=== PATIENT | female | born 1940 | race Caucasian/White ===

== ENCOUNTER → 2016-08-04 | Day surgery (SDC) | payer OTHER ==
[2016-07-27 08:55] VITALS: Ht 167.6 cm; Wt 54.1 kg
[~2016-08-04] VITALS: Ht 167.6 cm; Wt 54.1 kg
[~2016-08-04] MED LIST: 500ML BSS 0.3ML EPI 1:1000PF IRRIG ONE; ACETAMINOPHEN 325 MG TAB PO PRN; AMVISC PLUS 0.8ML SYRINGE INT OCU ONE; ASPCH81X PO; ATROPINE SULFATE 0.1 MG/ML 5ML SYR IV PRN; BSS FLUSH ONE; BUSP-8 PO; EpHEDrine SULFATE INJ 50 MG/ML AMP IV PRN; EpINEphrine INJ 1MG/ML AMP 1 MG/ML AMP ONE; FENTANYL CITRATE INJ 50 MCG/1 ML 2 ML VIAL IV PRN; FLUMAZENIL 0.1 MG/1 ML 10 ML VIAL IV PRN; HYDROmorphone INJ 2 MG/ML SYR/VIAL IV PRN; LABETALOL HCL IV 5 MG/ML 20ML IV PRN; LACTATED RINGER'S 1000ML 500 ML IV SCH; LIDOCAINE 3.5% OPH GEL PER APPLICATION CHARGE ONE; LIDOCAINE HCL 1% MPF 2 ML VIAL ONE; LISI-725 PO; LISI10TA PO; MEPERIDINE HCL 25 MG/ML CARP IV PRN; MIDAZOLAM HCL 1 MG/ML 2ML VIAL ONE; NALOXONE HCL 0.4 MG/1 ML VIAL/CARP IV PRN; OCUCOAT 1 ML SOLN IO ONE; ONDANSETRON INJ 2 MG/ML 2 ML VIAL IV PRN; PHENYLEPHRINE 100MCG/ML 5ML SYR IV PRN; POVIDONE-IODINE OP SOLN 30 ML BTL ONE; PRED1SUS OPR; PROPARACAINE 0.5% OP SOLN PER DROP CHARGE OPR SCH; TOBRAMYCIN/DEXAMETHASONE OPH OINT PER APPLN CHARGE ONE; VTMD PO
[2016-08-04] MEDS: PHENYLEPHRINE HCL 2.5% OP SOLN PER DROP CHARGE OPR SCH ×2 (07:39→07:44)
[2016-08-04] MEDS: TROPICAMIDE 1% OP SOLN PER DROP CHARGE OPR SCH ×2 (07:40→07:45)
[2016-08-04] MEDS: CYCLOPENTOLATE HCL 1% OP SOLN PER DROP CHARGE OPR SCH ×2 (07:41→07:46)
[2016-08-04] MEDS: KETOROLAC 0.5% OP SOLN PER DROP CHARGE OPR SCH ×2 (07:42→07:47)
[2016-08-04] MEDS: GATIFLOXACIN OP SOLN PER DROP CHARGE OPR SCH ×2 (07:43→07:53)
--- NOTE | 2016-08-04 08:20 | History & Physical Bridge - [place] ---
H&P Re-Evaluation Bridge Note: I have examined the patient, reviewed the History & Physical and in the interval since the performance of the History & Physical I have noted the following changes of clinical significance: Diagnosis: Right Cataract Procedure: Right Cataract Removal with Lens Implant No changes noted
[2016-08-04 08:40] VITALS: TEMP 36
--- NOTE | 2016-08-04 08:40 | Discharge Instructions-SurgCtr ---
Discharge Instructions Visit Reason for Visit: Cataract Right Eye Discharge Discharge Diagnosis / Problem: cataract Discharge Goals Goal(s): Improve function Activity Recommendations Activity Limitations: per Instructions/Follow-up section Anesthesia . Post Anesthesia Instructions: If you have had General Anesthesia or IV Sedation: * Do not drive today. * Resume driving when surgeon permits. * Do not make important decisions or sign legal documents today. * Call surgeon for: 1. Temperature elevations greater than 101 degrees F. 2. Uncontrollable pain. 3. Excessive bleeding. 4. Persistent nausea and vomiting. 5. Medication intolerance (nausea, vomiting or rash). * For nausea and vomiting use only clear liquids such as: tea, soda, bouillon until nausea subsides, then gradually increase diet as tolerated. * If you have any concerns or questions, call your surgeon's office. If physician is unavailable and it is an emergency, call 911 or go to the nearest emergency room. . Instructions / Follow-Up Instructions / Follow-Up ACTIVITY RECOMMENDATIONS: * No strenuous lifting, jogging or running for 4 days * No swimming or yard work for 1 week. * Limited bending is permitted, such as putting on shoes. RETURN TO SCHOOL/WORK: No work until seen by physician in office. MEDICATIONS: Resume previous medications unless instructed otherwise by your surgeon. This includes eye drops for glaucoma. Zymaxid/Gatifloxacin (bettencourt cap) - one drop every 2 hours until bedtime Nevanac/Ilevro/Prolensa/Ketorolac (kidd cap) - one drop every 4 hours until bedtime Prednisolone (white/pink cap, SHAKE WELL) - one drop every 2 hours until bedtime Starting tomorrow - all 3 drops every 4 hours until seen in the office Optive drops - as needed for discomfort SPECIAL CARE INSTRUCTIONS: * Wear eyeshield when sleeping, for four nights. * You may wear your own glasses or sunglasses while awake. * You may read or watch TV * You may shower and wash your face, but be gentle around the eye and pat dry. * Blurry vision and mild irritation are normal. * Call office if pain is more severe or vision becomes dark at . FOLLOW UP VISIT: Follow-up with Dr Ontiveros tomorrow. Diet Recommendations Home Diet: resume previous diet Procedures Procedures Performed: Right Cataract Phacoemulsification With Intraocular Lens Implant Pending Studies Studies pending at discharge: no Medical Emergencies . Who to Call and When: Medical Emergencies: If at any time you feel your situation is an emergency, please call 911 immediately. . Non-Emergent Contact Non-Emergency issues call your: [employer] Machine Operator . . "Provider Documentation" section prepared by Toribio Ontiveros.
--- NOTE | 2016-08-04 08:40 | [facility] Operative Report ---
Operative Report 1. PREOPERATIVE DIAGNOSIS: Cataract of the right eye. 2. POSTOPERATIVE DIAGNOSIS: Same. 3. PROCEDURE: Phacoemulsification with intraocular lens implantation of the right eye. SURGEON: Dr. Toribio Ontiveros. ANESTHESIA: Topical Lidocaine gel, 1% Non- Preserved intracameral Lidocaine, and monitored intravenous sedation. INDICATIONS FOR THE PROCEDURE: The patient is a 76 - year-old female with a history of cataract of the right eye causing significant visual impairment. The details of the proposed procedure were explained to the patient who asked appropriate questions and following discussion of all risks, benefits and alternatives agreed to have the procedure done. 4. OPERATION AND FINDINGS: DESCRIPTION OF PROCEDURE: After informed consent was obtained, the patient was brought to the Operating Room at the [facility]. The patient was placed in a supine position and then the right eye was prepped and draped in the usual sterile fashion for intraocular surgery. A drop of topical Lidocaine gel was placed in the operative eye. A wire lid speculum was then placed in the fornices. A corneal paracentesis was then created temporally. The Non-Preserved Lidocaine was then instilled into the anterior chamber. The anterior chamber was then pressurized with viscoelastic. A 2.0 mm clear corneal incision was then created temporally. A cystotome was inserted into the anterior chamber and used to create a tear in the anterior lens capsule. This capsular tear was then used to create a small flap and the flap was dragged in a counterclockwise direction in order to create a continuous curvilinear capsulorrhexis. Hydrodissection was accomplished with balanced salt solution. Phacoemulsification of the lens nucleus was then performed in a standard [id number] technique. The phaco time was 51 seconds with an average power of 22 %. The remaining cortical material was removed using irrigation aspiration. The capsular bag was then filled with viscoelastic. A Bausch & Lomb MI60L +24.0 diopters lens was then loaded into the injector and injected into the capsular bag. The remaining viscoelastic was removed with the irrigation aspiration handpiece. The wound was hydrated and then checked and found to be watertight. The intraocular pressure was checked and found to be adequate. The wire lid speculum was removed and the patient's face was cleaned and dried. TobraDex ointment was placed in the inferior fornix. The patient was discharged to the Recovery Room having tolerated the procedure well. There were no complications. The patient will be seen tomorrow in the office for follow-up. I attest to the content of the Intraoperative Record and any orders documented therein. Any exceptions are noted below.
--- NOTE | 2016-08-04 08:55 | Anesthesia Progress Nt - [facility] ---
Anesthesia Post Op Note Date & Time Aug 04, 2016 at 08:55 Vital Signs Pain Intensity: 0 Vital Signs Past 12 Hours Date Time Temp Pulse Resp B/P Pulse Ox O2 Delivery O2 Flow Rate FiO2 08/04/16 08:40 36.0 76 16 148/73 99 Room Air 08/04/16 07:23 36.4 110 16 172/80 98 Room Air Notes Mental Status: alert / awake / arousable, participated in evaluation Pt Amnestic to Procedure: Yes Nausea / Vomiting: adequately controlled Pain: adequately controlled Airway Patency, RR, SpO2: stable & adequate BP & HR: stable & adequate Hydration State: stable & adequate Anesthetic Complications: no major complications apparent
[2016-08-04 09:10] VITALS: BP 141/81; PULSE 99; O2SAT 95
== END | disposition home or self-care (01) ==
LOC: X.SURG 07:07
PROVIDERS: ATTEND Ophthalmology
DX: H26.9 Unspecified cataract (principal); F41.9 Anxiety disorder, unspecified; I10 Essential (primary) hypertension; M81.0 Age-related osteoporosis without current pathological fracture; E55.9 Vitamin D deficiency, unspecified

== ENCOUNTER → 2016-09-01 | Day surgery (SDC) | payer OTHER ==
[2016-08-28 08:57] VITALS: Ht 167.6 cm; Wt 54.1 kg
[~2016-09-01] VITALS: Ht 167.6 cm; Wt 54.1 kg
[~2016-09-01] MED LIST changes: -ATROPINE SULFATE 0.1 MG/ML 5ML SYR IV PRN; -EpHEDrine SULFATE INJ 50 MG/ML AMP IV PRN; -FENTANYL CITRATE INJ 50 MCG/1 ML 2 ML VIAL IV PRN; -FLUMAZENIL 0.1 MG/1 ML 10 ML VIAL IV PRN; -HYDROmorphone INJ 2 MG/ML SYR/VIAL IV PRN; -LABETALOL HCL IV 5 MG/ML 20ML IV PRN; -MEPERIDINE HCL 25 MG/ML CARP IV PRN; -MIDAZOLAM HCL 1 MG/ML 2ML VIAL ONE; -NALOXONE HCL 0.4 MG/1 ML VIAL/CARP IV PRN; -OCUCOAT 1 ML SOLN IO ONE; -ONDANSETRON INJ 2 MG/ML 2 ML VIAL IV PRN; -PHENYLEPHRINE 100MCG/ML 5ML SYR IV PRN; +PHENYLEPHRINE HCL 10% OP SOLN PER DROP CHARGE OPR SCH
[2016-09-01] MEDS: KETOROLAC 0.5% OP SOLN PER DROP CHARGE OPR SCH ×2 (07:26→07:31)
[2016-09-01] MEDS: GATIFLOXACIN OP SOLN PER DROP CHARGE OPR SCH ×2 (07:27→07:32)
--- NOTE | 2016-09-01 07:39 | History & Physical Bridge - [place] ---
H&P Re-Evaluation Bridge Note: I have examined the patient, reviewed the History & Physical and in the interval since the performance of the History & Physical I have noted the following changes of clinical significance: No changes noted
--- NOTE | 2016-09-01 08:01 | Discharge Instructions-SurgCtr ---
Discharge Instructions Date of Service Sep 01, 2016. Visit Reason for Visit: Right Eye Retained Lens Fragments Discharge Discharge Diagnosis / Problem: cataract Discharge Goals Goal(s): Improve function Activity Recommendations Activity Limitations: per Instructions/Follow-up section Anesthesia . Post Anesthesia Instructions: If you have had General Anesthesia or IV Sedation: * Do not drive today. * Resume driving when surgeon permits. * Do not make important decisions or sign legal documents today. * Call surgeon for: 1. Temperature elevations greater than 101 degrees F. 2. Uncontrollable pain. 3. Excessive bleeding. 4. Persistent nausea and vomiting. 5. Medication intolerance (nausea, vomiting or rash). * For nausea and vomiting use only clear liquids such as: tea, soda, bouillon until nausea subsides, then gradually increase diet as tolerated. * If you have any concerns or questions, call your surgeon's office. If physician is unavailable and it is an emergency, call 911 or go to the nearest emergency room. . Instructions / Follow-Up Instructions / Follow-Up ACTIVITY RECOMMENDATIONS: * No strenuous lifting, jogging or running for 4 days * No swimming or yard work for 1 week. * Limited bending is permitted, such as putting on shoes. RETURN TO SCHOOL/WORK: No work until seen by physician in office. MEDICATIONS: Resume previous medications unless instructed otherwise by your surgeon. This includes eye drops for glaucoma. Zymaxid/Gatifloxacin (bettencourt cap) - one drop every 2 hours until bedtime Nevanac/Ilevro/Prolensa/Ketorolac (kidd cap) - one drop every 4 hours until bedtime Prednisolone (white/pink cap, SHAKE WELL) - one drop every 2 hours until bedtime Starting tomorrow - all 3 drops every 4 hours until seen in the office Optive drops - as needed for discomfort SPECIAL CARE INSTRUCTIONS: * Wear eyeshield when sleeping, for four nights. * You may wear your own glasses or sunglasses while awake. * You may read or watch TV * You may shower and wash your face, but be gentle around the eye and pat dry. * Blurry vision and mild irritation are normal. * Call office if pain is more severe or vision becomes dark at . FOLLOW UP VISIT: Follow-up with Dr Ontiveros tomorrow. Diet Recommendations Home Diet: resume previous diet Procedures Procedures Performed: Right Eye Retained Lens Fragment Removal Pending Studies Studies pending at discharge: no Medical Emergencies . Who to Call and When: Medical Emergencies: If at any time you feel your situation is an emergency, please call 911 immediately. . Non-Emergent Contact Non-Emergency issues call your: Director Business Development . . "Provider Documentation" section prepared by Toribio Ontiveros.
--- NOTE | 2016-09-01 08:04 | [facility] Operative Report ---
Operative Report Date of Service Sep 01, 2016. Operative Report 1. PREOPERATIVE DIAGNOSIS: Retained lens fragment of the right eye. 2. POSTOPERATIVE DIAGNOSIS: Same. 3. PROCEDURE: Removal of retained lens fragment of the right eye. SURGEON: Dr. Toribio Ontiveros. ANESTHESIA: Topical Lidocaine gel, 1% Non- Preserved intracameral Lidocaine INDICATIONS FOR THE PROCEDURE: The patient is a 76 - year-old female with a history of retained lens fragment of the right eye causing significant visual impairment. The details of the proposed procedure were explained to the patient who asked appropriate questions and following discussion of all risks, benefits and alternatives agreed to have the procedure done. 4. OPERATION AND FINDINGS: DESCRIPTION OF PROCEDURE: After informed consent was obtained, the patient was brought to the Operating Room at the [facility]. The patient was placed in a supine position and then the right eye was prepped and draped in the usual sterile fashion for intraocular surgery. A drop of topical Lidocaine gel was placed in the operative eye. A wire lid speculum was then placed in the fornices. The previously made clear corneal wound was opened with a erin spatula. The Non-Preserved Lidocaine was then instilled into the anterior chamber. The anterior chamber was then pressurized with viscoelastic. The lens fragment was removed with the irrigation aspiration hand piece. The remaining viscoelastic was removed with the irrigation aspiration handpiece. The wound was hydrated and then checked and found to be watertight. The intraocular pressure was checked and found to be adequate. The wire lid speculum was removed and the patient's face was cleaned and dried. TobraDex ointment was placed in the inferior fornix. The patient was discharged to the Recovery Room having tolerated the procedure well. There were no complications. The patient will be seen tomorrow in the office for follow-up. I attest to the content of the Intraoperative Record and any orders documented therein. Any exceptions are noted below.
[2016-09-01 08:08] VITALS: TEMP 36.6
[2016-09-01 08:23] VITALS: O2SAT 95
[2016-09-01 08:25] VITALS: BP 160/87; PULSE 103
== END | disposition home or self-care (01) ==
LOC: X.SURG 07:06
PROVIDERS: ATTEND Ophthalmology
DX: H59.021 Cataract (lens) fragments in eye following cataract surgery, right eye (principal); I10 Essential (primary) hypertension; Z98.41 Cataract extraction status, right eye; Z68.1 Body mass index [BMI] 19.9 or less, adult; Z90.89 Acquired absence of other organs; Z87.891 Personal history of nicotine dependence; Z82.0 Family history of epilepsy and other diseases of the nervous system; Z82.3 Family history of stroke; Z82.49 Family history of ischemic heart disease and other diseases of the circulatory system

== ENCOUNTER → 2016-10-22 | Day surgery (SDC) | payer OTHER ==
[2016-09-29 13:51] VITALS: Ht 167.6 cm; Wt 54.1 kg
[~2016-10-22] VITALS: Ht 167.6 cm; Wt 54.1 kg
[~2016-10-22] MED LIST changes: +ATROPINE SULFATE 0.1 MG/ML 5ML SYR IV PRN; +EpHEDrine SULFATE INJ 50 MG/ML AMP IV PRN; +FENTANYL CITRATE INJ 50 MCG/1 ML 2 ML VIAL IV PRN; +FLUMAZENIL 0.1 MG/1 ML 10 ML VIAL IV PRN; +HYDROmorphone INJ 2 MG/ML SYR/VIAL IV PRN; +LABETALOL HCL IV 5 MG/ML 20ML IV PRN; +MEPERIDINE HCL 25 MG/ML CARP IV PRN; +MIDAZOLAM HCL 1 MG/ML 2ML VIAL ONE; +NALOXONE HCL 0.4 MG/1 ML VIAL/CARP IV PRN; +OCUCOAT 1 ML SOLN IO ONE; +ONDANSETRON INJ 2 MG/ML 2 ML VIAL IV PRN; +PHENYLEPHRINE 100MCG/ML 5ML SYR IV PRN; -PHENYLEPHRINE HCL 10% OP SOLN PER DROP CHARGE OPR SCH; +PROPARACAINE 0.5% OP SOLN PER DROP CHARGE OPL SCH; -PROPARACAINE 0.5% OP SOLN PER DROP CHARGE OPR SCH
[2016-10-22] MEDS: PHENYLEPHRINE HCL 2.5% OP SOLN PER DROP CHARGE OPL SCH ×2 (09:47→09:51)
[2016-10-22] MEDS: KETOROLAC 0.5% OP SOLN PER DROP CHARGE OPL SCH ×2 (09:48→09:52)
[2016-10-22] MEDS: CYCLOPENTOLATE HCL 1% OP SOLN PER DROP CHARGE OPL SCH ×2 (09:48→09:52)
[2016-10-22] MEDS: TROPICAMIDE 1% OP SOLN PER DROP CHARGE OPL SCH ×2 (09:48→09:52)
[2016-10-22] MEDS: GATIFLOXACIN OP SOLN PER DROP CHARGE OPL SCH ×2 (09:49→09:54)
--- NOTE | 2016-10-22 10:08 | History & Physical Bridge - [place] ---
H&P Re-Evaluation Bridge Note: I have examined the patient, reviewed the History & Physical and in the interval since the performance of the History & Physical I have noted the following changes of clinical significance: Diagnosis: Left Cataract Procedure: Left Cataract Removal with Lens Implant No changes noted
--- NOTE | 2016-10-22 10:50 | [facility] Operative Report ---
Operative Report Date of Service October 22, 2016. Operative Report 1. PREOPERATIVE DIAGNOSIS: Cataract of the left eye. 2. POSTOPERATIVE DIAGNOSIS: Same. 3. PROCEDURE: Phacoemulsification with intraocular lens implantation of the left eye. SURGEON: Dr. Toribio Ontiveros. ANESTHESIA: Topical Lidocaine gel, 1% Non- Preserved intracameral Lidocaine, and monitored intravenous sedation. INDICATIONS FOR THE PROCEDURE: The patient is a 76 - year-old female with a history of cataract of the left eye causing significant visual impairment. The details of the proposed procedure were explained to the patient who asked appropriate questions and following discussion of all risks, benefits and alternatives agreed to have the procedure done. 4. OPERATION AND FINDINGS: DESCRIPTION OF PROCEDURE: After informed consent was obtained, the patient was brought to the Operating Room at the [facility]. The patient was placed in a supine position and then the left eye was prepped and draped in the usual sterile fashion for intraocular surgery. A drop of topical Lidocaine gel was placed in the operative eye. A wire lid speculum was then placed in the fornices. A corneal paracentesis was then created temporally. The Non-Preserved Lidocaine was then instilled into the anterior chamber. The anterior chamber was then pressurized with viscoelastic. A 2.0 mm clear corneal incision was then created temporally. A cystotome was inserted into the anterior chamber and used to create a tear in the anterior lens capsule. This capsular tear was then used to create a small flap and the flap was dragged in a counterclockwise direction in order to create a continuous curvilinear capsulorrhexis. Hydrodissection was accomplished with balanced salt solution. Phacoemulsification of the lens nucleus was then performed in a standard [id number] technique. The phaco time was 44 seconds with an average power of 20 %. The remaining cortical material was removed using irrigation aspiration. The capsular bag was then filled with viscoelastic. A Bausch & Lomb MI60L +23.5 diopters lens was then loaded into the injector and injected into the capsular bag. The remaining viscoelastic was removed with the irrigation aspiration handpiece. The wound was hydrated and then checked and found to be watertight. The intraocular pressure was checked and found to be adequate. The wire lid speculum was removed and the patient's face was cleaned and dried. TobraDex ointment was placed in the inferior fornix. The patient was discharged to the Recovery Room having tolerated the procedure well. There were no complications. The patient will be seen tomorrow in the office for follow-up. I attest to the content of the Intraoperative Record and any orders documented therein. Any exceptions are noted below.
--- NOTE | 2016-10-22 10:50 | Discharge Instructions-SurgCtr ---
Discharge Instructions Date of Service October 22, 2016. Visit Reason for Visit: Cataract Left Eye Discharge Discharge Diagnosis / Problem: cataract Discharge Goals Goal(s): Improve function Activity Recommendations Activity Limitations: per Instructions/Follow-up section Anesthesia . Post Anesthesia Instructions: If you have had General Anesthesia or IV Sedation: * Do not drive today. * Resume driving when surgeon permits. * Do not make important decisions or sign legal documents today. * Call surgeon for: 1. Temperature elevations greater than 101 degrees F. 2. Uncontrollable pain. 3. Excessive bleeding. 4. Persistent nausea and vomiting. 5. Medication intolerance (nausea, vomiting or rash). * For nausea and vomiting use only clear liquids such as: tea, soda, bouillon until nausea subsides, then gradually increase diet as tolerated. * If you have any concerns or questions, call your surgeon's office. If physician is unavailable and it is an emergency, call 911 or go to the nearest emergency room. . Instructions / Follow-Up Instructions / Follow-Up ACTIVITY RECOMMENDATIONS: * No strenuous lifting, jogging or running for 4 days * No swimming or yard work for 1 week. * Limited bending is permitted, such as putting on shoes. RETURN TO SCHOOL/WORK: No work until seen by physician in office. MEDICATIONS: Resume previous medications unless instructed otherwise by your surgeon. This includes eye drops for glaucoma. Zymaxid/Gatifloxacin (bettencourt cap) - one drop every 2 hours until bedtime Nevanac/Ilevro/Prolensa/Ketorolac (kidd cap) - one drop every 4 hours until bedtime Prednisolone (white/pink cap, SHAKE WELL) - one drop every 2 hours until bedtime Starting tomorrow - all 3 drops every 4 hours until seen in the office Optive drops - as needed for discomfort SPECIAL CARE INSTRUCTIONS: * Wear eyeshield when sleeping, for four nights. * You may wear your own glasses or sunglasses while awake. * You may read or watch TV * You may shower and wash your face, but be gentle around the eye and pat dry. * Blurry vision and mild irritation are normal. * Call office if pain is more severe or vision becomes dark at . FOLLOW UP VISIT: Follow-up with Dr Ontiveros tomorrow. Diet Recommendations Home Diet: resume previous diet Procedures Procedures Performed: Left Cataract Phacoemulsification With Intraocular Lens Implant Pending Studies Studies pending at discharge: no Medical Emergencies . Who to Call and When: Medical Emergencies: If at any time you feel your situation is an emergency, please call 911 immediately. . Non-Emergent Contact Non-Emergency issues call your: Dairy Feed Mixing Operator . . "Provider Documentation" section prepared by Toribio Ontiveros. .
[2016-10-22 11:09] VITALS: TEMP 36.3
[2016-10-22 11:15] VITALS: BP 159/82; PULSE 95; O2SAT 95
--- NOTE | 2016-10-22 11:15 | Anesthesia Progress Nt - [facility] ---
Anesthesia Post Op Note Date & Time October 22, 2016 at 11:16 Vital Signs Pain Intensity: 0 Vital Signs Past 12 Hours Date Time Temp Pulse Resp B/P Pulse Ox O2 Delivery O2 Flow Rate FiO2 10/22/16 11:09 36.3 90 20 157/82 98 Room Air 10/22/16 09:38 36.5 98 16 175/83 97 Room Air Notes Mental Status: alert / awake / arousable, participated in evaluation Pt Amnestic to Procedure: Yes Nausea / Vomiting: adequately controlled Pain: adequately controlled Airway Patency, RR, SpO2: stable & adequate BP & HR: stable & adequate Hydration State: stable & adequate Anesthetic Complications: no major complications apparent
== END | disposition home or self-care (01) ==
LOC: X.SURG 09:30
PROVIDERS: ATTEND Ophthalmology
DX: H25.9 Unspecified age-related cataract (principal); I10 Essential (primary) hypertension; F41.9 Anxiety disorder, unspecified; E55.9 Vitamin D deficiency, unspecified; M81.0 Age-related osteoporosis without current pathological fracture; Z79.82 Long term (current) use of aspirin; Z79.899 Other long term (current) drug therapy

== ENCOUNTER 2019-12-31 10:30 | Inpatient (IN) ==
[2019-12-31] MEDS ORDERED: ALBUT/IPRATROP 3MG/0.5MG NEB 3 ML VIAL NEB ONE (10:48)
[2019-12-31] MEDS ORDERED: methylPREDNISolone 125 MG/2 ML VIAL IV STA (10:48)
[2019-12-31] MEDS ORDERED: SODIUM CHLORIDE 0.9% 500 ML IV SCH (11:15)
[2019-12-31 11:16] LABS: iSTAT Creatinine 1.1 mg/dl (0.6-1.3); iSTAT Hemoglobin 15.3 g/dl (12.0-16.0); iSTAT Ionized Calcium 1.11 mmol/l (1.12-1.32); iSTAT Potassium 5.1 mmol/L (3.3-5.0)
[2019-12-31] MEDS ORDERED: CEFEPIME 2,000 MG in SYRINGE 7.5 ML IV STA (11:18)
[2019-12-31 11:22] LABS: Hematocrit (blood only) 43.3 % (37-47); Mean Corpuscular Hgb Conc 34.6 g/dL (32-36); Mean Corpuscular Volume 95.4 fL (80-100); Mean Platelet Volume 9.2 fL (7.4-10.4); Platelet Count 434 K/uL (130-400); RDW Coefficient of Variation 12.4 % (11.5-14.5); RDW Standard Deviation 43.1 fL (36.4-46.3); Red Blood Count 4.54 M/uL (4.2-5.4); White Blood Count 22.91 K/uL (4.8-10.8)
--- NOTE | 2019-12-31 11:24 | XRay Report ---
XR chest 1V portable HISTORY: Shortness of breath. Dyspnea COMPARISON: None. FINDINGS: Large right pneumothorax with hyperexpansion of the right lung and left mediastinal shift. This is consistent with a tension pneumothorax. The heart is normal in size. Mild interstitial thicke cate within the left lung without focal consolidation to suggest pneumonia. This may be chronic. Old, healed right-sided rib fractures. IMPRESSION: Large right pneumothorax likely representing a tension pneumothorax. This was reported to Dr. Jovani meade at 11:22 AM on 12/31/2019. ACT 112: Negative or not required by law. Electronically signed by: Jesus Hawkins M.D. 12/31/2019 11:23 AM
[2019-12-31 11:29] LABS: iSTAT Venous Carbon Dioxide 28 mmol/L (24-31)
[2019-12-31] MEDS ORDERED: VANCOMYCIN HCL 1,000 MG in SODIUM CHLORIDE 0.9% 250 ML IV ONE (11:30)
[2019-12-31 11:38] LABS: Albumin Level 3.9 gm/dl (3.4-5.0); BUN Creatinine Ratio 13.3 (10-20); Calcium 10.1 mg/dl (8.5-10.1); Creatinine Clr Calc Pharmacy 24.8 ml/min; Est GFR (African American) 47.6; Est GFR (Non-African American) 41.1; Magnesium 2.2 mg/dl (1.8-2.4); Potassium 4.6 mmol/L (3.5-5.1)
[2019-12-31 11:43] LABS: HCO3 VBG 24 mmol/L; PCO2 VBG 68 mmHg (38-50); PO2 VBG 32 mmHg; pH VBG 7.17 (7.36-7.41)
[2019-12-31 11:44] LABS: Oxygen Saturation VBG < 60.0 %
[2019-12-31] MEDS ORDERED: SODIUM CHLORIDE 0.9% 1000ML 1,000 ML IV ONE (11:45)
[2019-12-31 11:48] LABS: Albumin Globulin Ratio 0.9 (0.9-2); Bilirubin,Total 0.6 mg/dl (0.2-1); Globulin 4.3 gm/dl (2.5-4.0); Total Protein 8.2 gm/dl (6.4-8.2); Troponin I 9.82 ng/ml (0-0.045)
--- NOTE | 2019-12-31 11:50 | XRay Report ---
XR chest 1V portable HISTORY: Right-sided pneumothorax. post chest tube COMPARISON: Chest 12/31/2019. FINDINGS: Interval placement of a right chest tube is terminates in the upper hemithorax. Significant decrease in size in the right pneumothorax. This demonstrates a maximal pleural gap of 1.4 cm. There is a small basilar component remaining. The heart remains mildly enlarged. The midline shift has res olved. Mild diffuse interstitial thickening which could be chronic. IMPRESSION: Decrease in size in the small right pneumothorax status post right chest tube placement. The mediasti nal shift has resolved. ACT 112: Negative or not required by law. Electronically signed by: Jesus Hawkins M.D. 12/31/2019 11:49 AM
[2019-12-31 11:55] LABS: Basophils # (auto) 0.01 K/uL (0-0.2); Echinocytes 1+; Eosinophils # (auto) 0.01 K/uL (0-0.5); Immature Granulocytes # (auto) 0.09 K/uL (0.00-0.02); Immature Granulocytes % (auto) 0.4 %; Lymphocytes # (auto) 1.17 K/uL (1.2-3.4); Lymphocytes % (auto) 5.1 %; Monocytes # (auto) 1.11 K/uL (0.11-0.59); Monocytes % (auto) 4.8 %; Neutrophils # (auto) 20.52 K/uL (1.4-6.5); Neutrophils % (auto) 89.7 %
[2019-12-31] MEDS ORDERED: NiCARDipine HCL INJ 2.5 MG/ML 10 ML AMP ONE (12:17)
[2019-12-31] MEDS ORDERED: HEPARIN (PORCINE) 1000 UNIT/ML 10 ML (CATH LAB USE ONLY) ONE (12:17)
[2019-12-31] MEDS ORDERED: MIDAZOLAM HCL 1 MG/ML 2ML VIAL ONE (12:18)
[2019-12-31] MEDS ORDERED: fentaNYL citrate 100 MCG/2 ML VIAL ONE (12:18)
[2019-12-31] MEDS ORDERED: NITROGLYCERIN/D5W 100MCG/ML 20ML SYR ONE (12:18)
[2019-12-31] MEDS ORDERED: IOVERSOL 100ml IV PRN (12:38)
--- NOTE | 2019-12-31 13:32 | Cardiology Consultation ---
Date of Consultation December 31, 2019 Assessment & Plan (1) Acute pneumothorax: (2) Lateral ST segment elevation: (3) Troponin level elevated: (4) URIEL (acute kidney injury): (5) COPD (chronic obstructive pulmonary disease): (6) Acute respiratory distress: (7) Apical ballooning syndrome: (8) Status post fall: (9) Pulmonary hypertension: (10) Ambulatory dysfunction: Very complex medical presentation with acute tension pneumothorax along with possible lateral ST segment elevation myocardial infarction. Her symptoms have resolved with chest tube placement and reexpansion of her right lung. She denies experiencing any chest pain other than chest tube insertion and states that her breathing is significantly improving. The pathophysiology and treatment options for an acute ST segment elevation myocardial infarction were discussed with both the patient and her daughter in great lengths by myself as well as Dr. Camacho. After looking at her clinical presentation as a whole I believe the most likely explanation would be that she suffered a slowly decompressing pneumothorax after her fall last week. This then led to significant catecholamine surge as well as myocardial strain. Given the pattern of apical ballooning on her echocardiogram along with her ST segment elevations, troponin increase and lack of chest discomfort I do not believe that she is suffering an acute ST segment myocardial infarction. 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 Given her lack of chest discomfort I do not believe emergent cardiac catheteri zation would be appropriate especially in light of her multiple active comorbidities. The pathophysiology of catecholamine induced cardiomyopathy a.k.a. "broken heart syndrome" was discussed with the patient and her daughter at great lengths. They were counseled that the presentation of an ST segment elevation [place] is very similar to that of catecholamine induced cardiomyopathy in the acute setting. The risks and benefits of cardiac catheterization versus conservative treatment at this time were discussed with them as well. The patient very clearly states that she would prefer to not undergo cardiac catheterization and her daughter is in agreement with her wishes. They both state that they understand the above explanation. They also state that they understand that there is a risk that she may be suffering from a myocardial infarction which may result in permanent myocardial impairment. They were in agreement with conservative cardiac care at this time and states that they are accepting of the risks. In terms of medical treatment I believe the risk of heparinization outweighs the benefits given the concern for possible evolution to a hemorrhagic pneumothorax. She should be continued on her outpatient aspirin. Again Plavix will not be given because of the concern for bleeding. Ideally I would like to start her on oral beta-venkat but I would like to see how she progresses hemodynamically at this time. My concern right now for beta-blockade would be suppression of her compensatory tachycardic response that may lead to further clinical decline. She will be admitted to the intensive care unit and I will follow very closely during her hospital stay. Total critical care time spent at the bedside with the patient, review of echocardiogram at the bedside and discussion with medical team of 90 minutes. History of Present Illness Reason for Consultation: Lateral ST segment elevation on EKG Requesting Physician: Dr. Valiente Attending Physician: Dr. Spann History of Present Illness Ms. 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 She was brought into the emergency room this morning by her daughter with complaints of increasing shortness of breath and weakness. History obtained from the patient and her daughter at the bedside in the emergency department. They state that her symptoms started approximately 1 week ago after a fall. She was seen by her primary care physician at that time and the patient reported that she tripped. Initial work-up unremarkable. The patient and her daughter state that since that time she has been having progressive shortness of breath. This morning she was very weak and fatigued and complained of worsening shortness of breath. As per her daughter, she was very tachypneic and somewhat ashen in appearance. Her daughter brought her in the emergency room and on the car ride here her shortness of breath significantly worsened and the patient became very lightheaded and somewhat unresponsive. Upon arrival to the emergency department she was found to have a large right-sided tension pneumothorax. She received appropriate treatment in the emergency department with reexpansion of her lung and chest tube insertion. Patient was reportedly very unresponsive upon arrival however, after expansion of the lung she significantly improved. A 12-lead EKG was performed which was found to have lateral ST segment elevations new compared to her previous study from last week. Blood work revealed a troponin of 9 along with a significant white count, elevated lactate level, hyponatremia, acute renal impairment and transaminitis. Clinically the patient states that she is feeling much better after chest tube insertion. Her only complaint is that of pain at the insertion site. She states that her breathing has improved otherwise she feels well. Her daughter also reports that she looks much better than presentation. The patient denies experiencing any left-sided chest pain, neck pain, shoulder pain, arm pain or jaw discomfort. She also denies experiencing any chest pain in the last several weeks either. Allergies Allergy/AdvReac Type Severity Reaction Status Date / Time No Known Drug Allergies Allergy Unknown . Verified 10/22/16 09:37 Home Medications Home Medications Medication Instructions Recorded Confirmed Type aspirin [Aspirin Low Dose] 81 mg PO DAILY 12/31/19 12/31/19 History buspirone 10 mg PO BID 12/31/19 12/31/19 History cephalexin 250 mg PO TID 12/31/19 12/31/19 History cholecalciferol (vitamin D3) 50 mcg PO DAILY 12/31/19 12/31/19 History [Vitamin D3] fluticasone furoate-vilanterol 1 ea INHALATION DAILY 12/31/19 12/31/19 History [Breo Ellipta] lisinopril 10 mg PO DAILY 12/31/19 12/31/19 History thiamine HCl (vitamin B1) 100 mg PO DAILY 12/31/19 12/31/19 History Patient History Medical History (Updated 01/01/20 @ 18:17 by Lizandro Lraios MD) Acute hypoxemic respiratory failure Pulmonary emphysema S/P admission to ICU (intensive care unit) Shock circulatory Tension pneumothorax Surgical History (Updated 12/31/19 @ 16:36 by Yolie Sherwood PA-C) S/P tonsillectomy Social History Smoking Status: Former smoker Hx Alcohol Use: Yes Alcohol type: wine Hx Substance Use: No Communication Ability: Effective Beliefs That Will Affect Care: None Current Living Situation: Alone Current Living Situation Comment: Live next door to daughter Feels Safe at Home: Yes Review of Systems Review of Systems: All systems reviewed & are unremarkable except as noted in HPI & below Physical Exam Physical Exam: Physical Exam: General: Awake, alert and oriented x 3. No acute distress. Receiving a nebulizer treatment. Cachectic and malnourished in appearance HEENT: Normocephalic, atraumatic. Pupils equal, round and reactive to light and accommodation. Extraocular muscles are intact. Anicteric sclera. Moist mucous membranes. Neck: No JVD. No bruit. Cardiovascular: Regular but fast. No S-4. Normal S-1 and S-2. No S-3. No murmurs, rubs or gallops. Pulmonary: Clear to auscultation bilaterally with scattered rhonchi but no rales or wheezing. Abdomen: Bowel sounds x 4, soft. No rebound, guarding or tenderness. No organomegaly. Extremities: No clubbing, cyanosis or edema. +2 pedal pulses bilaterally. Skin: Warm and dry. Results & Data ([facility]) Vital Signs (Past 12 Hours) Vital Signs Temp Pulse Pulse Resp BP Pulse Ox 12/31/19 12:51 128 H 22 100 12/31/19 12:50 126 H 23 106/74 100 12/31/19 12:40 126 H 25 H 101/63 100 12/31/19 12:30 127 H 27 H 92/64 L 100 12/31/19 12:21 122 H 20 100 12/31/19 12:20 124 H 23 111/73 100 12/31/19 12:10 117 H 23 108/70 100 12/31/19 12:00 114 H 26 H 102/79 100 12/31/19 11:51 113 H 24 100 12/31/19 11:50 114 H 26 H 113/72 100 12/31/19 11:40 113 H 28 H 107/81 100 12/31/19 11:30 114 H 22 112/95 100 12/31/19 11:23 118 H 23 100 12/31/19 11:21 122 H 24 122/76 100 12/31/19 11:10 113 H 26 H 109/96 100 12/31/19 11:07 112 H 25 H 99/86 L 12/31/19 11:00 111 H 24 91/65 L 97 12/31/19 10:56 32 H 114/68 98 12/31/19 10:50 40 H 84 L 12/31/19 10:45 121 H 31 H 84 L 12/31/19 10:42 122 H 39 H 112/71 83 L 12/31/19 10:33 36.8 C 118 H 44 H 105/60 81 L Laboratory Results Laboratory Results - last 24 hr 12/31/19 12/31/19 12/31/19 10:41 10:41 10:41 WBC 22.91 H RBC 4.54 Hgb 15.0 POC Hgb Hct 43.3 POC Hct MCV 95.4 MCH 33.0 MCHC 34.6 RDW Std Deviation 43.1 RDW Coeff of Elizabeth 12.4 Plt Count 434 H MPV 9.2 Immature Gran % (Auto) 0.4 Neut % (Auto) 89.7 Lymph % (Auto) 5.1 Forrest % (Auto) 4.8 Eos % (Auto) 0.0 Baso % (Auto) 0.0 Neut # (Auto) 20.52 H Lymph # (Auto) 1.17 L Forrest # (Auto) 1.11 H Eos # (Auto) 0.01 Baso # (Auto) 0.01 Immature Gran # (Auto) 0.09 H Echinocytes 1+ PT 11.0 INR 1.0 APTT 27.0 PTT Ratio 1.0 VBG pH POC VBG pH VBG pCO2 POC VBG pCO2 VBG pO2 POC VBG pO2 VBG HCO3 POC VBG HCO3 POC VBG Total CO2 VBG O2 Saturation POC Venous O2 Sat VBG Base Excess POC VBG Base Excess Barometric Pressure POC Sodium Sodium 129 L POC Potassium Potassium 4.6 POC Chloride Chloride 95 L Carbon Dioxide 24 POC Total CO2 Anion Gap 11.0 POC Anion Gap POC BUN BUN 17 Creatinine 1.26 H POC Creatinine Est Cr Clr Drug Dosing 24.8 Est GFR ( Amer) 47.6 Est GFR (Non-Af Amer) 41.1 BUN/Creatinine Ratio 13.3 Glucose 135 H POC Glucose (other) POC Lactic Acid Mickey Lactate Calcium 10.1 POC Ioniz Calcium Shaquille Magnesium 2.2 Total Bilirubin 0.6 AST 210 H ALT 145 H Alkaline Phosphatase 109 Troponin I 9.820 H* NT-Pro-B Natriuret Pep 2443 H Total Protein 8.2 Albumin 3.9 Globulin 4.3 H Albumin/Globulin Ratio 0.9 COVID-19 PCR 12/31/19 12/31/19 12/31/19 10:58 11:01 11:03 WBC RBC Hgb POC Hgb 15.3 Hct POC Hct 45 MCV MCH MCHC RDW Std Deviation RDW Coeff of Elizabeth Plt Count MPV Immature Gran % (Auto) Neut % (Auto) Lymph % (Auto) Forrest % (Auto) Eos % (Auto) Baso % (Auto) Neut # (Auto) Lymph # (Auto) Forrest # (Auto) Eos # (Auto) Baso # (Auto) Immature Gran # (Auto) Echinocytes PT INR APTT PTT Ratio VBG pH POC VBG pH VBG pCO2 POC VBG pCO2 VBG pO2 POC VBG pO2 VBG HCO3 POC VBG HCO3 POC VBG Total CO2 VBG O2 Saturation POC Venous O2 Sat VBG Base Excess POC VBG Base Excess Barometric Pressure POC Sodium 128 L Sodium POC Potassium 5.1 H Potassium POC Chloride 97 L Chloride Carbon Dioxide POC Total CO2 21 L Anion Gap POC Anion Gap 16.0 POC BUN 20 H BUN Creatinine POC Creatinine 1.1 Est Cr Clr Drug Dosing Est GFR ( Amer) Est GFR (Non-Af Amer) BUN/Creatinine Ratio Glucose POC Glucose (other) 146 H POC Lactic Acid Mickey 4.26 H 3.53 H Lactate Calcium POC Ioniz Calcium Shaquille 1.11 L Magnesium Total Bilirubin AST ALT Alkaline Phosphatase Troponin I NT-Pro-B Natriuret Pep Total Protein Albumin Globulin Albumin/Globulin Ratio COVID-19 PCR 12/31/19 12/31/19 12/31/19 11:14 11:26 11:59 WBC RBC Hgb POC Hgb Hct POC Hct MCV MCH MCHC RDW Std Deviation RDW Coeff of Elizabeth Plt Count MPV Immature Gran % (Auto) Neut % (Auto) Lymph % (Auto) Forrest % (Auto) Eos % (Auto) Baso % (Auto) Neut # (Auto) Lymph # (Auto) Forrest # (Auto) Eos # (Auto) Baso # (Auto) Immature Gran # (Auto) Echinocytes PT INR APTT PTT Ratio VBG pH 7.17 L POC VBG pH 7.19 L* VBG pCO2 68 H POC VBG pCO2 68 H VBG pO2 32 POC VBG pO2 49 VBG HCO3 24 POC VBG HCO3 26 POC VBG Total CO2 28 VBG O2 Saturation < 60.0 POC Venous O2 Sat 73.0 VBG Base Excess -6.0 POC VBG Base Excess -2.0 Barometric Pressure 730.8 POC Sodium Sodium POC Potassium Potassium POC Chloride Chloride Carbon Dioxide POC Total CO2 Anion Gap POC Anion Gap POC BUN BUN Creatinine POC Creatinine Est Cr Clr Drug Dosing Est GFR ( Amer) Est GFR (Non-Af Amer) BUN/Creatinine Ratio Glucose POC Glucose (other) POC Lactic Acid Mickey Lactate Cancelled Calcium POC Ioniz Calcium Shaquille Magnesium Total Bilirubin AST ALT Alkaline Phosphatase Troponin I NT-Pro-B Natriuret Pep Total Protein Albumin Globulin Albumin/Globulin Ratio COVID-19 PCR 12/31/19 12/31/19 12:44 13:00 WBC RBC Hgb POC Hgb Hct POC Hct MCV MCH MCHC RDW Std Deviation RDW Coeff of Elizabeth Plt Count MPV Immature Gran % (Auto) Neut % (Auto) Lymph % (Auto) Forrest % (Auto) Eos % (Auto) Baso % (Auto) Neut # (Auto) Lymph # (Auto) Forrest # (Auto) Eos # (Auto) Baso # (Auto) Immature Gran # (Auto) Echinocytes PT INR APTT PTT Ratio VBG pH POC VBG pH VBG pCO2 POC VBG pCO2 VBG pO2 POC VBG pO2 VBG HCO3 POC VBG HCO3 POC VBG Total CO2 VBG O2 Saturation POC Venous O2 Sat VBG Base Excess POC VBG Base Excess Barometric Pressure POC Sodium Sodium POC Potassium Potassium POC Chloride Chloride Carbon Dioxide POC Total CO2 Anion Gap POC Anion Gap POC BUN BUN Creatinine POC Creatinine Est Cr Clr Drug Dosing Est GFR ( Amer) Est GFR (Non-Af Amer) BUN/Creatinine Ratio Glucose POC Glucose (other) POC Lactic Acid Mickey Lactate 3.1 H* Calcium POC Ioniz Calcium Shaquille Magnesium Total Bilirubin AST ALT Alkaline Phosphatase Troponin I NT-Pro-B Natriuret Pep Total Protein Albumin Globulin Albumin/Globulin Ratio COVID-19 PCR Pending
--- NOTE | 2019-12-31 13:52 | CT Scan Report ---
HEAD CT NONCONTRAST CT DOSE: HISTORY: Altered mental status. TECHNIQUE: Multiaxial CT images of the head were performed without the use of intravenous contrast. A utomated exposure control was utilized for this study. A dose lowering technique was utilized adheri ng to the principles of ALARA. Comparison: None. Findings: The paranasal sinuses and mastoid air cells are clear. The calvarium and skull base are int act. There is no mass, hematoma, midline shift, acute infarct. White matter hypodensity is nonspecifi c but suggestive of microvascular ischemic change. The ventricles and sulci demonstrate mild age-rela barney involutional changes. 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 Mild motion artifact. Impression: No acute intracranial abnormality. Atrophy and microvascular ischemic changes. ACT 112: Negative or not required by law. Electronically signed by: Jesus Hawkins M.D. 12/31/2019 1:51 PM
--- NOTE | 2019-12-31 13:56 | CT Scan Report ---
CERVICAL SPINE CT CT DOSE: 1110.91 mGy.cm HISTORY: Neck pain. FALL TECHNIQUE: Multiaxial CT images of the cervical spine were performed and reformatted in the sagittal and coronal plane without the use of contrast. A dose lowering technique was utilized adhering to th e principles of ALARA. COMPARISON: None. FINDINGS: No fractures. No subluxation. Prevertebral soft tissues and the C1-C2 interval are intact. Right apical pneumothorax is again noted. Advanced degenerative changes throughout the cervical spine . IMPRESSION: No fractures within the cervical spine. Right apical pneumothorax is again noted. ACT 112: Negative or not required by law. Electronically signed by: Jesus Hawkins M.D. 12/31/2019 1:55 PM
--- NOTE | 2019-12-31 13:59 | Emergency Department Note ---
Impression & Plan Tension pneumothorax, Hypoxia, Sepsis, Acute ST elevation myocardial infarction (STEMI), Acidosis, lactic, Takotsubo syndrome, Elevated troponin, Leukocytosis, Unresponsive ED Provider Note INFORMANT: Patient's daughter ED PROVIDER(S): Raghu Valiente MD CHIEF COMPLAINT: Shortness of breath PLAN: Disposition: Admitted Condition: Critical MEDICAL DECISION MAKING: Patient presented to the emergency department because of shortness of breath. She became unresponsive and was taken emergently to room B1. I was summoned by the nurse and went directly to the room to find the patient tachypneic, tachycardic, and altered. She was hypoxic. Nonrebreather was placed. X-ray, respiratory, and additional nursing staff summoned. She had diminished breath sounds on the right side and wheezing on the left. Daughter was present and was helping with the history. A DuoNeb and Solu-Medrol dose was ordered. X-ray imaging revealed right-sided pneumothorax with findings concerning for tension. I did perform an emergent needle thoracostomy which resulted in resolution of the hypoxia and tachypnea. The patient became more responsive. Patient had hyponatremia noted on i-STAT, hypercarbia on VBG as well as a lactic acidosis. Fluid resuscitation and broad-spectrum antibiotics were initiated for sepsis. The patient's pneumothorax was treated with a 8.5 Chinese Cook catheter pneumothorax kit. This went very well and had good reexpansion of the right lung. Confirmed by repeat x-ray imaging. Twelve-lead ECG was performed during the treatment of the pneumothorax. This was repeated. Both were concerning for lateral ST elevation. The patient's blood work revealed a leukocytosis of 22,000, hyponatremia, lactic acidosis, and a market elevation of her troponin. I did discuss the case with Dr. Mclaughlin of critical care medicine. He agreed with the treatment and need for cardiology consultation. A heart alert was initiated. Patient was evaluated in the ED by Dr. Sneed and Dr. Camacho from cardiology. [facility] I discussed the case with the [facility] on-call, Yuli Sherwood PA-C and the patient will be admitted by . A bedside echo revealed morphology consistent with Takosubo cardiomyopathy. Patient's mental status improved dramatically. She was not having any significant chest discomfort other than where the chest tube was. Cardiology felt emergent intervention was not appropriate and recommended critical care medical treatment. Critical care did asked for CT imaging to be performed and this was ordered. The patient was tested for novel coronavirus. CT imaging of the head and cervical spine were negative for acute process. CT imaging of the chest did reveal mild residual pneumothorax on the right side. Radiology noted to monitor for recurrent tension pneumothorax. The patient was doing significantly better and hemodynamically stable. No signs clinically of tension pneumothorax. Patient was admitted to the ICU for further management. Triage Nursing notes reviewed and agree them. [Additional history obtained from] patient's daughter Vital Signs: reviewed and remarkable for tachycardia, tachypnea, and hypoxia Differential diagnosis: Reactive airway disease, pneumonia, pneumothorax, COPD, CHF, infections, cardiac ischemia, pulmonary embolism, musculoskeletal, gastrointestinal, as well as other pathologies. Diagnostics interpreted by me: ECG: Twelve-lead ECG #1 reveals a sinus tachycardia at 117 bpm. There is a normal QRS and axis. There is lateral ST elevation concerning for acute myocardial infarction. PVCs are present. ECG #2: Sinus tachycardia at 115 bpm. There is a normal QRS and axis. There is persistent lateral ST elevation consistent with acute myocardial infarction. No PVCs or PACs. Cardiac Monitoring: Cardiac monitoring ordered by me: The patient was placed on continuous cardiac monitoring and observed. It revealed a sinus tachycardia at 134 per minute without ectopy or evidence of dysrhythmia. Portable chest x-ray performed and reveals a large right-sided pneumothorax with components of tension. Repeat portable chest x-ray performed after needle thoracostomy and chest tube placement. There is near resolution of the pneumothorax with a small less than 5% pneumothorax present. Excellent reexpansion of the lung. Consultation(s): Critical care medicine, Dr. Wood Cardiology, Dr. Sneed and Dr. Camacho [facility], Yuli Sherwood PA-C and HPI: The patient is a 79 year old female who presents to the Emergency Room with complaints of shortness of breath. This started yesterday and is rapidly worsening on the way to the ED and the patient became unresponsive on arrival. Daughter notes the patient did have a fall a week ago. She was also diagnosed with low sodium. She had a outpatient die fitter placed. Daughter states that she did have a normal echo done as an outpatient for evaluation recently. Patient was complaining of just not feeling well over the last few days. No new falls. There was no head or neck injury reported. History is limited secondary to the patient's significant medical acuity. ROS: Unobtainable secondary to medical acuity PAST MEDICAL HISTORY:[See Below] COPD PAST SURGICAL HISTORY:[See Below] FAMILY HISTORY:[See Below] SOCIAL HISTORY:[See Below] lives alone HOME MEDICATIONS:[See Below] ALLERGIES:[See Below] VITALS:[See Below] PHYSICAL EXAMINATION: GENERAL: Obtunded, ill appearing, in severe distress HENT: Normocephalic, atraumatic. Oropharynx unremarkable. EYES: Normal conjunctiva. Sclera non-icteric. NECK: Inspection normal except for retractions. No tracheal deviation appreciated. Non-tender. Supple. No nuchal rigidity. FROM. No masses. RESPIRATORY: Significant crease respiratory effort, tachypnea. Wheezes on the left. Diminished breath sounds on the right. CARDIAC: Tachycardic rate. Normal rhythm. No murmurs. No rubs. Extremities warm and well perfused. Pulses equal. No JVD. GI: Soft, non-distended. No tenderness to palpation. No rebound or guarding. No masses. RECTAL: Deferred. MUSCULOSKELETAL: Atraumatic. Chest examination reveals no tenderness. The back is symmetrical on inspection without obvious abnormality. There is no CVA tenderness to palpation. No joint edema. LOWER EXTREMITIES: Calves are equal size bilaterally and non-tender. No edema. No discoloration. NEURO: Altered sensorium. Not following commands SKIN: No rash or jaundice noted. ED COURSE: Needle thoracostomy Emergent needle thoracostomy was done by me over the midaxillary line, second right intercostal space. Indication was tension pneumothorax. Prior to procedure O2 sats were 83% on nonrebreather. Skin was prepped with chlorhexidi ne. The catheter was placed by advancing over top of the second rib. Upon entering the pleural cavity there was a small puff of air but no significant johnson. Within 20 seconds O2 saturations jumped to 99%. No complications. Tube Thoracostomy done by me Indication: Pneumothorax Written consent was obtained after the risks and benefits were explained, including but not limited to cardiac/liver/lung injury, bleeding, scarring, infection, pain, and bone/joint/nerve damage. At this time, the risks of the procedure are less than the risks of NOT performing the procedure. A time out was taken and the correct patient and site identified. The patient was prepped and draped in the standard surgical fashion. 1% lidocaine without epinephrine was infused over the right fifth intercostal space into the subcutaneous tissue. An 8.5 Chinese Cook catheter was used via Seldinger technique. A large johnson of air was noted upon entering the pleural cavity. The catheter tube was inserted in the superior/posterior portion of the pleural space. 1-0 silk suture was used to approximate the skin above the thoracostomy tube and then used to secure the thoracostomy tube. An occlusive dressing was then placed and the thoracostomy tube was hooked to the Pleur-evac suction. The patient tolerated the procedure well without complications. A postoperative x-ray was then performed which showed the thoracostomy tube in the correct position. [Critical Care:] I have personally spent greater than 125 minutes of critical care time in the direct management of this patient. This includes bedside care, interpretation of diagnostic studies, and testing, discussion with consultants, patient, and family members, and other required patient management activities. These minutes are in excess of all separately billable procedures. Raghu Valiente MD Past Med/Surg History Medical History (Updated 12/31/19 @ 16:45 by Yolie Sherwood PA-C) Acute hypoxemic respiratory failure Pulmonary emphysema S/P admission to ICU (intensive care unit) Shock circulatory Tension pneumothorax Surgical History (Updated 12/31/19 @ 16:36 by Yolie Sherwood PA-C) S/P tonsillectomy Social History Beliefs That Will Affect Care: None Current Living Situation: Alone Current Living Situation Comment: Live next door to daughter Feels Safe at Home: Yes Smoking Status: Former smoker Hx Alcohol Use: Yes Alcohol type: wine Hx Substance Use: No Allergies Allergies Allergy/AdvReac Type Severity Reaction Status Date / Time No Known Drug Allergies Allergy Unknown . Verified 10/22/16 09:37 Home Meds Home Medications Medication Instructions Recorded Confirmed aspirin [Aspirin Low Dose] 81 mg PO DAILY 12/31/19 12/31/19 buspirone 10 mg PO BID 12/31/19 12/31/19 cephalexin 250 mg PO TID 12/31/19 12/31/19 cholecalciferol (vitamin D3) 50 mcg PO DAILY 12/31/19 12/31/19 [Vitamin D3] fluticasone furoate-vilanterol 1 ea INHALATION DAILY 12/31/19 12/31/19 [Breo Ellipta] lisinopril 10 mg PO DAILY 12/31/19 12/31/19 thiamine HCl (vitamin B1) 100 mg PO DAILY 12/31/19 12/31/19 Results & Data (ED) Vital Signs Vital Signs - 24 hr 12/31/19 10:33 12/31/19 10:42 12/31/19 10:45 Temperature 36.8 C Temperature Source Oral Pulse Rate 118 H 122 H 121 H Pulse Rate [Apical] Pulse Rate from SpO2 Sensor 121 H 121 H Respiratory Rate 44 H 39 H 31 H Respiratory Effort / Characteristics Blood Pressure 105/60 112/71 Blood Pressure Mean 75 76 Pulse Oximetry 81 L 83 L 84 L Oxygen Delivery Method Room Air Non-rebreather Oxygen Flow Rate 15 Sepsis Recent Fever Within 48 Hours No Sepsis New/Unexplained Change in Mental Status N/A Sepsis Action Taken by Nursing Previously Notified 12/31/19 10:49 12/31/19 10:50 12/31/19 10:56 Temperature Temperature Source Pulse Rate Pulse Rate [Apical] Pulse Rate from SpO2 Sensor 119 H 119 H Respiratory Rate 40 H 32 H Respiratory Effort / Characteristics Blood Pressure 114/68 Blood Pressure Mean 88 Pulse Oximetry 84 L 98 Oxygen Delivery Method Non-rebreather Oxygen Flow Rate 15 Sepsis Recent Fever Within 48 Hours Sepsis New/Unexplained Change in Mental Status Sepsis Action Taken by Nursing 12/31/19 11:00 12/31/19 11:07 12/31/19 11:10 Temperature Temperature Source Pulse Rate 111 H 112 H 113 H Pulse Rate [Apical] Pulse Rate from SpO2 Sensor 111 H 113 H Respiratory Rate 24 25 H 26 H Respiratory Effort / Characteristics Blood Pressure 91/65 L 99/86 L 109/96 Blood Pressure Mean 80 92 102 Pulse Oximetry 97 100 Oxygen Delivery Method Oxygen Flow Rate Sepsis Recent Fever Within 48 Hours Sepsis New/Unexplained Change in Mental Status Sepsis Action Taken by Nursing 12/31/19 11:21 12/31/19 11:23 12/31/19 11:30 Temperature Temperature Source Pulse Rate 122 H 114 H Pulse Rate [Apical] 118 H Pulse Rate from SpO2 Sensor 122 H 114 H Respiratory Rate 24 23 22 Respiratory Effort / Characteristics Blood Pressure 122/76 112/95 Blood Pressure Mean 92 100 Pulse Oximetry 100 100 100 Oxygen Delivery Method Non-rebreather Oxygen Flow Rate 15 Sepsis Recent Fever Within 48 Hours Sepsis New/Unexplained Change in Mental Status Sepsis Action Taken by Nursing 12/31/19 11:40 12/31/19 11:50 12/31/19 11:51 Temperature Temperature Source Pulse Rate 113 H 114 H 113 H Pulse Rate [Apical] Pulse Rate from SpO2 Sensor 113 H 114 H 113 H Respiratory Rate 28 H 26 H 24 Respiratory Effort / Characteristics Blood Pressure 107/81 113/72 Blood Pressure Mean 85 92 Pulse Oximetry 100 100 100 Oxygen Delivery Method Oxygen Flow Rate Sepsis Recent Fever Within 48 Hours Sepsis New/Unexplained Change in Mental Status Sepsis Action Taken by Nursing 12/31/19 11:57 12/31/19 12:00 12/31/19 12:08 Temperature Temperature Source Pulse Rate 114 H Pulse Rate [Apical] Pulse Rate from SpO2 Sensor 116 H Respiratory Rate 26 H Respiratory Effort / Characteristics Accessory Muscle Use Grunting Labored Mechanically Ventilated Short of Breath Blood Pressure 102/79 Blood Pressure Mean 92 Pulse Oximetry 100 Oxygen Delivery Method Non-rebreather Oxygen Flow Rate 15 Sepsis Recent Fever Within 48 Hours Sepsis New/Unexplained Change in Mental Status Sepsis Action Taken by Nursing 12/31/19 12:10 12/31/19 12:20 12/31/19 12:21 Temperature Temperature Source Pulse Rate 117 H 124 H 122 H Pulse Rate [Apical] Pulse Rate from SpO2 Sensor 118 H 124 H 123 H Respiratory Rate 23 23 20 Respiratory Effort / Characteristics Blood Pressure 108/70 111/73 Blood Pressure Mean 83 78 Pulse Oximetry 100 100 100 Oxygen Delivery Method Nasal Cannula Oxygen Flow Rate 2 Sepsis Recent Fever Within 48 Hours Sepsis New/Unexplained Change in Mental Status Sepsis Action Taken by Nursing Laboratory Data Result diagrams: 12/31/19 10:41 12/31/19 10:41 Lab Results 12/31/19 12/31/19 12/31/19 Range/Units 10:41 10:41 10:41 WBC 22.91 H (4.8-10.8) K/uL RBC 4.54 (4.2-5.4) M/uL Hgb 15.0 (12.0-16.0) g/dL POC Hgb (12.0-16.0) g/dl Hct 43.3 (37-47) % POC Hct (37-47) % MCV 95.4 (80-100) fL MCH 33.0 (25-34) pg MCHC 34.6 (32-36) g/dL RDW Std Deviation 43.1 (36.4-46.3) fL RDW Coeff of Elizabeth 12.4 (11.5-14.5) % Plt Count 434 H (130-400) K/uL MPV 9.2 (7.4-10.4) fL Immature Gran % (Auto) 0.4 % Neut % (Auto) 89.7 % Lymph % (Auto) 5.1 % [place] % (Auto) 4.8 % Eos % (Auto) 0.0 % Baso % (Auto) 0.0 % Neut # (Auto) 20.52 H (1.4-6.5) K/uL Lymph # (Auto) 1.17 L (1.2-3.4) K/uL [place] # (Auto) 1.11 H (0.11-0.59) K/uL Eos # (Auto) 0.01 (0-0.5) K/uL Baso # (Auto) 0.01 (0-0.2) K/uL Immature Gran # (Auto) 0.09 H (0.00-0.02) K/uL Echinocytes 1+ PT 11.0 (9.0-12.0) Seconds INR 1.0 (0.9-1.1) APTT 27.0 (21.0-31.0) Seconds PTT Ratio 1.0 VBG pH (7.36-7.41) POC VBG pH (7.36-7.41) VBG pCO2 (38-50) mmHg POC VBG pCO2 (38-50) mmHg VBG pO2 mmHg POC VBG pO2 (30-55) mmHg VBG HCO3 mmol/L POC VBG HCO3 (23-28) meq/L POC VBG Total CO2 (24-31) mmol/L VBG O2 Saturation % POC Venous O2 Sat (70-80) % VBG Base Excess mEq/L POC VBG Base Excess meq/L Barometric Pressure mm/Hg POC Sodium (135-144) mmol/L Sodium 129 L (136-145) mmol/L POC Potassium (3.3-5.0) mmol/L Potassium 4.6 (3.5-5.1) mmol/L POC Chloride (101-112) mmol/L Chloride 95 L (98-107) mmol/L Carbon Dioxide 24 (21-32) mmol/L POC Total CO2 (24-31) mmol/L Anion Gap 11.0 (3-11) POC Anion Gap (16-25) mmol/L POC BUN (7-18) mg/dl BUN 17 (7-18) mg/dl Creatinine 1.26 H (0.6-1.2) mg/dl POC Creatinine (0.6-1.3) mg/dl Est Cr Clr Drug Dosing 24.8 ml/min Est GFR ( Amer) 47.6 Est GFR (Non-Af Amer) 41.1 BUN/Creatinine Ratio 13.3 (10-20) Glucose 135 H (70-99) mg/dl POC Glucose (other) (70-99) mg/dl POC Lactic Acid Mickey (0.90-1.70) mmol/L Lactate Calcium 10.1 (8.5-10.1) mg/dl POC Ioniz Calcium Shaquille (1.12-1.32) mmol/l Magnesium 2.2 (1.8-2.4) mg/dl Total Bilirubin 0.6 (0.2-1) mg/dl AST 210 H (15-37) U/L ALT 145 H (12-78) U/L Alkaline Phosphatase 109 (45-117) U/L Troponin I 9.820 H* (0-0.045) ng/ml NT-Pro-B Natriuret Pep 2443 H (0-1800) pg/ml Total Protein 8.2 (6.4-8.2) gm/dl Albumin 3.9 (3.4-5.0) gm/dl Globulin 4.3 H (2.5-4.0) gm/dl Albumin/Globulin Ratio 0.9 (0.9-2) Procalcitonin (0-0.5) ng/ml 12/31/19 12/31/19 12/31/19 Range/Units 10:41 10:58 11:01 WBC (4.8-10.8) K/uL RBC (4.2-5.4) M/uL Hgb (12.0-16.0) g/dL POC Hgb 15.3 (12.0-16.0) g/dl Hct (37-47) % POC Hct 45 (37-47) % MCV (80-100) fL MCH (25-34) pg MCHC (32-36) g/dL RDW Std Deviation (36.4-46.3) fL RDW Coeff of Elizabeth (11.5-14.5) % Plt Count (130-400) K/uL MPV (7.4-10.4) fL Immature Gran % (Auto) % Neut % (Auto) % Lymph % (Auto) % [place] % (Auto) % Eos % (Auto) % Baso % (Auto) % Neut # (Auto) (1.4-6.5) K/uL Lymph # (Auto) (1.2-3.4) K/uL [place] # (Auto) (0.11-0.59) K/uL Eos # (Auto) (0-0.5) K/uL Baso # (Auto) (0-0.2) K/uL Immature Gran # (Auto) (0.00-0.02) K/uL Echinocytes PT (9.0-12.0) Seconds INR (0.9-1.1) APTT (21.0-31.0) Seconds PTT Ratio VBG pH (7.36-7.41) POC VBG pH (7.36-7.41) VBG pCO2 (38-50) mmHg POC VBG pCO2 (38-50) mmHg VBG pO2 mmHg POC VBG pO2 (30-55) mmHg VBG HCO3 mmol/L POC VBG HCO3 (23-28) meq/L POC VBG Total CO2 (24-31) mmol/L VBG O2 Saturation % POC Venous O2 Sat (70-80) % VBG Base Excess mEq/L POC VBG Base Excess meq/L Barometric Pressure mm/Hg POC Sodium 128 L (135-144) mmol/L Sodium (136-145) mmol/L POC Potassium 5.1 H (3.3-5.0) mmol/L Potassium (3.5-5.1) mmol/L POC Chloride 97 L (101-112) mmol/L Chloride (98-107) mmol/L Carbon Dioxide (21-32) mmol/L POC Total CO2 21 L (24-31) mmol/L Anion Gap (3-11) POC Anion Gap 16.0 (16-25) mmol/L POC BUN 20 H (7-18) mg/dl BUN (7-18) mg/dl Creatinine (0.6-1.2) mg/dl POC Creatinine 1.1 (0.6-1.3) mg/dl Est Cr Clr Drug Dosing ml/min Est GFR ( Amer) Est GFR (Non-Af Amer) BUN/Creatinine Ratio (10-20) Glucose (70-99) mg/dl POC Glucose (other) 146 H (70-99) mg/dl POC Lactic Acid Mickey 4.26 H (0.90-1.70) mmol/L Lactate Calcium (8.5-10.1) mg/dl POC Ioniz Calcium Shaquille 1.11 L (1.12-1.32) mmol/l Magnesium (1.8-2.4) mg/dl Total Bilirubin (0.2-1) mg/dl AST (15-37) U/L ALT (12-78) U/L Alkaline Phosphatase (45-117) U/L Troponin I (0-0.045) ng/ml NT-Pro-B Natriuret Pep (0-1800) pg/ml Total Protein (6.4-8.2) gm/dl Albumin (3.4-5.0) gm/dl Globulin (2.5-4.0) gm/dl Albumin/Globulin Ratio (0.9-2) Procalcitonin 2.18 H (0-0.5) ng/ml 12/31/19 12/31/19 12/31/19 Range/Units 11:03 11:14 11:26 WBC (4.8-10.8) K/uL RBC (4.2-5.4) M/uL Hgb (12.0-16.0) g/dL POC Hgb (12.0-16.0) g/dl Hct (37-47) % POC Hct (37-47) % MCV (80-100) fL MCH (25-34) pg MCHC (32-36) g/dL RDW Std Deviation (36.4-46.3) fL RDW Coeff of Elizabeth (11.5-14.5) % Plt Count (130-400) K/uL MPV (7.4-10.4) fL Immature Gran % (Auto) % Neut % (Auto) % Lymph % (Auto) % [place] % (Auto) % Eos % (Auto) % Baso % (Auto) % Neut # (Auto) (1.4-6.5) K/uL Lymph # (Auto) (1.2-3.4) K/uL [place] # (Auto) (0.11-0.59) K/uL Eos # (Auto) (0-0.5) K/uL Baso # (Auto) (0-0.2) K/uL Immature Gran # (Auto) (0.00-0.02) K/uL Echinocytes PT (9.0-12.0) Seconds INR (0.9-1.1) APTT (21.0-31.0) Seconds PTT Ratio VBG pH 7.17 L (7.36-7.41) POC VBG pH 7.19 L* (7.36-7.41) VBG pCO2 68 H (38-50) mmHg POC VBG pCO2 68 H (38-50) mmHg VBG pO2 32 mmHg POC VBG pO2 49 (30-55) mmHg VBG HCO3 24 mmol/L POC VBG HCO3 26 (23-28) meq/L POC VBG Total CO2 28 (24-31) mmol/L VBG O2 Saturation < 60.0 % POC Venous O2 Sat 73.0 (70-80) % VBG Base Excess -6.0 mEq/L POC VBG Base Excess -2.0 meq/L Barometric Pressure 730.8 mm/Hg POC Sodium (135-144) mmol/L Sodium (136-145) mmol/L POC Potassium (3.3-5.0) mmol/L Potassium (3.5-5.1) mmol/L POC Chloride (101-112) mmol/L Chloride (98-107) mmol/L Carbon Dioxide (21-32) mmol/L POC Total CO2 (24-31) mmol/L Anion Gap (3-11) POC Anion Gap (16-25) mmol/L POC BUN (7-18) mg/dl BUN (7-18) mg/dl Creatinine (0.6-1.2) mg/dl POC Creatinine (0.6-1.3) mg/dl Est Cr Clr Drug Dosing ml/min Est GFR ( Amer) Est GFR (Non-Af Amer) BUN/Creatinine Ratio (10-20) Glucose (70-99) mg/dl POC Glucose (other) (70-99) mg/dl POC Lactic Acid Mickey 3.53 H (0.90-1.70) mmol/L Lactate Calcium (8.5-10.1) mg/dl POC Ioniz Calcium Sha[place] (1.12-1.32) mmol/l Magnesium (1.8-2.4) mg/dl Total Bilirubin (0.2-1) mg/dl AST (15-37) U/L ALT (12-78) U/L Alkaline Phosphatase (45-117) U/L Troponin I (0-0.045) ng/ml NT-Pro-B Natriuret Pep (0-1800) pg/ml Total Protein (6.4-8.2) gm/dl Albumin (3.4-5.0) gm/dl Globulin (2.5-4.0) gm/dl Albumin/Globulin Ratio (0.9-2) Procalcitonin (0-0.5) ng/ml 12/31/19 Range/Units 11:59 WBC (4.8-10.8) K/uL RBC (4.2-5.4) M/uL Hgb (12.0-16.0) g/dL POC Hgb (12.0-16.0) g/dl Hct (37-47) % POC Hct (37-47) % MCV (80-100) fL MCH (25-34) pg MCHC (32-36) g/dL RDW Std Deviation (36.4-46.3) fL RDW Coeff of Elizabeth (11.5-14.5) % Plt Count (130-400) K/uL MPV (7.4-10.4) fL Immature Gran % (Auto) % Neut % (Auto) % Lymph % (Auto) % [place] % (Auto) % Eos % (Auto) % Baso % (Auto) % Neut # (Auto) (1.4-6.5) K/uL Lymph # (Auto) (1.2-3.4) K/uL [place] # (Auto) (0.11-0.59) K/uL Eos # (Auto) (0-0.5) K/uL Baso # (Auto) (0-0.2) K/uL Immature Gran # (Auto) (0.00-0.02) K/uL Echinocytes PT (9.0-12.0) Seconds INR (0.9-1.1) APTT (21.0-31.0) Seconds PTT Ratio VBG pH (7.36-7.41) POC VBG pH (7.36-7.41) VBG pCO2 (38-50) mmHg POC VBG pCO2 (38-50) mmHg VBG pO2 mmHg POC VBG pO2 (30-55) mmHg VBG HCO3 mmol/L POC VBG HCO3 (23-28) meq/L POC VBG Total CO2 (24-31) mmol/L VBG O2 Saturation % POC Venous O2 Sat (70-80) % VBG Base Excess mEq/L POC VBG Base Excess meq/L Barometric Pressure mm/Hg POC Sodium (135-144) mmol/L Sodium (136-145) mmol/L POC Potassium (3.3-5.0) mmol/L Potassium (3.5-5.1) mmol/L POC Chloride (101-112) mmol/L Chloride (98-107) mmol/L Carbon Dioxide (21-32) mmol/L POC Total CO2 (24-31) mmol/L Anion Gap (3-11) POC Anion Gap (16-25) mmol/L POC BUN (7-18) mg/dl BUN (7-18) mg/dl Creatinine (0.6-1.2) mg/dl POC Creatinine (0.6-1.3) mg/dl Est Cr Clr Drug Dosing ml/min Est GFR ( Amer) Est GFR (Non-Af Amer) BUN/Creatinine Ratio (10-20) Glucose (70-99) mg/dl POC Glucose (other) (70-99) mg/dl POC Lactic Acid Mickey (0.90-1.70) mmol/L Lactate Cancelled Calcium (8.5-10.1) mg/dl POC Ioniz Calcium Sha[place] (1.12-1.32) mmol/l Magnesium (1.8-2.4) mg/dl Total Bilirubin (0.2-1) mg/dl AST (15-37) U/L ALT (12-78) U/L Alkaline Phosphatase (45-117) U/L Troponin I (0-0.045) ng/ml NT-Pro-B Natriuret Pep (0-1800) pg/ml Total Protein (6.4-8.2) gm/dl Albumin (3.4-5.0) gm/dl Globulin (2.5-4.0) gm/dl Albumin/Globulin Ratio (0.9-2) Procalcitonin (0-0.5) ng/ml Administered Medications Aspirin (Ecotrin Ectab) 81 mg PO DAILY IZABELLA Stop: 01/30/20 15:03 Last Admin: 12/31/19 16:03 Dose: 81 mg Documented by: [id number] Discontinued Medications Albuterol (Duoneb) 12 ml NEB ONE ONE Stop: 12/31/19 10:49 Last Admin: 12/31/19 11:22 Dose: 12 ml Documented by: [id number] Fentanyl Citrate (Fentanyl Citrate) Confirm Administered Dose 100 mcg .ROUTE .STK-MED ONE Stop: 12/31/19 12:19 Last Admin: 12/31/19 16:07 Dose: Not Given Documented by: [id number] Heparin Sodium (Porcine) (Heparin Iv Bolus (Ethologist Use Only)) Confirm Administered Dose 10,000 units .ROUTE .STK-MED ONE Stop: 12/31/19 12:18 Last Admin: 12/31/19 16:07 Dose: Not Given Documented by: [id number] Heparin Sodium/Sodium Chloride (Heparin/Nss 1000 Unit/500ml Flush Bag) Confirm Administered Dose 3,000 units IV .STK-MED ONE Stop: 12/31/19 12:19 Last Admin: 12/31/19 16:08 Dose: Not Given Documented by: [id number] Vancomycin HCl 1,000 mg/ (Sodium Chloride) 270 mls @ 125 mls/hr IV NOW ONE Stop: 12/31/19 13:39 Last Infusion: 12/31/19 16:09 Dose: 0 mls/hr Documented by: [id number] Admin: 12/31/19 11:51 Dose: 125 mls/hr Documented by: [id number] Cefepime HCl 2,000 mg/ Syringe 20 mls @ 5 mls/min IV NOW STA Stop: 12/31/19 11:21 Last Admin: 12/31/19 11:50 Dose: 5 mls/min Documented by: [id number] Sodium Chloride (Nss) 500 mls @ 999 mls/hr IV .Q31M IZABELLA Stop: 12/31/19 11:45 Last Infusion: 12/31/19 11:51 Dose: 0 mls/hr Documented by: [id number] Admin: 12/31/19 11:00 Dose: 999 mls/hr Documented by: [id number] Sodium Chloride (Nss 1000ml) 750 mls @ 999 mls/hr IV .Q46M ONE Stop: 12/31/19 12:30 Last Infusion: 12/31/19 12:50 Dose: 0 mls/hr Documented by: [id number] Admin: 12/31/19 11:51 Dose: 999 mls/hr Documented by: [id number] Sodium Chloride (Nss 1000ml) 1,000 mls @ 75 mls/hr IV .[id number] IZABELLA Stop: 01/01/20 04:04 Last Infusion: 12/31/19 16:08 Dose: 0 mls/hr Documented by: [id number] Admin: 12/31/19 15:40 Dose: 75 mls/hr Documented by: [id number] Piperacillin Sod/Tazobactam (Sod 3.375 gm/ Dextrose) 115 mls @ 230 mls/hr IV NOW ONE; Protocol Stop: 12/31/19 15:59 Last Infusion: 12/31/19 16:09 Dose: 0 mls/hr Documented by: [id number] Admin: 12/31/19 15:40 Dose: 230 mls/hr Documented by: [id number] Ioversol (Optiray 320 100ml) 93 ml IV ONCE PRN PRN Reason: Interaction Checking Stop: 01/04/20 12:37 Last Admin: 12/31/19 12:38 Dose: 93 ml Documented by: [id number] Methylprednisolone (Solumedrol) 125 mg IV NOW STA Stop: 12/31/19 10:49 Last Admin: 12/31/19 11:50 Dose: 125 mg Documented by: [id number] Midazolam HCl (Versed) Confirm Administered Dose 2 mg .ROUTE .STK-MED ONE Stop: 12/31/19 12:19 Last Admin: 12/31/19 16:08 Dose: Not Given Documented by: [id number] Nicardipine HCl (Cardene) Confirm Administered Dose 25 mg .ROUTE .STK-MED ONE Stop: 12/31/19 12:18 Last Admin: 12/31/19 16:07 Dose: Not Given Documented by: [id number] Nitroglycerin/Dextrose (Nitroglycerin/D5w 100 Mcg/Ml 20ml Syringe) Confirm Administered Dose 2,000 mcg .ROUTE .K-MED ONE Stop: 12/31/19 12:19 Last Admin: 12/31/19 16:08 Dose: Not Given Documented by: [id number] Discharge Plan Visit Data *Final* Discharge Date/Time: 12/31/19 14:28 Chief Complaint: Shortness of Breath/Dyspnea Stated Complaint: SOB, ED Provider: Raghu Valiente Discharge Problem: Tension pneumothorax, Hypoxia, Sepsis, Acute ST elevation myocardial infarction (STEMI), Acidosis, lactic, Takotsubo syndrome, Elevated troponin, Leukocytosis, Unresponsive Patient Disposition: Admitted As Inpatient Discharge Instructions Interventions: ED Discharge Assessment Last Done: 12/31/19 14:28
--- NOTE | 2019-12-31 14:05 | CT Scan Report ---
CHEST CT WITH CONTRAST CT DOSE: HISTORY: Fall. Right-sided pneumothorax. TECHNIQUE: Multiaxial CT images of the chest were performed following the intravenous administration of contrast. A dose lowering technique was utilized adhering to the principles of ALARA. COMPARISON: Chest 12/31/2019. FINDINGS: The central airways are patent. Moderate emphysema. A 6 mm groundglass nodule within the le ft upper lobe on image 76. A few biapical blebs identified. Dominant right apical bleb seen on image 45 measures 2.5 cm. This may account for the right-sided pneumothorax. There is a small to moderate r ight pneumothorax remaining. Right-sided chest tube terminates in the right lung apex and appears in good position. There is a 6 mm nodule within the lateral aspect of the right upper lobe on image 129. Dominant left apical bleb is seen medially and measures 2.3 cm. Right apical density favors atelecta sis and scarring. A few small densities within the base of the lower lobes also favors subsegmental a telectasis. No pleural effusions. There may be mild left mediastinal shift remaining. However, this c ould be positional. Limited views of the upper abdomen demonstrate a normal liver and spleen. There i s mild elevation of the left hemidiaphragm. Scattered coarse calcifications within the bilateral genie sts. Normal caliber thoracic aorta with no evidence for dissection. The heart is mildly enlarged. The main pulmonary arteries are patent. No mediastinal or hilar lymphadenopathy. Small amount of fluid w ithin the mid esophagus. No acute fractures within the visualized osseous structures. IMPRESSION: 1. Small to moderate right pneumothorax persists. The right-sided chest tube terminates in the right lung apex and appears in good position. There is suggestion of mild left mediastinal shift remaining and slight hyperexpansion of the right hemithorax in comparison to the left. Close follow-up recommen ded to exclude a developing tension pneumothorax. 2. There are few biapical blebs with the largest on the right measuring 2.5 cm. This may account for the pneumothorax. 3. Emphysema. 4. A 6 mm groundglass nodule within the left upper lobe and a 6 mm solid nodule within the right uppe r lobe. Please refer to the chart below for recommended follow-up. 5. Additional findings as described above. ACT 112: Negative or not required by law. Electronically signed by: Jesus Hawkins M.D. 12/31/2019 2:04 PM
--- NOTE | 2019-12-31 14:36 | Critical Care Consultation ---
Date of Consultation December 31, 2019 Assessment & Plan (1) S/P admission to ICU (intensive care unit): Neurologic: Analgesics and sedation: Avoid oversedation with narcotics as she is prone to hypercapnia. Delirium precautions Pulmonary: Avoid positive airway pressure therapy as she has an acute pneumothorax. Continue chest tube to suction -20 cm H2O. She clearly has underlying emphysema with evidence of blebs. She did have a fall. The question here is whether this was a spontaneous secondary pneumothorax versus a traumatic pneumothorax. She may need a chemical pleurodesis to prevent recurrent pneumothorax given her underlying emphysema and I do not think she would tolerate a VATS procedure. Additionally, she has a groundglass nodule that will need outpatient follow-up. No clear evidence of pneumonia. Cardiovascular: Obstructive shock is resolving with fluids and relief of the tension pneumothorax. Will be cautious with fluids given her underlying cardiomyopathy. She refused cardiac catheterization. We will continue with aspirin at this time. DVT prophylaxis with heparin. Trend troponins. Difficult to rule out coronary event at this time. We will hold on beta-blockers today and consider starting tomorrow. Gastrointestinal: Cardiac diet. Renal: She does have some element of hyponatremia likely related to poor solute intake and/or possible SIADH given her acute tension pneumothorax. Urinalysis pending. Will obtain a urine sodium and a serum osmolality. Infectious disease: She received a dose of cefepime in the ER. Will await the urinalysis and check a procalcitonin level before starting on further antibiotics. Hematologic: Thrombocytosis present likely secondary to acute illness. Endocrine: ICU glucose management protocol F/E/N: We will hold on any further fluids at this time given the propensity of volume overload. Lines and tubes: Peripheral IVs in place along with right-sided chest tube VTE prophylaxis: Heparin twice daily CODE STATUS: DNR/DNI Family at bedside: Daughter was updated at bedside Disposition: Remain in the ICU today I did discuss patient's condition extensively at bedside with the patient's daughter. Patient daughter and the patient understood and are agreeable to the treatment plan. I have personally spent 62 minutes of critical care time in the direct management of this patient. This is a life/limb threatening event. This includes time spent evaluating patient, direct bedside care, chart review, placing orders, interpretation of diagnostic studies, discussion with consultants, patient, and family members, as well as other required patient management activities. This time is exclusive of all separately billable procedures, and teaching time and separate from and in addition to any other critical care service time. Thank you for allowing us to participate in the care of this patient. (2) Tension pneumothorax: (3) Shock circulatory: (4) Acute hypoxemic respiratory failure: (5) Pulmonary emphysema: (6) Troponin level elevated: History of Present Illness Reason for Consultation: Obstructive shock secondary to tension pneumothorax Requesting Physician: Emergency department physician Attending Physician: Dr. Spann History of Present Illness This is a 79-year-old female with a past medical history of reported COPD, hypertension and anxiety who presents to the hospital secondary to weakness and altered mental status for the past week and a half. She was having increasing shortness of breath over the last day and she was ultimately brought in by her daughter. Her daughter lives in a house nearby the patient's house. Reportedly, the daughter describes that the patient fell approximately 1 week ago and she has not been quite herself since that fall. She was also being treated for urinary tract infection per the daughter. The patient does note that she has had increasing frequent urination, but denies any burning sensation upon urination. She denies any abdominal complaints. She denies any current chest pain aside from the pain from the chest tube insertion site. She does have a very heavy smoking history, but she quit many years ago. She smoked for at least 30 years. I am unclear on her pack history. Upon arrival to the emergency department, she was found to have evidence of hypotension and sepsis. She underwent a chest x-ray which demonstrated a large right-sided tension pneumothorax. She then underwent needle decompression and subsequently a surgical chest tube was attempted to be placed by the emergency department physician. The emergency department physician was unable to create a tract with his finger and thus converted the chest tube to a pigtail catheter. There was considerable reexpansion on the subsequent chest x-ray. She then underwent a CT of her head, C-spine and chest. CT head was negative. CT C-spine was negative. CT chest demonstrated residual right apical pneumo and areas of severe centrilobular emphysema. No obvious infiltrate was interpreted based on my visualization. A 12-lead EKG was performed and demonstrated lateral ST segment elevations along with an elevated troponin and lactate. A code heart alert was called. Cardiology did evaluate the patient. Apical ballooning was seen on the echocardiogram and given the patient's clinical picture, it was thought that the clinical picture is more consistent with a stress-induced cardiomyopathy. The patient chose to defer cardiac catheterization at this time. Her ejection fraction was interpreted as 35 to 40% grade 1 diastolic dysfunction was noted. Mild aortic valve sclerosis was also noted without evidence of stenosis. White blood cell count of 22,900. Platelet count of 434,000. INR normal. VBG demonstrated acute hypercapnic respiratory failure with a pH of 7.17 and a PCO2 of 68. CMP demonstrated hyponatremia with a sodium 128. Hyperkalemia with a potassium of 5.1. Creatinine was 1.1. Lactic acid was elevated at 4.26 but has been trending down to 3.1. Troponin of 9.8. proBNP of 2443. Allergies Allergy/AdvReac Type Severity Reaction Status Date / Time No Known Drug Allergies Allergy Unknown . Verified 10/22/16 09:37 Home Medications Home Medications Medication Instructions Recorded Confirmed Type aspirin [Aspirin Low Dose] 81 mg PO DAILY 12/31/19 12/31/19 History buspirone 10 mg PO BID 12/31/19 12/31/19 History cephalexin 250 mg PO TID 12/31/19 12/31/19 History cholecalciferol (vitamin D3) 50 mcg PO DAILY 12/31/19 12/31/19 History [Vitamin D3] fluticasone furoate-vilanterol 1 ea INHALATION DAILY 12/31/19 12/31/19 History [Breo Ellipta] lisinopril 10 mg PO DAILY 12/31/19 12/31/19 History thiamine HCl (vitamin B1) 100 mg PO DAILY 12/31/19 12/31/19 History Patient History Medical History (Updated 12/31/19 @ 14:33 by Reginaldo Mclaughlin MD) Acute hypoxemic respiratory failure Pulmonary emphysema S/P admission to ICU (intensive care unit) Shock circulatory Tension pneumothorax Social History Smoking Status: Former smoker Review of Systems Review of Systems: All systems reviewed & are unremarkable except as noted in HPI & below Physical Exam Constitutional: Thin and frail-appearing female in no significant distress. Nasal cannula is in place. Chest tube on the right is in place. She is sleeping on the [facility]. Daughter at bedside. Eyes: PERRL, conjunctivae normal, anicteric sclerae ENMT: external ear and nose normal, oropharynx normal Neck: normal visual inspection Respiratory: normal respiratory effort; no retractions and no cough Right- sided pigtail catheter is in place. Suture is in place. No bandage or dressing is in place. Cardiovascular: RRR, no murmur, no edema Extremities: no edema Gastrointestinal (Abdomen): normal bowel sounds, soft, nontender, no hepatosplenomegaly Musculoskeletal: no cyanosis or clubbing, extremities motor strength 5/5 Skin: no rashes, warm and dry Neurologic: PERRL, EOMI, accommodation nl, no face palsy, no dysarthria Psychiatric: A+Ox3, euthymic affect Results & Data Results & Data ([facility]) Vital Signs (Past 12 Hours) Vital Signs Temp Pulse Pulse Resp BP Pulse Ox 12/31/19 13:56 98.1 F 12/31/19 13:51 117 H 18 97/59 L 100 12/31/19 13:50 119 H 23 12/31/19 13:21 122 H 22 100 12/31/19 13:15 122 H 25 H 117/66 100 12/31/19 13:10 123 H 21 100 12/31/19 13:00 123 H 22 115/62 100 12/31/19 12:51 128 H 22 100 12/31/19 12:50 126 H 23 106/74 100 12/31/19 12:40 126 H 25 H 101/63 100 12/31/19 12:30 127 H 27 H 92/64 L 100 12/31/19 12:21 122 H 20 100 12/31/19 12:20 124 H 23 111/73 100 12/31/19 12:10 117 H 23 108/70 100 12/31/19 12:00 114 H 26 H 102/79 100 12/31/19 11:51 113 H 24 100 12/31/19 11:50 114 H 26 H 113/72 100 12/31/19 11:40 113 H 28 H 107/81 100 12/31/19 11:30 114 H 22 112/95 100 12/31/19 11:23 118 H 23 100 12/31/19 11:21 122 H 24 122/76 100 12/31/19 11:10 113 H 26 H 109/96 100 12/31/19 11:07 112 H 25 H 99/86 L 12/31/19 11:00 111 H 24 91/65 L 97 12/31/19 10:56 32 H 114/68 98 12/31/19 10:50 40 H 84 L 12/31/19 10:45 121 H 31 H 84 L 12/31/19 10:42 122 H 39 H 112/71 83 L 12/31/19 10:33 98.2 F 118 H 44 H 105/60 81 L I personally reviewed her labs, vital signs and chest imaging. Coding Level of Care Code Critical Care 1st 30-74 mins Diagnoses S/P admission to ICU (intensive care unit) Tension pneumothorax J93.0 Shock circulatory R57.9 Acute hypoxemic respiratory failure J96.01 Pulmonary emphysema J43.9 Troponin level elevated R79.89 Time Spent (min) 62
--- NOTE | 2019-12-31 14:44 | History & Physical Report ---
Date of Service December 31, 2019 Assessment & Plan (1) Tension pneumothorax: (2) Acute respiratory distress: (3) Acute hypoxemic respiratory failure: (4) Pulmonary emphysema: (5) COPD (chronic obstructive pulmonary disease): (6) Pulmonary hypertension: Patient is a 79 yo female who presented to the ED with SOB and weakness. Found to have large tension pneumothorax of the right lung. ED physician quickly performed needle decompression after which patient improved. Pneumothorax likely secondary to emphysema and fall at home. Chest tube was placed in the ED, and pneumothorax was mostly resolved on F/U CXR. Patient admitted to ICU for further management. Continue supplemental O2 to maintain SaO2 >88%. ABG in AM (7) Apical ballooning syndrome: (8) Troponin level elevated: (9) Lateral ST segment elevation: EKG showed ST elevation in the lateral leads. Troponin severely elevated at 9.82. Cardiology evaluated patient and performed Echo. 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 Sneed discussed consideration of cardiac cath. The patient deferred at this time. Cardiology recommended no anticoagulation or Plavix at this time because risk outweighs benefit. Recommended continuing ASA 81 mg daily. Will consider starting Metoprolol tartrate 12.5 mg BID per Cardio pending improvement in vitals Trend troponin. Check Lipids & A1C in AM (10) URIEL (acute kidney injury): (11) Hyponatremia: Sodium 129 on presentation with Creatinine of 1.26. Monitor closely. Repeat in AM. Gentle hydration. (12) Status post fall: (13) Ambulatory dysfunction: Fall precautions. Complete bedrest for now. Feel that pneumothorax likely was secondary to significant fall 1 week ago. (14) Thrombocytosis: (15) Lactic acidosis: Seems likely that both thrombocytosis and lactic acidosis are secondary to systemic inflammatory response. Possible sepsis. Trend lactic acid. Broad spectrum abx given in the ED. Procalcitonin pending. Blood culture pending COVID negative. (16) Pulmonary nodule: 6 mm ground glass nodule noted in the [facility] and 6 mm solid nodule noted in the RUL. Need to follow up as outpatient. (17) DVT prophylaxis: Heparin BID (18) Abnormal LFTs: History of Present Illness Chief Complaint: Tension Pneumothorax Primary Care Provider: Rose Rodriguez MD Patient is a 79 yo female with a complicated medical course since presentation to the ED today. The patient is sleeping during exam, so history was taken from her daughter, other providers involved, and the chart. Patient has had progressive confusion and problems with gait since . She was noted to have a TIA in June per her daughter and has been following with her PCP and Neuro since that time for continued on and off confusion. The patient has had multiple falls because of her gait abnormality and balance problems as well at home. Most recently, she had a significant fall 1 week ago in the middle of the night where she fell and hit the right side of her body/shoulder. She had continued pain in the right chest and right shoulder the next morning, but did not wish to seek medical care. She did not lose consciousness that she knew of. The patient continued to have pain with breathing and increasing weakness. She was then evaluated by her PCP last week as an outpatient. She was noted to have mild hyponatremia and tachycardia. An event monitor was placed to further assess the tachycardia. This morning, her daughter was talking to her on the phone and she didn't sound good. Sounded very SOB. When her daughter got to her house, she was laying down and looked 'bad'. She was complaining of dizziness and SOB, so her daughter carried her to the care and brought her in to the ED for evaluation. Upon presentation to the ED, the patient became unresponsive and was taken emergently to exam room B1 for evaluation. The patient was noted to have altered mental status, tachypnea, tachycardia, and hypoxia. Nonrebreather was placed. X- Ray was obtained and noted a large pneumothorax on the right side. The ED provider performed emergent needle decompression of the lung which resulted in resolution of the tachypnea and hypoxia. The patient soon after began responding as well. EKG was then completed which showed ST elevation in the lateral leads. Cardiology was then consulted and an Echo was performed. Echo revealed apical ballooning, possibly consistent with Takotsubo cardiomyopathy. Less concern for STEMI, but need to continue to monitor. Cardiology discussed considering cardiac cath with the patient and her daughter. They decided to defer cardiac catheterization at this time. It was also recommended that anticoagulation be deferred at this time as well because the risks outweigh benefits at this time. Patient has multiple lab abnormalities upon presentation including WBC Count elevation up to 22K with left shift, hyponatremia with sodium of 129, creatinine mildly elevated at 1.26, lactic acid elevated at 3.1, elevated LFTs with AST 201, ALT 145, Troponin severely elevated at 9.8, and BNP abnormal to 2443. Patient was given broad spectrum abx coverage in the ED for concern of possible sepsis. Repeat CXR showed reexpansion of the right lung with small residual pneumothorax. Allergies Allergy/AdvReac Type Severity Reaction Status Date / Time No Known Drug Allergies Allergy Unknown . Verified 10/22/16 09:37 Home Medications Home Medications Medication Instructions Recorded Confirmed Type aspirin [Aspirin Low Dose] 81 mg PO DAILY 12/31/19 12/31/19 History buspirone 10 mg PO BID 12/31/19 12/31/19 History cephalexin 250 mg PO TID 12/31/19 12/31/19 History cholecalciferol (vitamin D3) 50 mcg PO DAILY 12/31/19 12/31/19 History [Vitamin D3] fluticasone furoate-vilanterol 1 ea INHALATION DAILY 12/31/19 12/31/19 History [Breo Ellipta] lisinopril 10 mg PO DAILY 12/31/19 12/31/19 History thiamine HCl (vitamin B1) 100 mg PO DAILY 12/31/19 12/31/19 History Past Med/Surg History Medical History (Updated 12/31/19 @ 16:45 by Yolie Sherwood PA-C) Acute hypoxemic respiratory failure Pulmonary emphysema S/P admission to ICU (intensive care unit) Shock circulatory Tension pneumothorax Surgical History (Updated 12/31/19 @ 16:36 by Yolie Sherwood PA-C) S/P tonsillectomy Social History Beliefs That Will Affect Care: None Current Living Situation: Alone Current Living Situation Comment: Live next door to daughter Feels Safe at Home: Yes Smoking Status: Former smoker Hx Alcohol Use: Yes Alcohol type: wine Hx Substance Use: No Review of Systems Review of Systems: Other (Sleeping- history obtained from daughter per HPI) Physical Exam Physical Exam: Resting comfortably on exam, asleep. See Dr. Spann's addendum for full physical exam details. Results & Data Results & Data ([facility]) Vital Signs (Past 12 Hours) Vital Signs Temp Pulse Pulse Resp BP Pulse Ox 12/31/19 14:20 113 H 18 100 12/31/19 14:15 115 H 19 98/59 L 100 12/31/19 14:10 116 H 16 100 12/31/19 14:02 113 H 17 100 12/31/19 14:00 114 H 17 93/58 L 100 12/31/19 13:56 36.7 C 12/31/19 13:51 117 H 18 97/59 L 100 12/31/19 13:50 119 H 23 12/31/19 13:21 122 H 22 100 12/31/19 13:15 122 H 25 H 117/66 100 12/31/19 13:10 123 H 21 100 12/31/19 13:00 123 H 22 115/62 100 12/31/19 12:51 128 H 22 100 12/31/19 12:50 126 H 23 106/74 100 12/31/19 12:40 126 H 25 H 101/63 100 12/31/19 12:30 127 H 27 H 92/64 L 100 12/31/19 12:21 122 H 20 100 12/31/19 12:20 124 H 23 111/73 100 12/31/19 12:10 117 H 23 108/70 100 12/31/19 12:00 114 H 26 H 102/79 100 12/31/19 11:51 113 H 24 100 12/31/19 11:50 114 H 26 H 113/72 100 12/31/19 11:40 113 H 28 H 107/81 100 12/31/19 11:30 114 H 22 112/95 100 12/31/19 11:23 118 H 23 100 12/31/19 11:21 122 H 24 122/76 100 12/31/19 11:10 113 H 26 H 109/96 100 12/31/19 11:07 112 H 25 H 99/86 L 12/31/19 11:00 111 H 24 91/65 L 97 12/31/19 10:56 32 H 114/68 98 12/31/19 10:50 40 H 84 L 12/31/19 10:45 121 H 31 H 84 L 12/31/19 10:42 122 H 39 H 112/71 83 L 12/31/19 10:33 36.8 C 118 H 44 H 105/60 81 L Laboratory Results Laboratory Results - last 24 hr 12/31/19 12/31/19 12/31/19 10:41 10:41 10:41 WBC 22.91 H RBC 4.54 Hgb 15.0 POC Hgb Hct 43.3 POC Hct MCV 95.4 MCH 33.0 MCHC 34.6 RDW Std Deviation 43.1 RDW Coeff of Elizabeth 12.4 Plt Count 434 H MPV 9.2 Immature Gran % (Auto) 0.4 Neut % (Auto) 89.7 Lymph % (Auto) 5.1 [place] % (Auto) 4.8 Eos % (Auto) 0.0 Baso % (Auto) 0.0 Neut # (Auto) 20.52 H Lymph # (Auto) 1.17 L [place] # (Auto) 1.11 H Eos # (Auto) 0.01 Baso # (Auto) 0.01 Immature Gran # (Auto) 0.09 H Echinocytes 1+ PT 11.0 INR 1.0 APTT 27.0 PTT Ratio 1.0 VBG pH POC VBG pH VBG pCO2 POC VBG pCO2 VBG pO2 POC VBG pO2 VBG HCO3 POC VBG HCO3 POC VBG Total CO2 VBG O2 Saturation POC Venous O2 Sat VBG Base Excess POC VBG Base Excess Barometric Pressure POC Sodium Sodium 129 L POC Potassium Potassium 4.6 POC Chloride Chloride 95 L Carbon Dioxide 24 POC Total CO2 Anion Gap 11.0 POC Anion Gap POC BUN BUN 17 Creatinine 1.26 H POC Creatinine Est Cr Clr Drug Dosing 24.8 Est GFR ( Amer) 47.6 Est GFR (Non-Af Amer) 41.1 BUN/Creatinine Ratio 13.3 Glucose 135 H POC Glucose (other) POC Lactic Acid Mickey Lactate Calcium 10.1 POC Ioniz Calcium Shaquille Magnesium 2.2 Total Bilirubin 0.6 AST 210 H ALT 145 H Alkaline Phosphatase 109 Troponin I 9.820 H* NT-Pro-B Natriuret Pep 2443 H Total Protein 8.2 Albumin 3.9 Globulin 4.3 H Albumin/Globulin Ratio 0.9 COVID-19 PCR 12/31/19 12/31/19 12/31/19 10:58 11:01 11:03 WBC RBC Hgb POC Hgb 15.3 Hct POC Hct 45 MCV MCH MCHC RDW Std Deviation RDW Coeff of Elizabeth Plt Count MPV Immature Gran % (Auto) Neut % (Auto) Lymph % (Auto) [place] % (Auto) Eos % (Auto) Baso % (Auto) Neut # (Auto) Lymph # (Auto) [place] # (Auto) Eos # (Auto) Baso # (Auto) Immature Gran # (Auto) Echinocytes PT INR APTT PTT Ratio VBG pH POC VBG pH VBG pCO2 POC VBG pCO2 VBG pO2 POC VBG pO2 VBG HCO3 POC VBG HCO3 POC VBG Total CO2 VBG O2 Saturation POC Venous O2 Sat VBG Base Excess POC VBG Base Excess Barometric Pressure POC Sodium 128 L Sodium POC Potassium 5.1 H Potassium POC Chloride 97 L Chloride Carbon Dioxide POC Total CO2 21 L Anion Gap POC Anion Gap 16.0 POC BUN 20 H BUN Creatinine POC Creatinine 1.1 Est Cr Clr Drug Dosing Est GFR ( Amer) Est GFR (Non-Af Amer) BUN/Creatinine Ratio Glucose POC Glucose (other) 146 H POC Lactic Acid Mickey 4.26 H 3.53 H Lactate Calcium POC Ioniz Calcium Shaquille 1.11 L Magnesium Total Bilirubin AST ALT Alkaline Phosphatase Troponin I NT-Pro-B Natriuret Pep Total Protein Albumin Globulin Albumin/Globulin Ratio COVID-19 PCR 12/31/19 12/31/19 12/31/19 11:14 11:26 11:59 WBC RBC Hgb POC Hgb Hct POC Hct MCV MCH MCHC RDW Std Deviation RDW Coeff of Elizabeth Plt Count MPV Immature Gran % (Auto) Neut % (Auto) Lymph % (Auto) [place] % (Auto) Eos % (Auto) Baso % (Auto) Neut # (Auto) Lymph # (Auto) [place] # (Auto) Eos # (Auto) Baso # (Auto) Immature Gran # (Auto) Echinocytes PT INR APTT PTT Ratio VBG pH 7.17 L POC VBG pH 7.19 L* VBG pCO2 68 H POC VBG pCO2 68 H VBG pO2 32 POC VBG pO2 49 VBG HCO3 24 POC VBG HCO3 26 POC VBG Total CO2 28 VBG O2 Saturation < 60.0 POC Venous O2 Sat 73.0 VBG Base Excess -6.0 POC VBG Base Excess -2.0 Barometric Pressure 730.8 POC Sodium Sodium POC Potassium Potassium POC Chloride Chloride Carbon Dioxide POC Total CO2 Anion Gap POC Anion Gap POC BUN BUN Creatinine POC Creatinine Est Cr Clr Drug Dosing Est GFR ( Amer) Est GFR (Non-Af Amer) BUN/Creatinine Ratio Glucose POC Glucose (other) POC Lactic Acid Mickey Lactate Cancelled Calcium POC Ioniz Calcium Shaquille Magnesium Total Bilirubin AST ALT Alkaline Phosphatase Troponin I NT-Pro-B Natriuret Pep Total Protein Albumin Globulin Albumin/Globulin Ratio COVID-19 PCR 12/31/19 12/31/19 12:44 13:00 WBC RBC Hgb POC Hgb Hct POC Hct MCV MCH MCHC RDW Std Deviation RDW Coeff of Elizabeth Plt Count MPV Immature Gran % (Auto) Neut % (Auto) Lymph % (Auto) [place] % (Auto) Eos % (Auto) Baso % (Auto) Neut # (Auto) Lymph # (Auto) [place] # (Auto) Eos # (Auto) Baso # (Auto) Immature Gran # (Auto) Echinocytes PT INR APTT PTT Ratio VBG pH POC VBG pH VBG pCO2 POC VBG pCO2 VBG pO2 POC VBG pO2 VBG HCO3 POC VBG HCO3 POC VBG Total CO2 VBG O2 Saturation POC Venous O2 Sat VBG Base Excess POC VBG Base Excess Barometric Pressure POC Sodium Sodium POC Potassium Potassium POC Chloride Chloride Carbon Dioxide POC Total CO2 Anion Gap POC Anion Gap POC BUN BUN Creatinine POC Creatinine Est Cr Clr Drug Dosing Est GFR ( Amer) Est GFR (Non-Af Amer) BUN/Creatinine Ratio Glucose POC Glucose (other) POC Lactic Acid Mickey Lactate 3.1 H* Calcium POC Ioniz Calcium Shaquille Magnesium Total Bilirubin AST ALT Alkaline Phosphatase Troponin I NT-Pro-B Natriuret Pep Total Protein Albumin Globulin Albumin/Globulin Ratio COVID-19 PCR NEGATIVE Diagnostic Findings CXR: IMPRESSION: Large right pneumothorax likely representing a tension pneumothorax. CXR (follow up): IMPRESSION: Decrease in size in the small right pneumothorax status post right chest tube placement. The mediastinal shift has resolved. Chest CT: IMPRESSION: 1. Small to moderate right pneumothorax persists. The right-sided chest tube terminates in the right lung apex and appears in good position. There is suggestion of mild left mediastinal shift remaining and slight hyperexpansion of the right hemithorax in comparison to the left. Close follow-up recommended to exclude a developing tension pneumothorax. 2. There are few biapical blebs with the largest on the right measuring 2.5 cm. This may account for the pneumothorax. 3. Emphysema. 4. A 6 mm groundglass nodule within the left upper lobe and a 6 mm solid nodule within the right upper lobe. Please refer to the chart below for recommended follow-up. 5. Additional findings as described above. Cervical Spine CT: IMPRESSION: No fractures within the cervical spine. Right apical pneumothorax is again noted. Head CT: Impression: No acute intracranial abnormality. Atrophy and microvascular ischemic changes. Supervising Physician Co-Signing Physician Notes Patient is a 79-year-old female with history of COPD, pulmonary hypertension, hypertension, mild diastolic heart failure and other medical problems presents with history of worsening shortness of breath since Wednesday, gradually worsening confusion since last few months, has balance issues and fall 1 week ago. Most of the history is obtained from patient's family, ER physician medical records. No known history of chest pain, dizziness, nausea, vomiting. Please review HPI for complete details of presentation. Patient was noted to have right tension pneumothorax and an urgent needle decompression with chest tube placement was done while in ED. EKG showed signs of lateral ST segment elevation GA. Cardiology, critical care evaluated the patient while in ED. Echo showed findings of apical ballooning and EKG changes were thought to be secondary to catecholamine surge. Given concern for hemorrhagic pneumothorax, heparinization was not initiated. On exam patient is thin, frail, elderly appearing, no apparent distress, normocephalic, atraumatic, lungs-decreased breath sounds, right pigtail catheter, S1-S2, no murmur, no pedal edema, grossly no focal neurologic deficits. Patient is admitted for management of acute right tension pneumothorax, respiratory failure likely secondary to mechanical fall. Continue supplemental oxygen. Consider starting antibiotics given possible sepsis. Respiratory management as per ICU team. Possible lateral ST segment elevation GA. DD: Takotsubo. Low-dose metoprolol started. Continue aspirin. Consideration for cardiac catheterization as per cardiology. Transaminitis likely secondary to hepatic congestion. Monitor LFTs, check right upper quadrant ultrasound. Hyponatremia, hypochloremia, hyperkalemia noted. Correct electrolyte imbalances as needed. I personally reviewed the record. Patient is interviewed and examined at bedside. Patient's care is coordinated with Yolie Sherwood PA-C. Please refer to the documentation above for details of patient's presentation and for discussion of other issues.
[2019-12-31] MEDS ORDERED: SODIUM CHLORIDE 0.9% 1000ML 1,000 ML IV SCH (14:45)
[2019-12-31] MEDS ORDERED: ALBUT/IPRATROP 3MG/0.5MG NEB 3 ML VIAL NEB PRN (15:04)
[2019-12-31] MEDS ORDERED: ICU PROTOCOL FOR HYPERGLYCEMIA PRN (15:04)
[2019-12-31] MEDS ORDERED: VANCOMYCIN CONSULT ACTIVE SCH (15:19)
[2019-12-31] MEDS ORDERED: PIPERACILL/TAZOBAC CONSULT ACTIVE SCH (15:30)
[2019-12-31] MEDS ORDERED: PIPERACILLIN/TAZOBACTAM 3.375 GM in DEXTROSE 5% 100 ML IV ONE (15:30)
--- NOTE | 2019-12-31 15:43 | Pharmacy Report ---
Pharmacy Abx Initial Consult - Date of Service December 31, 2019 - Pharmacy Dosing Scope Date of Consult: 12/31/19 Consultation requested by: Yolie Yost PA-C Pharmacy is consulted to initiate Vancomycin & Zosyn IV dosing therapy, order appropriate labs and adjust drug dose/frequency. - Subjective The patient is a 79 year old F admitted on 12/31/19 12:23. - Objective Height: 5 ft 3 in Weight: 42 kg Vital Signs (Past 12hrs): Vital Signs Temp Pulse Pulse Resp BP Pulse Ox 12/31/19 14:20 113 H 18 100 12/31/19 14:15 115 H 19 98/59 L 100 12/31/19 14:10 116 H 16 100 12/31/19 14:02 113 H 17 100 12/31/19 14:00 114 H 17 93/58 L 100 12/31/19 13:56 36.7 C 12/31/19 13:51 117 H 18 97/59 L 100 12/31/19 13:50 119 H 23 12/31/19 13:21 122 H 22 100 12/31/19 13:15 122 H 25 H 117/66 100 12/31/19 13:10 123 H 21 100 12/31/19 13:00 123 H 22 115/62 100 12/31/19 12:51 128 H 22 100 12/31/19 12:50 126 H 23 106/74 100 12/31/19 12:40 126 H 25 H 101/63 100 12/31/19 12:30 127 H 27 H 92/64 L 100 12/31/19 12:21 122 H 20 100 12/31/19 12:20 124 H 23 111/73 100 12/31/19 12:10 117 H 23 108/70 100 12/31/19 12:00 114 H 26 H 102/79 100 12/31/19 11:51 113 H 24 100 12/31/19 11:50 114 H 26 H 113/72 100 12/31/19 11:40 113 H 28 H 107/81 100 12/31/19 11:30 114 H 22 112/95 100 12/31/19 11:23 118 H 23 100 12/31/19 11:21 122 H 24 122/76 100 12/31/19 11:10 113 H 26 H 109/96 100 12/31/19 11:07 112 H 25 H 99/86 L 12/31/19 11:00 111 H 24 91/65 L 97 12/31/19 10:56 32 H 114/68 98 12/31/19 10:50 40 H 84 L 12/31/19 10:45 121 H 31 H 84 L 12/31/19 10:42 122 H 39 H 112/71 83 L 12/31/19 10:33 36.8 C 118 H 44 H 105/60 81 L Lab Results (24hrs): Laboratory Tests (24 Hours) 12/31/19 12/31/19 10:41 10:41 WBC 22.91 H Neut # (Auto) 20.52 H Creatinine 1.26 H Est Cr Clr Drug Dosing 24.8 Micro Results: 12/31/19 10:41 Aerobic Blood Culture - Pending Blood Anaerobic Blood Culture - Pending 12/31/19 10:40 Aerobic Blood Culture - Pending Blood Anaerobic Blood Culture - Pending - Risk Factors for Resistance * Antimicrobial use within the last 90 days - Keflex - Assessment & Plan Assessment 79 year old F admitted to ICU for acute pneumothorax. Received Cefepime 2g IV x1 in ED. Procal pending UA pending MRSA nasal screen pending BC pending WBC elevated afebrile Plan IV Vancomycin and Zosyn for treatment of possible pulmonary infection Vancomycin IV * Estimated PK Parameters: Vd 0.7 L/kg, Yuriy 0.025 hr-1, t1/2 27hr * Loading dose: 1000 mg (24 mg/kg) x1 at 1130 today * Random level ordered for 01/01/20 with AM labs to direct further dosing Piperacillin/tazobactam * 3.375 g bolus administered over 30 minutes, then 3.375 g IV extended infusion every 8 hours for CrCl greater than 20 mL/min Pharmacy will continue to follow and will adjust dose/frequency as necessary. Thank you.
[2019-12-31] MEDS: ASPIRIN 81 MG ECTAB PO SCH (16:03)
[2019-12-31] MEDS: ACETAMINOPHEN 500 MG TAB PO PRN (18:39)
[2019-12-31 19:59] LABS: Appearance Urine Clear (Clear); Bacteria Urine Automated Negative (Negative); Bilirubin Urine Negative (Negative); Blood Urine Negative (Negative); Color Urine Yellow; Epithelial Cell Urine Auto >30 /lpf (0-5); Glucose Urine UA Negative (Negative); Ketones Urine Trace (Negative); Leukocyte Esterase Urine Negative (Negative); Nitrite Urine Negative (Negative); Protein Urine 1+ (Negative); RBC Urine Automated 0-4 /hpf (0-4); Specific Gravity Urine > 1.045 (1.000-1.030); Urobilinogen Urine Negative (Negative)
[2019-12-31] MEDS ORDERED: PIPERACILLIN/TAZOBACTAM 3.375 GM in DEXTROSE 5% 100 ML IV SCH (20:00)
[2019-12-31 20:13] LABS: Renal Epithelial Cells Urine 0-5 /lpf (0-5)
[2019-12-31] MEDS ORDERED: METOPROLOL TARTRATE 25 MG TAB PO SCH (21:00)
[2019-12-31] MEDS ORDERED: HEPARIN SOD 5,000 UNIT/0.5 ML VIAL SQ SCH (21:00)
[2019-12-31] MEDS: HEPARIN SOD 5,000 UNIT/0.5 ML VIAL SQ SCH (21:10)
--- NOTE | 2019-12-31 23:08 | Electrocardiogram Report ---
Test Reason : Blood Pressure : / mmHG Vent. Rate : 117 BPM Atrial Rate : 117 BPM P-R Int : 156 ms QRS Dur : 088 ms QT Int : 326 ms P-R-T Axes : 096 080 082 degrees QTc Int : 454 ms Sinus tachycardia with Premature atrial complexes ST elevation consider anterolateral injury or acute infarct ACUTE RI / STEMI Abnormal ECG No previous ECGs available Confirmed by Shant Armando ([id number]) on 12/31/2019 11:07:46 PM Referred By: REFERRED SELF Confirmed By:Shant Armando
[2019-12-31] MEDS ORDERED: TRAZODONE HCL 50 MG TAB PO ONE (23:18)
[2020-01-01 03:27] LABS: Base Excess ABG 0.4 mEq/L (-9-1.8); HCO3 ABG 24 mmol/L (19-24); Oxygen Saturation ABG 94.9 % (90-95); PCO2 ABG 34 mmHg (35-46); PO2 ABG 71 mmHg (80-95); pH ABG 7.46 (7.35-7.45)
[2020-01-01 03:28] LABS: Allen Test Pos (Pos)
[2020-01-01 03:46] LABS: Albumin Level 2.7 gm/dl (3.4-5.0); BUN Creatinine Ratio 26.8 (10-20); Calcium 8.5 mg/dl (8.5-10.1); Creatinine Clr Calc Pharmacy 45.8 ml/min; Est GFR (African American) 90.6; Est GFR (Non-African American) 78.1; Magnesium 1.8 mg/dl (1.8-2.4); Potassium 4.1 mmol/L (3.5-5.1)
[2020-01-01 03:56] LABS: Albumin Globulin Ratio 0.8 (0.9-2); Bilirubin,Total 0.4 mg/dl (0.2-1); Globulin 3.6 gm/dl (2.5-4.0); Phosphorus 3.6 mg/dl (2.5-4.9); Thyroid Stimulating Hormone 0.331 uIu/ml (0.300-4.500); Total Protein 6.3 gm/dl (6.4-8.2)
[2020-01-01 03:58] LABS: Troponin I 9.29 ng/ml (0-0.045)
[2020-01-01 04:07] LABS: Hematocrit (blood only) 32.5 % (37-47); Hemoglobin 11.3 g/dL (12.0-16.0); Mean Corpuscular Hemoglobin 31.7 pg (25-34); Mean Corpuscular Hgb Conc 34.8 g/dL (32-36); Mean Corpuscular Volume 91.3 fL (80-100); Mean Platelet Volume 8.8 fL (7.4-10.4); Platelet Count 264 K/uL (130-400); RDW Coefficient of Variation 12.1 % (11.5-14.5); RDW Standard Deviation 40.6 fL (36.4-46.3); Red Blood Count 3.56 M/uL (4.2-5.4); White Blood Count 13.46 K/uL (4.8-10.8)
--- NOTE | 2020-01-01 06:33 | XRay Report ---
XR chest 1V portable HISTORY: 79 years-old Female follow up ptx follow-up study in a patient with right-sided pneumothora x COMPARISON: Chest radiograph and chest CT 12/31/2019 TECHNIQUE: Portable AP view of the chest FINDINGS: Right apical pneumothorax, pleural separation of 1.4 cm is unchanged. Cardiomediastinal and hilar lily houettes are within normal limits. Calcified plaque of the thoracic aortic arch. Emphysema with chron ic fibrotic changes. Pleural calcifications of the right lung apex. Unchanged positioning of the pigt ail catheter adjacent to the lateral right lung apex. Mild subsegmental bibasilar atelectasis. Soft t issue calcifications of the bilateral breasts. Degenerative changes of the shoulders and spine. IMPRESSION: 1. Unchanged small right apical pneumothorax with stable positioning of the right-sided chest tube. 2. Emphysema. ACT 112: Negative or not required by law. The above report was generated using voice recognition software. It may contain grammatical, syntax o r spelling errors. Electronically signed by: Vini Vivas M.D. 01/01/2020 6:32 AM
--- NOTE | 2020-01-01 07:04 | XRay Report ---
XR chest 1V portable HISTORY: 79 years-old Female pneumothorax follow-up study in a patient with pneumothorax COMPARISON: Chest radiograph 12/31/2019 4:01 PM TECHNIQUE: Portable AP view of the chest FINDINGS: Right apical pneumothorax has increased in size from comparison, now with pleural separation of 2.5 c m, previously 1.4 cm. Unchanged positioning of the right-sided pleural drainage catheter. Emphysema. Chronic fibrotic changes. Mild bibasilar densities suggest atelectasis. Cardiac silhouette is upper l imits of normal in size. Calcified plaque of the thoracic aortic arch. No overt pulmonary edema. Dege nerative changes of the shoulders and spine. I lateral breast calcifications. IMPRESSION: 1. Mildly increased size of the right apical pneumothorax with unchanged positioning of the right-shon ed pigtail catheter. 2. Emphysema. ACT 112: Negative or not required by law. The above report was generated using voice recognition software. It may contain grammatical, syntax o r spelling errors. Electronically signed by: Vini Vivas M.D. 01/01/2020 7:03 AM
--- NOTE | 2020-01-01 07:23 | Ultrasound Report ---
US liver CLINICAL HISTORY: Abnormal LFTs, STEMI COMPARISON STUDY: No previous studies for comparison. FINDINGS: Liver morphology is normal. No hepatic lesions are identified. The pancreas is also within normal limits by sonography. There is no biliary ductal dilatation. No gallstones are noted. There is no gallbladder wall thickening. There is no right hydronephrosis. Trace pericholecystic fluid is not ed. IMPRESSION: 1. No gallstones or biliary ductal dilatation. 2. Trace pericholecystic fluid. ACT 112: Negative or not required by law. Electronically signed by: Alex Bran M.D. 01/01/2020 7:21 AM
[2020-01-01] MEDS: CHOLECALCIFEROL 1,000 UNITS 25 MCG TAB PO SCH (07:30)
[2020-01-01] MEDS: ATORVASTATIN 40 MG TAB PO SCH (07:30)
[2020-01-01] MEDS: ASPIRIN 81 MG ECTAB PO SCH (07:30)
[2020-01-01] MEDS: FLUTICASONE/VILANTEROL 100/25MCG 14 PUFFS/INHALER INH SCH (07:30)
[2020-01-01] MEDS: HEPARIN SOD 5,000 UNIT/0.5 ML VIAL SQ SCH ×2 (07:31→21:57)
--- NOTE | 2020-01-01 07:44 | Critical Care Progress Note ---
Date of Service January 01, 2020 Assessment & Plan (1) Status post fall: Reason Critically Ill: 79-year-old F here with a PMHx significant for TIA, multiple falls who presented with a fall and worsening shoulder pain, shortness of breath and who was admitted for tension pneumothorax. Neuro - [facility] ICU: [NEGATIVE] Sedation: none Analgesia: none Psych: considerably anxious, was on buspar 10 mg BID at home. Restarted today. Cardiac - Apical Ballooning Syndrome/Takatsubo cardiomyopathy - TTE on 12/30 showing midsegment hypokinesis and apical akinesis, with EF 35- 40%. - EKG this morning showing expansion of ST changes to leads V2, V3 as well as prior V5, V6 elevations. Most likely secondary to stress and Takatsubo's. Pt Asymptomatic. - Troponins 9.82 -> 9.24 -> 9.290. Re-ordered for 11 am this morning given ST changes on morning EKG. - Pro BNP elevated at 2443 - Patient and daughter had extensive discussion with Dr. Sneed and Dr. Camacho on admission and declined cardiac cath on admission - one time dose of lopressor 12.5 mg this AM; re-eval this afternoon - Conservative management: No plavix or heparin GTT given risk of PTX conversion to hemothorax. Continue daily ASA, Heparin subQ for DVT ppx. Respiratory - Tension Pneumothorax - CXR this AM showing worsened R PNX with separation increase from 1.4 to 2.5 cm. Pigtail catheter this morning had grade 1 leak. Tubing changed from [facility] system to [facility], no air leak identified; suction removed. - repeat CXR at 7 pm. - breathing comfortably on room air. COPD Exacerbation - starting levaquin PO 500 mg daily - will hold steroids at this time given lack of wheezing or respiratory difficulty on exam GI - Abnormal LFTs - AST 150, ALT 138, Alkphos 75. Tbili 0.4 - No hepatoxic medications on list, no indication for GB disease. 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 RENAL/LYTES - Hyponatremia resolving; up to 134 from 129 in 10 hours. Elevated lactate resolved with fluid boluses in ER. Replace lytes as needed. - - UA negative, No concerns for infection at this time. - 50 cc urine production per hour, will do post void residual to eval urinary retention. ENDO - - A1c 5.2 , TSH 0.331, no concerns at this time. HEME - Anemia - Likely dilutional. Hg on admission 15, down to 11.3 this AM. WBC, Plt, HCt all decreased as well. - No blood loss in chest tube, no complaints of BRBPR, melanotic stools. ID - Gram Positive Bacteremia - Blood cultures growing gram positive cocci in clusters - started on Ceftriaxone 1g daily INTEGUMENTARY - no concerns at this time. thin friable skin, recommend frequent turning and repositioning to avoid ulcerations. - PT/OT to help pt get up and moving again LINES/IV ACCESS - 2 Right arm PIVs intact. DVT PROPHYLAXIS - Heparin 5,000u Q12H Dispo: possible downgrade to tele later today pending continued improvement Thank you for allowing us to be part of this patient's care. Please refer to Dr. Hughes's documentation for any further recommendations. (2) Apical ballooning syndrome: (3) Hyponatremia: (4) Lactic acidosis: (5) Abnormal LFTs: Admission and Anticipated Discharge Date Admission Date: December 31, 2019 Supervising Physician Co-Signing Physician Notes Dr. Cordoba was resident physician during care of patient. I separately evaluated patient for valencia portions of the history and the exam. I was present during the critical portion of medical decision making, and I discussed the case with the resident. I generally agree with the findings and plan. Taken off -20 wall suction placed on 500 many dry suction, reviewed postprocedure chest x-ray, have follow-up chest x-ray ordered. Patient stable for downgrade out of ICU. De-escalating antibiotics to Levaquin and Rocephin for the gram-positive cocci which are negative via PCR for MRSA/staph aureus. Repeat cultures for tomorrow morning have been ordered I suspect that this is likely a contaminant. Subjective Feeling okay this morning, denies any chest pain or chest pressure. Still has pain with taking deep breaths but does not feel that it has worsened overnight. Feels considerably stressed about being in the hospital and overwhelmed about having multiple concurrent problems. Review of Systems Review of Systems: All systems reviewed & are unremarkable except as noted in Subjective Physical Exam Physical Exam: Constitutional: very thin, in no apparent distress, sitting comfortably in bed. Eyes: EOMI, no scleral icterus Cardiac: sinus tachycardia in low to mid 100s, no murmurs, gallops or rubs. Normal S1, S2 Pulm: does not take deep breaths well, poor aeration throughout both lungs, no breath sound at R lung apex, no wheezes, crackles or rhonchi Abd: soft, nontender, nondistended, normal bowel sounds, no rebound or guarding Extremities: 2+ peripheral pulses, no edema Neuro: no focal deficits, moving all 4 limbs, A&Ox3 Results & Data Results & Data ([facility]) Vital Signs (Past 12 Hours) Vital Signs Temp Pulse Resp BP Pulse Ox 01/01/20 05:47 36.7 C 107 H 111/66 100 01/01/20 04:47 36.7 C 97 H 21 102/67 100 01/01/20 03:47 36.7 C 102 H 22 100/61 99 01/01/20 02:47 37 C 102 H 21 95/55 L 100 01/01/20 01:47 36.8 C 100 H 21 95/56 L 100 01/01/20 00:47 36.8 C 103 H 21 98/56 L 100 12/31/19 23:47 36.8 C 104 H 20 98/59 L 100 12/31/19 22:47 36.8 C 103 H 21 90/54 L 100 12/31/19 21:47 36.7 C 106 H 22 92/52 L 100 12/31/19 20:47 36.7 C 102 H 22 96/55 L 100 12/31/19 19:47 103 H 26 H 95/68 L 100 12/31/19 19:44 102 H Laboratory Results WBC 13.46 K/uL (4.8-10.8) H 01/01/20 03:08 RBC 3.56 M/uL (4.2-5.4) L 01/01/20 03:08 Hgb 11.3 g/dL (12.0-16.0) L D 01/01/20 03:08 POC Hgb 15.3 g/dl (12.0-16.0) 12/31/19 10:58 Hct 32.5 % (37-47) L 01/01/20 03:08 POC Hct 45 % (37-47) 12/31/19 10:58 MCV 91.3 fL (80-100) 01/01/20 03:08 MCH 31.7 pg (25-34) 01/01/20 03:08 MCHC 34.8 g/dL (32-36) 01/01/20 03:08 RDW Std Deviation 40.6 fL (36.4-46.3) 01/01/20 03:08 RDW Coeff of Elizabeth 12.1 % (11.5-14.5) 01/01/20 03:08 Plt Count 264 K/uL (130-400) 01/01/20 03:08 MPV 8.8 fL (7.4-10.4) 01/01/20 03:08 Immature Gran % (Auto) 0.4 % 12/31/19 10:41 Neut % (Auto) 89.7 % 12/31/19 10:41 Lymph % (Auto) 5.1 % 12/31/19 10:41 [place] % (Auto) 4.8 % 12/31/19 10:41 Eos % (Auto) 0.0 % 12/31/19 10:41 Baso % (Auto) 0.0 % 12/31/19 10:41 Neut # (Auto) 20.52 K/uL (1.4-6.5) H 12/31/19 10:41 Lymph # (Auto) 1.17 K/uL (1.2-3.4) L 12/31/19 10:41 [place] # (Auto) 1.11 K/uL (0.11-0.59) H 12/31/19 10:41 Eos # (Auto) 0.01 K/uL (0-0.5) 12/31/19 10:41 Baso # (Auto) 0.01 K/uL (0-0.2) 12/31/19 10:41 Immature Gran # (Auto) 0.09 K/uL (0.00-0.02) H 12/31/19 10:41 Echinocytes 1+ 12/31/19 10:41 PT 11.0 Seconds (9.0-12.0) 12/31/19 10:41 INR 1.0 (0.9-1.1) 12/31/19 10:41 APTT 27.0 Seconds (21.0-31.0) 12/31/19 10:41 PTT Ratio 1.0 12/31/19 10:41 ABG pH 7.46 (7.35-7.45) H 01/01/20 03:12 ABG pCO2 34 mmHg (35-46) L 01/01/20 03:12 ABG pO2 71 mmHg (80-95) L 01/01/20 03:12 ABG HCO3 24 mmol/L (19-24) 01/01/20 03:12 ABG O2 Saturation 94.9 % (90-95) 01/01/20 03:12 ABG Base Excess 0.4 mEq/L (-9-1.8) 01/01/20 03:12 Capo Test Pos (Pos) 01/01/20 03:12 VBG pH 7.17 (7.36-7.41) L 12/31/19 11:26 POC VBG pH 7.19 (7.36-7.41) L* 12/31/19 11:14 VBG pCO2 68 mmHg (38-50) H 12/31/19 11:26 POC VBG pCO2 68 mmHg (38-50) H 12/31/19 11:14 VBG pO2 32 mmHg 12/31/19 11:26 POC VBG pO2 49 mmHg (30-55) 12/31/19 11:14 VBG HCO3 24 mmol/L 12/31/19 11:26 POC VBG HCO3 26 meq/L (23-28) 12/31/19 11:14 POC VBG Total CO2 28 mmol/L (24-31) 12/31/19 11:14 VBG O2 Saturation < 60.0 % 12/31/19 11:26 POC Venous O2 Sat 73.0 % (70-80) 12/31/19 11:14 VBG Base Excess -6.0 mEq/L 12/31/19 11:26 POC VBG Base Excess -2.0 meq/L 12/31/19 11:14 Barometric Pressure 730.8 mm/Hg 12/31/19 11:26 Oxygen Given 15L 01/01/20 03:12 POC Sodium 128 mmol/L (135-144) L 12/31/19 10:58 Sodium 134 mmol/L (136-145) L 01/01/20 03:08 POC Potassium 5.1 mmol/L (3.3-5.0) H 12/31/19 10:58 Potassium 4.1 mmol/L (3.5-5.1) 01/01/20 03:08 POC Chloride 97 mmol/L (101-112) L 12/31/19 10:58 Chloride 101 mmol/L (98-107) 01/01/20 03:08 Carbon Dioxide 23 mmol/L (21-32) 01/01/20 03:08 POC Total CO2 21 mmol/L (24-31) L 12/31/19 10:58 Anion Gap 10.0 (3-11) 01/01/20 03:08 POC Anion Gap 16.0 mmol/L (16-25) 12/31/19 10:58 POC BUN 20 mg/dl (7-18) H 12/31/19 10:58 BUN 20 mg/dl (7-18) H 01/01/20 03:08 Creatinine 0.74 mg/dl (0.6-1.2) D 01/01/20 03:08 POC Creatinine 1.1 mg/dl (0.6-1.3) 12/31/19 10:58 Est Cr Clr Drug Dosing 45.8 ml/min 01/01/20 03:08 Est GFR ( Amer) 90.6 01/01/20 03:08 Est GFR (Non-Af Amer) 78.1 01/01/20 03:08 BUN/Creatinine Ratio 26.8 (10-20) H 01/01/20 03:08 Glucose 108 mg/dl (70-99) H 01/01/20 03:08 POC Glucose 166 mg/dl (70-99) H 01/01/20 00:01 POC Glucose (other) 146 mg/dl (70-99) H 12/31/19 10:58 Osmolality 287 mOsm/kg (280-300) 12/31/19 15:21 POC Lactic Acid Mickey 3.53 mmol/L (0.90-1.70) H 12/31/19 11:03 Lactate 1.7 mmol/L (0.4-2.0) 01/01/20 01:02 Calcium 8.5 mg/dl (8.5-10.1) D 01/01/20 03:08 POC Ioniz Calcium Shaquille 1.11 mmol/l (1.12-1.32) L 12/31/19 10:58 Phosphorus 3.6 mg/dl (2.5-4.9) 01/01/20 03:08 Magnesium 1.8 mg/dl (1.8-2.4) 01/01/20 03:08 Total Bilirubin 0.4 mg/dl (0.2-1) 01/01/20 03:08 AST 150 U/L (15-37) H 01/01/20 03:08 ALT 138 U/L (12-78) H 01/01/20 03:08 Alkaline Phosphatase 75 U/L (45-117) 01/01/20 03:08 Troponin I 9.290 ng/ml (0-0.045) H* 01/01/20 03:08 NT-Pro-B Natriuret Pep 2443 pg/ml (0-1800) H 12/31/19 10:41 Total Protein 6.3 gm/dl (6.4-8.2) L D 01/01/20 03:08 Albumin 2.7 gm/dl (3.4-5.0) L 01/01/20 03:08 Globulin 3.6 gm/dl (2.5-4.0) 01/01/20 03:08 Albumin/Globulin Ratio 0.8 (0.9-2) L 01/01/20 03:08 Triglycerides 43 mg/dl (0-150) 01/01/20 03:08 Cholesterol 131 mg/dl (0-200) 01/01/20 03:08 LDL Cholesterol, Calc 46 mg/dl 01/01/20 03:08 VLDL Cholesterol, Calc 9 mg/dl 01/01/20 03:08 HDL Cholesterol 76 mg/dl 01/01/20 03:08 Cholesterol/HDL Ratio 2 01/01/20 03:08 Procalcitonin 2.18 ng/ml (0-0.5) H 12/31/19 10:41 TSH 0.331 uIu/ml (0.300-4.500) 01/01/20 03:08 Urine Color Yellow 12/31/19 15:30 Urine Appearance Clear (Clear) 12/31/19 15:30 Urine pH 5.0 (4.5-7.5) 12/31/19 15:30 Ur Specific [place] > 1.045 (1.000-1.030) H 12/31/19 15:30 Urine Protein 1+ (Negative) H 12/31/19 15:30 Urine Glucose (UA) Negative (Negative) 12/31/19 15:30 Urine Ketones Trace (Negative) H 12/31/19 15:30 Urine Blood Negative (Negative) 12/31/19 15:30 Urine Nitrite Negative (Negative) 12/31/19 15:30 Urine Bilirubin Negative (Negative) 12/31/19 15:30 Urine Urobilinogen Negative (Negative) 12/31/19 15:30 Ur Leukocyte Esterase Negative (Negative) 12/31/19 15:30 Urine WBC (Auto) 5-10 /hpf (0-5) H 12/31/19 15:30 Urine RBC (Auto) 0-4 /hpf (0-4) 12/31/19 15:30 U Hyaline Cast (Auto) 10-30 /lpf (0-5) H 12/31/19 15:30 U Epithel Cells (Auto) >30 /lpf (0-5) H 12/31/19 15:30 Urine Bacteria (Auto) Negative (Negative) 12/31/19 15:30 Ur Renal Epithelial Cell 0-5 /lpf (0-5) 12/31/19 15:30 Granular Casts 1-5 /lpf (0) H 12/31/19 15:30 Ur Random Sodium 40 mmol/L 12/31/19 15:30 Nasal Screen MRSA (PCR) Negative (Negative) 12/31/19 15:06 COVID-19 PCR NEGATIVE (Negative) 12/31/19 12:44 Resident Activity Tracking Resident Involvement: Resident Care Provided Care Provided: Adult Hospital Medicine
[2020-01-01] MEDS ORDERED: METOPROLOL TARTRATE 25 MG TAB PO ONE (07:51)
[2020-01-01 09:16] LABS: Estimated Average Glucose 103 mg/dl; Hemoglobin A1C 5.2 % (4.5-5.6)
--- NOTE | 2020-01-01 09:41 | Critical Care Progress Note ---
Date of Service January 01, 2020 Assessment & Plan (1) S/P admission to ICU (intensive care unit): Neurologic: Analgesics and sedation: Avoid oversedation with narcotics as she is prone to hypercapnia. Delirium precautions Pulmonary: Avoid positive airway pressure therapy as she has an acute pneumothorax. Continue chest tube to suction -20 cm H2O. She clearly has underlying emphysema with evidence of blebs. She did have a fall. The question here is whether this was a spontaneous secondary pneumothorax versus a traumatic pneumothorax. She may need a chemical pleurodesis to prevent recurrent pneumothorax given her underlying emphysema and I do not think she would tolerate a VATS procedure. Additionally, she has a groundglass nodule that will need outpatient follow-up. No clear evidence of pneumonia. Cardiovascular: Obstructive shock is resolving with fluids and relief of the tension pneumothorax. Will be cautious with fluids given her underlying cardiomyopathy. She refused cardiac catheterization. We will continue with aspirin at this time. DVT prophylaxis with heparin. Trend troponins. Difficult to rule out coronary event at this time. We will hold on beta-blockers today and consider starting tomorrow. Gastrointestinal: Cardiac diet. Renal: She does have some element of hyponatremia likely related to poor solute intake and/or possible SIADH given her acute tension pneumothorax. Urinalysis pending. Will obtain a urine sodium and a serum osmolality. Infectious disease: She received a dose of cefepime in the ER. Will await the urinalysis and check a procalcitonin level before starting on further antibiotics. Hematologic: Thrombocytosis present likely secondary to acute illness. Endocrine: ICU glucose management protocol F/E/N: We will hold on any further fluids at this time given the propensity of volume overload. Lines and tubes: Peripheral IVs in place along with right-sided chest tube VTE prophylaxis: Heparin twice daily CODE STATUS: DNR/DNI Family at bedside: Daughter was updated at bedside Disposition: Remain in the ICU today I did discuss patient's condition extensively at bedside with the patient's daughter. Patient daughter and the patient understood and are agreeable to the treatment plan. I have personally spent 62 minutes of critical care time in the direct management of this patient. This is a life/limb threatening event. This includes time spent evaluating patient, direct bedside care, chart review, placing orders, interpretation of diagnostic studies, discussion with consultants, patient, and family members, as well as other required patient management activities. This time is exclusive of all separately billable procedures, and teaching time and separate from and in addition to any other critical care service time. Thank you for allowing us to participate in the care of this patient. (2) Tension pneumothorax: (3) Shock circulatory: (4) Acute hypoxemic respiratory failure: (5) Pulmonary emphysema: (6) Troponin level elevated: Admission and Anticipated Discharge Date Admission Date: December 31, 2019 Results & Data Results & Data ([facility]) Vital Signs (Past 12 Hours) Vital Signs Temp Pulse Resp BP Pulse Ox 01/01/20 08:30 106 H 22 100 01/01/20 08:00 96 H 33 H 100 01/01/20 07:48 36.9 C 99 H 28 H 112/67 100 01/01/20 07:30 107 H 26 H 98 01/01/20 07:00 100 01/01/20 06:48 99 H 101/72 99 01/01/20 06:45 102 H 99 01/01/20 05:47 36.7 C 107 H 111/66 100 01/01/20 04:47 36.7 C 97 H 21 102/67 100 01/01/20 03:47 36.7 C 102 H 22 100/61 99 01/01/20 02:47 37 C 102 H 21 95/55 L 100 01/01/20 01:47 36.8 C 100 H 21 95/56 L 100 01/01/20 00:47 36.8 C 103 H 21 98/56 L 100 12/31/19 23:47 36.8 C 104 H 20 98/59 L 100 12/31/19 22:47 36.8 C 103 H 21 90/54 L 100 12/31/19 21:47 36.7 C 106 H 22 92/52 L 100 Coding Diagnoses S/P admission to ICU (intensive care unit) Tension pneumothorax J93.0 Shock circulatory R57.9 Acute hypoxemic respiratory failure J96.01 Pulmonary emphysema J43.9 Troponin level elevated R79.89
[2020-01-01] MEDS: cefTRIAXone SODIUM 1,000 MG in DEXTROSE 5% 50 ML IV SCH (10:37)
[2020-01-01] MEDS ORDERED: levoFLOXacin 500 MG TAB PO SCH (11:00)
--- NOTE | 2020-01-01 11:34 | Cardiology Progress Note ---
Date of Service January 01, 2020 Assessment & Plan (1) Acute pneumothorax: (2) Lateral ST segment elevation: (3) Troponin level elevated: (4) URIEL (acute kidney injury): (5) COPD (chronic obstructive pulmonary disease): (6) Acute respiratory distress: (7) Apical ballooning syndrome: (8) Status post fall: (9) Pulmonary hypertension: (10) Ambulatory dysfunction: Very complex medical presentation with acute tension pneumothorax along with possible lateral ST segment elevation myocardial infarction. Her symptoms have resolved with chest tube placement and reexpansion of her right lung. She denies experiencing any chest pain other than chest tube insertion and states that her breathing is significantly improving. The pathophysiology and treatment options for an acute ST segment elevation myocardial infarction were discussed with both the patient and her daughter in great lengths by myself as well as Dr. Camacho. After looking at her clinical presentation as a whole I believe the most likely explanation would be that she suffered a slowly decompressing pneumothorax after her fall last week. This then led to significant catecholamine surge as well as myocardial strain. Given the pattern of apical ballooning on her echocardiogram along with her ST segment elevations, troponin increase and lack of chest discomfort I do not believe that she is suffering an acute ST segment myocardial infarction. Patient significantly improved clinically since presentation. Continues to deny chest discomfort. EKG reveals evolving ST segment elevations likely due to apical ballooning Troponin has remained flat No arrhythmias on monitor overnight Small dose of metoprolol added this a.m. which she is tolerating well. We will try to uptitrate metoprolol to 12.5 mg p.o. 3 times daily. I agree with the reinstituting her BuSpar, may benefit from psychiatric evaluation as well to help dictate further medical care for her anxiety. 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 No further testing at this time and obviously will not proceed to cardiac cath at this time. May repeat echocardiogram after a few days of beta-blockade treatment to evaluate for any improvement of wall motion. Subjective Patient seen and examined, chart reviewed. She is currently having her chest tube repositioned by the critical care team during the examination. She states that she feels much much better than presentation. Even the discomfort from the chest tube has resolved. She is now breathing easily off O2 and continues to deny any chest pain. No events reported overnight by nursing. Telemetry reviewed: Normal sinus rhythm without arrhythmia or significant ectopy. EKG: Progressive ST segment elevations across the anterior leads as well as sustained elevations in the lateral leads. Review of Systems Review of Systems: All systems reviewed & are unremarkable except as noted in HPI & below Physical Exam Physical Exam: General: Awake, alert and oriented x 3. No acute distress. HEENT: Normocephalic, atraumatic. Pupils equal, round and reactive to light and accommodation. Extraocular muscles are intact. Anicteric sclera. Moist mucous membranes. Neck: No JVD. No bruit. Cardiovascular: Regular. Positive S-4. Normal S-1 and S-2. No S-3. No murmurs or rubs. Pulmonary: Clear to auscultation B/L. No rales, rhonchi or wheezing Abdomen: Bowel sounds x 4, soft. No rebound, guarding or tenderness. No or ganomegaly. Extremities: No clubbing, cyanosis or edema. +2 pedal pulses bilaterally. Skin: Warm and dry. Results & Data Vital Signs (Past 12 Hours) Vital Signs Temp Pulse Resp BP Pulse Ox 01/01/20 10:48 92 H 19 96/65 L 99 01/01/20 10:30 91 H 17 99 01/01/20 10:00 91 H 25 H 100 01/01/20 09:48 96 H 28 H 94/60 L 100 01/01/20 09:30 93 H 23 100 01/01/20 09:00 109 H 26 H 100 01/01/20 08:48 111 H 14 99/66 L 100 01/01/20 08:30 106 H 22 100 01/01/20 08:00 96 H 33 H 100 01/01/20 07:48 36.9 C 99 H 28 H 112/67 100 01/01/20 07:30 107 H 26 H 98 01/01/20 07:00 100 01/01/20 06:48 99 H 101/72 99 01/01/20 06:45 102 H 99 01/01/20 05:47 36.7 C 107 H 111/66 100 01/01/20 04:47 36.7 C 97 H 21 102/67 100 01/01/20 03:47 36.7 C 102 H 22 100/61 99 01/01/20 02:47 37 C 102 H 21 95/55 L 100 01/01/20 01:47 36.8 C 100 H 21 95/56 L 100 01/01/20 00:47 36.8 C 103 H 21 98/56 L 100 12/31/19 23:47 36.8 C 104 H 20 98/59 L 100
--- NOTE | 2020-01-01 11:47 | XRay Report ---
XR chest 1V portable HISTORY: 79 years-old Female Right sided pneumothorax right-sided pneumothorax COMPARISON: Chest radiograph 01/01/2020 and 12/31/2019 TECHNIQUE: Portable AP view of the chest FINDINGS: Right apical pneumothorax has slightly increased in size from comparison, pleural separation of 2.9 c m, previously 2.5 cm. Increased amount of subcutaneous emphysema of the right upper lateral chest wal l and right supraclavicular distribution. Cardiac mediastinal and hilar silhouettes are unchanged. Em physema with chronic interstitial coarsening. Mild bibasilar densities suggest probable atelectasis. Calcifications of the bilateral breasts. Degenerative changes of the shoulders and spine. Unchanged p ositioning of the right-sided pigtail catheter. IMPRESSION: 1. Slightly increased size of the right apical pneumothorax with increased amount of right chest wall and supraclavicular subcutaneous emphysema. The catheter appears to be in stable positioning, howeve r the catheter should be assessed to exclude malfunction. 2. Emphysema. ACT 112: Negative or not required by law. The above report was generated using voice recognition software. It may contain grammatical, syntax o r spelling errors. Electronically signed by: Vini Vivas M.D. 01/01/2020 11:46 AM
--- NOTE | 2020-01-01 12:03 | Billing Data ---
Date of Service January 01, 2020 Coding Level of Care Code 69032 Subseq Hosp Care Lvl 3
[2020-01-01] MEDS ORDERED: METOPROLOL TARTRATE 25 MG TAB PO SCH (14:00)
--- NOTE | 2020-01-01 14:57 | Electrocardiogram Report ---
Test Reason : Blood Pressure : / mmHG Vent. Rate : 112 BPM Atrial Rate : 112 BPM P-R Int : 156 ms QRS Dur : 088 ms QT Int : 346 ms P-R-T Axes : 087 063 080 degrees QTc Int : 472 ms Sinus tachycardia with occasional Premature ventricular complexes Right atrial enlargement ST elevation, consider early repolarization, pericarditis, or injury Abnormal ECG When compared with ECG of 31-DEC-2019 11:13, Premature ventricular complexes are now Present Premature atrial complexes are no longer Present Confirmed by Yosvany Gutierrez ([id number]) on 01/01/2020 2:57:14 PM Referred By: REFERRED SELF Confirmed By:Yosvany Gutierrez
[2020-01-01] MEDS ORDERED: haloperidoL 0.5 MG TAB PO ONE (15:13)
--- NOTE | 2020-01-01 15:13 | Electrocardiogram Report ---
Test Reason : Blood Pressure : / mmHG Vent. Rate : 102 BPM Atrial Rate : 102 BPM P-R Int : 150 ms QRS Dur : 084 ms QT Int : 344 ms P-R-T Axes : 094 070 079 degrees QTc Int : 448 ms Sinus tachycardia Anterolateral ST elevation Borderline ECG When compared with ECG of 31-DEC-2019 11:48, (unconfirmed) ST abnormality more pronounced Confirmed by Yosvany Gutierrez ([id number]) on 01/01/2020 3:13:32 PM Referred By: REFERRED SELF Confirmed By:Yosvany Gutierrez
--- NOTE | 2020-01-01 18:18 | Hospitalist Progress Note ---
Date of Service January 01, 2020 Assessment & Plan (1) Tension pneumothorax: (1) Tension pneumothorax: (2) Acute respiratory distress: (3) Acute hypoxemic respiratory failure: per admitting SVC notes: Patient is a 79 yo female who presented to the ED with SOB and weakness. Found to have large tension pneumothorax of the right lung. ED physician quickly performed needle decompression after which patient improved. Pneumothorax likely secondary to emphysema and fall at home. Chest tube was placed in the ED, and pneumothorax was mostly resolved on F/U CXR. 01/01/2020 s/p pigtail chest tube placement tube system changed today clinically improving Pulm SVC on board transfer to Tele per [facility] Donor Coordinator (4) Pulmonary emphysema: (5) COPD (chronic obstructive pulmonary disease): (6) Pulmonary hypertension: continue Breo continue Levaquin (7) Apical ballooning syndrome: (8) Troponin level elevated: (9) Lateral ST segment elevation: (+) ST elevation anterolateral leads troponins flat at 9 echo apical ballooning Metoprolol added monitor (10) URIEL (acute kidney injury): (11) Hyponatremia: improved crea back to baseline (12) Status post fall: (13) Ambulatory dysfunction: will order PT/OT eval (14) Thrombocytosis: (15) Lactic acidosis: blood culture: (+) gram negative bacilli in 1 bottle on Ceftriaxone IV (16) Pulmonary nodule: 6 mm ground glass nodule noted in the [facility] and 6 mm solid nodule noted in the RUL. Need to follow up as outpatient. (18) Abnormal LFTs: Liver US: 1. No gallstones or biliary ductal dilatation. 2. Trace pericholecystic fluid. -- improving (17) DVT prophylaxis: Heparin BID Admission and Anticipated Discharge Date Admission Date: December 31, 2019 Subjective ff up for tension pneumothorax, elevated troponin seen resting in bed, not in distress oriented x 3, answers all questions appropriately states she feels ok overall denies shortness of breath, chest pain, cough, sputum chills denies abdominal pain, nausea/vomiting no other symptoms Review of Systems Review of Systems: All systems reviewed & are unremarkable except as noted in HPI & below Physical Exam Physical Exam: General- oriented x 3, not in distress, speaks in sentences with no effort or accessory muscle use Head- atraumatic Eyes- PERRL, EOMI, anicteric ENT- oropharynx clear Neck- supple, no JVD, no adenopathy, no thyromegaly; carotids +2/2, no bruits appreciated Lungs- (+) chest tube - pigtail - on the lateral chest wall--> no bleeding, discharge clear breath sounds bilaterally Heart- normal rate, regular rhythm; no murmur, no gallop, no rub appreciated Abdomen- normal bowel sounds, nondistended, soft, nontender, no masses or hepatosplenomegaly Extremities- no pretibial edema, no calf tenderness; peripheral pulses intact Neuro- alert, oriented x 3; CN 2-12 grossly intact; motor 5/5 bilaterally;sensation 100% on all extremities; no other gross focal neurologic deficits Skin- warm & dry Results & Data Results & Data ([facility]) Vital Signs (Past 12 Hours) Vital Signs Temp Pulse Resp BP Pulse Ox 20 16:00 37.0 C 96 H 23 100 07/20/20 15:48 85 24 107/65 100 07/20/20 15:30 89 28 H 100 07/20/20 15:00 100 H 29 H 99 07/20/20 14:48 106 H 28 H 125/76 100 07/20/20 14:30 103 H 28 H 100 07/20/20 14:00 100 H 29 H 100 07/20/20 13:48 106 H 23 126/61 100 07/20/20 13:34 114 H 32 H 07/20/20 13:15 100 H 23 100 07/20/20 13:00 100 H 26 H 100 07/20/20 12:48 99 H 19 102/59 L 100 07/20/20 12:30 95 H 27 H 100 07/20/20 12:00 96 H 20 100 07/20/20 11:48 94 H 26 H 106/54 L 100 07/20/20 11:30 88 31 H 100 07/20/20 11:00 88 21 100 07/20/20 10:48 92 H 19 96/65 L 99 07/20/20 10:30 91 H 17 99 07/20/20 10:00 91 H 25 H 100 07/20/20 09:48 96 H 28 H 94/60 L 100 07/20/20 09:30 93 H 23 100 07/20/20 09:00 109 H 26 H 100 07/20/20 08:48 111 H 14 99/66 L 100 01/01/20 08:30 106 H 22 100 01/01/20 08:00 96 H 33 H 100 01/01/20 07:48 36.9 C 99 H 28 H 112/67 100 01/01/20 07:30 107 H 26 H 98 01/01/20 07:00 100 01/01/20 06:48 99 H 101/72 99 01/01/20 06:45 102 H 99 Laboratory Results Laboratory Results - last 24 hr 12/31/19 12/31/19 12/31/19 10:41 15:30 21:00 WBC RBC Hgb Hct MCV MCH MCHC RDW Std Deviation RDW Coeff of Elizabeth Plt Count MPV ABG pH ABG pCO2 ABG pO2 ABG HCO3 ABG O2 Saturation ABG Base Excess Capo Test Oxygen Given Sodium Potassium Chloride Carbon Dioxide Anion Gap BUN Creatinine Est Cr Clr Drug Dosing Est GFR ( Amer) Est GFR (Non-Af Amer) BUN/Creatinine Ratio Glucose POC Glucose Estimat Average Glucose Hemoglobin A1c Lactate Calcium Phosphorus Magnesium Total Bilirubin AST ALT Alkaline Phosphatase Troponin I 9.240 H* Total Protein Albumin Globulin Albumin/Globulin Ratio Triglycerides Cholesterol LDL Cholesterol, Calc VLDL Cholesterol, Calc HDL Cholesterol Cholesterol/HDL Ratio TSH Urine Color Yellow Urine Appearance Clear Urine pH 5.0 Ur Specific [place] > 1.045 H Urine Protein 1+ H Urine Glucose (UA) Negative Urine Ketones Trace H Urine Blood Negative Urine Nitrite Negative Urine Bilirubin Negative Urine Urobilinogen Negative Ur Leukocyte Esterase Negative Urine WBC (Auto) 5-10 H Urine RBC (Auto) 0-4 U Hyaline Cast (Auto) 10-30 H U Epithel Cells (Auto) >30 H Urine Bacteria (Auto) Negative Ur Renal Epithelial Cell 0-5 Granular Casts 1-5 H Bld Cult Staph aureus PCR Negative Blood Culture MRSA PCR Negative 01/01/20 01/01/20 01/01/20 00:01 01:02 03:08 WBC 13.46 H RBC 3.56 L Hgb 11.3 L D Hct 32.5 L MCV 91.3 MCH 31.7 MCHC 34.8 RDW Std Deviation 40.6 RDW Coeff of Elizabeth 12.1 Plt Count 264 MPV 8.8 ABG pH ABG pCO2 ABG pO2 ABG HCO3 ABG O2 Saturation ABG Base Excess Capo Test Oxygen Given Sodium Potassium Chloride Carbon Dioxide Anion Gap BUN Creatinine Est Cr Clr Drug Dosing Est GFR ( Amer) Est GFR (Non-Af Amer) BUN/Creatinine Ratio Glucose POC Glucose 166 H Estimat Average Glucose Hemoglobin A1c Lactate 1.7 Calcium Phosphorus Magnesium Total Bilirubin AST ALT Alkaline Phosphatase Troponin I Total Protein Albumin Globulin Albumin/Globulin Ratio Triglycerides Cholesterol LDL Cholesterol, Calc VLDL Cholesterol, Calc HDL Cholesterol Cholesterol/HDL Ratio TSH Urine Color Urine Appearance Urine pH Ur Specific [place] Urine Protein Urine Glucose (UA) Urine Ketones Urine Blood Urine Nitrite Urine Bilirubin Urine Urobilinogen Ur Leukocyte Esterase Urine WBC (Auto) Urine RBC (Auto) U Hyaline Cast (Auto) U Epithel Cells (Auto) Urine Bacteria (Auto) Ur Renal Epithelial Cell Granular Casts Bld Cult Staph aureus PCR Blood Culture MRSA PCR 01/01/20 01/01/20 01/01/20 03:08 03:08 03:12 WBC RBC Hgb Hct MCV MCH MCHC RDW Std Deviation RDW Coeff of Elizabeth Plt Count MPV ABG pH 7.46 H ABG pCO2 34 L ABG pO2 71 L ABG HCO3 24 ABG O2 Saturation 94.9 ABG Base Excess 0.4 Capo Test Pos Oxygen Given 15L Sodium 134 L Potassium 4.1 Chloride 101 Carbon Dioxide 23 Anion Gap 10.0 BUN 20 H Creatinine 0.74 D Est Cr Clr Drug Dosing 45.8 Est GFR ( Amer) 90.6 Est GFR (Non-Af Amer) 78.1 BUN/Creatinine Ratio 26.8 H Glucose 108 H POC Glucose Estimat Average Glucose 103 Hemoglobin A1c 5.2 Lactate Calcium 8.5 D Phosphorus 3.6 Magnesium 1.8 Total Bilirubin 0.4 AST 150 H ALT 138 H Alkaline Phosphatase 75 Troponin I 9.290 H* Total Protein 6.3 L D Albumin 2.7 L Globulin 3.6 Albumin/Globulin Ratio 0.8 L Triglycerides 43 Cholesterol 131 LDL Cholesterol, Calc 46 VLDL Cholesterol, Calc 9 HDL Cholesterol 76 Cholesterol/HDL Ratio 2 TSH 0.331 Urine Color Urine Appearance Urine pH Ur Specific [place] Urine Protein Urine Glucose (UA) Urine Ketones Urine Blood Urine Nitrite Urine Bilirubin Urine Urobilinogen Ur Leukocyte Esterase Urine WBC (Auto) Urine RBC (Auto) U Hyaline Cast (Auto) U Epithel Cells (Auto) Urine Bacteria (Auto) Ur Renal Epithelial Cell Granular Casts Bld Cult Staph aureus PCR Blood Culture MRSA PCR 01/01/20 11:06 WBC RBC Hgb Hct MCV MCH MCHC RDW Std Deviation RDW Coeff of Elizabeth Plt Count MPV ABG pH ABG pCO2 ABG pO2 ABG HCO3 ABG O2 Saturation ABG Base Excess Capo Test Oxygen Given Sodium Potassium Chloride Carbon Dioxide Anion Gap BUN Creatinine Est Cr Clr Drug Dosing Est GFR ( Amer) Est GFR (Non-Af Amer) BUN/Creatinine Ratio Glucose POC Glucose Estimat Average Glucose Hemoglobin A1c Lactate Calcium Phosphorus Magnesium Total Bilirubin AST ALT Alkaline Phosphatase Troponin I 9.100 H* Total Protein Albumin Globulin Albumin/Globulin Ratio Triglycerides Cholesterol LDL Cholesterol, Calc VLDL Cholesterol, Calc HDL Cholesterol Cholesterol/HDL Ratio TSH Urine Color Urine Appearance Urine pH Ur Specific [place] Urine Protein Urine Glucose (UA) Urine Ketones Urine Blood Urine Nitrite Urine Bilirubin Urine Urobilinogen Ur Leukocyte Esterase Urine WBC (Auto) Urine RBC (Auto) U Hyaline Cast (Auto) U Epithel Cells (Auto) Urine Bacteria (Auto) Ur Renal Epithelial Cell Granular Casts Bld Cult Staph aureus PCR Blood Culture MRSA PCR
[2020-01-01] MEDS ORDERED: XOPENEX/ATROVENT 1.25mg/0.5MG NEB COMBO NEB PRN (20:27)
[2020-01-01] MEDS ORDERED: IPRATROPIUM BROMIDE NEB SOLN 0.02% 2.5 ML VIAL INH PRN (20:30)
[2020-01-01] MEDS ORDERED: LORazepam 0.25 MG/0.5 ML VIAL IV PRN (20:30)
[2020-01-01] MEDS ORDERED: LEVALBUTEROL 1.25MG/0.5ML NEB INH PRN (20:30)
[2020-01-01] MEDS ORDERED: XOPENEX/ATROVENT 1.25mg/0.5MG NEB COMBO NEB STA (20:37)
[2020-01-01] MEDS ORDERED: LEVALBUTEROL 1.25MG/0.5ML NEB INH STA (20:39)
[2020-01-01] MEDS ORDERED: IPRATROPIUM BROMIDE NEB SOLN 0.02% 2.5 ML VIAL INH STA (20:39)
--- NOTE | 2020-01-01 20:52 | XRay Report ---
SINGLE VIEW CHEST CLINICAL HISTORY: Dyspnea. Pneumothorax. FINDINGS: An AP, portable, upright chest radiograph is compared to study dated 01/01/2020 and correlat ed with chest CT dated 12/31/2019. The examination is degraded by portable technique and patient rotat ion. A right-sided pigtail catheter is unchanged in position. The cardiomediastinal silhouette is unr emarkable noting atherosclerotic calcification of the thoracic aorta. Pulmonary vascular congestion i s new from previous. Advanced emphysema and chronic interstitial thickening is similar to previous. A small right apical pneumothorax is unchanged. There is at least 3 cm of pleural separation. Trace pl eural effusions are suspected. There are increasing bibasilar airspace opacities. No left-sided pneum othorax is seen. The skeletal structures are osteopenic. The bony thorax is grossly intact. IMPRESSION: 1. A right apical pneumothorax is unchanged from earlier today, and a right-sided chest tube is uncha nged in position. 2. Advanced emphysema. 3. Small pleural effusions are new from previous. 4. There are increasing bibasilar airspace opacities. This could represent atelectasis versus a mild infectious/inflammatory pneumonitis and clinical correlation will be required. 5. Mild pulmonary vascular congestion is new from previous. ACT 112: Negative or not required by law. Electronically signed by: Dangelo Shahid M.D. 01/01/2020 8:51 PM
[2020-01-01] MEDS: MAGNESIUM SULFATE / D5W 1 GM/100 ML BAG IV SCH ×2 (20:54→22:54)
[2020-01-01] MEDS: METOPROLOL TARTRATE 25 MG TAB PO SCH (20:55)
[2020-01-01] MEDS ORDERED: FUROSEMIDE 20 MG in SYRINGE 0 ML IV ONE (21:00)
[2020-01-01] MEDS ORDERED: ALBUMIN 25% 50 ML IV ONE (21:06)
[2020-01-01] MEDS ORDERED: methylPREDNISolone 20 MG in SYRINGE 0 ML IV STA (21:11)
[2020-01-01] MEDS ORDERED: LEVALBUTEROL 1.25MG/0.5ML NEB INH SCH (21:15)
[2020-01-01] MEDS ORDERED: IPRATROPIUM BROMIDE NEB SOLN 0.02% 2.5 ML VIAL INH SCH (21:15)
[2020-01-01 21:26] LABS: Hematocrit (blood only) 40.3 % (37-47)
[2020-01-01] MEDS ORDERED: dilTIAZem HCl 5 MG/ML 5 ML VIAL IV STA (21:27)
[2020-01-01 21:35] LABS: Allen Test POS (Pos); Base Excess ABG -2.6 mEq/L (-9-1.8); HCO3 ABG 23 mmol/L (19-24); Oxygen Saturation ABG 89.9 % (90-95); PCO2 ABG 45 mmHg (35-46); PO2 ABG 64 mmHg (80-95); pH ABG 7.33 (7.35-7.45)
[2020-01-01 21:37] LABS: Partial Thromboplastin Ratio 0.9; Partial Thromboplastin Time 26.5 Seconds (21.0-31.0)
[2020-01-01 21:44] LABS: BUN Creatinine Ratio 30.2 (10-20); Calcium 8.9 mg/dl (8.5-10.1); Creatinine Clr Calc Pharmacy 47.5 ml/min; Est GFR (African American) 95.2; Est GFR (Non-African American) 82.2; Potassium 4.4 mmol/L (3.5-5.1)
[2020-01-01] MEDS ORDERED: ALBUMIN 25% 50 ML with FUROSEMIDE 20 MG IV ONE (22:59)
[2020-01-02] MEDS ORDERED: XOPENEX/ATROVENT 1.25mg/0.5MG NEB COMBO NEB STA (00:04)
[2020-01-02] MEDS ORDERED: LEVALBUTEROL 1.25MG/0.5ML NEB INH STA (00:07)
[2020-01-02] MEDS ORDERED: IPRATROPIUM BROMIDE NEB SOLN 0.02% 2.5 ML VIAL INH STA (00:08)
[2020-01-02] MEDS: IPRATROPIUM BROMIDE NEB SOLN 0.02% 2.5 ML VIAL INH SCH ×4 (00:38→19:12)
[2020-01-02] MEDS: LEVALBUTEROL 1.25MG/0.5ML NEB INH SCH ×4 (00:38→19:12)
[2020-01-02] MEDS ORDERED: XOPENEX/ATROVENT 1.25mg/0.5MG NEB COMBO NEB SCH ×2 (01:00→07:00)
[2020-01-02] MEDS: METOPROLOL TARTRATE 25 MG TAB PO SCH (05:56)
--- NOTE | 2020-01-02 08:15 | XRay Report ---
XR chest 1V portable CLINICAL HISTORY: Right PNX with pigtail catheter COMPARISON STUDY: Chest CT December 31, 2019. Chest radiograph January 01, 2020 at 8:36 PM. FINDINGS: Right pleural pigtail catheter remains in place. A moderate right pneumothorax has moderate ly increased in size since exam of January 01, 2020 of 8:34 PM. Superior pleural separation measures 3.4 cm. There is apparent leftward mediastinal shift although this could be due to patient rotation. Sma ll bilateral pleural effusions are noted. There is subcutaneous emphysema within the right neck and c hest wall. There is no left pneumothorax. Mild right basilar opacity persists. There is minimal left basilar opacity. IMPRESSION: Moderate increase in size of a moderate right pneumothorax since prior exam. Right pleura l pigtail catheter in place. Interval development of suspected leftward mediastinal shift which raise s the possibility of tension. ACT 112: Negative or not required by law. Electronically signed by: Alex Bran M.D. 01/02/2020 8:14 AM
[2020-01-02] MEDS: ATORVASTATIN 40 MG TAB PO SCH (08:51)
[2020-01-02] MEDS: ASPIRIN 81 MG ECTAB PO SCH (08:51)
[2020-01-02] MEDS: FLUTICASONE/VILANTEROL 100/25MCG 14 PUFFS/INHALER INH SCH (08:52)
[2020-01-02] MEDS: CHOLECALCIFEROL 1,000 UNITS 25 MCG TAB PO SCH (08:52)
[2020-01-02] MEDS: HEPARIN SOD 5,000 UNIT/0.5 ML VIAL SQ SCH ×2 (08:53→20:16)
[2020-01-02] MEDS ORDERED: METOPROLOL SUCC 25MG EXT REL TAB PO ONE (09:00)
[2020-01-02 09:21] LABS: Hematocrit (blood only) 39.8 % (37-47); Hemoglobin 13.9 g/dL (12.0-16.0); Immature Granulocytes # (auto) 0.08 K/uL (0.00-0.02); Immature Granulocytes % (auto) 0.4 %; Lymphocytes # (auto) 0.88 K/uL (1.2-3.4); Lymphocytes % (auto) 4.4 %; Mean Corpuscular Hemoglobin 32.6 pg (25-34); Mean Corpuscular Hgb Conc 34.9 g/dL (32-36); Mean Corpuscular Volume 93.4 fL (80-100); Mean Platelet Volume 9.5 fL (7.4-10.4); Monocytes # (auto) 1.23 K/uL (0.11-0.59); Monocytes % (auto) 6.2 %; Neutrophils # (auto) 17.76 K/uL (1.4-6.5); Platelet Count 273 K/uL (130-400); RDW Coefficient of Variation 12.4 % (11.5-14.5); Red Blood Count 4.26 M/uL (4.2-5.4); White Blood Count 19.95 K/uL (4.8-10.8)
[2020-01-02 09:47] LABS: BUN Creatinine Ratio 23.9 (10-20); Calcium 9.1 mg/dl (8.5-10.1); Creatinine Clr Calc Pharmacy 39.8 ml/min
[2020-01-02] MEDS: levoFLOXacin 250 MG TABLET PO SCH (11:01)
--- NOTE | 2020-01-02 11:24 | Pulmonology Progress Note ---
Date of Service January 02, 2020 Assessment & Plan (1) Tension pneumothorax: Impression: 79-year-old female with 99-01-lnxh-year history of tobacco abuse admitted after fall with significant pneumothorax. Biapical blebs are noted. Recommendation: 1. Pneumothorax: The waterseal system was replaced to a what system to allow for assessment of ongoing air leak. I placed the patient to 20 cm of wall suction with significant evacuation of air. For a brief period of time she was increased to 40 cmH2O then backed back down to 20 cm water. Would leave at 20 cm water wall suction and plan on repeating chest x-ray in a few hours. The patient may require upsizing of the chest tube if were unable to adequately evacuate the pneumothorax. Cannot consider pleurodesis unless the visceral and parietal pleural surfaces are in direct apposition. Would like to avoid video- assisted thoracoscopic with stapling unless absolutely necessary. 2. COPD: Severity uncertain. Certainly radiographic evidence of COPD is present and the patient is significantly cachectic. She does not appear bronchospastic. Do not recommend steroids currently as this may decrease efficiency of pleurodesis if required in the long-term. Continue as needed bronchodilators. 3. Pulmonary nodule: The patient has several groundglass pulmonary nodules which will require radiographic surveillance in 6 to 12 months. 4. Malnutrition: Continue aggressive nutritional support. Consultation with dietary may be beneficial. We will continue to follow. Feel free to contact us with questions or concerns (2) Pulmonary nodule: (3) Acute hypoxemic respiratory failure: (4) Pulmonary emphysema: Admission and Anticipated Discharge Date Admission Date: December 31, 2019 Subjective Patient seen and examined. EMR reviewed. Chest x-ray from this morning reviewed. The patient is awake alert and conversant. She states she does not feel well but does not report any significant respiratory issues. No crepitus. No voice changes. Her chest tube remains on waterseal. Review of Systems Review of Systems: All systems reviewed & are unremarkable except as noted in HPI & below Physical Exam Constitutional: Thin and frail-appearing female in no significant distress. Nasal cannula is in place. Chest tube on the right is in place. She is sleeping on the [facility]. Daughter at bedside. Eyes: PERRL, conjunctivae normal, anicteric sclerae ENMT: external ear and nose normal, oropharynx normal Neck: normal visual inspection Respiratory: normal respiratory effort; no retractions and no cough Right- sided pigtail catheter is in place. Tube is connected to waterseal so unable to assess leak but there does appear to be respiratory variation Cardiovascular: RRR, no murmur, no edema Extremities: no edema Gastrointestinal (Abdomen): normal bowel sounds, soft, nontender, no hepatospl enomegaly Musculoskeletal: no cyanosis or clubbing, extremities motor strength 5/5 Skin: no rashes, warm and dry Neurologic: PERRL, EOMI, accommodation nl, no face palsy, no dysarthria Psychiatric: A+Ox3, euthymic affect Results & Data Results & Data ([facility]) Vital Signs (Past 12 Hours) Vital Signs Temp Pulse Pulse Resp BP BP Pulse Ox 01/02/20 11:09 36.4 C L 92 H 16 107/66 95 01/02/20 08:15 105 H 01/02/20 07:38 36.4 C L 96 H 16 126/82 99 01/02/20 06:58 93 H 20 100 01/02/20 05:02 36.7 C 102 H 20 110/65 96 01/02/20 00:38 94 H 32 H 95 01/02/20 00:00 90 01/01/20 23:36 106 H 30 H 141/83 H 90 Laboratory Results 01/02/20 08:56 01/02/20 08:56 Diagnostic Findings Chest x-ray today was independently reviewed. It demonstrated the pigtail catheter in good position however there is increasing size of the right-sided pneumothorax without mediastinal shift. PG Care Time/CCT Total # of Minutes Spent Total Time Spent with Patient: Total time spent is greater than 50% in coordination of care (as documented) at patient's floor/unit and/or counseling patient: Coding Level of Care Code 50032 Subseq Hosp Care Lvl 3 Diagnoses Tension pneumothorax J93.0 Pulmonary nodule R91.1 Acute hypoxemic respiratory failure J96.01 Pulmonary emphysema J43.9 Time Spent (min) 40
[2020-01-02] MEDS: cefTRIAXone SODIUM 1,000 MG in DEXTROSE 5% 50 ML IV SCH (11:31)
--- NOTE | 2020-01-02 12:10 | XRay Report ---
XR chest 1V portable CLINICAL HISTORY: Chest tube placed back on suction for PNX COMPARISON STUDY: Chest radiograph January 02, 2020 at 7:53 AM. FINDINGS: Right pleural catheter remains in place. The right pneumothorax has significantly decreased in size since prior exam. Superior pleural separation measures 2 cm. Subcutaneous gas within the rig ht chest wall and neck is noted. Patient is rotated. This could account for mild leftward mediastinal shift. Trace bilateral pleural effusions are noted. There is mild left basilar opacity. Right basila r opacity persists. IMPRESSION: Significant decrease in size of the small right pneumothorax. Right pleural catheter in place. ACT 112: Negative or not required by law. Electronically signed by: Alex Bran M.D. 01/02/2020 12:09 PM
--- NOTE | 2020-01-02 13:37 | Electrocardiogram Report ---
Test Reason : Blood Pressure : / mmHG Vent. Rate : 111 BPM Atrial Rate : 111 BPM P-R Int : 142 ms QRS Dur : 082 ms QT Int : 354 ms P-R-T Axes : 095 059 088 degrees QTc Int : 481 ms Poor data quality, interpretation may be adversely affected Sinus tachycardia with occasional Premature ventricular complexes Minimal voltage criteria for LVH, may be normal variant ( Sokolow-Ludwig ) ST elevation, consider early repolarization, pericarditis, or injury T wave abnormality, consider lateral ischemia Abnormal ECG When compared with ECG of 01-JAN-2020 06:50, Premature ventricular complexes are now Present ST more elevated in Lateral leads Confirmed by Yosvany Gutierrez ([id number]) on 01/02/2020 1:37:00 PM Referred By: REFERRED SELF Confirmed By:Yosvany Gutierrez
--- NOTE | 2020-01-02 14:10 | Cardiology Progress Note ---
Date of Service January 02, 2020 Assessment & Plan (1) Acute pneumothorax: (2) Lateral ST segment elevation: (3) Troponin level elevated: (4) URIEL (acute kidney injury): (5) COPD (chronic obstructive pulmonary disease): (6) Acute respiratory distress: (7) Apical ballooning syndrome: (8) Status post fall: (9) Pulmonary hypertension: (10) Ambulatory dysfunction: Very complex medical presentation with acute tension pneumothorax along with possible lateral ST segment elevation myocardial infarction. Her symptoms have resolved with chest tube placement and reexpansion of her right lung. She denies experiencing any chest pain other than chest tube insertion and states that her breathing is significantly improving. The pathophysiology and treatment options for an acute ST segment elevation myocardial infarction were discussed with both the patient and her daughter in great lengths by myself as well as Dr. Camacho. After looking at her clinical presentation as a whole I believe the most likely explanation would be that she suffered a slowly decompressing pneumothorax after her fall last week. This then led to significant catecholamine surge as well as myocardial strain. Given the pattern of apical ballooning on her echocardiogram along with her ST segment elevations, troponin increase and lack of chest discomfort I do not believe that she is suffering an acute ST segment myocardial infarction. Chest x-ray shows worsening pneumothorax on the right. Chest tube replaced by pulmonary. Tolerating addition of beta-blockade well. We will continue to follow her hemodynamics and uptitrate as possible. I agree with the reinstituting her BuSpar, may benefit from psychiatric e valuation as well to help dictate further medical care for her anxiety. 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 No further testing at this time and obviously will not proceed to cardiac cath at this time. May repeat echocardiogram after a few days of beta-blockade treatment to evaluate for any improvement of wall motion. Subjective Patient seen and examined, chart reviewed. Patient remains anxious but states that she feels well. Occasional discomfort at chest tube site otherwise denies chest pain, palpitations, lightheadedness, dizziness or syncope. She states that she believes her breathing is the same as yesterday. Telemetry reviewed: Normal sinus rhythm/sinus tachycardia without arrhythmia or significant ectopy. Review of Systems Review of Systems: All systems reviewed & are unremarkable except as noted in HPI & below Physical Exam Physical Exam: General: Awake, alert and oriented x 3. No acute distress. HEENT: Normocephalic, atraumatic. Pupils equal, round and reactive to light and accommodation. Extraocular muscles are intact. Anicteric sclera. Moist mucous membranes. Neck: No JVD. No bruit. Cardiovascular: Regular. Positive S-4. Normal S-1 and S-2. No S-3. No murmurs or rubs. Pulmonary: Clear to auscultation B/L with decreased breath sounds on the right. No rales, rhonchi or wheezing Abdomen: Bowel sounds x 4, soft. No rebound, guarding or tenderness. No organomegaly. Extremities: No clubbing, cyanosis or edema. +2 pedal pulses bilaterally. Skin: Warm and dry. Results & Data Vital Signs (Past 12 Hours) Vital Signs Temp Pulse Pulse Resp BP Pulse Ox 01/02/20 13:42 99 H 18 100 01/02/20 11:09 36.4 C L 92 H 16 107/66 95 01/02/20 08:15 105 H 01/02/20 07:38 36.4 C L 96 H 16 126/82 99 01/02/20 06:58 93 H 20 100 01/02/20 05:02 36.7 C 102 H 20 110/65 96
--- NOTE | 2020-01-02 19:06 | Hospitalist Progress Note ---
Date of Service January 02, 2020 Assessment & Plan (1) Tension pneumothorax: (1) Tension pneumothorax: (2) Acute respiratory distress: (3) Acute hypoxemic respiratory failure: per admitting SVC notes: Patient is a 79 yo female who presented to the ED with SOB and weakness. Found to have large tension pneumothorax of the right lung. ED physician quickly performed needle decompression after which patient improved. Pneumothorax likely secondary to emphysema and fall at home. Chest tube was placed in the ED, and pneumothorax was mostly resolved on F/U CXR. Transferred from ICU to telemetry Possible air leak noted today, chest tube system replaced, connected to suctioning Patient is on room air, comfortable Appreciate pulmonary service recommendations (4) Pulmonary emphysema: (5) COPD (chronic obstructive pulmonary disease): (6) Pulmonary hypertension: continue Breo continue Levaquin (7) Apical ballooning syndrome: (8) Troponin level elevated: (9) Lateral ST segment elevation: (+) ST elevation anterolateral leads on admission troponins flat at 9 echo apical ballooning, likely secondary to catecholamine surge Archeology Faculty Member consulted, metoprolol started, tolerating well, continue metoprolol XL 25 mg twice daily Continue risperidone May need repeat echo Appreciate cardiology service recommendations (10) URIEL (acute kidney injury): Resolved (11) Hyponatremia: Improving, monitor (12) Status post fall: Family patient has been noted to be having progressive confusion and multiple falls at home The paranasal sinuses and mastoid air cells are clear. The calvarium and skull base are intact. There is no mass, hematoma, midline shift, acute infarct. White matter hypodensity is nonspecific but suggestive of microvascular ischemic change. The ventricles and sulci demonstrate mild age-related involutional changes. 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 Mild motion artifact. --Already on aspirin, will need statin therapy --PT and OT evaluation (13) Ambulatory dysfunction: PT/OT eval (14) Thrombocytosis: (15) Lactic acidosis: blood culture: Coag negative staph in 1 bottle Repeat blood cultures: Negative so far Thrombocytosis resolved Lactic acidosis improving (16) Pulmonary nodule: 6 mm ground glass nodule noted in the HARRISON and 6 mm solid nodule noted in the RUL. Need to follow up as outpatient. (17) Abnormal LFTs: Liver US: 1. No gallstones or biliary ductal dilatation. 2. Trace pericholecystic fluid. -- improving DVT prophylaxis: Heparin BID Disposition Pending Will need PT and OT evaluation Lives with family May need [facility] facility placement Admission and Anticipated Discharge Date Admission Date: December 31, 2019 Subjective Follow-up for pneumothorax, possible catecholamine induced apical ballooning Seen sitting up in bed, comfortable, not in distress Chest tube system replaced this morning, for possible air leak Patient denies shortness of breath, chest pain, cough, fevers or chills Denies palpitations, dizziness, headache Denies abdominal pain, nausea or vomiting No other symptoms Review of Systems Review of Systems: All systems reviewed & are unremarkable except as noted in HPI & below Physical Exam Physical Exam: General- oriented x 3, not in distress, speaks in sentences with no effort or accessory muscle use Eyes- anicteric Neck- no JVD Lungs- clear breath sounds bilaterally, no rales/wheezes Positive chest tube left lateral chest wall, no bleeding or discharge Heart- normal rate, regular rhythm; no murmurs Abdomen- normal bowel sounds, nondistended, soft, nontender Extremities- no pretibial edema, no calf tenderness Neuro- alert, oriented x 3; no gross focal neurologic deficits Skin- warm & dry Results & Data Results & Data ([facility]) Vital Signs (Past 12 Hours) Vital Signs Temp Pulse Pulse Resp BP Pulse Ox 01/02/20 15:07 37.0 C 101 H 22 94/57 L 95 01/02/20 14:51 80 01/02/20 13:42 99 H 18 100 01/02/20 11:09 36.4 C L 92 H 16 107/66 95 01/02/20 08:15 105 H 01/02/20 07:38 36.4 C L 96 H 16 126/82 99 01/02/20 06:58 93 H 20 100 Laboratory Results Laboratory Results - last 24 hr 01/01/20 01/01/20 01/01/20 21:18 21:18 21:18 WBC RBC Hgb Hct MCV MCH MCHC RDW Std Deviation RDW Coeff of Elizabeth Plt Count MPV Immature Gran % (Auto) Neut % (Auto) Lymph % (Auto) Freestone % (Auto) Eos % (Auto) Baso % (Auto) Neut # (Auto) Lymph # (Auto) Fre[place] # (Auto) Eos # (Auto) Baso # (Auto) Immature Gran # (Auto) APTT PTT Ratio ABG pH 7.33 L ABG pCO2 45 ABG pO2 64 L ABG HCO3 23 ABG O2 Saturation 89.9 L ABG Base Excess -2.6 Capo Test POS Barometric Pressure 731.2 Oxygen Given 6L O2 Sodium 129 L Potassium 4.4 Chloride 97 L Carbon Dioxide 23 Anion Gap 9.0 BUN 22 H Creatinine 0.71 Est Cr Clr Drug Dosing 47.5 Est GFR ( Amer) 95.2 Est GFR (Non-Af Amer) 82.2 BUN/Creatinine Ratio 30.2 H Glucose 194 H POC Glucose Calcium 8.9 Magnesium 2.0 Blood Type O Negative Antibody Screen NEGATIVE 01/01/20 01/01/20 01/02/20 21:18 21:18 00:56 WBC RBC Hgb 14.0 Hct 40.3 MCV MCH MCHC RDW Std Deviation RDW Coeff of Elizabeth Plt Count MPV Immature Gran % (Auto) Neut % (Auto) Lymph % (Auto) Freestone % (Auto) Eos % (Auto) Baso % (Auto) Neut # (Auto) Lymph # (Auto) Freestone # (Auto) Eos # (Auto) Baso # (Auto) Immature Gran # (Auto) APTT 26.5 PTT Ratio 0.9 ABG pH ABG pCO2 ABG pO2 ABG HCO3 ABG O2 Saturation ABG Base Excess Capo Test Barometric Pressure Oxygen Given Sodium Potassium Chloride Carbon Dioxide Anion Gap BUN Creatinine Est Cr Clr Drug Dosing Est GFR ( Amer) Est GFR (Non-Af Amer) BUN/Creatinine Ratio Glucose POC Glucose 210 H Calcium Magnesium Blood Type Antibody Screen 01/02/20 01/02/20 08:56 08:56 WBC 19.95 H RBC 4.26 Hgb 13.9 Hct 39.8 MCV 93.4 MCH 32.6 MCHC 34.9 RDW Std Deviation 42.0 RDW Coeff of Elizabeth 12.4 Plt Count 273 MPV 9.5 Immature Gran % (Auto) 0.4 Neut % (Auto) 89.0 Lymph % (Auto) 4.4 Freestone % (Auto) 6.2 Eos % (Auto) 0.0 Baso % (Auto) 0.0 Neut # (Auto) 17.76 H Lymph # (Auto) 0.88 L Freestone # (Auto) 1.23 H Eos # (Auto) 0.00 Baso # (Auto) 0.00 Immature Gran # (Auto) 0.08 H APTT PTT Ratio ABG pH ABG pCO2 ABG pO2 ABG HCO3 ABG O2 Saturation ABG Base Excess Capo Test Barometric Pressure Oxygen Given Sodium 131 L Potassium 4.0 Chloride 95 L Carbon Dioxide 28 Anion Gap 8.0 BUN 20 H Creatinine 0.82 Est Cr Clr Drug Dosing 39.8 Est GFR ( Amer) 80.0 Est GFR (Non-Af Amer) 69.0 BUN/Creatinine Ratio 23.9 H Glucose 130 H POC Glucose Calcium 9.1 Magnesium Blood Type Antibody Screen
[2020-01-02] MEDS: METOPROLOL SUCC 25MG EXT REL TAB PO SCH (20:16)
[2020-01-03] MEDS: LEVALBUTEROL 1.25MG/0.5ML NEB INH SCH ×4 (01:06→19:03)
[2020-01-03] MEDS: IPRATROPIUM BROMIDE NEB SOLN 0.02% 2.5 ML VIAL INH SCH ×4 (01:06→19:03)
--- NOTE | 2020-01-03 07:16 | XRay Report ---
XR chest 1V portable HISTORY: 79 years-old Female Right sided PNX follow-up study in a patient with right-sided pneumotho rax COMPARISON: Chest radiograph 01/02/2020 at 11:50 AM TECHNIQUE: Portable AP view of the chest FINDINGS: Small right apical pneumothorax, pleural separation of 1.4 cm, previously 2.0 cm. Unchanged positioni ng of the right-sided pleural drainage catheter. Subcutaneous emphysema of the right chest wall is un changed. The cardiac mediastinal and hilar silhouettes are within normal limits. Emphysema with chron ic fibrosis. Persistent ill-defined bibasilar opacities. Degenerative changes of the shoulders and sp ine. Calcifications of the bilateral breast parenchyma. IMPRESSION: Mildly decreased size of the right apical pneumothorax with stable positioning of the rig ht-sided pleural drainage catheter. ACT 112: Negative or not required by law. The above report was generated using voice recognition software. It may contain grammatical, syntax o r spelling errors. Electronically signed by: Vini Vivas M.D. 01/03/2020 7:15 AM
[2020-01-03 08:15] LABS: BUN Creatinine Ratio 33.9 (10-20); Calcium 9.2 mg/dl (8.5-10.1); Est GFR (African American) 99.8; Est GFR (Non-African American) 86.1; Potassium 3.9 mmol/L (3.5-5.1)
[2020-01-03] MEDS: FLUTICASONE/VILANTEROL 100/25MCG 14 PUFFS/INHALER INH SCH (08:49)
[2020-01-03] MEDS: METOPROLOL SUCC 25MG EXT REL TAB PO SCH (08:50)
[2020-01-03] MEDS: ATORVASTATIN 40 MG TAB PO SCH (08:52)
[2020-01-03] MEDS: HEPARIN SOD 5,000 UNIT/0.5 ML VIAL SQ SCH ×2 (08:52→20:18)
[2020-01-03] MEDS: ASPIRIN 81 MG ECTAB PO SCH (08:52)
[2020-01-03] MEDS: CHOLECALCIFEROL 1,000 UNITS 25 MCG TAB PO SCH (08:52)
--- NOTE | 2020-01-03 08:53 | Pulmonology Progress Note ---
Date of Service January 03, 2020 Assessment & Plan (1) Tension pneumothorax: Impression: 79-year-old female with 33-16-bfbs-year history of tobacco abuse admitted after fall with significant pneumothorax. Biapical blebs are noted. Recommendation: 1. Pneumothorax: Improved chest x-ray today. Continue chest tube at 20 cm of water. Daily chest x-ray. If continues to have issue may need to increase to 40 cm water. Hold on replacing tube for now. Cannot consider pleurodesis unless the visceral and parietal pleural surfaces are in direct apposition. Would like to avoid video-assisted thoracoscopic with stapling unless absolutely necessary. 2. COPD: Severity uncertain. Certainly radiographic evidence of COPD is present and the patient is significantly cachectic. She does not appear bronchospastic. Do not recommend steroids currently as this may decrease efficiency of pleurodesis if required in the long-term. Continue as needed bronchodilators. 3. Pulmonary nodule: The patient has several groundglass pulmonary nodules which will require radiographic surveillance in 6 to 12 months. 4. Malnutrition: Continue aggressive nutritional support. Consultation with dietary may be beneficial. We will continue to follow. Feel free to contact us with questions or concerns (2) Pulmonary nodule: (3) Acute hypoxemic respiratory failure: (4) Pulmonary emphysema: Admission and Anticipated Discharge Date Admission Date: December 31, 2019 Subjective Seen and examined. The patient does not report any significant respiratory issues. Her pain is controlled. Review of Systems Review of Systems: All systems reviewed & are unremarkable except as noted in HPI & below Physical Exam Eyes: PERRL, conjunctivae normal, anicteric sclerae ENMT: external ear and nose normal, oropharynx normal Neck: normal visual inspection Respiratory: normal respiratory effort; no retractions and no cough Cardiovascular: RRR, no murmur, no edema Extremities: no edema Gastrointestinal (Abdomen): normal bowel sounds, soft, nontender, no hepatosp lenomegaly Musculoskeletal: no cyanosis or clubbing, extremities motor strength 5/5 Skin: no rashes, warm and dry Neurologic: PERRL, EOMI, accommodation nl, no face palsy, no dysarthria Psychiatric: A+Ox3, euthymic affect Results & Data Results & Data ([facility]) Vital Signs (Past 12 Hours) Vital Signs Temp Pulse Pulse Resp BP BP Pulse Ox 01/03/20 07:14 36.4 C L 103 H 20 126/76 93 01/03/20 06:59 93 H 18 94 01/03/20 03:34 36.3 C L 94 H 16 122/69 95 01/02/20 23:08 36.4 C L 101 H 16 121/74 95 Laboratory Results 01/02/20 08:56 01/03/20 07:25 Diagnostic Findings Chest x-ray for today reviewed. Pigtail catheter in good position. Small apical pneumothorax slightly decreased from yesterday. The patient does have a persistent small air leak on the chest tube PG Care Time/CCT Total # of Minutes Spent Total Time Spent with Patient: Total time spent is greater than 50% in coordination of care (as documented) at patient's floor/unit and/or counseling patient: Coding Level of Care Code 20730 Subseq Hosp Care Lvl 2 Diagnoses Tension pneumothorax J93.0 Pulmonary nodule R91.1 Acute hypoxemic respiratory failure J96.01 Pulmonary emphysema J43.9
--- NOTE | 2020-01-03 10:19 | Hospitalist Progress Note ---
Date of Service January 03, 2020 Assessment & Plan (1) Tension pneumothorax: (1) Tension pneumothorax: (2) Acute respiratory distress: (3) Acute hypoxemic respiratory failure: per admitting SVC notes: Patient is a 79 yo female who presented to the ED with SOB and weakness. Found to have large tension pneumothorax of the right lung. ED physician quickly performed needle decompression after which patient improved. Pneumothorax likely secondary to emphysema and fall at home. Chest tube was placed in the ED, and pneumothorax was mostly resolved on F/U CXR. Possible air leak noted today, pulmonology team updated Patient denies of any shortness of breath, no hypoxia remains in room air (4) Pulmonary emphysema: (5) COPD (chronic obstructive pulmonary disease): (6) Pulmonary hypertension: continue Breo continue Levaquin (7) Apical ballooning syndrome: (8) Troponin level elevated: (9) Lateral ST segment elevation: (+) ST elevation anterolateral leads on admission troponins flat at 9 echo apical ballooning, likely secondary to catecholamine surge Auto Service Representative consulted, metoprolol started, tolerating well, continue metoprolol XL 25 mg twice daily Continue risperidone Repeat echo will be ordered to assess LV function (10) URIEL (acute kidney injury): Resolved (11) Hyponatremia: Improving, monitor (12) Status post fall: Family patient has been noted to be having progressive confusion and multiple falls at home The paranasal sinuses and mastoid air cells are clear. The calvarium and skull base are intact. There is no mass, hematoma, midline shift, acute infarct. White matter hypodensity is nonspecific but suggestive of microvascular ischemic change. The ventricles and sulci demonstrate mild age-related involutional harper ges. 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 Mild motion artifact. --Already on aspirin, will need statin therapy --PT and OT evaluation (13) Ambulatory dysfunction: PT/OT eval (14) Thrombocytosis: (15) Lactic acidosis: Resolved, normal level on 01/01/2020 blood culture: Coag negative staph in 1 bottle Repeat blood cultures: Negative so far Thrombocytosis resolved (16) Pulmonary nodule: 6 mm ground glass nodule noted in the H[facility]ISON and 6 mm solid nodule noted in the RUL. Need to follow up as outpatient. (17) Abnormal LFTs: Liver US: 1. No gallstones or biliary ductal dilatation. 2. Trace pericholecystic fluid. -- improving DVT prophylaxis: Heparin BID Disposition Pending Will need PT and OT evaluation Lives with family May need correction facility placement Admission and Anticipated Discharge Date Admission Date: December 31, 2019 Subjective Patient denies of any chest pain, no shortness of breath Has chest tube on the left thoracic wall, there was concern for possible leak on the chest tube, pulmonology team updated No fever or chills, no cough, Complains of poor appetite, Review of Systems Review of Systems: All systems reviewed & are unremarkable except as noted in HPI & below Physical Exam Constitutional: WD/WN, vitals as above + thin Eyes: PERRL, conjunctivae normal, anicteric sclerae ENMT: external ear and nose normal, oropharynx normal Neck: trachea midline, no thyromegaly Respiratory: no cough Auscultation: + crackles (On left lung base); no wheezes Left sided chest tube present Cardiovascular: RRR, no murmur, no edema Gastrointestinal (Abdomen): Percussion/Palpation: abdomen soft; abdomen nontender Musculoskeletal: no cyanosis or clubbing, extremities motor strength 5/5 Skin: no rashes, warm and dry Neurologic: PERRL, EOMI, accommodation nl, no face palsy, no dysarthria Psychiatric: A+Ox3, euthymic affect Results & Data Results & Data ([facility]) Vital Signs (Past 12 Hours) Vital Signs Temp Pulse Pulse Resp BP BP Pulse Ox 01/03/20 07:14 36.4 C L 103 H 20 126/76 93 01/03/20 06:59 93 H 18 94 01/03/20 03:34 36.3 C L 94 H 16 122/69 95 01/02/20 23:08 36.4 C L 101 H 16 121/74 95
[2020-01-03] MEDS ORDERED: METOPROLOL SUCC 25MG EXT REL TAB PO ONE (11:35)
--- NOTE | 2020-01-03 12:34 | Electrocardiogram Report ---
Test Reason : Blood Pressure : / mmHG Vent. Rate : 101 BPM Atrial Rate : 101 BPM P-R Int : 138 ms QRS Dur : 084 ms QT Int : 354 ms P-R-T Axes : 087 054 079 degrees QTc Int : 459 ms Poor data quality, interpretation may be adversely affected Sinus tachycardia with Premature atrial complexes Voltage criteria for left ventricular hypertrophy ST elevation, consider early repolarization, pericarditis, or injury Abnormal ECG When compared with ECG of 02-JAN-2020 06:22, Premature ventricular complexes are no longer Present Premature atrial complexes are now Present T wave inversion no longer evident in Anterior leads Confirmed by Yosvany Gutierrez ([id number]) on 01/03/2020 12:34:30 PM Referred By: REFERRED SELF Confirmed By:Yosvany Gutierrez
[2020-01-03] MEDS: levoFLOXacin 250 MG TABLET PO SCH (12:36)
[2020-01-03] MEDS: POLYETHYLENE (MIRALAX) 17 GM PACK PO SCH (12:37)
--- NOTE | 2020-01-03 14:18 | Cardiology Progress Note ---
Date of Service January 03, 2020 Assessment & Plan (1) Acute pneumothorax: (2) Lateral ST segment elevation: (3) Troponin level elevated: (4) URIEL (acute kidney injury): (5) COPD (chronic obstructive pulmonary disease): (6) Acute respiratory distress: (7) Apical ballooning syndrome: (8) Status post fall: (9) Pulmonary hypertension: (10) Ambulatory dysfunction: Very complex medical presentation with acute tension pneumothorax along with possible lateral ST segment elevation myocardial infarction. Her symptoms have resolved with chest tube placement and reexpansion of her right lung. She denies experiencing any chest pain other than chest tube insertion and states that her breathing is significantly improving. The pathophysiology and treatment options for an acute ST segment elevation myocardial infarction were discussed with both the patient and her daughter in great lengths by myself as well as Dr. Camacho. After looking at her clinical presentation as a whole I believe the most likely explanation would be that she suffered a slowly decompressing pneumothorax after her fall last week. This then led to significant catecholamine surge as well as myocardial strain. Given the pattern of apical ballooning on her echocardiogram along with her ST segment elevations, troponin increase and lack of chest discomfort I do not believe that she is suffering an acute ST segment myocardial infarction. Chest x-ray shows improvement of her pneumothorax today. Tolerating up titration of metoprolol succinate without issue. I agree with the reinstituting her BuSpar, may benefit from psychiatric evaluation as well to help dictate further medical care for her anxiety. 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 We will repeat echo in the a.m. to evaluate for any improvement of her LV systolic function will repeat limited echo in the a.m. to evaluate for any improvement of her LV systolic function. Subjective Patient seen and examined, chart reviewed. Patient states that she feels well today and denies any shortness of breath. Still some discomfort at the catheter site but denies any other chest discomfort. Nor any shortness of breath, palpitations, lightheadedness, dizziness or syncope. Telemetry reviewed: Normal sinus rhythm without arrhythmia or significant ectopy. Review of Systems Review of Systems: All systems reviewed & are unremarkable except as noted in HPI & below Physical Exam Physical Exam: General: Awake, alert and oriented x 3. No acute distress. HEENT: Normocephalic, atraumatic. Pupils equal, round and reactive to light and accommodation. Extraocular muscles are intact. Anicteric sclera. Moist mucous membranes. Neck: No JVD. No bruit. Cardiovascular: Regular. Positive S-4. Normal S-1 and S-2. No S-3. No murmurs or rubs. Pulmonary: Clear to auscultation B/L. With decreased breath sounds on the right no rales, rhonchi or wheezing Abdomen: Bowel sounds x 4, soft. No rebound, guarding or tenderness. No organomegaly. Extremities: No clubbing, cyanosis or edema. +2 pedal pulses bilaterally. Skin: Warm and dry. Results & Data Vital Signs (Past 12 Hours) Vital Signs Temp Pulse Pulse Resp BP BP Pulse Ox 01/03/20 13:41 87 18 93 01/03/20 11:41 36.6 C 84 18 118/75 96 01/03/20 07:14 36.4 C L 103 H 20 126/76 93 01/03/20 06:59 93 H 18 94 01/03/20 03:34 36.3 C L 94 H 16 122/69 95
[2020-01-03] MEDS: METOPROLOL SUCC 50MG EXT REL TAB PO SCH (20:19)
[2020-01-04] MEDS: IPRATROPIUM BROMIDE NEB SOLN 0.02% 2.5 ML VIAL INH SCH ×3 (00:04→13:14)
[2020-01-04] MEDS: LEVALBUTEROL 1.25MG/0.5ML NEB INH SCH ×3 (00:04→13:14)
[2020-01-04 07:44] LABS: BUN Creatinine Ratio 23.5 (10-20); Calcium 9.8 mg/dl (8.5-10.1); Creatinine Clr Calc Pharmacy 43.3 ml/min; Est GFR (African American) 89.1; Est GFR (Non-African American) 76.9; Potassium 4.4 mmol/L (3.5-5.1)
[2020-01-04] MEDS: POLYETHYLENE (MIRALAX) 17 GM PACK PO SCH (08:06)
[2020-01-04] MEDS: ATORVASTATIN 40 MG TAB PO SCH (08:07)
[2020-01-04] MEDS: FLUTICASONE/VILANTEROL 100/25MCG 14 PUFFS/INHALER INH SCH (08:08)
[2020-01-04] MEDS: CHOLECALCIFEROL 1,000 UNITS 25 MCG TAB PO SCH (08:08)
[2020-01-04] MEDS: METOPROLOL SUCC 50MG EXT REL TAB PO SCH ×2 (08:08→20:56)
[2020-01-04] MEDS: HEPARIN SOD 5,000 UNIT/0.5 ML VIAL SQ SCH ×2 (08:08→20:55)
[2020-01-04] MEDS: ASPIRIN 81 MG ECTAB PO SCH (08:10)
--- NOTE | 2020-01-04 09:06 | XRay Report ---
XR chest 1V portable CLINICAL HISTORY: Right PNX with pigtail catheter COMPARISON STUDY: Chest radiograph January 03, 2020 6:42 AM. FINDINGS: Right pleural pigtail catheter remains in place. A small right apical pneumothorax is simil ar to exam of January 03, 2020. There is no left pneumothorax. Mild right basilar opacity is improved. T here is no evidence for pulmonary edema. Subcutaneous gas within the right chest wall and neck is aga in noted. I IMPRESSION: No significant change in a small right apical pneumothorax. Right pleural pigtail cathet er in place. ACT 112: Negative or not required by law. Electronically signed by: Alex Bran M.D. 01/04/2020 9:05 AM
--- NOTE | 2020-01-04 10:16 | Pulmonology Progress Note ---
Date of Service January 04, 2020 Assessment & Plan (1) Tension pneumothorax: Impression: 79-year-old female with 28-93-sfpl-year history of tobacco abuse admitted after fall with significant pneumothorax. Biapical blebs are noted. Recommendation: 1. Pneumothorax: Slight improvement on chest x-ray today. Increase suction to chest tube to 40 cm of water. Daily chest x-ray. Cook 8.5 Ken[place] pigtail catheter is in place and dressing is secure. 2. COPD: Severity uncertain. Radiographic evidence of COPD is present. Do not recommend steroids currently as this may decrease efficiency of pleurodesis if required in the long-term. Continue as needed bronchodilators. May benefit from pulmonary function testing as an outpatient. Will consider that at time of discharge 3. Pulmonary nodule: The patient has several groundglass pulmonary nodules which will require radiographic surveillance in 6 to 12 months. 4. Malnutrition: Continue aggressive nutritional support. Consultation with dietary may be beneficial. We will continue to follow. Feel free to contact us with questions or concerns Please refer to Dr. Dalton's addendum for further recommendations. (2) Pulmonary nodule: (3) Acute hypoxemic respiratory failure: (4) Pulmonary emphysema: Admission and Anticipated Discharge Date Admission Date: December 31, 2019 Supervising Physician Co-Signing Physician Notes Patient seen and examined. Discussed with critical care ASHLEY. Pneumothorax improving. Will increase chest tube suction to 40 cm of water and reevaluate chest x-ray in the morning. If continues to have issues, may require upsizing of the chest tube. Pain control is adequate. Subjective Attending: Dr. Dalton Patient seen and examined at bedside today. She has no specific shortness of breath. She has no chest pain or tightness. There is no irritation at the pigtail catheter insertion site in the axillary line. Patient does still have a grade 3 air leak. However, chest x-ray shows slight improvement of the pneumothorax as compared to yesterday. Suction was at negative 15 cm this morning. Patient has no acute complaints Review of Systems Review of Systems: All systems reviewed & are unremarkable except as noted in HPI & below Physical Exam Physical Exam: GENERAL : No acute distress EYES: No icterus, gaze conjugate NOSE: No evidence of epistaxis MOUTH: No lesions or candidiasis. Mucosa dry NECK: Supple LUNGS: CTA B/L, no wheezes, rales or rhonchi HEART: Regular, rate controlled ABDOMEN: Soft, NT, ND, BS Present EXTREMITIES: No LE edema, pedal pulses intact NEURO: A&OX3 Results & Data Results & Data ([facility]) Vital Signs (Past 12 Hours) Vital Signs Temp Pulse Pulse Resp BP BP Pulse Ox 01/04/20 08:13 36.4 C L 76 16 121/69 96 01/04/20 07:44 80 18 96 01/04/20 03:45 36.6 C 79 17 110/64 95 01/04/20 00:00 81 01/03/20 23:01 36.7 C 78 16 120/73 97 Laboratory Results 01/02/20 08:56 01/04/20 06:54 Diagnostic Findings XR chest 1V portable CLINICAL HISTORY: Right PNX with pigtail catheter COMPARISON STUDY: Chest radiograph January 03, 2020 6:42 AM. FINDINGS: Right pleural pigtail catheter remains in place. A small right apical pneumothorax is similar to exam of January 03, 2020. There is no left pneumothorax. Mild right basilar opacity is improved. There is no evidence for pulmonary edema. Subcutaneous gas within the right chest wall and neck is again noted. I IMPRESSION: No significant change in a small right apical pneumothorax. Right pleural pigtail catheter in place. Electronically signed by: Alex Bran M.D. 01/04/2020 9:05 AM PG Care Time/CCT Total # of Minutes Spent Total Time Spent with Patient: Total time spent is greater than 50% in coordination of care (as documented) at patient's floor/unit and/or counseling patient: 25 including discussion with nursing staff and other providers. Coding Level of Care Code 11145 Subseq Hosp Care Lvl 2 Diagnoses Tension pneumothorax J93.0 Pulmonary nodule R91.1 Acute hypoxemic respiratory failure J96.01 Pulmonary emphysema J43.9
[2020-01-04] MEDS: levoFLOXacin 250 MG TABLET PO SCH (11:42)
[2020-01-04] MEDS ORDERED: IPRATROPIUM BROMIDE NEB SOLN 0.02% 2.5 ML VIAL INH PRN (13:46)
[2020-01-04] MEDS ORDERED: LEVALBUTEROL 1.25MG/0.5ML NEB INH PRN (13:46)
--- NOTE | 2020-01-04 16:04 | Cardiology Progress Note ---
Date of Service January 04, 2020 Assessment & Plan (1) Acute pneumothorax: (2) Lateral ST segment elevation: (3) Troponin level elevated: (4) URIEL (acute kidney injury): (5) COPD (chronic obstructive pulmonary disease): (6) Acute respiratory distress: (7) Apical ballooning syndrome: (8) Status post fall: (9) Pulmonary hypertension: (10) Ambulatory dysfunction: Very complex medical presentation with acute tension pneumothorax along with possible lateral ST segment elevation myocardial infarction. Her symptoms have resolved with chest tube placement and reexpansion of her right lung. She denies experiencing any chest pain other than chest tube insertion and states that her breathing is significantly improving. The pathophysiology and treatment options for an acute ST segment elevation myocardial infarction were discussed with both the patient and her daughter in great lengths by myself as well as Dr. Camacho. After looking at her clinical presentation as a whole I believe the most likely explanation would be that she suffered a slowly decompressing pneumothorax after her fall last week. This then led to significant catecholamine surge as well as myocardial strain. Given the pattern of apical ballooning on her echocardiogram along with her ST segment elevations, troponin increase and lack of chest discomfort I do not believe that she is suffering an acute ST segment myocardial infarction. Chest x-ray shows improvement of her pneumothorax today. Tolerating up titration of metoprolol succinate without issue. I agree with the reinstituting her BuSpar, may benefit from psychiatric evaluation as well to help dictate further medical care for her anxiety. 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 Limited echocardiogram repeated today shows no change in LV systolic function Remains asymptomatic from a cardiac standpoint so we will continue with beta- blockade and SSRI Subjective Patient seen and examined, chart reviewed. States that she is feeling a little fatigued today otherwise well. Denies any chest pain, shortness of breath, palpitations, lightheadedness, dizziness or syncope. Telemetry reviewed: Normal sinus rhythm without arrhythmia or significant ectopy. Review of Systems Review of Systems: All systems reviewed & are unremarkable except as noted in HPI & below Physical Exam Physical Exam: General: Awake, alert and oriented x 3. No acute distress. HEENT: Normocephalic, atraumatic. Pupils equal, round and reactive to light and accommodation. Extraocular muscles are intact. Anicteric sclera. Moist mucous membranes. Neck: No JVD. No bruit. Cardiovascular: Regular. Positive S-4. Normal S-1 and S-2. No S-3. No murmurs or rubs. Pulmonary: Clear to auscultation B/L. No rales, rhonchi or wheezing Abdomen: Bowel sounds x 4, soft. No rebound, guarding or tenderness. No organomegaly. Extremities: No clubbing, cyanosis or edema. +2 pedal pulses bilaterally. Skin: Warm and dry. Results & Data Vital Signs (Past 12 Hours) Vital Signs Temp Pulse Pulse Resp BP Pulse Ox 01/04/20 15:07 36.6 C 84 18 97/62 L 93 01/04/20 13:19 83 20 95 01/04/20 12:04 36.8 C 84 20 118/72 97 01/04/20 08:13 36.4 C L 76 16 121/69 96 01/04/20 07:44 80 18 96
--- NOTE | 2020-01-04 18:43 | Hospitalist Progress Note ---
Date of Service January 04, 2020 Assessment & Plan (1) Tension pneumothorax: (1) Tension pneumothorax: (2) Acute respiratory distress: (3) Acute hypoxemic respiratory failure: per admitting SVC notes: Patient is a 79 yo female who presented to the ED with SOB and weakness. Found to have large tension pneumothorax of the right lung. ED physician quickly performed needle decompression after which patient improved. Pneumothorax likely secondary to emphysema and fall at home. pulm team following Patient denies of any shortness of breath, no hypoxia remains in room air daily chest xray shows improvement of pneumothorax (4) Pulmonary emphysema: (5) COPD (chronic obstructive pulmonary disease): (6) Pulmonary hypertension: continue Breo continue Levaquin (7) Apical ballooning syndrome: (8) Troponin level elevated: (9) Lateral ST segment elevation: (+) ST elevation anterolateral leads on admission troponins flat at 9 echo apical ballooning, likely secondary to catecholamine surge [employer] consulted, metoprolol started, tolerating well, continue metoprolol XL 25 mg twice daily Continue risperidone Repeat echo shows unchanged LV function (10) URIEL (acute kidney injury): Resolved (11) Hyponatremia: Improving, monitor (12) Status post fall: Family patient has been noted to be having progressive confusion and multiple fa lls at home The paranasal sinuses and mastoid air cells are clear. The calvarium and skull base are intact. There is no mass, hematoma, midline shift, acute infarct. White matter hypodensity is nonspecific but suggestive of microvascular ischemic change. The ventricles and sulci demonstrate mild age-related involutional changes. 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 Mild motion artifact. --Already on aspirin, will need statin therapy --PT and OT evaluation (13) Ambulatory dysfunction: PT/OT eval (14) Thrombocytosis: (15) Lactic acidosis: Resolved, normal level on 01/01/2020 blood culture: Coag negative staph in 1 bottle Repeat blood cultures: Negative so far Thrombocytosis resolved (16) Pulmonary nodule: 6 mm ground glass nodule noted in the [facility] and 6 mm solid nodule noted in the RUL. Need to follow up as outpatient. (17) Abnormal LFTs: Liver US: 1. No gallstones or biliary ductal dilatation. 2. Trace pericholecystic fluid. -- improving DVT prophylaxis: Heparin BID Disposition Pending Will need PT and OT evaluation Lives with family May need halfway facility placement Admission and Anticipated Discharge Date Admission Date: December 31, 2019 Subjective pt reports of feeling well no complain of shortness of breath , no cough no chest pain with deep breath still has chest tube drainage Physical Exam Constitutional: WD/WN, vitals as above + thin Eyes: PERRL, conjunctivae normal, anicteric sclerae ENMT: external ear and nose normal, oropharynx normal Neck: trachea midline, no thyromegaly Respiratory: no cough Auscultation: + crackles (On left lung base); no wheezes Cardiovascular: RRR, no murmur, no edema Gastrointestinal (Abdomen): Percussion/Palpation: abdomen soft; abdomen nontender Musculoskeletal: no cyanosis or clubbing, extremities motor strength 5/5 Skin: no rashes, warm and dry Neurologic: PERRL, EOMI, accommodation nl, no face palsy, no dysarthria Psychiatric: A+Ox3, euthymic affect Results & Data Results & Data ([facility]) Vital Signs (Past 12 Hours) Vital Signs Temp Pulse Pulse Resp BP Pulse Ox 01/04/20 15:07 36.6 C 84 18 97/62 L 93 01/04/20 13:19 83 20 95 01/04/20 12:04 36.8 C 84 20 118/72 97 01/04/20 08:13 36.4 C L 76 16 121/69 96 01/04/20 07:44 80 18 96
[2020-01-05] MEDS: ACETAMINOPHEN 500 MG TAB PO PRN (03:46)
[2020-01-05 06:51] LABS: BUN Creatinine Ratio 28.3 (10-20); Calcium 8.5 mg/dl (8.5-10.1); Creatinine Clr Calc Pharmacy 53.4 ml/min; Est GFR (African American) 101.9; Est GFR (Non-African American) 87.9; Potassium 3.9 mmol/L (3.5-5.1)
--- NOTE | 2020-01-05 07:31 | XRay Report ---
XR chest 1V portable HISTORY: Right pneumothorax. Follow-up. COMPARISON: Chest 01/04/2020. FINDINGS: Right upper chest tube remains unchanged in position. Small right apical pneumothorax is no t significantly changed. This demonstrates a maximal pleural gap of 1.3 cm. Suspect small bilateral p leural effusions. The lungs are hyperexpanded with apical predominant emphysematous changes. The hear t remains mildly enlarged. No evidence for pulmonary edema. Right chest wall subcutaneous emphysema p ersists. IMPRESSION: No change in the small right apical pneumothorax. Right pleural pigtail catheter remains in place. ACT 112: Negative or not required by law. Electronically signed by: Jesus Hawkins M.D. 01/05/2020 7:29 AM
[2020-01-05] MEDS: FLUTICASONE/VILANTEROL 100/25MCG 14 PUFFS/INHALER INH SCH (08:07)
[2020-01-05] MEDS: CHOLECALCIFEROL 1,000 UNITS 25 MCG TAB PO SCH (08:08)
[2020-01-05] MEDS: METOPROLOL SUCC 50MG EXT REL TAB PO SCH ×2 (08:08→21:35)
[2020-01-05] MEDS: ASPIRIN 81 MG ECTAB PO SCH (08:08)
[2020-01-05] MEDS: ATORVASTATIN 40 MG TAB PO SCH (08:08)
[2020-01-05] MEDS: POLYETHYLENE (MIRALAX) 17 GM PACK PO SCH (08:09)
[2020-01-05] MEDS: HEPARIN SOD 5,000 UNIT/0.5 ML VIAL SQ SCH ×2 (08:09→21:37)
--- NOTE | 2020-01-05 08:31 | Pulmonology Progress Note ---
Date of Service January 05, 2020 Assessment & Plan (1) Tension pneumothorax: Impression: 79-year-old female with 03-98-xyyf-year history of tobacco abuse admitted after fall with significant pneumothorax. Biapical blebs are noted. Recommendation: 1. Pneumothorax: Slight improvement on chest x-ray today. Continue chest tube at 40 cm of water suction. Continue daily chest x-rays. 2. COPD: Severity uncertain. Radiographic evidence of COPD is present. Do not recommend steroids currently as this may decrease efficiency of pleurodesis if required in the long-term. Continue as needed bronchodilators. May benefit from pulmonary function testing as an outpatient. Will consider that at time of discharge 3. Pulmonary nodule: The patient has several groundglass pulmonary nodules whi ch will require radiographic surveillance in 6 to 12 months. 4. Malnutrition: Continue aggressive nutritional support. Consultation with dietary may be beneficial. Patient does have signs of underlying dementia which likely may be contributing as well 5. We will consult PT and OT to get the patient up and moving. She does not need to be on bedrest with a chest tube and ambulation in the hallway as recommended. The tube can come off suction for brief periods of time while the patient is ambulating but should remain on suction if she sitting in a chair We will continue to follow. Feel free to contact us with questions or concerns (2) Pulmonary nodule: (3) Acute hypoxemic respiratory failure: (4) Pulmonary emphysema: Admission and Anticipated Discharge Date Admission Date: December 31, 2019 Subjective Patient is without complaints this morning. She denies any chest pain or shortness of breath. No cough. Review of Systems Review of Systems: All systems reviewed & are unremarkable except as noted in HPI & below Physical Exam Eyes: PERRL, conjunctivae normal, anicteric sclerae ENMT: external ear and nose normal, oropharynx normal Neck: normal visual inspection Respiratory: normal respiratory effort; no retractions and no cough Small air leak on chest tube. Crepitus improving Cardiovascular: RRR, no murmur, no edema Extremities: no edema Gastrointestinal (Abdomen): normal bowel sounds, soft, nontender, no hepatosplenomegaly Musculoskeletal: no cyanosis or clubbing, extremities motor strength 5/5 Skin: no rashes, warm and dry Neurologic: PERRL, EOMI, accommodation nl, no face palsy, no dysarthria Psychiatric: A+Ox3, euthymic affect Results & Data Results & Data ([facility]) Vital Signs (Past 12 Hours) Vital Signs Temp Pulse Pulse Pulse Resp BP BP 01/05/20 07:49 36.8 C 82 18 138/76 01/05/20 04:02 36.5 C 79 16 144/84 H 01/05/20 00:00 76 01/04/20 23:50 36.5 C 82 18 133/80 01/04/20 20:54 81 135/74 Pulse Ox 01/05/20 07:49 96 01/05/20 04:02 95 01/05/20 00:00 01/04/20 23:50 96 01/04/20 20:54 Laboratory Results 01/02/20 08:56 01/05/20 05:34 Diagnostic Findings Chest x-ray from today was reviewed. Small apical pneumothorax again identified not appreciably changed from prior PG Care Time/CCT Total # of Minutes Spent Total Time Spent with Patient: Total time spent is greater than 50% in coordination of care (as documented) at patient's floor/unit and/or counseling patient: Coding Level of Care Code 70254 Subseq Hosp Care Lvl 3 Diagnoses Tension pneumothorax J93.0 Pulmonary nodule R91.1 Acute hypoxemic respiratory failure J96.01 Pulmonary emphysema J43.9
[2020-01-05] MEDS: levoFLOXacin 250 MG TABLET PO SCH (12:48)
[2020-01-05] MEDS: LOSARTAN POTASSIUM 25 MG TAB PO SCH (12:48)
--- NOTE | 2020-01-05 15:14 | Cardiology Progress Note ---
Date of Service January 05, 2020 Assessment & Plan (1) Acute pneumothorax: (2) Lateral ST segment elevation: (3) Troponin level elevated: (4) URIEL (acute kidney injury): (5) COPD (chronic obstructive pulmonary disease): (6) Acute respiratory distress: (7) Apical ballooning syndrome: (8) Status post fall: (9) Pulmonary hypertension: (10) Ambulatory dysfunction: Very complex medical presentation with acute tension pneumothorax along with possible lateral ST segment elevation myocardial infarction. Her symptoms have resolved with chest tube placement and reexpansion of her right lung. She denies experiencing any chest pain other than chest tube insertion and states that her breathing is significantly improving. The pathophysiology and treatment options for an acute ST segment elevation myocardial infarction were discussed with both the patient and her daughter in great lengths by myself as well as Dr. Camacho. After looking at her clinical presentation as a whole I believe the most likely explanation would be that she suffered a slowly decompressing pneumothorax after her fall last week. This then led to significant catecholamine surge as well as myocardial strain. Given the pattern of apical ballooning on her echocardiogram along with her ST segment elevations, troponin increase and lack of chest discomfort I do not believe that she is suffering an acute ST segment myocardial infarction. Chest x-ray shows improvement of her pneumothorax today. Tolerating up titration of metoprolol succinate without issue. 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 BP now significantly improved so we will also start losartan 25 mg daily as well as spironolactone 12.5 mg p.o. daily as well. Limited echocardiogram repeated 01/04/20 shows no change in LV systolic function Remains asymptomatic from a cardiac standpoint so we will continue with beta- blockade and SSRI Subjective Patient seen and examined, chart reviewed. Daughter at bedside and reviewed updates with her as well. Patient states that she feels well and denies any chest pain, shortness of breath, palpitations, lightheadedness, dizziness or syncope. Telemetry reviewed: Normal sinus rhythm without arrhythmia or significant ectopy. Review of Systems Review of Systems: All systems reviewed & are unremarkable except as noted in HPI & below Physical Exam Physical Exam: General: Awake, alert and oriented x 3. No acute distress. HEENT: Normocephalic, atraumatic. Pupils equal, round and reactive to light and accommodation. Extraocular muscles are intact. Anicteric sclera. Moist mucous membranes. Neck: No JVD. No bruit. Cardiovascular: Regular. Positive S-4. Normal S-1 and S-2. No S-3. No murmurs or rubs. Pulmonary: Clear to auscultation B/L. No rales, rhonchi or wheezing Abdomen: Bowel sounds x 4, soft. No rebound, guarding or tenderness. No organomegaly. Extremities: No clubbing, cyanosis or edema. +2 pedal pulses bilaterally. Skin: Warm and dry. Results & Data Vital Signs (Past 12 Hours) Vital Signs Temp Pulse Pulse Resp BP Pulse Ox 01/05/20 11:47 36.8 C 89 16 122/63 96 01/05/20 07:49 36.8 C 82 18 138/76 96 01/05/20 04:02 36.5 C 79 16 144/84 H 95
--- NOTE | 2020-01-05 17:07 | Hospitalist Progress Note ---
Date of Service January 05, 2020 Assessment & Plan (1) Tension pneumothorax: (1) Tension pneumothorax: (2) Acute respiratory distress: (3) Acute hypoxemic respiratory failure: per admitting SVC notes: Patient is a 79 yo female who presented to the ED with SOB and weakness. Found to have large tension pneumothorax of the right lung. ED physician quickly performed needle decompression after which patient improved. Pneumothorax likely secondary to emphysema and fall at home. pulm team following Patient denies of any shortness of breath, no hypoxia remains in room air continue chest tube managmeent as per pulmonology (4) Pulmonary emphysema: (5) COPD (chronic obstructive pulmonary disease): (6) Pulmonary hypertension: continue Breo (7) Apical ballooning syndrome: (8) Troponin level elevated: (9) Lateral ST segment elevation: (+) ST elevation anterolateral leads on admission troponins flat at 9 echo apical ballooning, likely secondary to catecholamine surge Receiver consulted, metoprolol started, tolerating well, continue metoprolol XL 25 mg twice daily Continue risperidone Repeat echo shows unchanged LV function (10) URIEL (acute kidney injury): Resolved (11) Hyponatremia: Improving, monitor (12) Status post fall: Family patient has been noted to be having progressive confusion and multiple falls at home The paranasal sinuses and mastoid air cells are clear. The calvarium and skull base are intact. There is no mass, hematoma, midline shift, acute infarct. White matter hypodensity is nonspecific but suggestive of microvascular ischemic change. The ventricles and sulci demonstrate mild age-related involutional changes. 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 Mild motion artifact. --Already on aspirin, will need statin therapy --PT and OT evaluation (13) Ambulatory dysfunction: PT/OT eval (14) Thrombocytosis: (15) Lactic acidosis: Resolved, normal level on 01/01/2020 blood culture: Coag negative staph in 1 bottle Repeat blood cultures: Negative so far Thrombocytosis resolved no need for futher antibiotic tx (16) Pulmonary nodule: 6 mm ground glass nodule noted in the [facility] and 6 mm solid nodule noted in the RUL. Need to follow up as outpatient. (17) Abnormal LFTs: Liver US: 1. No gallstones or biliary ductal dilatation. 2. Trace pericholecystic fluid. follow labs DVT prophylaxis: Heparin scBID Disposition Pending Will need PT and OT evaluation Lives with family Admission and Anticipated Discharge Date Admission Date: December 31, 2019 Subjective offers no new complain No cough , no fever or chills denies of any chest pain or pluritic chest pain has continued chest tube drainge on rt side no pain or discomfort at chest tube site Physical Exam Constitutional: WD/WN, vitals as above + thin Eyes: PERRL, conjunctivae normal, anicteric sclerae ENMT: external ear and nose normal, oropharynx normal Neck: trachea midline, no thyromegaly Respiratory: no cough Auscultation: no wheezes Cardiovascular: RRR, no murmur, no edema Gastrointestinal (Abdomen): Percussion/Palpation: abdomen soft; abdomen nontender Musculoskeletal: no cyanosis or clubbing, extremities motor strength 5/5 Skin: no rashes, warm and dry Neurologic: PERRL, EOMI, accommodation nl, no face palsy, no dysarthria Psychiatric: A+Ox3, euthymic affect Results & Data Results & Data ([facility]) Vital Signs (Past 12 Hours) Vital Signs Temp Pulse Pulse Resp BP BP Pulse Ox 01/05/20 15:36 36.6 C 73 16 100/63 99 01/05/20 11:47 36.8 C 89 16 122/63 96 01/05/20 07:49 36.8 C 82 18 138/76 96
[2020-01-05] MEDS: LACTOBACILLUS ACIDOPHILUS (FLORANEX) TAB PO SCH ×2 (21:35→21:37)
--- NOTE | 2020-01-06 07:31 | XRay Report ---
XR chest 1V portable HISTORY: 79 years-old Female Right sided pneumothorax follow-up study in a patient with right-sided pneumothorax COMPARISON: Chest radiograph 01/05/2020 TECHNIQUE: Portable AP view of the chest FINDINGS: Unchanged small right apical pneumothorax, pleural separation 1.3 cm. Stable positioning of the pigta il catheter adjacent to lateral aspect of the right lung apex. Unchanged subcutaneous emphysema of th e right chest wall and supraclavicular tissues. Emphysema with chronic interstitial coarsening. Cardi omegaly. Calcified plaque of the thoracic aortic arch. Probable trace pleural effusions with unchange d right greater than left bibasilar opacities. Degenerative changes of the shoulders and spine. IMPRESSION: Unchanged small right apical pneumothorax with stable positioning of the right-sided pigt ail catheter. ACT 112: Negative or not required by law. The above report was generated using voice recognition software. It may contain grammatical, syntax o r spelling errors. Electronically signed by: Vini Vivas M.D. 01/06/2020 7:29 AM
[2020-01-06] MEDS: LOSARTAN POTASSIUM 25 MG TAB PO SCH (08:39)
[2020-01-06] MEDS: ASPIRIN 81 MG ECTAB PO SCH (08:39)
[2020-01-06] MEDS: CHOLECALCIFEROL 1,000 UNITS 25 MCG TAB PO SCH (08:39)
[2020-01-06] MEDS: ATORVASTATIN 40 MG TAB PO SCH (08:39)
[2020-01-06] MEDS: METOPROLOL SUCC 50MG EXT REL TAB PO SCH ×2 (08:39→20:03)
[2020-01-06] MEDS: FLUTICASONE/VILANTEROL 100/25MCG 14 PUFFS/INHALER INH SCH (08:40)
[2020-01-06] MEDS: HEPARIN SOD 5,000 UNIT/0.5 ML VIAL SQ SCH ×2 (08:41→21:34)
[2020-01-06] MEDS: LACTOBACILLUS ACIDOPHILUS (FLORANEX) TAB PO SCH ×5 (08:43→20:08)
--- NOTE | 2020-01-06 11:12 | Pulmonology Progress Note ---
Date of Service January 06, 2020 Assessment & Plan (1) Tension pneumothorax: Impression: 79-year-old female with 10-72-ihau-year history of tobacco abuse admitted after fall with significant pneumothorax. Biapical blebs are noted. Recommendation: 1. Pneumothorax: She continues to manifest a small air leak. It is unclear if the current tube is adequate to resolve this pneumothorax. May consider revising it to a larger bore tube and trying to direct the tube to the apex to alleviate the pneumothorax. If we can get the lung to opposed to the chest wall surface, we may be successful in eliminating the leak. If the leak persists despite revision of the chest tube, consideration for video-assisted thoracoscopic evaluation with potential apical stapling may be required. This would necessitate the patient being transferred to [facility] and thoracic surgery consultation 2. COPD: Severity uncertain. Radiographic evidence of COPD is present. Do not recommend steroids currently as this may decrease efficiency of pleurodesis if required in the long-term. Continue as needed bronchodilators. May benefit from pulmonary function testing as an outpatient. Will consider that at time of discharge 3. Pulmonary nodule: The patient has several groundglass pulmonary nodules which will require radiographic surveillance in 6 to 12 months. 4. Malnutrition: Continue aggressive nutritional support. Consultation with dietary may be beneficial. Patient does have signs of underlying dementia which likely may be contributing as well 5. Leukocytosis of unclear etiology. Patient does not present with a fever. Work-up per primary service We will continue to follow. Feel free to contact us with questions or concerns (2) Pulmonary nodule: (3) Acute hypoxemic respiratory failure: (4) Pulmonary emphysema: Admission and Anticipated Discharge Date Admission Date: December 31, 2019 Subjective No complaints. No breathing difficulties. No chest pain or increasing crepitus. Review of Systems Review of Systems: All systems reviewed & are unremarkable except as noted in HPI & below Physical Exam Eyes: PERRL, conjunctivae normal, anicteric sclerae ENMT: external ear and nose normal, oropharynx normal Neck: normal visual inspection Respiratory: normal respiratory effort; no retractions and no cough Cardiovascular: RRR, no murmur, no edema Extremities: no edema Gastrointestinal (Abdomen): normal bowel sounds, soft, nontender, no hepatosplenomegaly Musculoskeletal: no cyanosis or clubbing, extremities motor strength 5/5 Skin: no rashes, warm and dry Neurologic: PERRL, EOMI, accommodation nl, no face palsy, no dysarthria Psychiatric: A+Ox3, euthymic affect Results & Data Results & Data ([facility]) Vital Signs (Past 12 Hours) Vital Signs Temp Pulse Pulse Resp BP Pulse Ox 01/06/20 07:13 36.4 C L 79 18 122/77 94 01/06/20 05:15 36.5 C 81 16 135/80 92 01/06/20 00:00 82 Laboratory Results 01/02/20 08:56 01/05/20 05:34 Diagnostic Findings Chest x-ray reviewed. Right apical pneumothorax essentially unchanged from prior. PG Care Time/CCT Total # of Minutes Spent Total Time Spent with Patient: Total time spent is greater than 50% in coordination of care (as documented) at patient's floor/unit and/or counseling patient: Coding Level of Care Code 63788 Subseq Hosp Care Lvl 3 Diagnoses Tension pneumothorax J93.0 Pulmonary nodule R91.1 Acute hypoxemic respiratory failure J96.01 Pulmonary emphysema J43.9
[2020-01-06 11:47] LABS: BUN Creatinine Ratio 24.8 (10-20); Calcium 8.6 mg/dl (8.5-10.1); Creatinine Clr Calc Pharmacy 53.3 ml/min; Est GFR (African American) 101.3; Est GFR (Non-African American) 87.4; Potassium 4.1 mmol/L (3.5-5.1)
--- NOTE | 2020-01-06 12:28 | Procedure Note ---
Procedure Note Date of Service January 06, 2020 Procedure: Placement of 8 Senegalese pigtail pneumothorax catheter with 14 Senegalese pneumothorax catheter directed superiorly to the apex. 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 Dalton Consent: Risks and benefits explained to the patient. She agreed to proceed. Anesthesia: 3 mL's 1% lidocaine without epinephrine locally. Procedure: The patient had a 8 Senegalese pigtail catheter placed for tension pneumothorax. There is persistent air leaks with an apical pneumothorax. Unfortunately the patient has had a persistent air leak and an apical pneumothorax and is unclear whether the current chest tube was adequate to drain that pneumothorax. Decision was made to proceed with replacement with a longer, larger bore chest tube. Patient was placed in the left side up decubitus position. The site of the current pigtail catheter was cleaned with chlorhexidine which was allowed to dry completely. The suction apparatus was discontinued and the tube was clamped. The suture was removed. Sterile field was established and using aseptic technique, a wire was advanced through the existing pigtail catheter and the 8 Senegalese catheter removed with the wire being left in place. The tract was dilated with serial dilatation to allow for passage of a 14 Senegalese 24 cm pigtail catheter. The tube was reattached to suction with confirmation of an air leak. A suture was placed in place and occlusive dressing was applied. Follow-up chest x-ray is currently pending. Patient tolerated the procedure well without complication. Estimated blood loss: Minimal Coding CPT Codes Pulmonary/Thoracic - Pulmonary and Thoracic: [id number] Pleural drainage w/o imaging ([id number]) [facility] [place] Codes (Charges) Pulmonary/Thoracic Procedure 1: Pulmonary and Thoracic: 23541 Pleural drainage w/o imaging
[2020-01-06] MEDS: TRAMADOL HCL 50 MG TABLET PO PRN ×2 (12:30→18:45)
--- NOTE | 2020-01-06 13:26 | XRay Report ---
XR chest 1V portable HISTORY: 79 years-old Female replacement of chest tube right pneumothorax COMPARISON: Chest radiograph of same day at 6:07 AM TECHNIQUE: Portable AP view of the chest FINDINGS: Patient is rotated towards the left. Right apical pneumothorax, pleural separation of 1.7 cm, previou sly 1.3 cm. Interval pigtail pleural catheter exchange with a new larger bore catheter distal tip pro jected over the right upper lung. Persistent ill-defined bibasilar opacities with emphysema. Cardiome alok. Decreased subcutaneous emphysema of the right chest wall and right supraclavicular tissues. Deg enerative changes of the shoulders and spine. IMPRESSION: 1. Slightly increased size of the small right apical pneumothorax. 2. Pigtail catheter exchange with new catheter distal tip projecting over the right mid to upper lung . ACT 112: Negative or not required by law. The above report was generated using voice recognition software. It may contain grammatical, syntax o r spelling errors. Electronically signed by: Vini Vivas M.D. 01/06/2020 1:25 PM
[2020-01-06 15:07] LABS: Hematocrit (blood only) 38.6 % (37-47); Mean Corpuscular Hemoglobin 31.6 pg (25-34); Mean Corpuscular Hgb Conc 33.7 g/dL (32-36); Mean Corpuscular Volume 93.7 fL (80-100); Mean Platelet Volume 9.2 fL (7.4-10.4); Platelet Count 252 K/uL (130-400); RDW Coefficient of Variation 12.3 % (11.5-14.5); RDW Standard Deviation 41.7 fL (36.4-46.3); Red Blood Count 4.12 M/uL (4.2-5.4); White Blood Count 11.21 K/uL (4.8-10.8)
[2020-01-06 15:32] LABS: Albumin Level 2.8 gm/dl (3.4-5.0); BUN Creatinine Ratio 20.9 (10-20); Calcium 8.8 mg/dl (8.5-10.1); Creatinine Clr Calc Pharmacy 49.2 ml/min; Est GFR (African American) 98.8; Est GFR (Non-African American) 85.2; Potassium 4.1 mmol/L (3.5-5.1)
[2020-01-06 15:35] LABS: Albumin Globulin Ratio 0.9 (0.9-2); Bilirubin,Total 0.5 mg/dl (0.2-1); Globulin 3.3 gm/dl (2.5-4.0); Total Protein 6.1 gm/dl (6.4-8.2)
[2020-01-06] MEDS ORDERED: LOPERAMIDE HCL 2 MG CAP PO PRN (18:04)
--- NOTE | 2020-01-06 18:44 | Hospitalist Progress Note ---
Date of Service January 06, 2020 Assessment & Plan (1) Tension pneumothorax: (1) Tension pneumothorax: (2) Acute respiratory distress: (3) Acute hypoxemic respiratory failure: per admitting [facility] notes: Patient is a 79 yo female who presented to the ED with SOB and weakness. Found to have large tension pneumothorax of the right lung. ED physician quickly performed needle decompression after which patient improved. Pneumothorax likely secondary to emphysema and fall at home. pulm team following Patient denies of any shortness of breath, no hypoxia remains in room air Chest tube changed due to continued air leak noted on prior Pulmonology following closely Patient reports increased pain on the chest tube insertion site, Adjust pain medications for symptom control (4) Pulmonary emphysema: (5) COPD (chronic obstructive pulmonary disease): (6) Pulmonary hypertension: continue Breo (7) Apical ballooning syndrome: (8) Troponin level elevated: (9) Lateral ST segment elevation: (+) ST elevation anterolateral leads on admission troponins flat at 9 echo apical ballooning, likely secondary to catecholamine surge Auto Cleaner consulted, metoprolol started, tolerating well, continue metoprolol XL 25 mg twice daily Continue risperidone Repeat echo shows unchanged LV function (10) URIEL (acute kidney injury): Resolved (11) Hyponatremia: Improving, monitor (12) Status post fall: Family patient has been noted to be having progressive confusion and multiple falls at home The paranasal sinuses and mastoid air cells are clear. The calvarium and skull base are intact. There is no mass, hematoma, midline shift, acute infarct. White matter hypodensity is nonspecific but suggestive of microvascular ischemic change. The ventricles and sulci demonstrate mild age-related involutional changes. 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 Mild motion artifact. --Already on aspirin, will need statin therapy --PT and OT evaluation (13) Ambulatory dysfunction: PT/OT eval (14) Thrombocytosis: (15) Lactic acidosis: Resolved, normal level on 01/01/2020 blood culture: Coag negative staph in 1 bottle Repeat blood cultures: Negative so far Thrombocytosis resolved no need for futher antibiotic tx (16) Pulmonary nodule: 6 mm ground glass nodule noted in the HARRISON and 6 mm solid nodule noted in the RUL. Need to follow up as outpatient. (17) Abnormal LFTs: Liver US: 1. No gallstones or biliary ductal dilatation. 2. Trace pericholecystic fluid. follow labs DVT prophylaxis: Heparin scBID Disposition Pending Will need PT and OT evaluation Lives with family Daughter present at bedside updated Admission and Anticipated Discharge Date Admission Date: December 31, 2019 Subjective Chest tube was changed earlier today by pulmonology Dr. Dalton Patient complaint of pain and discomfort on new chest tube site Worsening on taking deep breath No fever or chills No cough, no shortness of breath Physical Exam Constitutional: WD/WN, vitals as above + thin Eyes: PERRL, conjunctivae normal, anicteric sclerae ENMT: external ear and nose normal, oropharynx normal Neck: trachea midline, no thyromegaly Respiratory: no cough Auscultation: no wheezes Cardiovascular: RRR, no murmur, no edema Gastrointestinal (Abdomen): Percussion/Palpation: abdomen soft; abdomen nontender Musculoskeletal: no cyanosis or clubbing, extremities motor strength 5/5 Skin: no rashes, warm and dry Neurologic: PERRL, EOMI, accommodation nl, no face palsy, no dysarthria Psychiatric: A+Ox3, euthymic affect Results & Data Results & Data ([facility]) Vital Signs (Past 12 Hours) Vital Signs Temp Pulse Resp BP BP Pulse Ox 01/06/20 15:35 36.6 C 72 20 123/70 94 01/06/20 11:54 36.6 C 78 18 123/67 93 01/06/20 07:13 36.4 C L 79 18 122/77 94
[2020-01-06] MEDS ORDERED: HYDROmorphone INJ 0.5 MG/0.5 ML SYR IV STA (19:32)
[2020-01-07] MEDS: LACTOBACILLUS ACIDOPHILUS (FLORANEX) TAB PO SCH ×4 (07:55→20:36)
[2020-01-07] MEDS: FLUTICASONE/VILANTEROL 100/25MCG 14 PUFFS/INHALER INH SCH (08:00)
[2020-01-07] MEDS: CHOLECALCIFEROL 1,000 UNITS 25 MCG TAB PO SCH (08:00)
[2020-01-07] MEDS: ASPIRIN 81 MG ECTAB PO SCH (08:00)
[2020-01-07] MEDS: METOPROLOL SUCC 50MG EXT REL TAB PO SCH ×2 (08:00→20:36)
[2020-01-07] MEDS: ATORVASTATIN 40 MG TAB PO SCH (08:00)
[2020-01-07] MEDS: LOSARTAN POTASSIUM 25 MG TAB PO SCH (08:00)
[2020-01-07] MEDS: HEPARIN SOD 5,000 UNIT/0.5 ML VIAL SQ SCH ×2 (08:01→20:36)
--- NOTE | 2020-01-07 08:28 | XRay Report ---
XR chest 1V portable HISTORY: 79 years-old Female Right sided pneumothorax follow-up study in a patient with right-sided pneumothorax COMPARISON: Chest radiograph 01/06/2020 TECHNIQUE: Portable AP view of the chest FINDINGS: Unchanged positioning of the right-sided pigtail catheter. Small right apical pneumothorax, pleural s eparation of 1.7 cm is unchanged. Emphysema with chronic interstitial coarsening. Stable hazy medial right lung base opacities. Cardiomegaly. Calcifications of the bilateral breasts. Degenerative change s of the shoulders and spine. Unchanged subcutaneous emphysema of the right chest wall. Calcified kyle que of the thoracic aortic arch. IMPRESSION: 1. Unchanged small right apical pneumothorax with stable positioning of the right-sided pigtail drain age catheter. 2. Emphysema. ACT 112: Negative or not required by law. The above report was generated using voice recognition software. It may contain grammatical, syntax o r spelling errors. Electronically signed by: Vini Vivas M.D. 01/07/2020 8:27 AM
[2020-01-07 09:16] LABS: Hematocrit (blood only) 38.9 % (37-47); Hemoglobin 13.3 g/dL (12.0-16.0); Mean Corpuscular Hemoglobin 32.5 pg (25-34); Mean Corpuscular Hgb Conc 34.2 g/dL (32-36); Mean Corpuscular Volume 95.1 fL (80-100); Mean Platelet Volume 9.4 fL (7.4-10.4); Platelet Count 273 K/uL (130-400); RDW Coefficient of Variation 12.3 % (11.5-14.5); RDW Standard Deviation 42.6 fL (36.4-46.3); Red Blood Count 4.09 M/uL (4.2-5.4); White Blood Count 13.75 K/uL (4.8-10.8)
[2020-01-07 09:33] LABS: Alanine Aminotransferase 40 U/L (12-78); Albumin Level 2.8 gm/dl (3.4-5.0); Aspartate Aminotransferase 28 U/L (15-37); BUN Creatinine Ratio 21.1 (10-20); Bilirubin Direct < 0.1 mg/dl (0-0.2); Blood Urea Nitrogen 15 mg/dl (7-18); Calcium 8.8 mg/dl (8.5-10.1); Carbon Dioxide 30 mmol/L (21-32); Chloride 99 mmol/L (98-107); Creatinine Clr Calc Pharmacy 45.2 ml/min; Est GFR (African American) 96.9; Est GFR (Non-African American) 83.6; Glucose 109 mg/dl (70-99); Sodium 134 mmol/L (136-145)
[2020-01-07 09:36] LABS: Alkaline Phosphatase 76 U/L (45-117); Bilirubin,Total 0.5 mg/dl (0.2-1); Total Protein 6.1 gm/dl (6.4-8.2)
--- NOTE | 2020-01-07 09:50 | Pulmonology Progress Note ---
Date of Service January 07, 2020 Assessment & Plan (1) Tension pneumothorax: Impression: 79-year-old female with 63-54-qtzy-year history of tobacco abuse admitted after fall with significant pneumothorax. Biapical blebs are noted. Recommendation: 1. Pneumothorax: Her pigtail catheter was exchanged to a 14 Greek catheter yesterday. My hope was that we could position this apically however on chest x- ray it appears to be in the midlung zone as well and may be posterior. Unfortunately, there is a continued small air leak even at 40 cm of wall suction. Options at this point in time would be to continue current management, although we have not seen much significant benefit and she has a persistent bronchopleural fistula. We could consider trying to replace the current tube under fluoroscopy to something that directed towards the apex. Alternatively, if the patient is failed conservative management, consideration for video- assisted thoracoscopic evaluation with apical stapling and pleurodesis may be appropriate. I briefly discussed these options with the patient. She is taken it under advisement. I did advise her that if we pursue thoracoscopic evaluation, she will likely need to be transferred to [facility]. She is taking it under advisement wishes to discuss with her daughter. We could consider placing the tube to [facility] and following her clinically however she did demonstrate increased respiratory distress with changing the chest tube yesterday so I suspect the lung would likely collapse again. Will discuss with Dr. Angela dior Thoracic surgery on Wednesday. 2. COPD: Severity uncertain. Radiographic evidence of COPD is present. Do not recommend steroids currently as this may decrease efficiency of pleurodesis if required in the long-term. Continue as needed bronchodilators. May benefit from pulmonary function testing as an outpatient. Will consider that at time of discharge 3. Pulmonary nodule: The patient has several groundglass pulmonary nodules which will require radiographic surveillance in 6 to 12 months. 4. Malnutrition: Continue aggressive nutritional support. Consultation with dietary may be beneficial. Patient does have signs of underlying dementia which likely may be contributing as well 5. Leukocytosis of unclear etiology. Patient does not present with a fever. Work-up per primary service We will continue to follow. Feel free to contact us with questions or concerns (2) Pulmonary nodule: (3) Acute hypoxemic respiratory failure: (4) Pulmonary emphysema: Admission and Anticipated Discharge Date Admission Date: December 31, 2019 Subjective Seen and examined. The patient states she is feeling well. She is not having any pain at the pigtail catheter site. Her breathing is back to baseline. Review of Systems Review of Systems: All systems reviewed & are unremarkable except as noted in HPI & below Physical Exam Eyes: PERRL, conjunctivae normal, anicteric sclerae ENMT: external ear and nose normal, oropharynx normal Neck: normal visual inspection Respiratory: normal respiratory effort; no retractions and no cough Persistent small air leak from chest tube. Cardiovascular: RRR, no murmur, no edema Extremities: no edema Gastrointestinal (Abdomen): normal bowel sounds, soft, nontender, no hepatosplenomegaly Musculoskeletal: no cyanosis or clubbing, extremities motor strength 5/5 Skin: no rashes, warm and dry Neurologic: PERRL, EOMI, accommodation nl, no face palsy, no dysarthria Psychiatric: A+Ox3, euthymic affect Results & Data Results & Data ([facility]) Vital Signs (Past 12 Hours) Vital Signs Temp Pulse Pulse Resp BP Pulse Ox 01/07/20 08:00 68 01/07/20 07:10 36.7 C 71 18 136/67 92 01/07/20 04:51 36.7 C 70 18 119/72 92 01/07/20 00:00 36.4 C L 68 74 18 127/67 90 Laboratory Results 01/07/20 08:47 01/07/20 08:47 Diagnostic Findings Chest x-ray from today independently reviewed. Stable apical pneumothorax without significant change. PG Care Time/CCT Total # of Minutes Spent Total Time Spent with Patient: Total time spent is greater than 50% in coordination of care (as documented) at patient's floor/unit and/or counseling patient: Coding Level of Care Code 51752 Subseq Hosp Care Lvl 3 Diagnoses Tension pneumothorax J93.0 Pulmonary nodule R91.1 Acute hypoxemic respiratory failure J96.01 Pulmonary emphysema J43.9
--- NOTE | 2020-01-07 17:12 | Hospitalist Progress Note ---
Date of Service January 07, 2020 Assessment & Plan (1) Tension pneumothorax: (1) Tension pneumothorax: (2) Acute respiratory distress: (3) Acute hypoxemic respiratory failure: per admitting [facility] [facility] [place] Patient is a 79 yo female who presented to the ED with SOB and weakness. Found to have large tension pneumothorax of the right lung. ED physician quickly performed needle decompression after which patient improved. Pneumothorax likely secondary to emphysema and fall at home. pulm team following Patient denies of any shortness of breath, no hypoxia remains in room air Chest tube was changed yesterday by pulmonology team, continued air leak noted, Pulmonology updated this morning to continued air leak with chest tube Concern for possible bronchoplueral fistula Patient may need video-assisted thoracoscopic evaluation at tertiary care by thoracic surgeon, [facility] Marcy Dalton who discussed the case with [facility] [place] surgery in a.m. (4) Pulmonary emphysema: History of 31-64-akgn-year history of tobacco abuse Quit smoking approximately [address] chest showed significant in 5 cm change with biapical blebs Developed tension pneumothorax after sustaining a fall (5) COPD (chronic obstructive pulmonary disease): (6) Pulmonary hypertension: (7) cardiac apical ballooning syndrome: (8) Troponin level elevated: (9) Lateral ST segment elevation: (+) ST elevation anterolateral leads on admission troponins flat at 9 echo apical ballooning, likely secondary to catecholamine surge Buggy Driver consulted, metoprolol started, tolerating well, continue metoprolol XL 25 mg twice daily Continue risperidone Repeat echo shows unchanged LV function (10) URIEL (acute kidney injury): Resolved (11) Hyponatremia: Improving, monitor (12) Status post fall: Family patient has been noted to be having progressive confusion and multiple falls at home The paranasal sinuses and mastoid air cells are clear. The calvarium and skull base are intact. There is no mass, hematoma, midline shift, acute infarct. White matter hypodensity is nonspecific but suggestive of microvascular ischemic change. The ventricles and sulci demonstrate mild age-related involutional changes. 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 Mild motion a rtifact. --Already on aspirin, will need statin therapy --PT and OT evaluation (13) Ambulatory dysfunction: PT/OT eval (14) Thrombocytosis: (15) Lactic acidosis: Resolved, normal level on 01/01/2020 blood culture: Coag negative staph in 1 bottle Repeat blood cultures: Negative so far Thrombocytosis resolved no need for further antibiotic tx (16) Pulmonary nodule: 6 mm ground glass nodule noted in the [facility] and 6 mm solid nodule noted in the RUL. Need to follow up as outpatient. (17) Abnormal LFTs: Normal liver function in last lab check Liver US: 1. No gallstones or biliary ductal dilatation. 2. Trace pericholecystic fluid. DVT prophylaxis: Heparin scBID Disposition Pending May need transfer to higher level of care for further management of pneumothorax with persistent air leak suggestive of broncho-pleural fistula Admission and Anticipated Discharge Date Admission Date: December 31, 2019 Subjective Patient appears to be uncomfortable, reports of pain and discomfort at chest tube insertion site No fever or chills, no shortness of breath Very anxious regarding upcoming treatment options for tension pneumothorax no Report of cough, no fever or chills Physical Exam Constitutional: WD/WN, vitals as above + thin Eyes: PERRL, conjunctivae normal, anicteric sclerae ENMT: external ear and nose normal, oropharynx normal Neck: trachea midline, no thyromegaly Respiratory: no cough Auscultation: no wheezes Cardiovascular: RRR, no murmur, no edema Gastrointestinal (Abdomen): Percussion/Palpation: abdomen soft; abdomen nontender Musculoskeletal: no cyanosis or clubbing, extremities motor strength 5/5 Skin: no rashes, warm and dry Neurologic: PERRL, EOMI, accommodation nl, no face palsy, no dysarthria Psychiatric: A+Ox3, euthymic affect Results & Data Results & Data ([facility]) Vital Signs (Past 12 Hours) Vital Signs Temp Pulse Pulse Resp BP BP Pulse Ox 01/07/20 16:00 36.4 C L 70 20 137/75 95 01/07/20 11:07 36.9 C 66 19 126/64 93 01/07/20 08:00 68 01/07/20 07:10 36.7 C 71 18 136/67 92
[2020-01-07] MEDS: HYDROmorphone INJ 0.5 MG/0.5 ML SYR IV PRN (20:36)
[2020-01-08 07:06] LABS: BUN Creatinine Ratio 15.5 (10-20); Calcium 8.9 mg/dl (8.5-10.1); Creatinine Clr Calc Pharmacy 46.3 ml/min; Est GFR (African American) 98.8; Est GFR (Non-African American) 85.2; Potassium 4.3 mmol/L (3.5-5.1)
[2020-01-08] MEDS: ATORVASTATIN 40 MG TAB PO SCH (07:26)
[2020-01-08] MEDS: LACTOBACILLUS ACIDOPHILUS (FLORANEX) TAB PO SCH ×4 (07:26→20:50)
[2020-01-08] MEDS: METOPROLOL SUCC 50MG EXT REL TAB PO SCH ×2 (07:27→20:51)
[2020-01-08] MEDS: ASPIRIN 81 MG ECTAB PO SCH (07:27)
[2020-01-08] MEDS: LOSARTAN POTASSIUM 25 MG TAB PO SCH (07:27)
[2020-01-08] MEDS: FLUTICASONE/VILANTEROL 100/25MCG 14 PUFFS/INHALER INH SCH (07:28)
[2020-01-08] MEDS: CHOLECALCIFEROL 1,000 UNITS 25 MCG TAB PO SCH (07:28)
[2020-01-08] MEDS: HEPARIN SOD 5,000 UNIT/0.5 ML VIAL SQ SCH ×2 (07:29→20:52)
--- NOTE | 2020-01-08 08:31 | XRay Report ---
XR chest 1V portable CLINICAL HISTORY: Right sided pneumothorax COMPARISON STUDY: Chest radiograph January 07, 2020. FINDINGS: Right pleural catheter remains in place. A small right apical pneumothorax is similar to ex am of January 07, 2020 with pleural separation of 1.6 cm. There is subcutaneous gas within the right yogesh st and neck will as before. There is no left pneumothorax. There is mild right basilar opacity. There is no evidence for pulmonary edema. IMPRESSION: No significant change in a small right apical pneumothorax. A pleural catheter in place. ACT 112: Negative or not required by law. Electronically signed by: Alex Bran M.D. 01/08/2020 8:29 AM
--- NOTE | 2020-01-08 08:38 | XRay Report ---
XR chest 1V portable CLINICAL HISTORY: Right PNX with pigtail catheter dyspnea COMPARISON STUDY: 01/08/2020 7:08 AM FINDINGS: Unchanged position of a right chest catheter. Small unchanged right apical pneumothorax. Subcutaneous emphysema upper right chest unaltered from the prior exam. IMPRESSION: 1. No change from the prior exam. 2. Small stable right apical pneumothorax. ACT 112: Negative or not required by law. The above report was generated using voice recognition software. It may contain grammatical, syntax or spelling errors. Electronically signed by: Jose Foster M.D. 01/08/2020 8:36 AM
--- NOTE | 2020-01-08 12:55 | Pulmonology Progress Note ---
Date of Service January 08, 2020 Assessment & Plan (1) Tension pneumothorax: Impression: 79-year-old female with 26-33-cnbo-year history of tobacco abuse admitted after fall with significant pneumothorax. Biapical blebs are noted. Recommendation: 1. Pneumothorax: 14 Lithuanian pigtail catheter remains in place. I discussed the case with from thoracic surgery at [facility]. He agreed with current management and recommended continue conservative care. We did discuss potentially trying to direct the tube anteriorly to the apex or placing an alternative chest tube. At this point time I think it is reasonable to continue conservative management and see how the patient does. If the pneumothorax and bronchopleural fistula persists beyond 2 weeks, may consider surgical intervent ion at that point time. I will hold off on repositioning the tube as this would likely require fluoroscopic guidance and I believe there is a risk of potential worsening her pulmonary injury with blind placement of a chest tube given the significant emphysema. 2. COPD: Severity uncertain. Radiographic evidence of COPD is present. Do not recommend steroids currently as this may decrease efficiency of pleurodesis if required in the long-term. Continue as needed bronchodilators. May benefit from pulmonary function testing as an outpatient. Will consider that at time of discharge 3. Pulmonary nodule: The patient has several groundglass pulmonary nodules which will require radiographic surveillance in 6 to 12 months. 4. Malnutrition: Continue aggressive nutritional support. Consultation with dietary may be beneficial. Patient does have signs of underlying dementia which likely may be contributing as well 5. Leukocytosis of unclear etiology. Patient does not present with a fever. Work-up per primary service We will continue to follow. Feel free to contact us with questions or concerns (2) Pulmonary nodule: (3) Acute hypoxemic respiratory failure: (4) Pulmonary emphysema: Admission and Anticipated Discharge Date Admission Date: December 31, 2019 Subjective Patient continues to be pleasantly demented. She reports no new respiratory complaints. No chest pain. She is not coughing or expectorating phlegm. No fevers chills or night sweats Review of Systems Review of Systems: All systems reviewed & are unremarkable except as noted in HPI & below Physical Exam Eyes: PERRL, conjunctivae normal, anicteric sclerae ENMT: external ear and nose normal, oropharynx normal Neck: normal visual inspection Respiratory: normal respiratory effort; no retractions and no cough Cardiovascular: RRR, no murmur, no edema Extremities: no edema Gastrointestinal (Abdomen): normal bowel sounds, soft, nontender, no hepatosplenomegaly Musculoskeletal: no cyanosis or clubbing, extremities motor strength 5/5 Skin: no rashes, warm and dry Neurologic: PERRL, EOMI, accommodation nl, no face palsy, no dysarthria Psychiatric: A+Ox3, euthymic affect Results & Data Results & Data ([facility]) Vital Signs (Past 12 Hours) Vital Signs Temp Pulse Pulse Resp BP Pulse Ox 01/08/20 11:03 36.8 C 72 19 132/73 94 01/08/20 08:00 65 01/08/20 07:04 36.9 C 76 18 171/80 H 96 01/08/20 03:40 37 C 72 150/63 H 93 Laboratory Results 01/07/20 08:47 01/08/20 06:26 Diagnostic Findings Chest x-ray from today was independently reviewed. Chest tube remains in good position. The apical pneumothorax is unchanged from prior PG Care Time/CCT Total # of Minutes Spent Total Time Spent with Patient: Total time spent is greater than 50% in coordination of care (as documented) at patient's floor/unit and/or counseling patient: Coding Level of Care Code 83706 Subseq Hosp Care Lvl 3 Diagnoses Tension pneumothorax J93.0 Pulmonary nodule R91.1 Acute hypoxemic respiratory failure J96.01 Pulmonary emphysema J43.9
--- NOTE | 2020-01-08 16:23 | Hospitalist Progress Note ---
Date of Service January 08, 2020 Assessment & Plan (1) Tension pneumothorax: (1) Tension pneumothorax: (2) Acute respiratory distress: (3) Acute hypoxemic respiratory failure: per admitting C notes: Patient is a 79 yo female who presented to the ED with SOB and weakness. Found to have large tension pneumothorax of the right lung. ED physician quickly performed needle decompression after which patient improved. Pneumothorax likely secondary to emphysema and fall at home. 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 Dalton who discussed the case with [facility] thoracic surgery in a.m. per CT surgery in [place], recommends to continue chest tube drainage no plan for surgical procedure ( video-assisted thoracoscopic ) now (4) Pulmonary emphysema: History of 72-28-nubq-year history of tobacco abuse Quit smoking approximately [address] chest showed significant in 5 cm change with biapical blebs Developed tension pneumothorax after sustaining a fall mangement as outlined above (5) COPD (chronic obstructive pulmonary disease): (6) Pulmonary hypertension: (7) cardiac apical ballooning syndrome: (8) Troponin level elevated: (9) Lateral ST segment elevation: (+) ST elevation anterolateral leads on admission troponins flat at 9 echo apical ballooning, likely secondary to catecholamine surge Case Hardener consulted, metoprolol started, tolerating well, continue metoprolol XL 25 mg twice daily Continue risperidone Repeat echo shows unchanged LV function (10) URIEL (acute kidney injury): Resolved (11) Hyponatremia: Improving, monitor (12) Status post fall: Family patient has been noted to be having progressive confusion and multiple falls at home The paranasal sinuses and mastoid air cells are clear. The calvarium and skull base are intact. There is no mass, hematoma, midline shift, acute infarct. White matter hypodensity is nonspecific but suggestive of microvascular ischemic change. The ventricles and sulci demonstrate mild age-related involutional changes. 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 Mild motion artifact. --Already on aspirin, will need statin therapy --PT and OT evaluation (13) Ambulatory dysfunction: PT/OT eval (14) Thrombocytosis: (15) Lactic acidosis: Resolved, normal level on 01/01/2020 blood culture: Coag negative staph in 1 bottle Repeat blood cultures: Negative so far Thrombocytosis resolved no need for further antibiotic tx (16) Pulmonary nodule: 6 mm ground glass nodule noted in the HARRISON and 6 mm solid nodule noted in the RUL. Need to follow up as outpatient. (17) Abnormal LFTs: Normal liver function in last lab check Liver US: 1. No gallstones or biliary ductal dilatation. 2. Trace pericholecystic fluid. DVT prophylaxis: Heparin scBID Disposition Pending cont to monitor in PCU cont rt sided chest tube Admission and Anticipated Discharge Date Admission Date: December 31, 2019 Subjective having pain and discomfort( soreness at chest tube insertion site ) no cough no fever or chills Physical Exam Constitutional: WD/WN, vitals as above + thin Eyes: PERRL, conjunctivae normal, anicteric sclerae ENMT: external ear and nose normal, oropharynx normal Neck: trachea midline, no thyromegaly Respiratory: no cough Auscultation: no wheezes Cardiovascular: RRR, no murmur, no edema Gastrointestinal (Abdomen): Percussion/Palpation: abdomen soft; abdomen nontender Musculoskeletal: no cyanosis or clubbing, extremities motor strength 5/5 Skin: no rashes, warm and dry Neurologic: PERRL, EOMI, accommodation nl, no face palsy, no dysarthria Psychiatric: A+Ox3, euthymic affect Results & Data Results & Data ([facility]) Vital Signs (Past 12 Hours) Vital Signs Temp Pulse Pulse Pulse Resp BP Pulse Ox 01/08/20 15:50 36.5 C 77 19 130/75 94 01/08/20 11:03 36.8 C 72 19 132/73 94 01/08/20 08:00 65 01/08/20 07:04 36.9 C 76 18 171/80 H 96
[2020-01-08] MEDS: HYDROmorphone INJ 0.5 MG/0.5 ML SYR IV PRN (17:17)
[2020-01-08] MEDS: TRAMADOL HCL 50 MG TABLET PO PRN (22:56)
[2020-01-09] MEDS: LACTOBACILLUS ACIDOPHILUS (FLORANEX) TAB PO SCH ×4 (08:27→20:03)
[2020-01-09] MEDS: ASPIRIN 81 MG ECTAB PO SCH (08:29)
[2020-01-09] MEDS: LOSARTAN POTASSIUM 25 MG TAB PO SCH (08:29)
[2020-01-09] MEDS: CHOLECALCIFEROL 1,000 UNITS 25 MCG TAB PO SCH (08:29)
[2020-01-09] MEDS: ATORVASTATIN 40 MG TAB PO SCH (08:29)
[2020-01-09] MEDS: METOPROLOL SUCC 50MG EXT REL TAB PO SCH ×2 (08:29→20:04)
[2020-01-09] MEDS: HEPARIN SOD 5,000 UNIT/0.5 ML VIAL SQ SCH ×2 (08:31→20:03)
[2020-01-09] MEDS: FLUTICASONE/VILANTEROL 100/25MCG 14 PUFFS/INHALER INH SCH (08:32)
--- NOTE | 2020-01-09 09:00 | XRay Report ---
XR chest 1V portable CLINICAL HISTORY: Right PNX with catheter COMPARISON STUDY: 01/08/2020 FINDINGS: No major change from the prior study. Right-sided hemithoracic catheter is unchanged in pos ition. There is a small residual right apical pneumothorax unchanged. Subcutaneous emphysematous change is stable. IMPRESSION: No significant change from the prior study. Small unchanged right apical pneumothorax. S ubcutaneous emphysematous change also unaltered. ACT 112: Negative or not required by law. The above report was generated using voice recognition software. It may contain grammatical, syntax or spelling errors. Electronically signed by: Jose Foster M.D. 01/09/2020 8:59 AM
--- NOTE | 2020-01-09 11:36 | Pulmonology Progress Note ---
Date of Service January 09, 2020 Assessment & Plan (1) Tension pneumothorax: Impression: 79-year-old female with 29-79-dtyq-year history of tobacco abuse admitted after fall with significant pneumothorax. Biapical blebs are noted. Recommendation: 1. Pneumothorax: 14 Macedonian pigtail catheter remains in place. No significant air leak.There is evidence of respiratory variance with the chest tube.Will place chest tube to waterseal and repeat chest x-ray at 3 PM this afternoon. Case was discussed with Dr. Dickey at [facility] in [place].He agrees with conservative treatment. If no significant provement to air leak within 2 weeks reevaluate for possible surgical intervention. 2. COPD: Severity uncertain. Radiographic evidence of COPD is present. Do not recommend steroids currently as this may decrease efficiency of pleurodesis if required in the long-term. Continue as needed bronchodilators. May benefit from pulmonary function testing as an outpatient. Will consider that at time of discharge 3. Pulmonary nodule: The patient has several groundglass pulmonary nodules which will require radiographic surveillance in 6 to 12 months. 4. Malnutrition: Continue aggressive nutritional support. Consultation with dietary may be beneficial. Patient does have signs of underlying dementia which likely may be contributing as well 5. Leukocytosis of unclear etiology. Patient does not present with a fever. Work-up per primary service 6. Generalized weakness: Patient has been resistant to getting out of bed. Has refused therapy. Orders have been written to be out of bed with each meal. Also talked to physical therapy and asked them to continue to work with her. Also wrote orders to ambulate patient in the hallway with nursing. We will continue to follow. Feel free to contact us with questions or concerns Please refer to Dr. Dalton's addendum for further recommendations. (2) Pulmonary nodule: (3) Acute hypoxemic respiratory failure: (4) Pulmonary emphysema: Admission and Anticipated Discharge Date Admission Date: December 31, 2019 Subjective Attending: Dr. Dalton Patient seen and examined at bedside. She has no shortness of breath. She denies any fever. She says that she does not have any pain at the chest tube insertion site. She does have some anxiety and is worried about disposition and when she will be discharged. She has no other acute complaints. Review of Systems Review of Systems: All systems reviewed & are unremarkable except as noted in HPI & below Physical Exam Physical Exam: GENERAL : No acute distress EYES: No icterus, gaze conjugate NOSE: No evidence of epistaxis MOUTH: No lesions or candidiasis NECK: Supple LUNGS: Generally CTA B/L, rales or rhonchi. There are a few scant wheezes which clear with forceful cough. HEART: Regular, rate controlled ABDOMEN: Soft, NT, ND, BS Present EXTREMITIES: No LE edema, pedal pulses intact NEURO: A&OX3 Results & Data Results & Data ([facility]) Vital Signs (Past 12 Hours) Vital Signs Temp Pulse Resp BP BP Pulse Ox 01/09/20 07:53 36.3 C L 74 20 134/76 94 01/09/20 03:52 36.5 C 67 18 139/79 95 Laboratory Results 01/07/20 08:47 01/08/20 06:26 Diagnostic Findings XR chest 1V portable CLINICAL HISTORY: Right PNX with catheter COMPARISON STUDY: 01/08/2020 FINDINGS: No major change from the prior study. Right-sided hemithoracic catheter is unchanged in position. There is a small residual right apical pneumothorax unchanged. Subcutaneous emphysematous change is stable. IMPRESSION: No significant change from the prior study. Small unchanged right apical pneumothorax. Subcutaneous emphysematous change also unaltered. Electronically signed by: Jose Foster M.D. 01/09/2020 8:59 AM PG Care Time/CCT Total # of Minutes Spent Total Time Spent with Patient: Total time spent is greater than 50% in coordination of care (as documented) at patient's floor/unit and/or counseling patient:30 minutes including discussion with other providers, nursing staff and patient's daughter. Coding Level of Care Code 45515 Subseq Hosp Care Lvl 2 Diagnoses Tension pneumothorax J93.0 Pulmonary nodule R91.1 Acute hypoxemic respiratory failure J96.01 Pulmonary emphysema J43.9 Time Spent (min) 30
[2020-01-09] MEDS: LORazepam 0.5 MG TAB PO PRN (13:59)
--- NOTE | 2020-01-09 15:31 | XRay Report ---
XR chest 1V portable CLINICAL HISTORY: Right PNX with chest tube @1500 pneumothorax COMPARISON STUDY: 01/09/2020 8:36 AM FINDINGS: Interval increase in volume of right-sided pneumothorax. Maximum pleural separation is now 3 cm. Estimated volume loss is 50%. Slight increase in compressive atelectasis right base. Left lung is grossly clear. IMPRESSION: Increased volume of a right-sided pneumothorax with maximum pleural separation now 3 cm. ACT 112: Negative or not required by law. The above report was generated using voice recognition software. It may contain grammatical, syntax or spelling errors. Electronically signed by: Jose Foster M.D. 01/09/2020 3:29 PM
--- NOTE | 2020-01-09 17:33 | Hospitalist Progress Note ---
Date of Service January 09, 2020 Assessment & Plan (1) Tension pneumothorax: (1) Tension pneumothorax: (2) Acute respiratory distress: (3) Acute hypoxemic respiratory failure: per admitting C notes: Patient is a 79 yo female who presented to the ED with SOB and weakness. Found to have large tension pneumothorax of the right lung. ED physician quickly performed needle decompression after which patient improved. Pneumothorax likely secondary to emphysema and fall at home. 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 Dalton who discussed the [place] [facility] [place]. [place], recommends to continue chest tube drainage no plan for surgical procedure ( video-assisted thoracoscopic ) now If no significant improvement of air leak noted in while on chest tube for 2 weeks(patient is on the #day 9) Will need to be evaluated for surgical procedure VATS (4) Pulmonary emphysema: History of 08-87-omya-year history of tobacco abuse Quit smoking approximately [address] chest showed significant in 5 cm change with biapical blebs Developed tension pneumothorax after sustaining a fall mangement as outlined above (5) COPD (chronic obstructive pulmonary disease): (6) Pulmonary hypertension: (7) cardiac apical ballooning syndrome: (8) Troponin level elevated: (9) Lateral ST segment elevation: (+) ST elevation anterolateral leads on admission troponins flat at 9 echo apical ballooning, likely secondary to catecholamine surge Answering Service Agent consulted, metoprolol started, tolerating well, continue metoprolol XL 25 mg twice daily Continue risperidone Repeat echo shows unchanged LV function (10) URIEL (acute kidney injury): Resolved (12) Status post fall: Family patient has been noted to be having progressive confusion and multiple falls at home The paranasal sinuses and mastoid air cells are clear. The calvarium and skull base are intact. There is no mass, hematoma, midline shift, acute infarct. White matter hypodensity is nonspecific but suggestive of microvascular ischemic change. The ventricles and sulci demonstrate mild age-related involutional changes. 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 Mild motion artifact. --Already on aspirin, will need statin therapy --PT and OT evaluation (13) Ambulatory dysfunction: PT/OT eval (14) Thrombocytosis: (15) Lactic acidosis: Resolved, normal level on 01/01/2020 blood culture: Coag negative staph in 1 bottle Repeat blood cultures: Negative so far Thrombocytosis resolved no need for further antibiotic tx (16) Pulmonary nodule: 6 mm ground glass nodule noted in the [facility] and 6 mm solid nodule noted in the RUL. Need to follow up as outpatient. (17) Abnormal LFTs: Normal liver function in last lab check Liver US: 1. No gallstones or biliary ductal dilatation. 2. Trace pericholecystic fluid. DVT prophylaxis: Heparin scBID Disposition Pending cont to monitor in PCU cont rt sided chest tube Admission and Anticipated Discharge Date Admission Date: December 31, 2019 Subjective having pain and discomfort( soreness at chest tube insertion site ) no cough no fever or chills Physical Exam Constitutional: WD/WN, vitals as above + thin Eyes: PERRL, conjunctivae normal, anicteric sclerae ENMT: external ear and nose normal, oropharynx normal Neck: trachea midline, no thyromegaly Respiratory: no cough Auscultation: no wheezes Cardiovascular: RRR, no murmur, no edema Gastrointestinal (Abdomen): Percussion/Palpation: abdomen soft; abdomen nontender Musculoskeletal: no cyanosis or clubbing, extremities motor strength 5/5 Skin: no rashes, warm and dry Neurologic: PERRL, EOMI, accommodation nl, no face palsy, no dysarthria Psychiatric: A+Ox3, euthymic affect Results & Data Results & Data ([facility]) Vital Signs (Past 12 Hours) Vital Signs Temp Pulse Resp BP BP Pulse Ox 01/09/20 15:42 36.8 C 72 18 154/69 H 98 01/09/20 12:15 36.5 C 20 L 18 166/80 H 92 01/09/20 07:53 36.3 C L 74 20 134/76 94
[2020-01-09] MEDS: TRAMADOL HCL 50 MG TABLET PO PRN (20:02)
--- NOTE | 2020-01-10 07:10 | XRay Report ---
XR chest 1V portable CLINICAL HISTORY: Right PNX with catheter COMPARISON STUDY: 01/09/2020 FINDINGS: Decreased size of a right sided pneumothorax. Maximum pleural separation currently is 1 cm. The lungs otherwise appear clear. Subcutaneous emphysematous changes mildly improved. IMPRESSION: Decrease in wire of a right-sided pneumothorax now estimated at 1 cm maximum pleural sep aration. Improving right upper chest subcutaneous emphysema. ACT 112: Negative or not required by law. The above report was generated using voice recognition software. It may contain grammatical, syntax or spelling errors. Electronically signed by: Jose Foster M.D. 01/10/2020 7:08 AM
[2020-01-10] MEDS: LORazepam 0.5 MG TAB PO PRN ×2 (07:23→20:22)
[2020-01-10] MEDS: FLUTICASONE/VILANTEROL 100/25MCG 14 PUFFS/INHALER INH SCH (07:23)
[2020-01-10] MEDS: LACTOBACILLUS ACIDOPHILUS (FLORANEX) TAB PO SCH ×4 (07:24→20:20)
[2020-01-10] MEDS: ATORVASTATIN 40 MG TAB PO SCH (07:24)
[2020-01-10] MEDS: HEPARIN SOD 5,000 UNIT/0.5 ML VIAL SQ SCH ×2 (07:24→20:22)
[2020-01-10] MEDS: METOPROLOL SUCC 50MG EXT REL TAB PO SCH ×2 (07:24→20:21)
[2020-01-10] MEDS: ASPIRIN 81 MG ECTAB PO SCH (07:25)
[2020-01-10] MEDS: LOSARTAN POTASSIUM 25 MG TAB PO SCH (07:25)
--- NOTE | 2020-01-10 12:23 | Pulmonology Progress Note ---
Date of Service January 10, 2020 Assessment & Plan (1) Tension pneumothorax: Impression: 79-year-old female with 79-44-tffk-year history of tobacco abuse admitted after fall with significant pneumothorax. Biapical blebs are noted. Recommendation: 1. Pneumothorax: 14 Japanese pigtail catheter remains in place. Patient was placed on waterseal yesterday and had increase size of the pneumothorax. When placed back on suction pneumothorax improved but patient still has a grade 4 air leak this morning. If no significant improvement within 2 weeks reevaluate for possible surgical intervention.We have discussed this case with Dr. Dickey at [facility] and he is in agreement with our treatment plan. 2. COPD: Severity uncertain. Radiographic evidence of COPD is present. Do not recommend steroids currently as this may decrease efficiency of pleurodesis if required in the long-term. Continue as needed bronchodilators. May benefit from pulmonary function testing as an outpatient. Will consider that at time of discharge 3. Pulmonary nodule: The patient has several groundglass pulmonary nodules which will require radiographic surveillance in 6 to 12 months. 4. Malnutrition: Continue aggressive nutritional support. Consultation with dietary may be beneficial. Patient does have signs of underlying dementia which likely may be contributing as well 5. Leukocytosis of unclear etiology. Patient does not present with a fever. Work-up per primary service 6. Generalized weakness: Patient has been resistant to getting out of bed. Has refused therapy. Orders have been written to be out of bed with each meal. Also talked to physical therapy and asked them to continue to work with her. Also wrote orders to ambulate patient in the hallway with nursing. We will continue to follow. Feel free to contact us with questions or concerns Please refer to Dr. Dalton's addendum for further recommendations. (2) Pulmonary nodule: (3) Acute hypoxemic respiratory failure: (4) Pulmonary emphysema: Admission and Anticipated Discharge Date Admission Date: December 31, 2019 Supervising Physician Co-Signing Physician Notes Agree with assessment and plan as noted by AUDREY tucker. Chest x-ray today does show some improvement. Continue chest tube suction to 40 cm water and daily chest x-rays. Subjective Attending: Dr. Dalton Patient was placed to waterseal yesterday morning. 4 hours later she had a chest x-ray which showed reexpansion of the pneumothorax to approximately 6 cm. Patient was placed back on suction at 40 cm negative pressure. Repeat chest x- ray this morning shows improvement to 1 cm for the pneumothorax. Patient is sitting in bedside chair and eating breakfast without difficulty. She denies any pain at the chest tube insertion site. She has no chest pain. She has no significant cough. She is not feeling dyspneic. She has no fever or chills. She has no other acute complaints. Review of Systems Review of Systems: All systems reviewed & are unremarkable except as noted in HPI & below Physical Exam Physical Exam: GENERAL : No acute distress. Eating breakfast in bedside chair. EYES: No icterus, gaze conjugate NOSE: No evidence of epistaxis MOUTH: No lesions or candidiasis NECK: Supple LUNGS: CTA B/L, no rales or rhonchi. There are very faint wheezes at the posterior upper mckeon. These clear somewhat with forceful cough. HEART: Regular, rate controlled ABDOMEN: Soft, NT, ND, BS Present EXTREMITIES: No LE edema, pedal pulses intact NEURO: A&OX3 Results & Data Results & Data ([facility]) Vital Signs (Past 12 Hours) Vital Signs Temp Pulse Pulse Pulse Resp BP Pulse Ox 01/10/20 08:00 60 01/10/20 07:59 36.6 C 72 20 108/58 L 96 01/10/20 03:33 36.4 C L 64 16 119/70 93 Laboratory Results 01/07/20 08:47 01/08/20 06:26 Diagnostic Findings XR chest 1V portable CLINICAL HISTORY: Right PNX with catheter COMPARISON STUDY: 01/09/2020 FINDINGS: Decreased size of a right sided pneumothorax. Maximum pleural separation currently is 1 cm. The lungs otherwise appear clear. Subcutaneous emphysematous changes mildly improved. IMPRESSION: Decrease in wire of a right-sided pneumothorax now estimated at 1 cm maximum pleural separation. Improving right upper chest subcutaneous emphysema. Electronically signed by: Jose Foster M.D. 01/10/2020 7:08 AM PG Care Time/CCT Total # of Minutes Spent Total Time Spent with Patient: Total time spent is greater than 50% in coordination of care (as documented) at patient's floor/unit and/or counseling patient:20 minutes Coding Level of Care Code 74676 Subseq Hosp Care Lvl 2 Diagnoses Tension pneumothorax J93.0 Pulmonary nodule R91.1 Acute hypoxemic respiratory failure J96.01 Pulmonary emphysema J43.9 Time Spent (min) 20
[2020-01-10] MEDS: CHOLECALCIFEROL 1,000 UNITS 25 MCG TAB PO SCH (14:20)
--- NOTE | 2020-01-10 19:29 | Hospitalist Progress Note ---
Date of Service January 10, 2020 Assessment & Plan (1) Tension pneumothorax: (1) Tension pneumothorax: (2) Acute respiratory distress: (3) Acute hypoxemic respiratory failure: per admitting SVC notes: Patient is a 79 yo female who presented to the ED with SOB and weakness. Found to have large tension pneumothorax of the right lung. ED physician quickly performed needle decompression after which patient improved. Pneumothorax likely secondary to emphysema and fall at home. chest tube placed back to wall suction Dr. Dalton who discussed the case with [facility] thoracic surgery in a.m. per CT surgery in [place], recommends to continue chest tube drainage no plan for surgical procedure ( video-assisted thoracoscopic ) now If no significant improvement of air leak noted in while on chest tube for 2 weeks(patient is on the #day 10) Will need to be evaluated for surgical procedure VATS (4) Pulmonary emphysema: History of 07-31-ngbg-year history of tobacco abuse Quit smoking approximately [address] chest showed significant in 5 cm change with biapical blebs Developed tension pneumothorax after sustaining a fall continue Breo (5) COPD (chronic obstructive pulmonary disease): (6) Pulmonary hypertension: management per above (7) Cardiac apical ballooning syndrome: (8) Troponin level elevated: (9) Lateral ST segment elevation: (+) ST elevation anterolateral leads on admission troponins flat at 9 echo apical ballooning, likely secondary to catecholamine surge Plumbing Warehouse Helper consulted, metoprolol started, tolerating well, continue metoprolol XL 25 mg twice daily Continue risperidone Repeat echo shows unchanged LV function (10) URIEL (acute kidney injury): Resolved (12) Status post fall: Family patient has been noted to be having progressive confusion and multiple falls at home The paranasal sinuses and mastoid air cells are clear. The calvarium and skull base are intact. There is no mass, hematoma, midline shift, acute infarct. White matter hypodensity is nonspecific but suggestive of microvascular ischemic change. The ventricles and sulci demonstrate mild age-related involutional changes. 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 Mild motion artifact. --Already on aspirin, will need statin therapy --PT and OT evaluation (13) Ambulatory dysfunction: PT/OT eval (14) Thrombocytosis: (15) Lactic acidosis: Resolved, normal level on 01/01/2020 blood culture: Coag negative staph in 1 bottle Repeat blood cultures: Negative so far Thrombocytosis resolved no need for further antibiotic tx (16) Pulmonary nodule: 6 mm ground glass nodule noted in the H[facility]ISON and 6 mm solid nodule noted in the RUL. Need to follow up as outpatient. (17) Abnormal LFTs: Normal liver function in last lab check Liver US: 1. No gallstones or biliary ductal dilatation. 2. Trace pericholecystic fluid. DVT prophylaxis: Heparin sc BID Disposition Pending cont to monitor in PCU cont rt sided chest tube Admission and Anticipated Discharge Date Admission Date: December 31, 2019 Subjective ff up for pneumothorax seen resting in bed, sitting up, watching TV comfortable states she feels fine overall denies dyspnea, chest pain, cough no other symptoms Review of Systems Review of Systems: All systems reviewed & are unremarkable except as noted in HPI & below Physical Exam Physical Exam: General- oriented x 3, not in distress, speaks in sentences with no effort or accessory muscle use Eyes- anicteric Neck- no JVD Lungs- clear breath sounds bilaterally, no rales/wheezes Heart- normal rate, regular rhythm; no murmurs Abdomen- normal bowel sounds, nondistended, soft, nontender Extremities- no pretibial edema, no calf tenderness Neuro- alert, oriented x 3; no gross focal neurologic deficits Skin- warm & dry Results & Data Results & Data ([facility]) Vital Signs (Past 12 Hours) Vital Signs Temp Pulse Pulse Pulse Resp BP Pulse Ox 01/10/20 16:00 36.6 C 71 75 17 153/76 H 96 01/10/20 08:00 60 01/10/20 07:59 36.6 C 72 20 108/58 L 96
[2020-01-10] MEDS: HYDROmorphone INJ 0.5 MG/0.5 ML SYR IV PRN (20:23)
--- NOTE | 2020-01-11 07:41 | XRay Report ---
XR chest 1V portable CLINICAL HISTORY: Pneumothorax COMPARISON STUDY: 01/10/2020 FINDINGS: The patient remains hyperinflated. The heart is the upper limits of normal in size. There i s no focal pulmonary consolidation. There is right-sided subcutaneous emphysema. There is a stable ri ght apical pneumothorax with pleural separation 1 cm. There is a right pleural pigtail catheter in si milar position.[ IMPRESSION: 1. No significant change in the position of the right-sided pleural pigtail catheter 2. Stable 1 cm right apical pneumothorax 3. Right-sided subcutaneous emphysema 4. Emphysema. No evidence of focal pulmonary consolidation ACT 112: Negative or not required by law. Electronically signed by: Rashid Harrison M.D. 01/11/2020 7:40 AM
[2020-01-11] MEDS: LACTOBACILLUS ACIDOPHILUS (FLORANEX) TAB PO SCH ×4 (09:37→20:03)
[2020-01-11] MEDS: LOSARTAN POTASSIUM 25 MG TAB PO SCH (09:37)
[2020-01-11] MEDS: ASPIRIN 81 MG ECTAB PO SCH (09:37)
[2020-01-11] MEDS: CHOLECALCIFEROL 1,000 UNITS 25 MCG TAB PO SCH (09:37)
[2020-01-11] MEDS: METOPROLOL SUCC 50MG EXT REL TAB PO SCH ×2 (09:38→20:03)
[2020-01-11] MEDS: ATORVASTATIN 40 MG TAB PO SCH (09:38)
[2020-01-11] MEDS: HEPARIN SOD 5,000 UNIT/0.5 ML VIAL SQ SCH ×4 (09:39→20:08)
[2020-01-11] MEDS: FLUTICASONE/VILANTEROL 100/25MCG 14 PUFFS/INHALER INH SCH (09:39)
--- NOTE | 2020-01-11 12:20 | Pulmonology Progress Note ---
Date of Service January 11, 2020 Assessment & Plan (1) Tension pneumothorax: Impression: 79-year-old female with 81-44-uamy-year history of tobacco abuse admitted after fall with significant pneumothorax. Biapical blebs are noted. Recommendation: 1. Pneumothorax: 14 Divehi pigtail catheter remains in place. On waterseal patient developed increased pneumothorax. She is continued on suction at -40 cm and pneumothorax is now stable but still at approximately 1 cm. Grade 4 air leak has improved to a grade 1 this morning. Continue chest tube to low suction and repeat chest x-ray again tomorrow morning. If no significant improvement within 2 weeks reevaluate for possible surgical intervention.We have discussed this case with Dr. Dickey at [facility] and he is in agreement with our treatment plan. 2. COPD: Severity uncertain. Radiographic evidence of COPD is present. Do not recommend steroids currently as this may decrease efficiency of pleurodesis if required in the long-term. Continue as needed bronchodilators. May benefit from pulmonary function testing as an outpatient. Will consider that at time of discharge 3. Pulmonary nodule: The patient has several groundglass pulmonary nodules. Repeat CT scan in 6 months. 4. Malnutrition: Continue aggressive nutritional support. Consultation with dietary may be beneficial. Patient does have signs of underlying dementia which likely may be contributing as well 5. Leukocytosis of unclear etiology. Patient does not present with a fever. Work-up per primary service 6. Generalized weakness: Patient has been resistant to getting out of bed. Has refused therapy. Orders have been written to be out of bed with each meal. Also talked to physical therapy and asked them to continue to work with her. Al so wrote orders to ambulate patient in the hallway with nursing. We will continue to follow. Feel free to contact us with questions or concerns Please refer to Dr. Dalton's addendum for further recommendations. (2) Pulmonary nodule: (3) Acute hypoxemic respiratory failure: (4) Pulmonary emphysema: Admission and Anticipated Discharge Date Admission Date: December 31, 2019 Subjective Attending: Dr. Dalton The patient was seen at bedside. She continues on suction to her chest tube at negative 40 cm. She currently has a grade I air leak. She has no SOB and denies chest pain or pain at the insertion site of the right flank pigtail catheter. She denies fever or chills. She has no acute complaints. Review of Systems Review of Systems: All systems reviewed & are unremarkable except as noted in HPI & below Physical Exam Physical Exam: GENERAL : No acute distress. Patient is somewhat anxious EYES: No icterus, gaze conjugate NOSE: No evidence of epistaxis MOUTH: No lesions or candidiasis NECK: Supple LUNGS: CTA B/L, no wheezes, rales or rhonchi CHEST: Dressing dry and intact to chest tube site HEART: Regular, rate controlled ABDOMEN: Soft, NT, ND, BS Present EXTREMITIES: No LE edema, pedal pulses intact NEURO: A&OX3 Results & Data Results & Data ([facility]) Vital Signs (Past 12 Hours) Vital Signs Temp Pulse Pulse Resp BP BP Pulse Ox 01/11/20 12:01 36.6 C 67 19 130/70 95 01/11/20 08:11 36.6 C 73 19 145/72 H 95 01/11/20 03:45 36.4 C L 75 18 143/81 H 94 Laboratory Results 01/07/20 08:47 01/08/20 06:26 Diagnostic Findings XR chest 1V portable CLINICAL HISTORY: Pneumothorax COMPARISON STUDY: 01/10/2020 FINDINGS: The patient remains hyperinflated. The heart is the upper limits of normal in size. There is no focal pulmonary consolidation. There is right-sided subcutaneous emphysema. There is a stable right apical pneumothorax with pleural separation 1 cm. There is a right pleural pigtail catheter in similar position.[ IMPRESSION: 1. No significant change in the position of the right-sided pleural pigtail catheter 2. Stable 1 cm right apical pneumothorax 3. Right-sided subcutaneous emphysema 4. Emphysema. No evidence of focal pulmonary consolidation Electronically signed by: Rashid Harrison M.D. 01/11/2020 7:40 AM PG Care Time/CCT Total # of Minutes Spent Total Time Spent with Patient: Total time spent is greater than 50% in coordination of care (as documented) at patient's floor/unit and/or counseling patient:20 Coding Level of Care Code 18922 Subseq Hosp Care Lvl 2 Diagnoses Tension pneumothorax J93.0 Pulmonary nodule R91.1 Acute hypoxemic respiratory failure J96.01 Pulmonary emphysema J43.9
--- NOTE | 2020-01-11 16:38 | Hospitalist Progress Note ---
Date of Service January 11, 2020 Assessment & Plan (1) Tension pneumothorax: (1) Tension pneumothorax: (2) Acute respiratory distress: (3) Acute hypoxemic respiratory failure: per admitting C notes: Patient is a 79 yo female who presented to the ED with SOB and weakness. Found to have large tension pneumothorax of the right lung. ED physician quickly performed needle decompression after which patient improved. Pneumothorax likely secondary to emphysema and fall at home. chest tube placed back to wall suction CXR 01/11/20: 1. No significant change in the position of the right-sided pleural pigtail catheter 2. Stable 1 cm right apical pneumothorax 3. Right-sided subcutaneous emphysema 4. Emphysema. No evidence of focal pulmonary consolidation Dr. Dalton who discussed the case with [facility] Thoracic Surgery in a.m. per CT surgery in [place], recommends to continue chest tube drainage no plan for surgical procedure ( video-assisted thoracoscopic ) If no significant improvement of air leak noted in while on chest tube for 2 weeks(patient is on the #day 10) Will need to be evaluated for surgical procedure VATS (4) Pulmonary emphysema: History of 86-35-oukp-year history of tobacco abuse Quit smoking approximately [address] chest showed significant in 5 cm change with biapical blebs Developed tension pneumothorax after sustaining a fall continue Breo (5) COPD (chronic obstructive pulmonary disease): (6) Pulmonary hypertension: management per above (7) Cardiac apical ballooning syndrome: (8) Troponin level elevated: (9) Lateral ST segment elevation: (+) ST elevation anterolateral leads on admission troponins flat at 9 echo apical ballooning, likely secondary to catecholamine surge Fire Management Technician consulted, metoprolol started, tolerating well, continue metoprolol XL 25 mg twice daily Continue risperidone Repeat echo shows unchanged LV function (10) URIEL (acute kidney injury): Resolved (12) Status post fall: Family patient has been noted to be having progressive confusion and multiple falls at home The paranasal sinuses and mastoid air cells are clear. The calvarium and skull base are intact. There is no mass, hematoma, midline shift, acute infarct. White matter hypodensity is nonspecific but suggestive of microvascular ischemic change. The ventricles and sulci demonstrate mild age-related involutional changes. 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 Mild motion artifact. --Already on aspirin, will need statin therapy --PT and OT evaluation (13) Ambulatory dysfunction: PT/OT eval (14) Thrombocytosis: (15) Lactic acidosis: Resolved, normal level on 01/01/2020 blood culture: Coag negative staph in 1 bottle Repeat blood cultures: Negative so far Thrombocytosis resolved no need for further antibiotic tx (16) Pulmonary nodule: 6 mm ground glass nodule noted in the HARRISON and 6 mm solid nodule noted in the RUL. Need to follow up as outpatient. (17) Abnormal LFTs: Normal liver function in last lab check Liver US: 1. No gallstones or biliary ductal dilatation. 2. Trace pericholecystic fluid. DVT prophylaxis: Heparin sc BID Disposition Pending cont to monitor in PCU cont rt sided chest tube Admission and Anticipated Discharge Date Admission Date: December 31, 2019 Subjective ff up for pneumothorax seen sitting up in bed, watching TV states she feels fine today no shortness of breath mild pain on the R lateral chest wall, chest tube site denies other symptoms Review of Systems Review of Systems: All systems reviewed & are unremarkable except as noted in HPI & below Physical Exam Physical Exam: General- oriented x 3, not in distress, speaks in sentences with no effort or accessory muscle use Eyes- anicteric Neck- no JVD Lungs- clear breath sounds BL, no rales/wheezing Heart- normal rate, regular rhythm; no murmurs Abdomen- normal bowel sounds, nondistended, soft, nontender Extremities- no pretibial edema, no calf tenderness Neuro- alert, oriented x 3; no gross focal neurologic deficits Skin- warm & dry Results & Data Results & Data ([facility]) Vital Signs (Past 12 Hours) Vital Signs Temp Pulse Pulse Pulse Resp BP BP 01/11/20 16:00 71 01/11/20 15:51 36.7 C 71 19 141/71 H 01/11/20 12:01 36.6 C 67 19 130/70 01/11/20 08:11 36.6 C 73 19 145/72 H 01/11/20 08:00 64 Pulse Ox 01/11/20 16:00 01/11/20 15:51 96 01/11/20 12:01 95 01/11/20 08:11 95 01/11/20 08:00
[2020-01-11] MEDS: LORazepam 0.5 MG TAB PO PRN (20:09)
[2020-01-11] MEDS: TRAMADOL HCL 50 MG TABLET PO PRN (23:21)
--- NOTE | 2020-01-12 07:52 | XRay Report ---
XR chest 1V portable CLINICAL HISTORY: Right PNX with catheter COMPARISON STUDY: Chest radiograph January 11, 2020. FINDINGS: Right pleural catheter remains in place. A small right apical pneumothorax has mildly incre ased in size since chest radiograph of January 11, 2020. Superior pleural separation measures 1.4 cm. It previously measured 1 cm. Subcutaneous gas within the right chest wall and neck is noted. There is n o left pneumothorax. No consolidation is present. There is underlying emphysema. There is no evidence for pulmonary edema. Cardiomediastinal silhouette is unremarkable. IMPRESSION: Mild increase in size of a small right apical pneumothorax since prior exam. Right pleur al catheter in place. ACT 112: Negative or not required by law. Electronically signed by: Alex Bran M.D. 01/12/2020 7:51 AM
[2020-01-12] MEDS: CHOLECALCIFEROL 1,000 UNITS 25 MCG TAB PO SCH (09:09)
[2020-01-12] MEDS: ATORVASTATIN 40 MG TAB PO SCH (09:09)
[2020-01-12] MEDS: LOSARTAN POTASSIUM 25 MG TAB PO SCH (09:09)
[2020-01-12] MEDS: METOPROLOL SUCC 50MG EXT REL TAB PO SCH ×2 (09:09→21:44)
[2020-01-12] MEDS: ASPIRIN 81 MG ECTAB PO SCH (09:09)
[2020-01-12] MEDS: LACTOBACILLUS ACIDOPHILUS (FLORANEX) TAB PO SCH ×5 (09:10→21:42)
[2020-01-12] MEDS: FLUTICASONE/VILANTEROL 100/25MCG 14 PUFFS/INHALER INH SCH (09:10)
[2020-01-12] MEDS: HEPARIN SOD 5,000 UNIT/0.5 ML VIAL SQ SCH ×2 (09:14→21:36)
--- NOTE | 2020-01-12 11:31 | Pulmonology Progress Note ---
Date of Service January 12, 2020 Assessment & Plan (1) Tension pneumothorax: Impression: 79-year-old female with 81-64-updh-year history of tobacco abuse admitted after fall with significant pneumothorax. Biapical blebs are noted. Recommendation: 1. Pneumothorax: 14 Chinese pigtail catheter remains in place. She continues with a grade 1 air leak. She is continued on suction at -40 cm and pneumothorax is now stable but still at approximately 1 cm. Continue chest tube to suction and follow serial chest x-rays. If no significant improvement over the weekend, we will again discuss with Dr. Dickey at [facility] for input. 8.5 Fr pigtail placed in the ED on admission on 12/31/2019. Catheter was then overwired and replaced with a 14 Fr Skater locking pigtail catheter on 01/06/[address] Dalton. 2. COPD: Severity uncertain. Radiographic evidence of COPD is present. Do not recommend steroids currently as this may decrease efficiency of pleurodesis if required in the long-term. Continue as needed bronchodilators. May benefit from pulmonary function testing as an outpatient. Will consider that at time of discharge. Oxygenating well on room air 3. Pulmonary nodule: The patient has several groundglass pulmonary nodules. Repeat CT scan in 6 months. 4. Malnutrition: Continue aggressive nutritional support. Consultation with dietary may be beneficial. Patient does have signs of underlying dementia which likely may be contributing as well 5. Leukocytosis of unclear etiology. Patient does not present with a fever. White count is improving and is 13.75 on 01/07/2020. Further management per primary team 6. Generalized weakness: Patient has been resistant to getting out of bed. Has refused therapy. Orders have been written to be out of bed with each meal. Also talked to physical therapy and asked them to continue to work with her. Also wrote orders to ambulate patient in the hallway with nursing. We will continue to follow. Feel free to contact us with questions or concerns Please refer to Dr. Dalton's addendum for further recommendations. (2) Pulmonary nodule: (3) Acute hypoxemic respiratory failure: (4) Pulmonary emphysema: Admission and Anticipated Discharge Date Admission Date: December 31, 2019 Supervising Physician Co-Signing Physician Notes Seen and examined. EMR reviewed. Agree with assessment and plan as noted by AUDREY tucker. Continue chest tube to suction until air leak resolves. Once the patient no longer has an air leak, could consider transitioning her to waterseal and following imaging studies. Previously every time she was placed on waterseal the pneumothorax recurred. If the patient has a persistent air leak going into next week, may consider transfer to [facility] for thoracic surgery evaluation. I did review the possibility of trying to place the tube at the apex however given her structural lung disease, I think there is a significant likelihood that I could potentially make matters worse by causing a pulmonary laceration. Will continue current tube management for now. Subjective Patient seen and examined at bedside. She continues with a grade 1 air leak from her pigtail catheter. She has no respiratory distress. She denies any chest pain. There is no pain around the catheter site. The patient does have some confusion and anxiety and requests that we update her daughter Stacie regarding progress. It was advised to the patient that she will be here over the weekend and we will keep her on suction as long as there is an air leak. We also had discussion with Dr. dean from [facility] and will discuss further with him next week if there is no significant improvement. Patient has no other acute complaints. Review of Systems Review of Systems: All systems reviewed & are unremarkable except as noted in HPI & below Physical Exam Physical Exam: GENERAL : No acute distress EYES: No icterus, gaze conjugate NOSE: No evidence of epistaxis. MOUTH: No lesions or candidiasis NECK: Supple. No tracheal deviation LUNGS: Diminished breath sounds. There is no evidence of adventitious breath sounds such as bronchospasm, rales, rhonchi. There is no paradoxical chest wall movement. HEART: Regular, rate controlled ABDOMEN: Soft, NT, ND, BS Present EXTREMITIES: No LE edema, pedal pulses intact NEURO: A&OX3 Results & Data Results & Data ([facility]) Vital Signs (Past 12 Hours) Vital Signs Temp Pulse Pulse Resp BP BP Pulse Ox 01/12/20 06:58 36.8 C 71 23 135/78 93 01/12/20 04:19 36.3 C L 01/12/20 03:46 61 19 145/85 H 95 01/12/20 00:00 66 01/11/20 23:30 36.4 C L 71 19 167/78 H 98 Laboratory Results 01/07/20 08:47 01/08/20 06:26 Diagnostic Findings XR chest 1V portable CLINICAL HISTORY: Right PNX with catheter COMPARISON STUDY: Chest radiograph January 11, 2020. FINDINGS: Right pleural catheter remains in place. A small right apical pneumo thorax has mildly increased in size since chest radiograph of January 11, 2020. Superior pleural separation measures 1.4 cm. It previously measured 1 cm. Subcutaneous gas within the right chest wall and neck is noted. There is no left pneumothorax. No consolidation is present. There is underlying emphysema. There is no evidence for pulmonary edema. Cardiomediastinal silhouette is unremarkable. IMPRESSION: Mild increase in size of a small right apical pneumothorax since prior exam. Right pleural catheter in place. Electronically signed by: Alex Bran M.D. 01/12/2020 7:51 AM PG Care Time/CCT Total # of Minutes Spent Total Time Spent with Patient: Total time spent is greater than 50% in c oordination of care (as documented) at patient's floor/unit and/or counseling patient: 30 minutes. I also spent time discussing plan with daughter Stacie via telephone. Coding Level of Care Code 54641 Subseq Hosp Care Lvl 2 Diagnoses Tension pneumothorax J93.0 Pulmonary nodule R91.1 Acute hypoxemic respiratory failure J96.01 Pulmonary emphysema J43.9 Time Spent (min) 30
[2020-01-12] MEDS: ACETAMINOPHEN 500 MG TAB PO PRN (12:56)
[2020-01-12] MEDS ORDERED: POLYETHYLENE (MIRALAX) 17 GM PACK PO PRN (19:21)
--- NOTE | 2020-01-12 21:24 | Hospitalist Progress Note ---
Date of Service January 12, 2020 Assessment & Plan (1) Tension pneumothorax: (1) Tension pneumothorax: (2) Acute respiratory distress: (3) Acute hypoxemic respiratory failure: per admitting C notes: Patient is a 79 yo female who presented to the ED with SOB and weakness. Found to have large tension pneumothorax of the right lung. ED physician quickly performed needle decompression after which patient improved. Pneumothorax likely secondary to emphysema and fall at home. chest tube placed back to wall suction -- stable overall per Pulmo CXR 01/11/20: 1. No significant change in the position of the right-sided pleural pigtail catheter 2. Stable 1 cm right apical pneumothorax 3. Right-sided subcutaneous emphysema 4. Emphysema. No evidence of focal pulmonary consolidation Dr. Dalton who discussed the case with [facility] Thoracic Surgery in a.m. per CT surgery in [place], recommends to continue chest tube drainage no plan for surgical procedure ( video-assisted thoracoscopic ) If no significant improvement of air leak noted in while on chest tube for 2 weeks(patient is on the #day 10) Will need to be evaluated for surgical procedure VATS (4) Pulmonary emphysema: History of 94-20-pzsf-year history of tobacco abuse Quit smoking approximately [address] chest showed significant in 5 cm change with biapical blebs Developed tension pneumothorax after sustaining a fall continue Breo (5) COPD (chronic obstructive pulmonary disease): (6) Pulmonary hypertension: management per above (7) Cardiac apical ballooning syndrome: (8) Troponin level elevated: (9) Lateral ST segment elevation: (+) ST elevation anterolateral leads on admission troponins flat at 9 echo apical ballooning, likely secondary to catecholamine surge Manager New Product consulted, metoprolol started, tolerating well, continue metoprolol XL 25 mg twice daily Continue risperidone Repeat echo shows unchanged LV function (10) URIEL (acute kidney injury): Resolved (12) Status post fall: Family patient has been noted to be having progressive confusion and multiple falls at home The paranasal sinuses and mastoid air cells are clear. The calvarium and skull base are intact. There is no mass, hematoma, midline shift, acute infarct. White matter hypodensity is nonspecific but suggestive of microvascular ischemic change. The ventricles and sulci demonstrate mild age-related involutional changes. 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 Mild motion artifact. --Already on aspirin, will need statin therapy --PT and OT evaluation (13) Ambulatory dysfunction: PT/OT eval (14) Thrombocytosis: (15) Lactic acidosis: Resolved, normal level on 01/01/2020 blood culture: Coag negative staph in 1 bottle Repeat blood cultures: Negative so far Thrombocytosis resolved no need for further antibiotic tx (16) Pulmonary nodule: 6 mm ground glass nodule noted in the H[facility]ISON and 6 mm solid nodule noted in the RUL. Need to follow up as outpatient. (17) Abnormal LFTs: Normal liver function in last lab check Liver US: 1. No gallstones or biliary ductal dilatation. 2. Trace pericholecystic fluid. Depression on Buspirone patient denies depression symptoms DVT prophylaxis: Heparin sc BID Disposition Pending cont to monitor in PCU cont rt sided chest tube Admission and Anticipated Discharge Date Admission Date: December 31, 2019 Subjective ff up for tension pneumothorax seen resting in bed, comfortable states she feels fine no chest pain, dyspnea denies being depressed, just worried about possible surgery patient reassured no other symptoms Review of Systems Review of Systems: All systems reviewed & are unremarkable except as noted in HPI & below Physical Exam Physical Exam: General- oriented x 3, not in distress, speaks in sentences with no effort or accessory muscle use Eyes- anicteric Neck- no JVD Lungs- clear breath sounds bilaterally no crackles no wheezing chest tube on the right lateral chest wall in place Heart- normal rate, regular rhythm; no murmurs Abdomen- normal bowel sounds, nondistended, soft, nontender Extremities- no pretibial edema, no calf tenderness Neuro- alert, oriented x 3; no gross focal neurologic deficits Skin- warm & dry Results & Data Results & Data ([facility]) Vital Signs (Past 12 Hours) Vital Signs Temp Pulse Resp BP Pulse Ox 01/12/20 20:33 36.5 C 63 18 117/68 95 01/12/20 15:59 36.5 C 66 17 145/77 H 97 01/12/20 11:21 36.9 C 61 20 112/62 95
[2020-01-12] MEDS: LORazepam 0.5 MG TAB PO PRN (21:44)
[2020-01-13] MEDS: LACTOBACILLUS ACIDOPHILUS (FLORANEX) TAB PO SCH ×4 (08:17→21:22)
[2020-01-13] MEDS: METOPROLOL SUCC 50MG EXT REL TAB PO SCH ×2 (08:17→21:19)
[2020-01-13] MEDS: CHOLECALCIFEROL 1,000 UNITS 25 MCG TAB PO SCH (08:17)
[2020-01-13] MEDS: FLUTICASONE/VILANTEROL 100/25MCG 14 PUFFS/INHALER INH SCH (08:17)
[2020-01-13] MEDS: ASPIRIN 81 MG ECTAB PO SCH (08:18)
[2020-01-13] MEDS: LOSARTAN POTASSIUM 25 MG TAB PO SCH (08:18)
[2020-01-13] MEDS: HEPARIN SOD 5,000 UNIT/0.5 ML VIAL SQ SCH ×2 (08:18→21:22)
[2020-01-13] MEDS: ATORVASTATIN 40 MG TAB PO SCH (08:18)
--- NOTE | 2020-01-13 08:18 | XRay Report ---
XR chest 1V portable CLINICAL HISTORY: ptx pneumothorax COMPARISON STUDY: 01/12/2020 FINDINGS: Unchanged exam compared to the prior study. Small right apical pneumothorax unchanged. Subc utaneous emphysema unchanged. Lungs otherwise appear clear. The right chest catheter is unchanged in position. IMPRESSION: No change from the prior study. Small stable right apical pneumothorax. ACT 112: Negative or not required by law. The above report was generated using voice recognition software. It may contain grammatical, syntax or spelling errors. Electronically signed by: Jose Foster M.D. 01/13/2020 8:17 AM
--- NOTE | 2020-01-13 08:26 | Pulmonology Progress Note ---
Date of Service January 13, 2020 Assessment & Plan (1) Tension pneumothorax: Impression: 79-year-old female with 53-11-jlef-year history of tobacco abuse admitted after fall with significant pneumothorax. Biapical blebs are noted. Recommendation: 1. Pneumothorax: 14 Gambian pigtail catheter remains in place. She continues with a grade 1 air leak. She is continued on suction at -40 cm, chest x-ray today shows slight improvement in the pneumothorax. Continue chest tube to suction and follow serial chest x-rays. Once the air leak resolves, could consider placing the patient to waterseal or clamping to see how she tolerates it. I have discussed previously with thoracic surgery at [facility] and conservative management was recommended. If the patient's air leak persists and x-ray fails to show any improvement, may consider transfer to [place] for consideration of surgical pleurodesis and apical stapling 8.5 Fr pigtail placed in the ED on admission on 12/31/2019. Catheter was then overwired and replaced with a 14 Fr Skater locking pigtail catheter on 01/06/[address] Dalton. 2. COPD: Severity uncertain. Radiographic evidence of COPD is present. Do not recommend steroids currently as this may decrease efficiency of pleurodesis if required in the long-term. Continue as needed bronchodilators. May benefit from pulmonary function testing as an outpatient. Will consider that at time of discharge. Oxygenating well on room air 3. Pulmonary nodule: The patient has several groundglass pulmonary nodules. Repeat CT scan in 6 months depending on patient's clinical course. She is extremely fragile and current clinical condition and likely underlying dementia, I am not sure that additional follow-up or aggressive evaluation is warranted. 4. Malnutrition: Continue aggressive nutritional support. Patient does have signs of underlying dementia which likely may be contributing as well 5. Leukocytosis: Per primary service 6. Generalized weakness: Needs to mobilize and ambulate. PT and OT orders are in. She is out of bed eating which is a good sign but needs to ambulate on a regular basis We will continue to follow. Feel free to contact us with questions or concerns (2) Pulmonary nodule: (3) Acute hypoxemic respiratory failure: (4) Pulmonary emphysema: Admission and Anticipated Discharge Date Admission Date: December 31, 2019 Subjective Patient seen and examined. She offers no new complaints. Her pain is well controlled. Her breathing is fine. She is up to the chair eating breakfast. Review of Systems Review of Systems: Unchanged from prior Physical Exam Eyes: PERRL, conjunctivae normal, anicteric sclerae ENMT: external ear and nose normal, oropharynx normal Neck: normal visual inspection Respiratory: normal respiratory effort; no retractions and no cough Cardiovascular: RRR, no murmur, no edema Extremities: no edema Gastrointestinal (Abdomen): normal bowel sounds, soft, nontender, no hepatosplenomegaly Musculoskeletal: no cyanosis or clubbing, extremities motor strength 5/5 Skin: no rashes, warm and dry Neurologic: PERRL, EOMI, accommodation nl, no face palsy, no dysarthria Psychiatric: A+Ox3, euthymic affect Results & Data Results & Data ([facility]) Vital Signs (Past 12 Hours) Vital Signs Temp Pulse Pulse Resp BP BP Pulse Ox 01/13/20 07:04 36.7 C 72 16 163/80 H 95 01/13/20 04:00 36.6 C 62 18 145/82 H 98 01/13/20 00:00 64 01/12/20 23:49 36.4 C L 72 19 152/84 H 93 01/12/20 20:33 36.5 C 63 18 117/68 95 Laboratory Results 01/07/20 08:47 01/08/20 06:26 Diagnostic Findings Chest x-ray from this was independently reviewed. The pneumothorax may be slightly smaller today. PG Care Time/CCT Total # of Minutes Spent Total Time Spent with Patient: Total time spent is greater than 50% in coordination of care (as documented) at patient's floor/unit and/or counseling patient: Coding Level of Care Code 35860 Subseq Hosp Care Lvl 2 Diagnoses Tension pneumothorax J93.0 Pulmonary nodule R91.1 Acute hypoxemic respiratory failure J96.01 Pulmonary emphysema J43.9
[2020-01-13] MEDS ORDERED: MAGNESIUM HYDROXIDE SUSP 30 ML UDC PO PRN (14:40)
[2020-01-13] MEDS ORDERED: bisacodyL 10 MG SUPP PR STA (14:40)
--- NOTE | 2020-01-13 19:29 | Hospitalist Progress Note ---
Date of Service January 13, 2020 Assessment & Plan (1) Tension pneumothorax: (1) Tension pneumothorax: (2) Acute respiratory distress: (3) Acute hypoxemic respiratory failure: per admitting C notes: Patient is a 79 yo female who presented to the ED with SOB and weakness. Found to have large tension pneumothorax of the right lung. ED physician quickly performed needle decompression after which patient improved. Pneumothorax likely secondary to emphysema and fall at home. chest tube placed back to wall suction -- stable overall CXR 01/11/20: 1. No significant change in the position of the right-sided pleural pigtail catheter 2. Stable 1 cm right apical pneumothorax 3. Right-sided subcutaneous emphysema 4. Emphysema. No evidence of focal pulmonary consolidation Dr. Dalton who discussed the case with [facility] Thoracic Surgery in a.m. per CT surgery in [place], recommends to continue chest tube drainage no plan for surgical procedure ( video-assisted thoracoscopic ) If no significant improvement of air leak noted in while on chest tube for 2 weeks(patient is on the #day 10) Will need to be evaluated for surgical procedure VATS (4) Pulmonary emphysema: History of 69-69-kxtk-year history of tobacco abuse Quit smoking approximately [address] chest showed significant in 5 cm change with biapical blebs Developed tension pneumothorax after sustaining a fall continue Breo (5) COPD (chronic obstructive pulmonary disease): (6) Pulmonary hypertension: management per above (7) Cardiac apical ballooning syndrome: (8) Troponin level elevated: (9) Lateral ST segment elevation: (+) ST elevation anterolateral leads on admission troponins flat at 9 echo apical ballooning, likely secondary to catecholamine surge Rod And Tube Straightener consulted, metoprolol started, tolerating well, continue metoprolol XL 25 mg twice daily Continue risperidone Repeat echo shows unchanged LV function -- no cardiac symptoms (10) URIEL (acute kidney injury): Resolved (12) Status post fall: Family patient has been noted to be having progressive confusion and multiple falls at home The paranasal sinuses and mastoid air cells are clear. The calvarium and skull base are intact. There is no mass, hematoma, midline shift, acute infarct. White matter hypodensity is nonspecific but suggestive of microvascular ischemic change. The ventricles and sulci demonstrate mild age-related involutional changes. 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 Mild motion artifact. --Already on aspirin, will need statin therapy --PT and OT evaluation (13) Ambulatory dysfunction: PT/OT eval (14) Thrombocytosis: (15) Lactic acidosis: Resolved, normal level on 01/01/2020 blood culture: Coag negative staph in 1 bottle Repeat blood cultures: Negative so far Thrombocytosis resolved no need for further antibiotic tx (16) Pulmonary nodule: 6 mm ground glass nodule noted in the HARRISON and 6 mm solid nodule noted in the RUL. Need to follow up as outpatient. (17) Abnormal LFTs: Normal liver function in last lab check Liver US: 1. No gallstones or biliary ductal dilatation. 2. Trace pericholecystic fluid. Depression on Buspirone patient denies depression symptoms Constipation Dulcolax suppository DVT prophylaxis: Heparin sc BID Disposition Pending cont to monitor in PCU cont rt sided chest tube Admission and Anticipated Discharge Date Admission Date: December 31, 2019 Subjective ff up for pneumothorax seen resting in bed, sitting up, watching TV denies shortness of breath, cough, chest pain (+) constipation, no abdominal pain, no nausea/vomiting no other symptoms Review of Systems Review of Systems: All systems reviewed & are unremarkable except as noted in HPI & below Physical Exam Physical Exam: General- oriented x 3, not in distress, speaks in sentences with no effort or accessory muscle use Eyes- anicteric Neck- no JVD Lungs- clear breath sounds bilaterally chest tube in place: no bleeding, discharge Heart- normal rate, regular rhythm; no murmurs Abdomen- normal bowel sounds, nondistended, soft, nontender Extremities- no pretibial edema, no calf tenderness Neuro- alert, oriented x 3; no gross focal neurologic deficits Skin- warm & dry Results & Data Results & Data ([facility]) Vital Signs (Past 12 Hours) Vital Signs Temp Pulse Pulse Resp BP Pulse Ox 01/13/20 16:00 70 01/13/20 15:13 36.4 C L 67 19 143/77 H 92 01/13/20 11:35 36.4 C L 67 22 99/62 L 95 01/13/20 08:00 62
[2020-01-13] MEDS: LORazepam 0.5 MG TAB PO PRN (21:18)
[2020-01-13] MEDS: TRAMADOL HCL 50 MG TABLET PO PRN (21:18)
--- NOTE | 2020-01-14 07:16 | XRay Report ---
XR chest 1V portable CLINICAL HISTORY: Pneumothorax COMPARISON STUDY: 01/13/2020 FINDINGS: The cardiac and mediastinal contours remain stable. Underlying emphysema is suspected. A ri ght-sided pleural pigtail catheter remains unchanged in position. There is slight increase in the siz e the right apical pneumothorax which has a pleural separation of 21 mm. There is right-sided subcuta neous emphysema.[There is no failure. There is no focal pulmonary consolidation. IMPRESSION: 1. No change in position of the right-sided pigtail pleural catheter 2. Slight interval increase in the size the right apical pneumothorax with pleural separation of 21 m m ACT 112: Negative or not required by law. Electronically signed by: Rashid Harrison M.D. 01/14/2020 7:14 AM
--- NOTE | 2020-01-14 09:48 | Pulmonology Progress Note ---
Date of Service January 14, 2020 Assessment & Plan (1) Tension pneumothorax: Impression: 79-year-old female with 65-87-xysc-year history of tobacco abuse admitted after fall with significant pneumothorax. Biapical blebs are noted. Recommendation: 1. Pneumothorax: 14 Tongan pigtail catheter remains in place. She continues with a grade 1 air leak. She is continued on suction at -40 cm. Chest x-ray demonstrates slight enlargement of the apical pneumothorax. Every time the tube has been returned to waterseal with the air leak in place, the lung has deflated and the pneumothorax is increased significantly. I am not optimistic that conservative strategy will resolve the pneumothorax. If the patient has significant air leak and pneumothorax tomorrow, would recommend rediscussion [facility] thoracic surgery at [facility] and consideration for transfer of the patient for video assisted thoracoscopic bleb resection and pleurodesis. I did discuss with the patient's daughter, Stacie, by phone. She is in agreement with the plan as outlined. 8.5 Fr pigtail placed in the ED on admission on 12/31/2019. Catheter was then overwired and replaced with a 14 Fr Skater locking pigtail catheter on 01/06/[address] Dalton. 2. COPD: Severity uncertain. Radiographic evidence of COPD is present. Do not recommend steroids currently as this may decrease efficiency of pleurodesis if required in the long-term. Continue as needed bronchodilators. May benefit from pulmonary function testing as an outpatient. Will consider that at time of discharge. Oxygenating well on room air 3. Pulmonary nodule: The patient has several groundglass pulmonary nodules. Repeat CT scan in 6 months depending on patient's clinical course. She is extremely fragile and current clinical condition and likely underlying dementia, I am not sure that additional follow-up or aggressive evaluation is warranted. 4. Malnutrition: Continue aggressive nutritional support. Patient does have signs of underlying dementia which likely may be contributing as well 5. Leukocytosis: Per primary service 6. Generalized weakness: Needs to mobilize and ambulate. PT and OT orders are in. She is out of bed eating which is a good sign but needs to ambulate on a regular basis We will continue to follow. Feel free to contact us with questions or concerns (2) Pulmonary nodule: (3) Acute hypoxemic respiratory failure: (4) Pulmonary emphysema: Admission and Anticipated Discharge Date Admission Date: December 31, 2019 Subjective Patient seen and examined. No new complaints. She denies chest pain or palpitations. The catheter is in place. It has a persistent 1+ air leak. Review of Systems Review of Systems: All systems reviewed & are unremarkable except as noted in HPI & below Physical Exam Eyes: PERRL, conjunctivae normal, anicteric sclerae ENMT: external ear and nose normal, oropharynx normal Neck: normal visual inspection Respiratory: normal respiratory effort; no retractions and no cough 1+ airleak Cardiovascular: RRR, no murmur, no edema Extremities: no edema Gastrointestinal (Abdomen): normal bowel sounds, soft, nontender, no hepatosplenomegaly Musculoskeletal: no cyanosis or clubbing, extremities motor strength 5/5 Skin: no rashes, warm and dry Neurologic: PERRL, EOMI, accommodation nl, no face palsy, no dysarthria Psychiatric: A+Ox3, euthymic affect Results & Data Results & Data ([facility]) Vital Signs (Past 12 Hours) Vital Signs Temp Pulse Pulse Resp BP Pulse Ox 01/14/20 08:11 37.0 C 70 18 132/68 96 01/14/20 03:21 36.7 C 79 18 122/71 94 01/14/20 00:14 36.6 C 68 17 125/72 97 01/14/20 00:00 70 Laboratory Results 01/07/20 08:47 01/08/20 06:26 Diagnostic Findings Chest x-ray today demonstrates a slight increase in the right apical pneumothorax. PG Care Time/CCT Total # of Minutes Spent Total Time Spent with Patient: Total time spent is greater than 50% in coordination of care (as documented) at patient's floor/unit and/or counseling patient: Coding Level of Care Code 26700 Subseq Hosp Care Lvl 3 Diagnoses Tension pneumothorax J93.0 Pulmonary nodule R91.1 Acute hypoxemic respiratory failure J96.01 Pulmonary emphysema J43.9
[2020-01-14] MEDS: LACTOBACILLUS ACIDOPHILUS (FLORANEX) TAB PO SCH ×4 (09:52→20:53)
[2020-01-14] MEDS: ASPIRIN 81 MG ECTAB PO SCH (09:53)
[2020-01-14] MEDS: ATORVASTATIN 40 MG TAB PO SCH (09:53)
[2020-01-14] MEDS: FLUTICASONE/VILANTEROL 100/25MCG 14 PUFFS/INHALER INH SCH (09:53)
[2020-01-14] MEDS: CHOLECALCIFEROL 1,000 UNITS 25 MCG TAB PO SCH (09:53)
[2020-01-14] MEDS: LOSARTAN POTASSIUM 25 MG TAB PO SCH (09:53)
[2020-01-14] MEDS: METOPROLOL SUCC 50MG EXT REL TAB PO SCH ×2 (09:53→20:51)
[2020-01-14] MEDS: HEPARIN SOD 5,000 UNIT/0.5 ML VIAL SQ SCH ×2 (12:54→20:54)
--- NOTE | 2020-01-14 18:03 | Hospitalist Progress Note ---
Date of Service January 14, 2020 Assessment & Plan (1) Tension pneumothorax: (1) Tension pneumothorax: (2) Acute respiratory distress: (3) Acute hypoxemic respiratory failure: per admitting SVC notes: Patient is a 79 yo female who presented to the ED with SOB and weakness. Found to have large tension pneumothorax of the right lung. ED physician quickly performed needle decompression after which patient improved. Pneumothorax likely secondary to emphysema and fall at home. chest tube placed back to wall suction -- stable overall CXR 01/11/20: 1. No significant change in the position of the right-sided pleural pigtail catheter 2. Stable 1 cm right apical pneumothorax 3. Right-sided subcutaneous emphysema 4. Emphysema. No evidence of focal pulmonary consolidation Patient continues to have grade 1 air leak, on wall suction Repeat chest x-ray today reveals 20 mm sized pneumothorax If with no improvement by tomorrow, pulmonary service recommending to transfer to [facility] for possible VATS (4) Pulmonary emphysema: History of 14-56-yakg-year history of tobacco abuse Quit smoking approximately [address] chest showed significant in 5 cm change with biapical blebs Developed tension pneumothorax after sustaining a fall continue Breo --Not in exacerbation (5) COPD (chronic obstructive pulmonary disease): (6) Pulmonary hypertension: management per above (7) Cardiac apical ballooning syndrome: (8) Troponin level elevated: (9) Lateral ST segment elevation: (+) ST elevation anterolateral leads on admission troponins flat at 9 echo apical ballooning, likely secondary to catecholamine surge Garden Equipment Mechanic consulted, metoprolol started, tolerating well, continue metoprolol XL 25 mg twice daily Continue risperidone Repeat echo shows unchanged LV function -- no cardiac symptoms (10) URIEL (acute kidney injury): Resolved (12) Status post fall: Family patient has been noted to be having progressive confusion and multiple falls at home The paranasal sinuses and mastoid air cells are clear. The calvarium and skull base are intact. There is no mass, hematoma, midline shift, acute infarct. White matter hypodensity is nonspecific but suggestive of microvascular ischemic change. The ventricles and sulci demonstrate mild age-related involutional changes. 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 Mild motion artifact. --Already on aspirin, will need statin therapy --PT and OT evaluation (13) Ambulatory dysfunction: PT/OT eval (14) Thrombocytosis: (15) Lactic acidosis: Resolved, normal level on 01/01/2020 blood culture: Coag negative staph in 1 bottle Repeat blood cultures: Negative so far Thrombocytosis resolved no need for further antibiotic tx (16) Pulmonary nodule: 6 mm ground glass nodule noted in the [facility] and 6 mm solid nodule noted in the RUL. Need to follow up as outpatient. (17) Abnormal LFTs: Normal liver function in last lab check Liver US: 1. No gallstones or biliary ductal dilatation. 2. Trace pericholecystic fluid. (18) Depression on Buspirone patient denies depression symptoms (19) Constipation Dulcolax suppository Resolved DVT prophylaxis: Heparin sc BID Disposition Pending cont to monitor in PCU cont rt sided chest tube If with no improvement tomorrow, pulmonary service recommending transfer to [facility] for VATS Admission and Anticipated Discharge Date Admission Date: December 31, 2019 Subjective ff up for pneumothorax Seen sitting up in bed, comfortable, not in distress Denies chest pain, shortness of breath, cough No other symptoms Review of Systems Review of Systems: All systems reviewed & are unremarkable except as noted in HPI & below Physical Exam Physical Exam: General- oriented x 3, not in distress, speaks in sentences with no effort or accessory muscle use Eyes- anicteric Neck- no JVD Lungs- clear breath sounds wheezing, no crackles bilaterally, Chest tube in place right lateral chest wall, no discharge or bleeding Heart- normal rate, regular rhythm; no murmurs Abdomen- normal bowel sounds, nondistended, soft, nontender Extremities- no pretibial edema, no calf tenderness Neuro- alert, oriented x 3; no gross focal neurologic deficits Skin- warm & dry Results & Data Results & Data ([facility]) Vital Signs (Past 12 Hours) Vital Signs Temp Pulse Pulse Resp BP Pulse Ox 01/14/20 15:19 36.4 C L 62 18 108/68 96 01/14/20 11:40 36.8 C 83 16 124/60 96 01/14/20 09:00 70 01/14/20 08:11 37.0 C 70 18 132/68 96
[2020-01-14] MEDS: TRAMADOL HCL 50 MG TABLET PO PRN (20:49)
[2020-01-14] MEDS: LORazepam 0.5 MG TAB PO PRN (20:49)
--- NOTE | 2020-01-15 07:19 | XRay Report ---
XR chest 1V portable CLINICAL HISTORY: ptx pneumothorax COMPARISON STUDY: 01/14/2020 FINDINGS: Right apical pneumothorax unchanged. Maximum pleural separation persists at 2.1 cm. Small right basilar pneumothorax component unchanged from the prior study with a maximum dimension of 1.2 cm. Unchanged consolidative changes left lung base. Right hemithoracic catheter unchanged in location. Hoskins bcutaneous emphysema unchanged IMPRESSION: Right-sided pneumothorax unchanged from the prior study. ACT 112: Negative or not required by law. The above report was generated using voice recognition software. It may contain grammatical, syntax or spelling errors. Electronically signed by: Jose Foster M.D. 01/15/2020 7:18 AM
[2020-01-15 07:56] VITALS: TEMP 97.7
[2020-01-15] MEDS: LACTOBACILLUS ACIDOPHILUS (FLORANEX) TAB PO SCH (09:16)
[2020-01-15] MEDS: ATORVASTATIN 40 MG TAB PO SCH (09:16)
[2020-01-15] MEDS: CHOLECALCIFEROL 1,000 UNITS 25 MCG TAB PO SCH (09:16)
[2020-01-15] MEDS: ASPIRIN 81 MG ECTAB PO SCH (09:16)
[2020-01-15] MEDS: LOSARTAN POTASSIUM 25 MG TAB PO SCH (09:16)
[2020-01-15] MEDS: METOPROLOL SUCC 50MG EXT REL TAB PO SCH (09:16)
[2020-01-15] MEDS: FLUTICASONE/VILANTEROL 100/25MCG 14 PUFFS/INHALER INH SCH (09:17)
[2020-01-15] MEDS: HEPARIN SOD 5,000 UNIT/0.5 ML VIAL SQ SCH (09:17)
--- NOTE | 2020-01-15 09:27 | Pulmonology Progress Note ---
Date of Service January 15, 2020 Assessment & Plan (1) Tension pneumothorax: Impression: 79-year-old female with 91-03-hovq-year history of tobacco abuse admitted after fall with significant pneumothorax. Biapical blebs are noted. Recommendation: 1. Pneumothorax: 14 Gambian pigtail catheter remains in place. She continues with a grade 1 air leak. We will try 2 hours of waterseal today and obtain a subsequent chest x-ray. If there is no expansion of the pneumothorax, we will proceed with clamping of the tube. If there is expansion of pneumothorax, we will transfer the patient to a tertiary care center for possible bronchoscopic intervention. Additionally, I told the bedside nurse that if the patient develops respiratory distress, to please place her back on suction. I do not think that she would tolerate a surgical procedure such as a VATS given her significant frailty, malnutrition and pulmonary cachexia.. 8.5 Fr pigtail placed in the ED on admission on 12/31/2019. Catheter was then overwired and replaced with a 14 Fr Skater locking pigtail catheter on 01/06/[address] Dalton. 2. COPD: Severity uncertain. Radiographic evidence of COPD is present. Do not recommend steroids currently as this may decrease efficiency of pleurodesis if required in the long-term. Continue as needed bronchodilators. May benefit from pulmonary function testing as an outpatient. Will consider that at time of discharge. Oxygenating well on room air 3. Pulmonary nodule: The patient has several groundglass pulmonary nodules. Repeat CT scan in 6 months depending on patient's clinical course. She is extremely fragile and current clinical condition and likely underlying dementia, I am not sure that additional follow-up or aggressive evaluation is warranted. 4. Malnutrition: Continue aggressive nutritional support. Patient does have signs of underlying dementia which likely may be contributing as well 5. Leukocytosis: Per primary service 6. Generalized weakness: Needs to mobilize and ambulate. PT and OT orders are in. Prognosis remains poor. We will continue to follow. Feel free to contact us with questions or concerns (2) Pulmonary nodule: (3) Acute hypoxemic respiratory failure: (4) Pulmonary emphysema: Admission and Anticipated Discharge Date Admission Date: December 31, 2019 Subjective Patient seen and examined at bedside. She is in no apparent distress. She is lying in bed. Currently 99% on room air. Denies any chest pain. Notes that her appetite has been poor. She is concerned about what the next step is for her pneumothorax. Review of Systems Review of Systems: All systems reviewed & are unremarkable except as noted in HPI & below Physical Exam Eyes: PERRL, conjunctivae normal, anicteric sclerae ENMT: external ear and nose normal, oropharynx normal Neck: normal visual inspection Respiratory: normal respiratory effort; no retractions and no cough 1+ airleak Cardiovascular: RRR, no murmur, no edema Extremities: no edema Gastrointestinal (Abdomen): normal bowel sounds, soft, nontender, no hepatosplenomegaly Musculoskeletal: no cyanosis or clubbing, extremities motor strength 5/5 Skin: no rashes, warm and dry Neurologic: PERRL, EOMI, accommodation nl, no face palsy, no dysarthria Psychiatric: A+Ox3, euthymic affect Results & Data Results & Data ([facility]) Vital Signs (Past 12 Hours) Vital Signs Temp Pulse Pulse Pulse Resp BP Pulse Ox 01/15/20 07:55 97.7 F 84 84 18 124/69 99 01/15/20 03:59 98.6 F 58 L 17 115/71 95 01/15/20 01:00 70 01/14/20 23:37 97.7 F 65 17 124/73 96 I personally reviewed labs, vital signs and chest x-rays. PG Care Time/CCT Total # of Minutes Spent Total Time Spent with Patient: Total time spent is greater than 50% in coordination of care (as documented) at patient's floor/unit and/or counseling patient: Coding Level of Care Code 29633 Subseq Hosp Care Lvl 3 Diagnoses Tension pneumothorax J93.0 Pulmonary nodule R91.1 Acute hypoxemic respiratory failure J96.01 Pulmonary emphysema J43.9
--- NOTE | 2020-01-15 09:51 | XRay Report ---
SINGLE VIEW CHEST CLINICAL HISTORY: Follow-up pneumothorax. FINDINGS: An AP, portable, upright chest radiograph is compared to performed earlier the same day 01/14 and correlated with chest CT dated 12/31/2019. The examination is degraded by portable technique and patient rotation. A right-sided pigtail catheter is unchanged in position. The cardiomediastinal silhouette is unremarkable noting atherosclerotic calcification of the thoracic aorta. The pulmonary vasculature is noncongested. Advanced emphysema and chronic interstitial thickening is similar to pr evious. A small right apical pneumothorax has modestly increased in size from previous. There is appr oximately 3 cm of pleural separation. No airspace consolidation or large pleural effusion is identifi ed. No left-sided pneumothorax is seen. The skeletal structures are osteopenic. There are healed left -sided rib fractures. Advanced arthritic change is seen in the shoulders. Superior subluxation of the humeral heads suggest chronic rotator cuff injuries. Subcutaneous emphysema is noted in the right ch est wall. IMPRESSION: 1. A right apical pneumothorax has modestly increased in size from earlier today, and a right-sided c hest tube is unchanged in position. 2. Cardiomegaly and advanced emphysema. 4. No airspace consolidation or large pleural effusion is identified. ACT 112: Negative or not required by law. Electronically signed by: Dangelo Shahid M.D. 01/15/2020 9:50 AM
--- NOTE | 2020-01-15 11:48 | Discharge Summary ---
Date of Service January 15, 2020 Admission HPI Per Admitting Provider Patient is a 79 yo female with a complicated medical course since presentation to the ED today. The patient is sleeping during exam, so history was taken from her daughter, other providers involved, and the chart. Patient has had progressive confusion and problems with gait since . She was noted to have a TIA in June per her daughter and has been following with her PCP and Neuro since that time for continued on and off confusion. The patient has had multiple falls because of her gait abnormality and balance problems as well at home. Most recently, she had a significant fall 1 week ago in the middle of the night where she fell and hit the right side of her body/shoulder. She had continued pain in the right chest and right shoulder the next morning, but did not wish to seek medical care. She did not lose consciousness that she knew of. The patient continued to have pain with breathing and increasing weakness. She was then evaluated by her PCP last week as an outpatient. She was noted to have mild hyponatremia and tachycardia. An event monitor was placed to further assess the tachycardia. This morning, her daughter was talking to her on the phone and she didn't sound good. Sounded very SOB. When her daughter got to her house, she was laying down and looked 'bad'. She was complaining of dizziness and SOB, so her daughter carried her to the care and brought her in to the ED for evaluation. Upon presentation to the ED, the patient became unresponsive and was taken emergently to exam room B1 for evaluation. The patient was noted to have altered mental status, tachypnea, tachycardia, and hypoxia. Nonrebreather was placed. X- Ray was obtained and noted a large pneumothorax on the right side. The ED provider performed emergent needle decompression of the lung which resulted in resolution of the tachypnea and hypoxia. The patient soon after began responding as well. EKG was then completed which showed ST elevation in the lateral leads. Cardiology was then consulted and an Echo was performed. Echo revealed apical ballooning, possibly consistent with Takotsubo cardiomyopathy. Less concern for STEMI, but need to continue to monitor. Cardiology discussed considering cardiac cath with the patient and her daughter. They decided to defer cardiac catheterization at this time. It was also recommended that anticoagulation be deferred at this time as well because the risks outweigh benefits at this time. Patient has multiple lab abnormalities upon presentation including WBC Count elevation up to 22K with left shift, hyponatremia with sodium of 129, creatinine mildly elevated at 1.26, lactic acid elevated at 3.1, elevated LFTs with AST 201, ALT 145, Troponin severely elevated at 9.8, and BNP abnormal to 2443. Patient was given broad spectrum abx coverage in the ED for concern of possible sepsis. Repeat CXR showed reexpansion of the right lung with small residual pneumothorax. Admission Exam Per Admitting Provider On exam patient is thin, frail, elderly appearing, no apparent distress, normocephalic, atraumatic, lungs-decreased breath sounds, right pigtail catheter, S1-S2, no murmur, no pedal edema, grossly no focal neurologic deficits. Principal Diagnosis TENSION PNEUMOTHORAX, STATUS POST CHEST TUBE PLACEMENT; HISTORY OF MULTIPLE FALLS; APICAL BALLOONING Discharge Exam General- oriented x 3, not in distress, speaks in sentences with no effort or accessory muscle use Eyes- anicteric Neck- no JVD Lungs- clear breath sounds wheezing, no crackles bilaterally, Chest tube in place right lateral chest wall, no discharge or bleeding Heart- normal rate, regular rhythm; no murmurs Abdomen- normal bowel sounds, nondistended, soft, nontender Extremities- no pretibial edema, no calf tenderness Neuro- alert, oriented x 3; no gross focal neurologic deficits Skin- warm & dry Discharge Data Allergies Allergy/AdvReac Type Severity Reaction Status Date / Time No Known Drug Allergies Allergy Unknown . Verified 10/22/16 09:37 Consultations 12/31/19 12:17 ED Decision to Admit Stat 12/31/19 15:04 Consult Cardiology Routine Consult Case Management - Discharge Planning Routine Consult Dampproofer Routine 01/15/20 10:39 Burn CD for patient Stat Procedures Performed Operation Date: 12/31/19 12:15 Actual Procedures p Cineradiography w/Routine Exam - Yobany Camacho MD Ordered Studies 12/31/19 12:20 CL Cath Imgs for PACS use only Stat 12/31/19 12:33 CT cervical spine wo con Stat COMPARISON: None. FINDINGS: No fractures. No subluxation. Prevertebral soft tissues and the C1-C2 interval are intact. Right apical pneumothorax is again noted. Advanced degenerative changes throughout the cervical spine. IMPRESSION: No fractures within the cervical spine. Right apical pneumothorax is again noted. CT chest w con Stat COMPARISON: Chest 12/31/2019. FINDINGS: The central airways are patent. Moderate emphysema. A 6 mm groundglass nodule within the left upper lobe on image 76. A few biapical blebs identified. Dominant right apical bleb seen on image 45 measures 2.5 cm. This may account for the right-sided pneumothorax. There is a small to moderate right pneumothorax remaining. Right-sided chest tube terminates in the right lung apex and appears in good position. There is a 6 mm nodule within the lateral aspect of the right upper lobe on image 129. Dominant left apical bleb is seen medially and measures 2.3 cm. Right apical density favors atelectasis and scarring. A few small densities within the base of the lower lobes also favors subsegmental atelectasis. No pleural effusions. There may be mild left mediastinal shift remaining. However, this could be positional. Limited views of the upper abdomen demonstrate a normal liver and spleen. There is mild elevation of the left hemidiaphragm. Scattered coarse calcifications within the bilateral breasts. Normal caliber thoracic aorta with no evidence for dissection. The heart is mildly enlarged. The main pulmonary arteries are patent. No mediastinal or hilar lymphadenopathy. Small amount of fluid within the mid esophagus. No acute fractures within the visualized osseous structures. IMPRESSION: 1. Small to moderate right pneumothorax persists. The right-sided chest tube terminates in the right lung apex and appears in good position. There is suggestion of mild left mediastinal shift remaining and slight hyperexpansion of the right hemithorax in comparison to the left. Close follow-up recommended to exclude a developing tension pneumothorax. 2. There are few biapical blebs with the largest on the right measuring 2.5 cm. This may account for the pneumothorax. 3. Emphysema. 4. A 6 mm groundglass nodule within the left upper lobe and a 6 mm solid nodule within the right upper lobe. Please refer to the chart below for recommended follow-up. 5. Additional findings as described above. ACT 112: Negative or not required by law. CT head/brain wo con Stat Findings: The paranasal sinuses and mastoid air cells are clear. The calvarium and skull base are intact. There is no mass, hematoma, midline shift, acute infarct. White matter hypodensity is nonspecific but suggestive of microvascular ischemic change. The ventricles and sulci demonstrate mild age-related involutional changes. 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 Mild motion artifact. Impression: No acute intracranial abnormality. Atrophy and microvascular ischemic changes. 12/31/19 15:04 US liver Routine FINDINGS: Liver morphology is normal. No hepatic lesions are identified. The pancreas is also within normal limits by sonography. There is no biliary ductal dilatation. No gallstones are noted. There is no gallbladder wall thickening. There is no right hydronephrosis. Trace pericholecystic fluid is noted. IMPRESSION: 1. No gallstones or biliary ductal dilatation. 2. Trace pericholecystic fluid. Hospital Course (1) Tension pneumothorax: (1) Tension pneumothorax: (2) Acute respiratory distress: (3) Acute hypoxemic respiratory failure: per admitting SVC notes: Patient is a 79 yo female who presented to the ED with SOB and weakness. Found to have large tension pneumothorax of the right lung. ED physician emergently performed needle decompression after which patient improved. Pneumothorax likely secondary to emphysema and fall at home. Admitted to the ICU Status post chest tube placement, not tolerating waterseal, on wall suctioning [employer] Captain Dr. Dalton discussed with thoracic surgeon [facility] Dr. Dickey last week And was to observe patient for total of 2 weeks, if no improvement will need surgical intervention Patient's repeat x-ray still showing 2 cm pneumothorax, grade 1 air leak She is currently on 214 pigtail catheter, on wall suctioning Does not tolerate waterseal CXR 02/11/2020 1. A right apical pneumothorax has modestly increased in size from earlier today, and a right-sided chest tube is unchanged in position. 2. Cardiomegaly and advanced emphysema. 4. No airspace consolidation or large pleural effusion is identified. Discussed with him pulmonary service today, plan to transfer to [facility] for possible bronchoscopic intervention Discussed with pulmonary service of [facility], Dr. Brown, who kindly accepted the patient Patient will be transferred via [facility] Accepting physician Dr. Carrillo, medical service (4) Pulmonary emphysema: History of 26-25-qvea-year history of tobacco abuse Quit smoking approximately [address] chest showed significant in 5 cm change with biapical blebs Developed tension pneumothorax after sustaining a fall continue Breo --Not in exacerbation (5) COPD (chronic obstructive pulmonary disease): (6) Pulmonary hypertension: management per above (7) Cardiac apical ballooning syndrome: (8) Troponin level elevated: (9) Lateral ST segment elevation: Admission patient noted to have elevated troponin level of 9 (+) ST elevation anterolateral leads on admission echo: apical ballooning, likely secondary to catecholamine surge Base Filler Operator consulted, metoprolol started, tolerating well, continue metoprolol XL 25 mg twice daily Continue risperidone Repeat echo shows unchanged LV function -- no cardiac symptoms (10) URIEL (acute kidney injury): Resolved (12) Status post fall, progressive confusion, multiple falls: Newly diagnosed old bilateral basal ganglia and thalamic infarcts Family patient has been noted to be having progressive confusion and multiple falls at home The paranasal sinuses and mastoid air cells are clear. The calvarium and skull base are intact. There is no mass, hematoma, midline shift, acute infarct. White matter hypodensity is nonspecific but suggestive of microvascular ischemic change. The ventricles and sulci demonstrate mild age-related involutional changes. 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 Mild motion artifact. --Already on aspirin, will need statin therapy Neurology follow-up --PT and OT evaluation (13) Ambulatory dysfunction: PT/OT eval (14) Thrombocytosis: (15) Lactic acidosis: Resolved, normal level on 01/01/2020 blood culture: Coag negative staph in 1 bottle Repeat blood cultures: Negative so far Thrombocytosis resolved no need for further antibiotic tx (16) Pulmonary nodule: 6 mm ground glass nodule noted in the [place] and 6 mm solid nodule noted in the RUL. Further management and surveillance as an outpatient (17) Abnormal LFTs: LFTs improved Liver US: 1. No gallstones or biliary ductal dilatation. 2. Trace pericholecystic fluid. (18) Depression on Buspirone patient denies depression symptoms (19) Constipation Dulcolax suppository Resolved DVT prophylaxis: Heparin sc BID Disposition Transfer to [facility] for possible bronchoscopic intervention of tension pneumothorax with persistent air leak Total Time Total Time Spent Total Time Spent (In Minutes): 80 minutes Discharge Plan Discharge Items Patient Disposition: Transfer Acute Care Hospital Reason For Visit: TENSION PNEUMOTHORAX Discharge Diagnosis: TENSION PNEUMOTHORAX STATUS POST CHEST TUBE PLACEMENT PERSISTENT AIR LEAK APICAL BALLOONING Activity: As commented below Activity Comment: Bed rest Lifting: Wait until after follow-up appointment Exercise/Sports: Wait until after follow-up appointment Driving/Machine Use: No driving Non-emergency contact: Primary Care Provider Call non-emergency contact if: you have any medication questions Follow-up/Referrals: Rose Gaines MD [Primary Care Provider] - Diet: Heart Healthy Addtl Attending Provider Instructions: Please refer to accompanying hospital discharge summary. Pending Studies at Discharge: Yes Studies:: Please refer to accompanying hospital discharge summary. Stand-Alone Forms: My [facility] Skilled Items Patient informed of condition?: Yes DNR: Yes Discharge Level of Care: Other Communicable Disease: No Discharge Prognosis: Other Lines: Peripheral IV Urinary Catheter: No Medications and DC Order Prescriptions: New atorvastatin 40 mg Tablet 40 mg PO QAM 10 Days Qty: 10 RF: 0 metoprolol succinate 50 mg Tablet Extended Release 24 Hr 50 mg PO BID 10 Days Qty: 20 RF: 0 losartan 25 mg Tablet 25 mg PO QAM 10 Days Qty: 10 RF: 0 ipratropium bromide 0.02 % Solution 0.5 mg inhalation Q6R PRN (Reason: shortness of breath or wheezing) 10 Days Qty: 62.5 RF: 0 levalbuterol HCl 1.25 mg/0.5 mL Solution For Nebulization 1.25 mg inhalation Q6R PRN (Reason: shortness of breath or wheezing) 10 Days Qty: 30 RF: 0 heparin, porcine (PF) 5,000 unit/0.5 mL Syringe 5,000 unit subcut Q12 10 Days Qty: 10 RF: 0 tramadol 50 mg Tablet 50 mg PO Q4H PRN (Reason: pain) 10 Days Qty: 14 RF: 0 acetaminophen 500 mg Tablet 500 mg PO Q6H PRN (Reason: fever or pain) 10 Days Qty: 14 RF: 0 lorazepam 0.5 mg Tablet 0.5 mg PO Q8 PRN (Reason: anxiety) 10 Days Qty: 10 RF: 0 Lactobacillus acidoph-L.bulgar [Floranex] 1 million cell Tablet 4 tab PO QIDM 10 Days Qty: 30 RF: 0 hydromorphone 0.5 mg/0.5 mL Syringe 0.5 mg IV Q2H PRN (Reason: pain) 10 Days Qty: 5 RF: 0 Continued buspirone 10 mg tablet 10 mg PO BID RF: 0 Breo Ellipta 100-25 mcg/dose blister with device 1 ea INHALATION DAILY RF: 0 thiamine HCl (vitamin B1) 100 mg Tablet 100 mg PO DAILY RF: 0 aspirin [Aspirin Low Dose] 81 mg Tablet,Delayed Release (Dr/Ec) 81 mg PO DAILY RF: 0 cholecalciferol (vitamin D3) [Vitamin D3] 50 mcg (2,000 unit) Tablet 50 mcg PO DAILY RF: 0 Discontinued cephalexin 250 mg capsule 250 mg PO TID RF: 0 lisinopril 10 mg tablet 10 mg PO DAILY RF: 0 Discharge Orders: Discharge Order (Routine); Ordered 01/15/20 Ordered By: Lizandro Larios Admission Data Admit Date/Time: 12/31/19 12:23 Attending Provider: Lizandro Larios Admit Provider: Gadiel Spann Primary Care Provider: Rose Gaines Other Providers: Gadiel Spann ; Sridhar Sneed ; Reginaldo Mclaughlin ; Tatianna Miranda
[2020-01-15 12:27] VITALS: O2SAT 98
[2020-01-15 12:37] VITALS: BP 143/77; PULSE 84
== END 2020-01-15 14:45 | disposition short-term general hospital (02) | DRG 199 ==
LOC: ED 10:30 → SUATTDRO 12:23 → 1E 12:23 → 2S 01-01 17:37

== ENCOUNTER 2021-11-04 08:58 | Inpatient (IN) ==
[2021-11-04] MEDS ORDERED: ONDANSETRON INJ 2 MG/ML 2 ML VIAL IV STA (09:37)
[2021-11-04] MEDS ORDERED: MoRPHine SULFATE 2 MG/ML CARP IV STA (09:37)
--- NOTE | 2021-11-04 09:37 | Emergency Department Note ---
Impression & Plan Closed pelvic fracture ADMIT ED Provider Note HPI: The patient is a 81-year-old female who presents the emergency department with her daughter at the bedside over concern for lower back pain. Patient had a fall 2 days ago that was unwitnessed. Patient seemed to be doing okay over the past 2 days according to her daughter when today she was having difficulty getting out of bed secondary to pain in her lower back. She also complains of some pain in her right hip. On arrival here to the ED the patient is in no acute distress but does state that she has some pain in this area. She is alert on arrival and saturating well on room air, otherwise hemodynamically stable. ROS: -MSK: Lower back pain and right hip pain status post fall 2 days ago *10 point review systems was conducted and is otherwise negative unless stated above *Outpatient medications and allergy history reviewed PE: General: Alert, NAD, frail-appearing HEENT: Normocephalic, atraumatic Eyes: Extraocular eye movement is intact, no scleral erythema Pulmonary: Clear to auscultation bilaterally, no wheezing Cardio: Regular rate and rhythm GI: Abdomen is soft, nontender : No suprapubic tenderness MSK: No evidence of trauma or malformation of the extremities, no edema, there is tenderness in the area of the right lower back/right lateral lumbar musculature, patient maintains flexion at the hips bilaterally Skin: No evidence of rash Neuro: Alert, no focal deficits Psychiatric: Cooperative criminal judge: - An order was placed for continuous cardiac monitoring - Patient was noted to be in sinus rhythm with rate of 90 Medical Decision Making: Patient presented to the emergency department with some pain in her pelvis after a fall [address] imaging was obtained that shows multiple pelvic ring fractures and sacral fracture. CT imaging of the head was obtained as the patient had a fall 2 days ago that was unwitnessed, this does not show any evidence of intracranial bleeding but does show evidence of an age-indeterminate right occipital infarct. Patient does not have any focal deficits on my exam, her ambulatory issues seem to be secondary to pain in her pelvis which is likely secondary to fractures. Lab work otherwise shows a nonspecific leukocytosis, chest x-ray does not show any evidence of pneumonia, urinalysis is pending at the time of admission, slight anemia with a hemoglobin of 10.1, patient is hemodynamically stable, denies any recent melena or obvious acute blood loss. She is comfortable appearing here in the ED following a dose of morphine and Zofran. I did discuss the above findings with the on-call hospitalist service for [facility] [place], spoke with midlevel provider Emilia Garcia, and the patient will be admitted to the hospitalist service for further management, she is likely to require placement in a rehab facility following her inpatient stay for further investigation into her anemia and CT head findings. Patient and her daughter at the bedside are in agreement to the above plan. Diagnosis: 1. Multiple pelvic fractures, closed 2. Ambulatory dysfunction 3. Right occipital infarct, age-indeterminate 4. Anemia 5. Leukocytosis, nonspecific Disposition: Admission Jose Rocha DO Emergency Medicine Past Med/Surg History Medical History (Updated 11/04/21 @ 12:02 by Elvi Garcia PA-C) Acute hypoxemic respiratory failure Chronic HFrEF (heart failure with reduced ejection fraction) Depression HLD (hyperlipidemia) HTN (hypertension) Pulmonary emphysema Pulmonary HTN Tension pneumothorax Surgical History S/P tonsillectomy Family History (Updated 11/04/21 @ 10:58 by Elvi Garcia PA-C) Mother Alzheimer disease Father , 80 Stroke Social History Smoking Status: Former smoker packs per day: 1; Years Smoked: 35; Hx Alcohol Use: Yes Alcohol type: wine Hx Substance Use: No Communication Ability: Effective Beliefs That Will Affect Care: None Current Living Situation: Alone Current Living Situation Comment: Live next door to daughter Feels Safe at Home: Yes Assistive Devices: Glasses and Walker Allergies Allergies Allergy/AdvReac Type Severity Reaction Status Date / Time No Known Drug Allergies Allergy Unknown . Verified 01/26/20 14:41 Home Meds Home Medications Medication Instructions Recorded Confirmed cholecalciferol (vitamin D3) 25 25 mcg PO DAILY 11/04/21 11/04/21 mcg (1,000 unit) tablet citalopram 10 mg tablet 10 mg PO DAILY 11/04/21 11/04/21 metoprolol succinate 25 mg 25 mg PO DAILY 11/04/21 11/04/21 tablet,extended release 24 hr multivitamin 1 tab PO DAILY 11/04/21 11/04/21 thiamine mononitrate (vit B1) 100 100 mg PO DAILY 11/04/21 11/04/21 mg tablet Results & Data (ED) Vital Signs Vital Signs - 24 hr 11/04/21 09:06 11/04/21 09:50 11/04/21 11:22 Temperature 36.4 C L Temperature Source Temporal Artery Scan Pulse Rate 79 Pulse Rate [Finger] 87 Respiratory Rate 16 18 Respiratory Effort / Characteristics Non-Labored Non-Labored Respiratory Depth Normal Normal Blood Pressure 163/62 H Blood Pressure [Right Arm] 174/101 H Blood Pressure Mean 95 Blood Pressure Mean [Right Arm] 125 Blood Pressure Position Sitting Pulse Oximetry 93 96 Oxygen Delivery Method Room Air Room Air Room Air Sepsis Recent Fever Within 48 Hours No Sepsis New/Unexplained Change in Mental Status No Sepsis Action Taken by Nursing No Action Required Laboratory Data Result diagrams: 11/04/21 09:50 11/04/21 09:50 Lab Results 11/04/21 11/04/21 11/04/21 Range/Units 09:50 09:50 09:50 WBC 12.64 H (4.8-10.8) K/uL RBC 3.99 L (4.2-5.4) M/uL Hgb 10.1 L (12.0-16.0) g/dL Hct 33.4 L (37-47) % MCV 83.7 (80-100) fL MCH 25.3 (25-34) pg MCHC 30.2 L (32-36) g/dL RDW Std Deviation 48.9 H (36.4-46.3) fL RDW Coeff of Elizabeth 16.2 H (11.5-14.5) % Plt Count 327 (130-400) K/uL MPV 9.6 (7.4-10.4) fL Immature Gran % (Auto) 0.2 % Neut % (Auto) 81.5 % Lymph % (Auto) 8.3 % Stokes % (Auto) 8.3 % Eos % (Auto) 1.5 % Baso % (Auto) 0.2 % Neut # (Auto) 10.30 H (1.4-6.5) K/uL Lymph # (Auto) 1.05 L (1.2-3.4) K/uL Stokes # (Auto) 1.05 H (0.11-0.59) K/uL Eos # (Auto) 0.19 (0-0.5) K/uL Baso # (Auto) 0.02 (0-0.2) K/uL Immature Gran # (Auto) 0.03 H (0.00-0.02) K/uL PT 11.3 (9.0-12.0) Seconds INR 1.1 (0.9-1.1) Sodium 139 (136-145) mmol/L Potassium 3.7 (3.5-5.1) mmol/L Chloride 103 (98-107) mmol/L Carbon Dioxide 27 (21-32) mmol/L Anion Gap 9 (3-11) BUN 14 (6-23) mg/dl Creatinine 0.58 L (0.6-1.2) mg/dl Est Cr Clr Drug Dosing Not Reportable Est GFR ( Amer) 101.6 ml/min Est GFR (Non-Af Amer) 87.7 ml/min BUN/Creatinine Ratio 24.1 H (10-20) Glucose 96 (70-99(Fasting)) mg/dl Calcium 9.3 (8.5-10.1) mg/dl Total Bilirubin 0.7 (0.2-1.0) mg/dl AST 20 (13-39) U/L ALT 11 (7-52) U/L Alkaline Phosphatase 119 H (34-104) U/L Total Protein 7.7 (6.0-8.3) gm/dl Albumin 4.1 (3.4-5.0) gm/dl Globulin 3.6 (2.5-4.0) gm/dl Albumin/Globulin Ratio 1.1 (0.9-2) Lipase 11 (11-82) U/L SARS-CoV-2, RNA, NAAT (NEGATIVE) 11/04/21 Range/Units 11:17 WBC (4.8-10.8) K/uL RBC (4.2-5.4) M/uL Hgb (12.0-16.0) g/dL Hct (37-47) % MCV (80-100) fL MCH (25-34) pg MCHC (32-36) g/dL RDW Std Deviation (36.4-46.3) fL RDW Coeff of Elizabeth (11.5-14.5) % Plt Count (130-400) K/uL MPV (7.4-10.4) fL Immature Gran % (Auto) % Neut % (Auto) % Lymph % (Auto) % Stokes % (Auto) % Eos % (Auto) % Baso % (Auto) % Neut # (Auto) (1.4-6.5) K/uL Lymph # (Auto) (1.2-3.4) K/uL Stokes # (Auto) (0.11-0.59) K/uL Eos # (Auto) (0-0.5) K/uL Baso # (Auto) (0-0.2) K/uL Immature Gran # (Auto) (0.00-0.02) K/uL PT (9.0-12.0) Seconds INR (0.9-1.1) Sodium (136-145) mmol/L Potassium (3.5-5.1) mmol/L Chloride (98-107) mmol/L Carbon Dioxide (21-32) mmol/L Anion Gap (3-11) BUN (6-23) mg/dl Creatinine (0.6-1.2) mg/dl Est Cr Clr Drug Dosing Est GFR ( Amer) ml/min Est GFR (Non-Af Amer) ml/min BUN/Creatinine Ratio (10-20) Glucose (70-99(Fasting)) mg/dl Calcium (8.5-10.1) mg/dl Total Bilirubin (0.2-1.0) mg/dl AST (13-39) U/L ALT (7-52) U/L Alkaline Phosphatase (34-104) U/L Total Protein (6.0-8.3) gm/dl Albumin (3.4-5.0) gm/dl Globulin (2.5-4.0) gm/dl Albumin/Globulin Ratio (0.9-2) Lipase (11-82) U/L SARS-CoV-2, RNA, NAAT NEGATIVE (NEGATIVE) Administered Medications Discontinued Medications Sodium Chloride (Nss 1000ml) 500 mls @ 999 mls/hr IV .Q31M ONE Stop: 11/04/21 10:08 Last Infusion: 11/04/21 11:29 Dose: 0 mls/hr Documented by: [id number] Admin: 11/04/21 10:32 Dose: 999 mls/hr Documented by: [id number] Morphine Sulfate (Morphine Sulfate 2 Mg/Ml Carp) 2 mg IV NOW STA Stop: 11/04/21 09:38 Last Admin: 11/04/21 10:32 Dose: 2 mg Documented by: [id number] Ondansetron HCl (Ondansetron Inj 2 Mg/Ml 2 Ml Vial) 4 mg IV NOW STA Stop: 11/04/21 09:38 Last Admin: 11/04/21 10:32 Dose: 4 mg Documented by: [id number] Imaging Data Radiologist's Impression: Lumbar Spine CT 11/04/21 09:34 CT OF THE LUMBAR SPINE CLINICAL HISTORY: fall, back pain COMPARISON STUDY: No previous studies for comparison. TECHNIQUE: Helical axial images of the lumbar spine were obtained. Sagittal and coronal reconstructions were viewed. Automated exposure control was utilized for the study. A dose lowering technique was utilized adhering to the principles of ALARA. FINDINGS: For purposes of numbering on this exam, the L5-S1 disc space is assigned to axial image 317 at 384. There is mild levoscoliosis of the lumbar spine. No acute lumbar spine fracture is present. There is a 5 mm of anterolisthesis of L4 and L5 due to facet arthrosis. Severe multilevel facet arthrosis is present. Moderate multilevel disc space narrowing and osteophytosis is noted. Central canal and neural foramen are suboptimally assessed by CT. Note is made of an acute mildly displaced fracture of the left aspect of the S2 vertebral body. CT of the pelvis will be reported separately. Sacroiliac joints are intact. 4 mm left renal calculus is incidentally noted. IMPRESSION: 1. Acute mildly displaced fractures of the left aspect of the S2 vertebral body. 2. No acute lumbar spine fracture or subluxation. 3. Severe multilevel facet arthrosis. Moderate multilevel degenerative disc disease. 4. Mild dextroscoliosis of the lumbar spine. ACT 112: Negative or not required by law. Electronically signed by: Alex Bran M.D. 11/04/2021 10:[address] 11/04/21 09:34 CT pelvis wo con CLINICAL HISTORY: fall, back pain, eval for fracture TECHNIQUE: Helical axial images of the pelvis were obtained and displayed at 5 and 1 mm intervals. Automated dose lowering techniques and/or adjustment according to patient size were utilized for this exam. This exam was performed with intravenous contrast. COMPARISON: None available at the time of this dictation. FINDINGS: Bladder: Unremarkable. Reproductive organs: Unremarkable. Bowel: Unremarkable. Lymph nodes Mesenteric: Unremarkable. Pelvic: Unremarkable. Peritoneum: Normal Vessels: Atherosclerotic calcifications are seen. Abdominal wall: Unremarkable. Bones: There are fractures of the inferior ramus bilaterally as well as a comminuted fracture of the right superior pubic ramus. There is a minimally displaced fracture of the left sacral ala which extends into the neural foramen and sacroiliac joint. IMPRESSION: Fractures of the bilateral inferior pubic rami, right superior pubic ramus, right superior pubic ramus, and fracture of the left sacral ala. ACT 112: Negative or not required by law. Electronically signed by: Paul Bridges M.D. 11/04/2021 10:32 AM Chest X-Ray 11/04/21 09:35 XR chest 1V portable CLINICAL HISTORY: fall TECHNIQUE: Single frontal radiograph of the chest was obtained. Comparison: Comparison is made to chest radiograph 01/26/2020 FINDINGS: No lines and tubes are seen. Calcified aortic knob is seen. The lungs are clear. No evidence of pleural effusion or pneumothorax. Degenerative changes are seen in the bilateral shoulder joints. IMPRESSION: No acute chest disease. ACT 112: Negative or not required by law. Electronically signed by: Paul Bridges M.D. 11/04/2021 9:[address] 11/04/21 09:35 CT OF THE HEAD WITHOUT CONTRAST CLINICAL HISTORY: Fall. COMPARISON STUDY: Head CT December 31, 2019. TECHNIQUE: Helical axial images of the head were obtained without IV contrast. Automated exposure control was utilized for the study. A dose lowering technique was utilized adhering to the principles of ALARA. FINDINGS: No acute intracranial hemorrhage, midline shift or mass effect is present. The ventricular system is stable. When matter hypodensity suggests small vessel disease. 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 A small focus of encephalomalacia within the right occipital lobe is new since prior exam. The basal cisterns are patent. No extra-axial collections are present. There are no findings to suggest acute dural sinus thrombosis or acute territorial infarct. No significant calvarial abnormalities are present. Visualized portions of the sinuses and mastoid air cells are clear. IMPRESSION: 1. No acute intracranial hemorrhage or mass effect. 2. No acute calvarial fracture. 3. Small age indeterminate infarct within the right occipital lobe. ACT 112: Negative or not required by law. Electronically signed by: Alex Bran M.D. 11/04/2021 10:21 AM Discharge Plan Visit Data Chief Complaint: Fall Stated Complaint: FALL, PAIN IN GROIN AREA ED Provider: Jose Rocha Discharge Problem: Closed pelvic fracture Forms Stand Alone Forms: [facility] [place] [place] [employer] Prescriptions Prescriptions: No Action multivitamin Tablet 1 tab PO DAILY RF: 0 citalopram 10 mg tablet 10 mg PO DAILY RF: 0 metoprolol succinate 25 mg tablet extended release 24 hr 25 mg PO DAILY RF: 0 cholecalciferol (vitamin D3) 25 mcg (1,000 unit) Tablet 25 mcg PO DAILY RF: 0 thiamine mononitrate (vit B1) 100 mg Tablet 100 mg PO DAILY RF: 0 Referrals Referrals: Rose Frank MD [Primary Care Provider] -
[2021-11-04] MEDS ORDERED: SODIUM CHLORIDE 0.9% 1000ML 500 ML IV ONE (09:38)
--- NOTE | 2021-11-04 09:47 | XRay Report ---
XR chest 1V portable CLINICAL HISTORY: fall TECHNIQUE: Single frontal radiograph of the chest was obtained. Comparison: Comparison is made to chest radiograph 01/26/2020 FINDINGS: No lines and tubes are seen. Calcified aortic knob is seen. The lungs are clear. No evidence of pleur al effusion or pneumothorax. Degenerative changes are seen in the bilateral shoulder joints. IMPRESSION: No acute chest disease. ACT 112: Negative or not required by law. Electronically signed by: Paul Bridges M.D. 11/04/2021 9:46 AM
[2021-11-04 10:16] LABS: Basophils # (auto) 0.02 K/uL (0-0.2); Basophils % (auto) 0.2 %; Eosinophils # (auto) 0.19 K/uL (0-0.5); Eosinophils % (auto) 1.5 %; Hematocrit (blood only) 33.4 % (37-47); Hemoglobin 10.1 g/dL (12.0-16.0); Immature Granulocytes # (auto) 0.03 K/uL (0.00-0.02); Immature Granulocytes % (auto) 0.2 %; Lymphocytes # (auto) 1.05 K/uL (1.2-3.4); Lymphocytes % (auto) 8.3 %; Mean Corpuscular Hemoglobin 25.3 pg (25-34); Mean Corpuscular Hgb Conc 30.2 g/dL (32-36); Mean Corpuscular Volume 83.7 fL (80-100); Mean Platelet Volume 9.6 fL (7.4-10.4); Monocytes # (auto) 1.05 K/uL (0.11-0.59); Monocytes % (auto) 8.3 %; Neutrophils % (auto) 81.5 %; Platelet Count 327 K/uL (130-400); RDW Coefficient of Variation 16.2 % (11.5-14.5); RDW Standard Deviation 48.9 fL (36.4-46.3); Red Blood Count 3.99 M/uL (4.2-5.4); White Blood Count 12.64 K/uL (4.8-10.8)
--- NOTE | 2021-11-04 10:22 | CT Scan Report ---
CT OF THE HEAD WITHOUT CONTRAST CLINICAL HISTORY: Fall. COMPARISON STUDY: Head CT December 31, 2019. TECHNIQUE: Helical axial images of the head were obtained without IV contrast. Automated exposure con trol was utilized for the study. A dose lowering technique was utilized adhering to the principles o f ALARA. FINDINGS: No acute intracranial hemorrhage, midline shift or mass effect is present. The ventricular system is stable. When matter hypodensity suggests small vessel disease. 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 A small focus of encephalomalacia within the right occipital lob e is new since prior exam. The basal cisterns are patent. No extra-axial collections are present. The re are no findings to suggest acute dural sinus thrombosis or acute territorial infarct. No significa nt calvarial abnormalities are present. Visualized portions of the sinuses and mastoid air cells are clear. IMPRESSION: 1. No acute intracranial hemorrhage or mass effect. 2. No acute calvarial fracture. 3. Small age indeterminate infarct within the right occipital lobe. ACT 112: Negative or not required by law. Electronically signed by: Alex Bran M.D. 11/04/2021 10:21 AM
[2021-11-04 10:26] LABS: INR 1.1 (0.9-1.1); Prothrombin Time 11.3 Seconds (9.0-12.0)
--- NOTE | 2021-11-04 10:31 | CT Scan Report ---
CT OF THE LUMBAR SPINE CLINICAL HISTORY: fall, back pain COMPARISON STUDY: No previous studies for comparison. TECHNIQUE: Helical axial images of the lumbar spine were obtained. Sagittal and coronal reconstruct ions were viewed. Automated exposure control was utilized for the study. A dose lowering technique was utilized adhering to the principles of ALARA. FINDINGS: For purposes of numbering on this exam, the L5-S1 disc space is assigned to axial image 317 at 384. There is mild levoscoliosis of the lumbar spine. No acute lumbar spine fracture is present. There is a 5 mm of anterolisthesis of L4 and L5 due to facet arthrosis. Severe multilevel facet arthr osis is present. Moderate multilevel disc space narrowing and osteophytosis is noted. Central canal a nd neural foramen are suboptimally assessed by CT. Note is made of an acute mildly displaced fracture of the left aspect of the S2 vertebral body. CT of the pelvis will be reported separately. Sacroilia c joints are intact. 4 mm left renal calculus is incidentally noted. IMPRESSION: 1. Acute mildly displaced fractures of the left aspect of the S2 vertebral body. 2. No acute lumbar spine fracture or subluxation. 3. Severe multilevel facet arthrosis. Moderate multilevel degenerative disc disease. 4. Mild dextroscoliosis of the lumbar spine. ACT 112: Negative or not required by law. Electronically signed by: Alex Bran M.D. 11/04/2021 10:30 AM
--- NOTE | 2021-11-04 10:34 | CT Scan Report ---
CT pelvis wo con CLINICAL HISTORY: fall, back pain, eval for fracture TECHNIQUE: Helical axial images of the pelvis were obtained and displayed at 5 and 1 mm intervals. Au tomated dose lowering techniques and/or adjustment according to patient size were utilized for this e xam. This exam was performed with intravenous contrast. COMPARISON: None available at the time of this dictation. FINDINGS: Bladder: Unremarkable. Reproductive organs: Unremarkable. Bowel: Unremarkable. Lymph nodes Mesenteric: Unremarkable. Pelvic: Unremarkable. Peritoneum: Normal Vessels: Atherosclerotic calcifications are seen. Abdominal wall: Unremarkable. Bones: There are fractures of the inferior ramus bilaterally as well as a comminuted fracture of the right superior pubic ramus. There is a minimally displaced fracture of the left sacral ala which exte nds into the neural foramen and sacroiliac joint. IMPRESSION: Fractures of the bilateral inferior pubic rami, right superior pubic ramus, right superior pubic isabelle s, and fracture of the left sacral ala. ACT 112: Negative or not required by law. Electronically signed by: Paul Bridges M.D. 11/04/2021 10:32 AM
[2021-11-04 10:39] LABS: Alanine Aminotransferase 11 U/L (7-52); Albumin Globulin Ratio 1.1 (0.9-2); Albumin Level 4.1 gm/dl (3.4-5.0); Alkaline Phosphatase 119 U/L (34-104); Anion Gap 9 (3-11); Aspartate Aminotransferase 20 U/L (13-39); BUN Creatinine Ratio 24.1 (10-20); Bilirubin,Total 0.7 mg/dl (0.2-1.0); Blood Urea Nitrogen 14 mg/dl (6-23); Calcium 9.3 mg/dl (8.5-10.1); Carbon Dioxide 27 mmol/L (21-32); Chloride 103 mmol/L (98-107); Est GFR (African American) 101.6 ml/min; Est GFR (Non-African American) 87.7 ml/min; Globulin 3.6 gm/dl (2.5-4.0); Glucose 96 mg/dl (70-99(Fasting)); Lipase 11 U/L (11-82); Potassium 3.7 mmol/L (3.5-5.1); Sodium 139 mmol/L (136-145); Total Protein 7.7 gm/dl (6.0-8.3)
[2021-11-04] MEDS ORDERED: METOPROLOL SUCC 25MG EXT REL TAB PO STA (11:54)
--- NOTE | 2021-11-04 12:03 | History & Physical Report ---
Date of Service November 04, 2021 Assessment & Plan (1) Fall: (2) Ambulatory dysfunction: (3) Sacral fracture: (4) Bilateral pubic rami fractures: (5) CVA (cerebral vascular accident): (6) Anemia: (7) Leukocytosis: (8) Chronic HFrEF (heart failure with reduced ejection fraction): (9) HTN (hypertension): Plan: This is a 81-year-old female who has a significant past medical history of chronic HFrEF, HTN, HLD, pulm hypertension, CAD, ambulatory dysfunction, depr ession, COPD, history of TIA, history of tension pneumothorax status post chest tube placement who presents to ED secondary to fall 2 days prior to arrival. Fall Ambulatory dysfunction Acute mildly displaced left S2 vertebral body fracture Bilateral inferior pubic rami fracture, right superior pubic ramus fracture and left sacral ala fracture Admit to med telemetry Consult orthopedics PT/OT Pain control with scheduled Tylenol, as needed tramadol CM consulted for as pt may need rehab vit d level in am daily stool softener R occipital lobe CVA hx of tia, no prior hx of known cva likely old as pt currently not having acute cva sx start asa 81mg daily, atorvastatin 40mg daily consult neuro for further recs obtain echo, carotid doppler, pt/ot/st, monitor on tele for afib a1c, lipid panel in am. Anemia hgb stable at 10.1 previous anemia panel done in OP setting 10/03 revealed ferritin 15, iron 50 tsat 15 hgb stable, no sign of bleeding will start ferrous sulfate daily for now Leukocytosis may be reactive in setting of fall, no fever pt does complain of urinary frequency, obtain UA Chronic HFrEF HTN continue metoprolol last echo 01/04/20 EF 35-40% with apical hypokinesis euvolemic, monitor daily weight repeat echo Depression continue citalopram, pt in good spirits DVT ppx: SQ Heparin bid Dispo: med tele, CM consulted for likely rehab DNR/DNI PCP: Lincoln Rodriguez Pt was seen and examined in collaboration with Dr. Coyne, please see addendum History of Present Illness Chief Complaint: Fall 2 days BENEFITS ADVISOR. Primary Care Provider: Rose Frank MD This is a 81-year-old female who has a significant past medical history of chronic HFrEF, HTN, HLD, pulm hypertension, CAD, ambulatory dysfunction, depression, COPD, history of TIA, history of tension pneumothorax status post chest tube placement who presents to ED secondary to fall 2 days prior to arrival. She denies hittinh her head or loss of consciousness. Currently she lives at home and her daughter at bedside lives next door. Patient fell 2 days ago, but has been able to ambulate. This morning when she woke up her daughter came to check on her. She was unable to get up due to significant pain. Her pain is located mostly in the pelvis and hip region, right greater than left and low back. She denies any saddle anesthesia, bowel or urinary incontinence, numbness or tingling to bilateral lower extremities. She is otherwise been in her normal state of health. She denies any fever, chills, sweats, lightheadedness, dizziness, chest pain, shortness of breath, cough, URI symptoms, nausea, vomiting, abdominal pain, dysuria, hematuria, melena or hematochezia. She does complain of increased urinary frequency. Per daughter at bedside she most recently has been treated for UTI with Bactrim. She has been compliant with her medications. She denies any generalized weakness, unil ateral weakness, slurred speech, headache or change in vision. In ED patient made hemodynamically stable although mildly hypertensive likely in setting of pain. She underwent lumbar spine and pelvis CT which revealed fractures of the bilateral inferior pubic rami, right superior pubic rami fracture and fracture of left sacral ala. Lumbar spine CT revealed severe multilevel facet arthrosis along with an acute mildly displaced fracture of the left aspect of the S2 vertebral body. Head CT was performed which revealed old lacunar infarcts in the bilateral thalami. Also noted was a small age-indeterminate infarct within the right occipital lobe. Daughter at bedside admits to prior history of TIA. She has also been seen by neuro secondary to memory loss. No formal diagnosis of stroke. No recent weight no strokelike symptoms. Patient's epic record was reviewed. Last echocardiogram was 01/03/2021 showed an EF of 35 to 40% with apical hypokinesis. Allergies Allergy/AdvReac Type Severity Reaction Status Date / Time No Known Drug Allergies Allergy Unknown . Verified 01/26/20 14:41 Home Medications Medication Instructions Recorded Confirmed Type cholecalciferol (vitamin D3) 25 25 mcg PO DAILY 11/04/21 11/04/21 History mcg (1,000 unit) tablet citalopram 10 mg tablet 10 mg PO DAILY 11/04/21 11/04/21 History metoprolol succinate 25 mg 25 mg PO DAILY 11/04/21 11/04/21 History tablet,extended release 24 hr multivitamin 1 tab PO DAILY 11/04/21 11/04/21 History thiamine mononitrate (vit B1) 100 100 mg PO DAILY 11/04/21 11/04/21 History mg tablet Past Med/Surg History Medical History (Updated 11/04/21 @ 12:08 by Elvi Garcia PA-C) Acute hypoxemic respiratory failure Chronic HFrEF (heart failure with reduced ejection fraction) Depression HLD (hyperlipidemia) HTN (hypertension) Pulmonary emphysema Pulmonary HTN Tension pneumothorax Surgical History S/P tonsillectomy Family History Mother Alzheimer disease Father , 80 Stroke Social History (Updated 11/04/21 @ 12:03 by Elvi Garcia PA-C) Smoking Status: Never smoker packs per day: 1; Years Smoked: 35; Second Hand Exposure: No; Do You Dip or Chew Tobacco: No; Tobacco Cessation Education Requested by Patient: No Hx Alcohol Use: No Hx Substance Use: No Preferred Language: Welsh Communication Ability: Effective 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 Beliefs That Will Affect Care: None Current Living Situation: Alone Current Living Situation Comment: Live next door to daughter Other Information That Helps Us Care for You: No Feels Safe at Home: Yes Safety Concerns: Feels Safe At This Time Assistive Devices: None Review of Systems Review of Systems: All systems reviewed & are unremarkable except as noted in HPI & below Physical Exam 2 Physical Exam: Constitutional: Elderly, F, Thin, vitals as above, NAD, sitting up in bed, pleasant, conversing easily Head: Normocephalic, Atraumatic Eyes: PERRL, conjunctivae normal, anicteric sclerae ENMT: external ear and nose normal, oropharynx normal Neck: trachea midline, no thyromegaly normal visual inspection Respiratory: normal respiratory effort, lungs clear to auscultation, no wheeze, rales, rhonchi. Normal insp/exp effort, no accessory muscle use Cardiovascular: RRR, no murmur, no edema Vessels: no JVD or carotid bruit Chest: normal inspection of chest Abdomen: normal bowel sounds, soft, nontender, no hepatosplenomegaly Musculoskeletal: no cyanosis or clubbing, AROM x 4; however pain with hip ext/flexion b/l lower ext Skin: no rashes, warm and dry normal turgor Neurologic: PERRL, EOMI, accommodation nl, no face palsy, no dysarthria CN's II-XI intact bilaterally and moves all extremities Psychiatric: A+Ox3, euthymic affect Lymphatic: no cervical or axillary lymphadenopathy : deferred Results & Data Results & Data ([facility]) Vital Signs (Past 12 Hours) Vital Signs Temp Pulse Pulse Resp BP BP Pulse Ox 11/04/21 11:22 87 18 174/101 H 96 11/04/21 09:06 36.4 C L 79 16 163/62 H 93 Diagnostic Findings Lumbar Spine CT 11/04/21 09:34 CT OF THE LUMBAR SPINE CLINICAL HISTORY: fall, back pain COMPARISON STUDY: No previous studies for comparison. TECHNIQUE: Helical axial images of the lumbar spine were obtained. Sagittal and coronal reconstructions were viewed. Automated exposure control was utilized for the study. A dose lowering technique was utilized adhering to the principles of ALARA. FINDINGS: For purposes of numbering on this exam, the L5-S1 disc space is assigned to axial image 317 at 384. There is mild levoscoliosis of the lumbar spine. No acute lumbar spine fracture is present. There is a 5 mm of anterolisthesis of L4 and L5 due to facet arthrosis. Severe multilevel facet arthrosis is present. Moderate multilevel disc space narrowing and osteophytosis is noted. Central canal and neural foramen are suboptimally assessed by CT. Note is made of an acute mildly displaced fracture of the left aspect of the S2 vertebral body. CT of the pelvis will be reported separately. Sacroiliac joints are intact. 4 mm left renal calculus is incidentally noted. IMPRESSION: 1. Acute mildly displaced fractures of the left aspect of the S2 vertebral body. 2. No acute lumbar spine fracture or subluxation. 3. Severe multilevel facet arthrosis. Moderate multilevel degenerative disc disease. 4. Mild dextroscoliosis of the lumbar spine. ACT 112: Negative or not required by law. Electronically signed by: Alex Bran M.D. 11/04/2021 10:[address] 11/04/21 09:34 CT pelvis wo con CLINICAL HISTORY: fall, back pain, eval for fracture TECHNIQUE: Helical axial images of the pelvis were obtained and displayed at 5 and 1 mm intervals. Automated dose lowering techniques and/or adjustment according to patient size were utilized for this exam. This exam was performed with intravenous contrast. COMPARISON: None available at the time of this dictation. FINDINGS: Bladder: Unremarkable. Reproductive organs: Unremarkable. Bowel: Unremarkable. Lymph nodes Mesenteric: Unremarkable. Pelvic: Unremarkable. Peritoneum: Normal Vessels: Atherosclerotic calcifications are seen. Abdominal wall: Unremarkable. Bones: There are fractures of the inferior ramus bilaterally as well as a comminuted fracture of the right superior pubic ramus. There is a minimally displaced fracture of the left sacral ala which extends into the neural foramen and sacroiliac joint. IMPRESSION: Fractures of the bilateral inferior pubic rami, right superior pubic ramus, right superior pubic ramus, and fracture of the left sacral ala. ACT 112: Negative or not required by law. Electronically signed by: Paul Bridges M.D. 11/04/2021 10:32 AM Chest X-Ray 11/04/21 09:35 XR chest 1V portable CLINICAL HISTORY: fall TECHNIQUE: Single frontal radiograph of the chest was obtained. Comparison: Comparison is made to chest radiograph 01/26/2020 FINDINGS: No lines and tubes are seen. Calcified aortic knob is seen. The lungs are clear. No evidence of pleural effusion or pneumothorax. Degenerative changes are seen in the bilateral shoulder joints. IMPRESSION: No acute chest disease. ACT 112: Negative or not required by law. Electronically signed by: Paul Bridges M.D. 11/04/2021 9:[address] 11/04/21 09:35 CT OF THE HEAD WITHOUT CONTRAST CLINICAL HISTORY: Fall. COMPARISON STUDY: Head CT December 31, 2019. TECHNIQUE: Helical axial images of the head were obtained without IV contrast. Automated exposure control was utilized for the study. A dose lowering technique was utilized adhering to the principles of ALARA. FINDINGS: No acute intracranial hemorrhage, midline shift or mass effect is present. The ventricular system is stable. When matter hypodensity suggests small vessel disease. 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 A small focus of encephalomalacia within the right occipital lobe is new since prior exam. The basal cisterns are patent. No extra-axial collections are present. There are no findings to suggest acute dural sinus thrombosis or acute territorial infarct. No significant calvarial abnormalities are present. Visualized portions of the sinuses and mastoid air cells are clear. IMPRESSION: 1. No acute intracranial hemorrhage or mass effect. 2. No acute calvarial fracture. 3. Small age indeterminate infarct within the right occipital lobe. ACT 112: Negative or not required by law. Electronically signed by: Alex Bran M.D. 11/04/2021 10:21 AM Medications Administered Medication List Discontinued Medications Sodium Chloride (Nss 1000ml) 500 mls @ 999 mls/hr IV .Q31M ONE Stop: 11/04/21 10:08 Last Infusion: 11/04/21 11:29 Dose: 0 mls/hr Documented by: [id number] Admin: 11/04/21 10:32 Dose: 999 mls/hr Documented by: [id number] Morphine Sulfate (Morphine Sulfate 2 Mg/Ml Carp) 2 mg IV NOW STA Stop: 11/04/21 09:38 Last Admin: 11/04/21 10:32 Dose: 2 mg Documented by: [id number] Ondansetron HCl (Ondansetron Inj 2 Mg/Ml 2 Ml Vial) 4 mg IV NOW STA Stop: 11/04/21 09:38 Last Admin: 11/04/21 10:32 Dose: 4 mg Documented by: [id number] COVID-19 Results Results COVID-19 Adm Lab Results: RBC 3.99 M/uL (4.2-5.4) L 11/04/21 WBC 12.64 K/uL (4.8-10.8) H 11/04/21 Hgb 10.1 g/dL (12.0-16.0) L 11/04/21 Hct 33.4 % (37-47) L 11/04/21 Plt Count 327 K/uL (130-400) 11/04/21 Neutrophils (%) (Auto) 81.5 % 11/04/21 Lymphocytes (%) (Auto) 8.3 % 11/04/21 Monocytes # (Auto) 1.05 K/uL (0.11-0.59) H 11/04/21 Eosinophils # (Auto) 0.19 K/uL (0-0.5) 11/04/21 Immature Granulocyte % (Auto) 0.2 % 11/04/21 Neutrophils # (Auto) 10.30 K/uL (1.4-6.5) H 11/04/21 Lymphocytes # (Auto) 1.05 K/uL (1.2-3.4) L 11/04/21 Monocytes # (Auto) 1.05 K/uL (0.11-0.59) H 11/04/21 Eosinophils # (Auto) 0.19 K/uL (0-0.5) 11/04/21 Basophils # (Auto) 0.02 K/uL (0-0.2) 11/04/21 Immature Granulocyte # (Auto) 0.03 K/uL (0.00-0.02) H 11/04/21 Na 139 mmol/L (136-145) 11/04/21 K 3.7 mmol/L (3.5-5.1) 11/04/21 Cl 103 mmol/L (98-107) 11/04/21 CO2 27 mmol/L (21-32) 11/04/21 Anion Gap 9 (3-11) 11/04/21 BUN 14 mg/dl (6-23) 11/04/21 Creatinine 0.58 mg/dl (0.6-1.2) L 11/04/21 BUN/Creatinine Ratio 24.1 (10-20) H 11/04/21 Glucose Level 96 mg/dl (70-99(Fasting)) 11/04/21 Ca 9.3 mg/dl (8.5-10.1) 11/04/21 Total Bilirubin 0.7 mg/dl (0.2-1.0) 11/04/21 AST/SGOT 20 U/L (13-39) 11/04/21 ALT/SGPT 11 U/L (7-52) 11/04/21 Alkaline Phosphatase 119 U/L (34-104) H 11/04/21 Total Protein 7.7 gm/dl (6.0-8.3) 11/04/21 Albumin 4.1 gm/dl (3.4-5.0) 11/04/21 Globulin 3.6 gm/dl (2.5-4.0) 11/04/21 Albumin/Globulin Ratio 1.1 (0.9-2) 11/04/21 INR 1.1 (0.9-1.1) 11/04/21 SARS-CoV-2, RNA, NAAT NEGATIVE (NEGATIVE) 11/04/21 Chest X-Ray 11/04/21 Code Status & VTE Plan Code Status DNR/DNI VTE Prophylaxis Plan VTE Prophylaxis will be ordered: Yes Supervising Physician Co-Signing Physician Notes Attending addendum: The patient was seen and examined in emergency room in presence of the daughter She lives alone and walks with a walker and has had a fall on Wednesday without any loss of consciousness and she could walk around with the walker with some difficulties and pain in the pelvic areas Today her pain was worse and it was difficult for her to get around Denies any fever and or chills, any shortness of breath or palpitation, any nausea no vomiting On examination No apparent distress at rest Hemodynamically stable Chestdecreased breath sound bilaterally but otherwise clear Heart-S1, S2 no murmur appreciated Abdomen-benign Extremities-trace edema bilaterally CNSalert, awake and oriented x3. Generally weak without any focal weakness Her admission labs, imaging studies and EKG reviewed Status post mechanical fall with pelvic bones fracture and sacral fracture noted to have age indeterminate stroke in CAT scan She will have work-up for stroke and also PT and OT evaluation and Ortho evaluation while in the hospital Agree with assessment and plan as outlined above by Elvi coyne
[2021-11-04 12:47] LABS: Appearance Urine Clear (Clear); Bacteria Urine Automated Negative (Negative); Bilirubin Urine Negative (Negative); Blood Urine Negative (Negative); Color Urine Yellow; Epithelial Cell Urine Auto >30 /lpf (0-5); Glucose Urine UA Negative (Negative); Ketones Urine 1+ (Negative); Leukocyte Esterase Urine Trace (Negative); Nitrite Urine Negative (Negative); Protein Urine Negative (Negative); Urobilinogen Urine Positive (Negative)
[2021-11-04] MEDS ORDERED: POLYETHYLENE (MIRALAX) 17 GM PACK PO PRN (13:28)
[2021-11-04] MEDS ORDERED: ALUMINUM/MAGNESIUM SUSP 30 ML UDC PO PRN (13:28)
[2021-11-04] MEDS ORDERED: ACETAMINOPHEN 325 MG TAB PO PRN (13:28)
[2021-11-04] MEDS ORDERED: ONDANSETRON INJ 2 MG/ML 2 ML VIAL IV PRN (13:28)
[2021-11-04] MEDS ORDERED: MAGNESIUM HYDROXIDE SUSP 30 ML UDC PO PRN (13:28)
--- NOTE | 2021-11-04 14:39 | Neurology Consultation ---
Date of Consultation November 04, 2021 Assessment & Plan (1) CVA (cerebral vascular accident): 1. MRI brain when able to tolerate- no urgency old stroke 2. carotid doppler- assess vessel involvement 3. TTE - no ASD 4. if not contra indication- add aspirin 81 mg or surgery is not anticipated 5. PT/OT for discharge needs. will see in our office as previously scheduled after discharge. (2) Bilateral pubic rami fractures: 1. orthopedics - for evaluation (3) Sacral fracture: (4) Fall: Supervising Physician Co-Signing Physician Notes I have seen and discussed above patient with Dr Raghu Schwarz, neurology I have interviewed and examined this patient and discussed this case with Taniya Pisano PA-C and have reviewed the imaging studies that have precipitated the request for neurology consult specifically the findings of an age-indeterminate likely old occipital infarction which has been clinically silent and is not accompanied by any visual field deficits on exam, with any preferential head or eye deviation or indeed with any focal neurologic signs of any significance At this point in the ideal world we will get an MRI but the patient has extreme pain from her pelvic fractures would not be able to lay still and I think we can defer on this for the foreseeable future until she feels better. I would get a duplex of the carotids as I do not think she is going to be able to lay still for a CT angiographic study and an echocardiogram and obviously would put her on aspirin but beyond this I do not think neurology needs to do much more and would be happy to reassess her on an outpatient basis in our clinic where she has been seen previously for cognitive issues by Taniya Pisano PA-C We will follow-up on the above diagnostic studies but I do not think we need to make regular visits to the bedside unless things would change clinically Raghu Schwarz MD History of Present Illness Reason for Consultation: age undetermined occipital lobe infarct Requesting Physician: Dusty Barraza MD Attending Physician: Dusty Barraza MD History of Present Illness Nova is a 81 year old female who has a PMH- chronic HFrEF, HTN, HLD, pulm HTN, CAD, ambulatory dysfunction, depression, COPD, history of TIA, tension pneumothorax status post chest tube placement who presents to [facility] ED 11/04/21 secondary to fall 2 days prior to arrival. She denies hitting her head or LOC. Currently she lives alone and daughter lives next door.She fell 2 days ago, but has been able to ambulate. She woke up she was unable to get up due to s ignificant pain. Her pain is located mostly in the pelvis and hip region, right greater than left and low back. no saddle anesthesia, bowel or urinary incontinence, numbness or tingling to bilateral lower extremities. She does complain of increased urinary frequency.She has been treated for UTI with Bactrim recently. She underwent lumbar spine and pelvis CT which revealed fractures of the bilateral inferior pubic rami, right superior pubic rami fracture and fracture of left sacral ala. Lumbar spine CT revealed severe multilevel facet arthrosis along with an acute mildly displaced fracture of the left aspect of the S2 vertebral body. Head CT was performed which revealed old lacunar infarcts in the bilateral thalami and right occipital lobe. She is sitting up in bed and still having significant pain with movement. She recognized the examiner. denies CP, SOB, abdominal pain, N, V. Allergies Allergy/AdvReac Type Severity Reaction Status Date / Time No Known Drug Allergies Allergy Unknown . Verified 01/26/20 14:41 Home Medications Medication Instructions Recorded Confirmed Type cholecalciferol (vitamin D3) 25 25 mcg PO DAILY 11/04/21 11/04/21 History mcg (1,000 unit) tablet citalopram 10 mg tablet 10 mg PO DAILY 11/04/21 11/04/21 History metoprolol succinate 25 mg 25 mg PO DAILY 11/04/21 11/04/21 History tablet,extended release 24 hr multivitamin 1 tab PO DAILY 11/04/21 11/04/21 History thiamine mononitrate (vit B1) 100 100 mg PO DAILY 11/04/21 11/04/21 History mg tablet Patient History Medical History (Updated 11/04/21 @ 12:08 by Elvi Garcia PA-C) Acute hypoxemic respiratory failure Chronic HFrEF (heart failure with reduced ejection fraction) Depression HLD (hyperlipidemia) HTN (hypertension) Pulmonary emphysema Pulmonary HTN Tension pneumothorax Surgical History S/P tonsillectomy Family History Mother Alzheimer disease Father , 80 Stroke Social History (Updated 11/04/21 @ 12:03 by Elvi Garcia PA-C) Smoking Status: Never smoker packs per day: 1; Years Smoked: 35; Second Hand Exposure: No; Do You Dip or Chew Tobacco: No; Tobacco Cessation Education Requested by Patient: No Hx Alcohol Use: No Hx Substance Use: No Preferred Language: Polish Communication Ability: Effective Private Duty Aide Required: No Beliefs That Will Affect Care: None Current Living Situation: Alone Current Living Situation Comment: Live next door to daughter Other Information That Helps Us Care for You: No Feels Safe at Home: Yes Safety Concerns: Feels Safe At This Time Assistive Devices: None Review of Systems Review of Systems: All systems reviewed & are unremarkable except as noted in HPI & below Physical Exam Physical Exam: Physical Exam: Constitutional: appearance very thin pale Ears, Nose, Mouth and Throat: mucous membranes moist, no injection and skin normal, eyes normal Cardiovascular: normal S-1 and S-2 and regular rate and rhythm Respiratory: course breath sounds Musculoskeletal: no peripheral edema Skin: no stigmata of neurocutaneous disease noted and normal and intact Eyes: extraocular muscles intact (EOMI) and pupils equal, round and reactive to light (PERRL) NEUROLOGIC EXAMINATION: Mental status: Alert and interactive Oriented to hospital Oriented to person Speech fluent with no evidence of aphasia Cranial Nerves smile eye brow raise symmetric Reflexes: Deep tendon reflexes were symmetrical and graded 2/5. Sensory: intact to cool and light touch Coordination: finger to nose no bipass Gait/Stance: Posture sitting in bed unable to assess gait due to pain Motor: Negative for pronator drift of out stretched arms with eyes closed. 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 unable to assess LE Results & Data ([facility]) Vital Signs (Past 12 Hours) Vital Signs Temp Pulse Pulse Resp BP BP Pulse Ox 11/04/21 13:15 36.9 C 92 H 16 116/55 L 93 11/04/21 12:49 96 H 18 166/87 H 95 11/04/21 11:22 87 18 174/101 H 96 11/04/21 09:06 36.4 C L 79 16 163/62 H 93 Laboratory Results Abnormal lab results 11/04/21 11/04/21 11/04/21 Range/Units 09:50 09:50 12:30 WBC 12.64 H (4.8-10.8) K/uL RBC 3.99 L (4.2-5.4) M/uL Hgb 10.1 L (12.0-16.0) g/dL Hct 33.4 L (37-47) % MCHC 30.2 L (32-36) g/dL RDW Std Deviation 48.9 H (36.4-46.3) fL RDW Coeff of Elizabeth 16.2 H (11.5-14.5) % Neut # (Auto) 10.30 H (1.4-6.5) K/uL Lymph # (Auto) 1.05 L (1.2-3.4) K/uL [place] # (Auto) 1.05 H (0.11-0.59) K/uL Immature Gran # (Auto) 0.03 H (0.00-0.02) K/uL Creatinine 0.58 L (0.6-1.2) mg/dl BUN/Creatinine Ratio 24.1 H (10-20) Alkaline Phosphatase 119 H (34-104) U/L Urine Ketones 1+ H (Negative) Urine Urobilinogen Positive H (Negative) Ur Leukocyte Esterase Trace H (Negative) Urine RBC (Auto) 5-10 H (0-4) /hpf U Epithel Cells (Auto) >30 H (0-5) /lpf Diagnostic Findings CT lumbar spine_Acute mildly displaced fractures of the left aspect of the S2 vertebral No acute lumbar spine fracture or subluxation. Severe multilevel facet arthrosis. Moderate multilevel degenerative disc disease.. Mild dextroscoliosis of the lumbar spine. CT head- No acute intracranial hemorrhage or mass effect. . No acute calvarial fracture. . Small age indeterminate infarct within the right occipital lobe. TTE- 55-60% no ASD
[2021-11-04] MEDS ORDERED: SODIUM CHLORIDE 0.9% 1000ML 1,000 ML IV SCH ×2 (14:45→15:00)
[2021-11-04] MEDS: ASPIRIN 81 MG ECTAB PO SCH (15:49)
[2021-11-04] MEDS: FERROUS SULFATE 325 MG TAB PO SCH (15:50)
[2021-11-04] MEDS: ACETAMINOPHEN 325 MG TAB PO SCH ×3 (15:50→20:20)
[2021-11-04] MEDS: DOCUSATE SODIUM 100 MG CAP PO SCH (15:50)
[2021-11-04] MEDS ORDERED: OPTIRAY 320 125ml IV ONE (17:00)
--- NOTE | 2021-11-04 17:13 | CT Scan Report ---
CT angio head w con CLINICAL HISTORY: cva . Status post fall COMPARISON STUDY: CT brain without contrast from 11/04/2021 CT DOSE: 435.43 mGy.cm TECHNIQUE: CT Angio of the brain was performed.followed by image post processing with coronal, and s agittal MIP reformats. Contrast Volume: Optiray 320, 117 ml FINDINGS: Vascular findings: There is normal enhancement within the internal carotid arteries bilaterally. On the right side, there is normal enhancement noted within the anterior, middle and posterior cerebral arteries. On the left side, there is at least 70-80 % stenosis of the A1 segment of the left anterior cerebral artery. However, there is no evidence for occlusion with filling of the anterior segments distally. T he middle cerebral artery and posterior cerebral artery demonstrate normal enhancement. Nonvascular findings: There is homogeneous attenuation of the brain parenchyma bilaterally. There is no evidence for an acute infarct or cerebral edema. The ventricles are mildly dilated bilaterally. IMPRESSION: 1. Evidence for high-grade stenosis of the A1 segment of the left anterior cerebral artery with no ev idence for focal thrombosis or occlusion. ACT 112: Negative or not required by law. Electronically signed by: Darinel Smith M.D. 11/04/2021 5:11 PM
--- NOTE | 2021-11-04 17:40 | CT Scan Report ---
CT angio neck with con CLINICAL HISTORY: cva . Status post fall COMPARISON STUDY: No previous studies for comparison. CT DOSE: TECHNIQUE: CT Angio of the neck was performed.followed by image post processing with coronal, and sa gittal MIP reformats.. Stenosis assessment by NASCET criteria. Contrast Volume: Optiray 320, 117 ml FINDINGS: Vascular findings: Right common carotid artery: There is extensive atherosclerotic calcification present involving the d istal common carotid artery extending into the carotid bulb with approximately 70-80% stenosis presen t utilizing NASCET criteria. Right internal carotid artery: The calcified atherosclerotic plaque extends into the origin of the ri ght internal carotid artery as well with 50-60% stenosis present.. Right vertebral artery: There is atherosclerotic calcification present involving the origin of the ri ght vertebral artery with 60-70% stenosis present. Atherosclerotic calcification is also seen along i ts course with less than 50% stenosis present. Left common carotid artery: Extensive atherosclerotic calcification is present involving the distal c ommon carotid artery and extending into the carotid bulb. There is 70-80% stenosis using NASCET crite stephan. Left internal carotid artery: Atherosclerotic calcification continues into the origin of the left int ernal carotid artery with 50-60% stenosis present.. 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 It narrows approximate ly 70-80%. This is best seen on axial images 235 through 276. The more proximal vertebral artery is p atent and equal in size of the right. Nonvascular findings: The parotid and submandibular salivary glands appear normal. There is no enlarged cervical adenopathy noted. The airway appears patent. The thyroid gland appears within normal limits. Bullous emphysemat ous changes are present involving the lung apices.. Impression: 1. 70-80% stenosis involving the right carotid bulb with 50-60% stenosis of the origin of the right i nternal carotid artery. 2. 70-80% stenosis involving the left carotid bulb with 50-60% stenosis of the origin of the left int ernal carotid artery. 3. 6070% stenosis of the origin of the right vertebral artery. 4. 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 No occlusion is demonstrated. These results were sent to Nuria Garcia via tiger text. ACT 112: Negative or not required by law. Electronically signed by: Darinel Smith M.D. 11/04/2021 5:37 PM
--- NOTE | 2021-11-04 18:21 | Communication Note ---
Date of Service: November 04, 2021 Nova was able to complete the cta and results show diffuse extracranial disease as described but alwo show evidence for a left vertebral dissection without occlusion at the C2 level This does not explain the old appearing right occipital infarct but is important and likely a post traumatic issue and currently asymptomatic but a potential source for embolic events in the posterior circulation I discussed the case with Elvi Garcia and at this time am recommending dual antiplatet rx with asa and plavix for at least 21 days and perhaps longer depending on how she does She may well need anothr cta in about three months to check for recanalization we will now continue to follow in hospital at least for the initial few days Raghu Schwarz MD
[2021-11-04] MEDS: CLOPIDOGREL BISULFATE 75 MG TAB PO SCH (19:38)
[2021-11-04] MEDS: HEPARIN SOD 5,000 UNIT/0.5 ML VIAL SQ SCH (20:21)
[2021-11-05] MEDS: traMADol HCL 50 MG TABLET PO PRN (03:17)
[2021-11-05 07:48] LABS: Basophils # (auto) 0.02 K/uL (0-0.2); Basophils % (auto) 0.2 %; Eosinophils # (auto) 0.38 K/uL (0-0.5); Eosinophils % (auto) 4.3 %; Hematocrit (blood only) 27.3 % (37-47); Hemoglobin 8.4 g/dL (12.0-16.0); Immature Granulocytes # (auto) 0.01 K/uL (0.00-0.02); Immature Granulocytes % (auto) 0.1 %; Lymphocytes % (auto) 12.4 %; Mean Corpuscular Hemoglobin 25.8 pg (25-34); Mean Corpuscular Hgb Conc 30.8 g/dL (32-36); Mean Platelet Volume 9.6 fL (7.4-10.4); Monocytes # (auto) 0.89 K/uL (0.11-0.59); Neutrophils # (auto) 6.47 K/uL (1.4-6.5); Platelet Count 259 K/uL (130-400); RDW Coefficient of Variation 16.1 % (11.5-14.5); RDW Standard Deviation 49.5 fL (36.4-46.3); Red Blood Count 3.25 M/uL (4.2-5.4); White Blood Count 8.87 K/uL (4.8-10.8)
[2021-11-05 08:29] LABS: Albumin Globulin Ratio 1.2 (0.9-2); Albumin Level 3.3 gm/dl (3.4-5.0); BUN Creatinine Ratio 20.8 (10-20); Bilirubin,Total 0.4 mg/dl (0.2-1.0); Calcium 8.5 mg/dl (8.5-10.1); Chol HDL Ratio 3.1 (0-5); Creatinine Clr Calc Pharmacy 68.2 ml/min; Est GFR (African American) 104.7 ml/min; Est GFR (Non-African American) 90.3 ml/min; Globulin 2.8 gm/dl (2.5-4.0); Magnesium 1.9 mg/dl (1.7-2.4); Potassium 3.8 mmol/L (3.5-5.1); Total Protein 6.1 gm/dl (6.0-8.3)
[2021-11-05] MEDS: ACETAMINOPHEN 325 MG TAB PO SCH ×4 (08:31→19:52)
[2021-11-05] MEDS: MULTIVITAMIN TAB PO SCH (08:32)
[2021-11-05] MEDS: CLOPIDOGREL BISULFATE 75 MG TAB PO SCH (08:32)
[2021-11-05] MEDS: FERROUS SULFATE 325 MG TAB PO SCH (08:32)
[2021-11-05] MEDS: DOCUSATE SODIUM 100 MG CAP PO SCH (08:33)
[2021-11-05] MEDS: ASPIRIN 81 MG ECTAB PO SCH (08:33)
[2021-11-05] MEDS: CITALOPRAM 20 MG TAB PO SCH (08:33)
[2021-11-05] MEDS: THIAMINE HCL 100 MG TAB PO SCH (08:33)
[2021-11-05] MEDS: METOPROLOL SUCC 25MG EXT REL TAB PO SCH (08:34)
[2021-11-05] MEDS: CHOLECALCIFEROL 1,000 UNITS 25 MCG TAB PO SCH (08:34)
[2021-11-05] MEDS: ATORVASTATIN 40 MG TAB PO SCH (08:34)
[2021-11-05] MEDS: HEPARIN SOD 5,000 UNIT/0.5 ML VIAL SQ SCH ×2 (08:35→20:00)
[2021-11-05 09:36] LABS: Estimated Average Glucose 105 mg/dl; Hemoglobin A1C 5.3 % (4.5-5.6)
--- NOTE | 2021-11-05 10:14 | Consultation ---
Date of Consultation November 05, 2021 Assessment & Plan (1) Carotid stenosis, bilateral: Pt does have BL common carotid/bulb stenosis, worse on L than right. This appears to be at least 85%. Recommend reeval pt in 6 weeks in office to discuss possible CEA. Pt is agreeable to this. Office will call daughter to arrange. History of Present Illness Reason for Consultation: Bl ICA stenosis Attending Physician: Dusty Braraza MD History of Present Illness 81 yo f with hx of CHF, HTN, hyperlipidemia, COPD, ambulatory dysfunction, depression, EF of 35-40%, anemia, admitted with multiple pelvic fractures after a fall at home about 1 week ago, seen in consultation today for BL ICA stenosis noted on CTA neck. Pt states no prior knowledge of this. States she has been having memory problems for past few months. States she lives alone, but her daughter lives next door and checks on her regularly. Admits pelvic and low back pain. Denies any syncope or near syncope, dizziness, HOUSE, fever, chest pain, SOB, ABD pain, N/V, rest pain, claudication, amaurosis, unilateral extremity weakness or numbness, facial droop, difficulty speaking or swallowing, other complaints. Pt states her daughter makes all of her appointment arrangements. States she does not see a heart doctor. States she ambulates at home on the first level of her house, does not use the second floor d/t inability to get up the stairs. CTA neck demonstrates BL common carotid/bulb stenosis, worse on L than right. Also demonstrates dissection of vertebral artery. Allergies Allergy/AdvReac Type Severity Reaction Status Date / Time No Known Drug Allergies Allergy Unknown . Verified 01/26/20 14:41 Home Medications Medication Instructions Recorded Confirmed Type cholecalciferol (vitamin D3) 25 25 mcg PO DAILY 11/04/21 11/04/21 History mcg (1,000 unit) tablet citalopram 10 mg tablet 10 mg PO DAILY 11/04/21 11/04/21 History metoprolol succinate 25 mg 25 mg PO DAILY 11/04/21 11/04/21 History tablet,extended release 24 hr multivitamin 1 tab PO DAILY 11/04/21 11/04/21 History thiamine mononitrate (vit B1) 100 100 mg PO DAILY 11/04/21 11/04/21 History mg tablet Patient History Medical History (Updated 11/05/21 @ 10:12 by Jacquelyn Severino PA-C) Acute hypoxemic respiratory failure Carotid stenosis, bilateral Chronic HFrEF (heart failure with reduced ejection fraction) Depression HLD (hyperlipidemia) HTN (hypertension) Pulmonary emphysema Pulmonary HTN Tension pneumothorax Surgical History S/P tonsillectomy Family History Mother Alzheimer disease Father , 80 Stroke Social History Smoking Status: Never smoker packs per day: 1; Years Smoked: 35; Second Hand Exposure: No; Do You Dip or Chew Tobacco: No; Tobacco Cessation Education Requested by Patient: No Hx Alcohol Use: No Hx Substance Use: No Preferred Language: Botswanan Communication Ability: Effective Reception Agent Required: No Beliefs That Will Affect Care: None Current Living Situation: Alone Current Living Situation Comment: Live next door to daughter Other Information That Helps Us Care for You: No Feels Safe at Home: Yes Safety Concerns: Feels Safe At This Time Assistive Devices: None Review of Systems Review of Systems: All systems reviewed & are unremarkable except as noted in HPI & below Physical Exam Constitutional: well developed, + thin, + frail appearing, cooperative and comfortable; not in distress ENMT: Ears: no hearing impairment Neck: trachea midline Respiratory: normal respiratory effort, lungs clear to auscultation Auscultation: + diminished lung sounds Cardiovascular: Rate/Rhythm: regular rate and regular rhythm Vessels: femoral pulses present, posterior tibial pulses present, dorsalis pedis pulses present and radial pulses present; + abnormal peripheral pulses Extremities: normal capillary refill; no edema Gastrointestinal (Abdomen): Inspection/Auscultation: abdomen normal to inspection and normal bowel sounds Percussion/Palpation: abdomen soft; abdomen nontender Musculoskeletal: no cyanosis or clubbing, extremities motor strength 5/5 Skin: no rashes, warm and dry Neurologic: moves all extremities and awake; no focal motor deficits and not confused (but does repeat questions) Psychiatric: A+Ox3, euthymic affect Results & Data ([facility]) Vital Signs (Past 12 Hours) Vital Signs Temp Pulse Pulse Resp BP Pulse Ox 11/05/21 07:31 77 11/05/21 07:00 36.8 C 80 16 126/63 92 11/05/21 03:11 36.7 C 81 16 179/69 H 95 11/04/21 23:28 36.8 C 74 18 162/73 H 100 11/04/21 22:23 69
--- NOTE | 2021-11-05 14:34 | Orthopedic Consultation ---
Date of Service November 05, 2021 Assessment & Plan (1) Bilateral pubic rami fractures: She was seen and examined by Dr. Taylor. Her CT scan was reviewed and she does have pelvis fx's as noted above. Continue conservative management for this. PT/OT-weight bearing as tolerated with a walker. She should follow up with Dr. Taylor in clinic in about 1 month. History of Present Illness Reason for Consultation: . Requesting Physician: . Attending Physician: Dusty Barraza MD . Nova is a 81 year old patient admitted after a fall. She states that she tripped and fell 2 days ago. She has some pelvic pain with weight bearing. She denies any pain at this time. No other orthopedic complaints. Allergies Allergy/AdvReac Type Severity Reaction Status Date / Time No Known Drug Allergies Allergy Unknown . Verified 01/26/20 14:41 Home Medications Medication Instructions Recorded Confirmed Type cholecalciferol (vitamin D3) 25 25 mcg PO DAILY 11/04/21 11/04/21 History mcg (1,000 unit) tablet citalopram 10 mg tablet 10 mg PO DAILY 11/04/21 11/04/21 History metoprolol succinate 25 mg 25 mg PO DAILY 11/04/21 11/04/21 History tablet,extended release 24 hr multivitamin 1 tab PO DAILY 11/04/21 11/04/21 History thiamine mononitrate (vit B1) 100 100 mg PO DAILY 11/04/21 11/04/21 History mg tablet Past Med/Surg History Medical History Acute hypoxemic respiratory failure Carotid stenosis, bilateral Chronic HFrEF (heart failure with reduced ejection fraction) Depression HLD (hyperlipidemia) HTN (hypertension) Pulmonary emphysema Pulmonary HTN Tension pneumothorax Surgical History S/P tonsillectomy Family History Mother Alzheimer disease Father , 80 Stroke Social History Smoking Status: Never smoker packs per day: 1; Years Smoked: 35; Second Hand Exposure: No; Do You Dip or Chew Tobacco: No; Tobacco Cessation Education Requested by Patient: No Hx Alcohol Use: No Hx Substance Use: No Preferred Language: Niuean Communication Ability: Effective Solutions Development Analyst Required: No Beliefs That Will Affect Care: None marital status: / Current Living Situation: Alone Current Living Situation Comment: Live next door to daughter Other Information That Helps Us Care for You: No Feels Safe at Home: Yes Safety Concerns: Feels Safe At This Time Assistive Devices: Walker Review of Systems All systems reviewed & are unremarkable except as noted in HPI & below. Physical Exam .alert. No distress. She is sitting in a chair at the bedside. She is able to dorsiflex and plantar flex appropriately. Results & Data Results & Data Laboratory Results . Diagnostic Findings .CT scan of the pelvis reviewed and shows bilateral inferior pubic rami fx, right superior pubic ramus fx, and left sacral ala fx. PG Care Time/CCT Total # of Minutes Spent Total Time Spent with Patient: Total time spent is greater than 50% in coordination of care (as documented) at patient's floor/unit and/or counseling patient: Coding Level of Care Code 62461 Inpt Consult Level 3 Diagnoses Bilateral pubic rami fractures S32.591A; S32.592A
--- NOTE | 2021-11-05 15:32 | Hospitalist Progress Note ---
Date of Service November 05, 2021 Assessment & Plan (1) Fall: (2) Ambulatory dysfunction: (3) Sacral fracture: (4) Bilateral pubic rami fractures: (5) CVA (cerebral vascular accident): (6) Anemia: (7) Leukocytosis: (8) Chronic HFrEF (heart failure with reduced ejection fraction): (9) HTN (hypertension): Plan: This is a 81-year-old female who has a significant past medical history of chronic HFrEF, HTN, HLD, pulm hypertension, CAD, ambulatory dysfunction, depr ession, COPD, history of TIA, history of tension pneumothorax status post chest tube placement who presents to ED secondary to fall 2 days prior to arrival. Fall Ambulatory dysfunction Acute mildly displaced left S2 vertebral body fracture Bilateral inferior pubic rami fracture, right superior pubic ramus fracture and left sacral ala fracture Consult orthopedics-appreciate input and recommendation. Conservative management, PT OT with weightbearing as tolerated with a walker. Follow-up in about 1 month PT/OT-ongoing and will need rehab Pain control with scheduled Tylenol, as needed tramadol vit d level in am daily stool softener Hemoglobin A1c is 5.3 and Vitamin D level is low at 19.3 We will give vitamin D supplement Complains of pain with activities R occipital lobe CVA hx of tia, no prior hx of known cva likely old as pt currently not having acute cva sx start asa 81mg daily, atorvastatin 40mg daily Appreciate neurology input and recommendation Echo of the heart showed-LV normal in size, LV systolic function is normal with EF 55 to 60%, RV systolic function is normal, left and right atria are normal, aortic valve sclerosis without significant stenosis and there is moderate TR without any interatrial shunt Carotid Doppler showed significant stenosis-appreciate vascular surgery input and recommendation Lipid panel unremarkable Continue aspirin and Plavix for 21 days and may be longer until another CTA is done in about 3 months Anemia hgb stable at 10.1 previous anemia panel done in OP setting 10/03 revealed ferritin 15, iron 50 tsat 15 hgb stable, no sign of bleeding will start ferrous sulfate daily for now Leukocytosis may be reactive in setting of fall, no fever pt does complain of urinary frequency, obtain UA Chronic HFrEF HTN continue metoprolol last echo 01/04/20 EF 35-40% with apical hypokinesis euvolemic, monitor daily weight repeat echo Depression continue citalopram, pt in good spirits DVT ppx: SQ Heparin bid Dispo: med tele, CM consulted for likely rehab DNR/DNI PCP: Lincoln Rodriguez Admission and Anticipated Discharge Date Admission Date: November 04, 2021 Subjective 11/05/2021 The patient was seen and examined in medical telemetry unit She has been generally weak and lethargic and complains to have pelvic pain with movement but denies any other symptoms No fever and or chills, no nausea no vomit Review of Systems Review of Systems: All systems reviewed and are unremarkable except as noted below Physical Exam Physical Exam: Sitting on a chair without any acute distress Constitutional: + ill appearing and average body habitus Eyes: PERRL, conjunctivae normal, anicteric sclerae ENMT: external ear and nose normal, oropharynx normal Respiratory: no respiratory distress Auscultation: + diminished lung sounds and + crackles (Minimal crackles at the bases) Cardiovascular: Rate/Rhythm: regular rate and regular rhythm; not tachycardic Heart Sounds: normal S1 and normal S2; no murmur Extremities: + edema (Trace edema bilaterally) Gastrointestinal (Abdomen): Inspection/Auscultation: abdomen not distended Percussion/Palpation: abdomen soft; abdomen nontender Musculoskeletal: No acute arthritis in any joint Neurologic: Alert, awake and oriented x3. Generally weak but no focal sensory or motor deficit appreciated Lymphatic: no cervical or axillary lymphadenopathy Results & Data Results & Data ([facility]) Vital Signs (Past 12 Hours) Vital Signs Temp Pulse Pulse Resp BP BP Pulse Ox 11/05/21 14:00 36.9 C 77 16 122/69 93 11/05/21 11:00 36.6 C 82 14 109/69 90 11/05/21 07:31 77 11/05/21 07:00 36.8 C 80 16 126/63 92 Laboratory Results Short CBC 11/05/21 Range/Units 07:05 WBC 8.87 (4.8-10.8) K/uL Hgb 8.4 L (12.0-16.0) g/dL Hct 27.3 L (37-47) % Plt Count 259 (130-400) K/uL BMP 11/05/21 07:05 Sodium 137 Potassium 3.8 Chloride 106 Carbon Dioxide 24 BUN 11 Creatinine 0.53 L Glucose 79 Calcium 8.5 Liver Function 11/05/21 Range/Units 07:05 Total Bilirubin 0.4 (0.2-1.0) mg/dl AST 16 (13-39) U/L ALT 8 (7-52) U/L Alkaline Phosphatase 93 (34-104) U/L Albumin 3.3 L (3.4-5.0) gm/dl Medications Administered Current Inpatient Medications Acetaminophen (Acetaminophen 325 Mg Tab) 650 mg PO Q4H PRN PRN Reason: Pain or Fever Stop: 12/04/21 13:27 Acetaminophen (Acetaminophen 325 Mg Tab) 650 mg PO QID [facility] Stop: 12/04/21 14:59 Last Admin: 11/05/21 14:41 Dose: 650 mg Documented by: Al Hydrox/Mg Hydrox/Simethicone (Aluminum/Magnesium Susp 30 Ml Udc) 15 ml PO Q4H PRN PRN Reason: Dyspepsia Stop: 12/04/21 13:27 Aspirin (Aspirin 81 Mg Ectab) 81 mg PO DAILY [facility] Stop: 12/04/21 13:27 Last Admin: 11/05/21 08:33 Dose: 81 mg Documented by: Atorvastatin Calcium (Atorvastatin 40 Mg Tab) 40 mg PO QAM [facility] Stop: 12/05/21 08:59 Last Admin: 11/05/21 08:34 Dose: 40 mg Documented by: Citalopram Hydrobromide (Citalopram 20 Mg Tab) 10 mg PO DAILY [facility] Stop: 12/05/21 08:59 Last Admin: 11/05/21 08:33 Dose: 10 mg Documented by: Clopidogrel Bisulfate (Clopidogrel Bisulfate 75 Mg Tab) 75 mg PO QAM [facility] Stop: 12/04/21 17:59 Last Admin: 11/05/21 08:32 Dose: 75 mg Documented by: Docusate Sodium (Docusate Sodium 100 Mg Cap) 100 mg PO DAILY [facility] Stop: 12/04/21 13:27 Last Admin: 11/05/21 08:33 Dose: 100 mg Documented by: Ferrous Sulfate (Ferrous Sulfate 325 Mg Tab) 325 mg PO QAM [facility] Stop: 12/04/21 13:27 Last Admin: 11/05/21 08:32 Dose: 325 mg Documented by: Heparin Sodium (Porcine) (Heparin Sod 5,000 Unit/0.5 Ml Vial) 5,000 units SQ Q12 [facility] Stop: 12/04/21 20:59 Last Admin: 11/05/21 08:35 Dose: 5,000 units Documented by: Magnesium Hydroxide (Magnesium Hydroxide Susp 30 Ml Udc) 30 ml PO Q12H PRN PRN Reason: Constipation Stop: 12/04/21 13:27 Metoprolol Succinate (Metoprolol Succ 25mg Ext Rel Tab) 25 mg PO DAILY [facility] Stop: 12/05/21 08:59 Last Admin: 11/05/21 08:34 Dose: 25 mg Documented by: Multivitamins (Multivitamin Tab) 1 tab PO DAILY [facility] Stop: 12/05/21 08:59 Last Admin: 11/05/21 08:32 Dose: 1 tab Documented by: Ondansetron HCl (Ondansetron Inj 2 Mg/Ml 2 Ml Vial) 4 mg IV Q6H PRN PRN Reason: Nausea Stop: 12/04/21 13:27 Polyethylene Glycol (Polyethylene (Miralax) 17 Gm Pack) 17 gm PO DAILY PRN PRN Reason: Constipation Stop: 12/04/21 13:27 Thiamine HCl (Thiamine Hcl 100 Mg Tab) 100 mg PO DAILY [facility] Stop: 12/05/21 08:59 Last Admin: 11/05/21 08:33 Dose: 100 mg Documented by: Tramadol HCl (Tramadol Hcl 50 Mg Tablet) 50 mg PO Q4H PRN PRN Reason: Severe Pain Stop: 12/04/21 13:27 Last Admin: 11/05/21 03:17 Dose: 50 mg Documented by: Vitamin D (Cholecalciferol 1,000 Units 25 Mcg Tab) 1,000 units PO DAILY [facility] Stop: 12/05/21 08:59 Last Admin: 11/05/21 08:34 Dose: 1,000 units Documented by:
--- NOTE | 2021-11-05 15:48 | Communication Note ---
Date of Service: November 05, 2021 Nova was seen today. She was sitting in a chair was a little lethargic and slightly confused. When asked the where she lives she replied [place] and implied that she was just up here visiting and thought she lived in [place]. Otherwise she seems to be fairly well oriented knows that she fell but cannot give me a lot of details about it and has no other complaints from a neurologic point of view specifically no visual complaints no complaints of headache dizziness nausea vomiting numbness or tingling in her face or arms or legs no bowel or bladder dysfunction She had a fall 2 days ago and then had ambulatory dysfunction and pain was found to have a pelvic fracture or fractures by x-ray in the ER and in the course of the work-up an incidental asymptomatic occipital infarction discovered which appeared to be old. CT angiography reveals multiple moderate to moderately high-grade extracranial stenoses but the more important shows the left vertebral artery dissection about C2 which currently is asymptomatic At this point she is going to need dual antiplatelet therapy with aspirin and Plavix for 21 days probably then a return to single antiplatelet treatment and in several months we will need another CT angiography study to see if there is going to be some recanalization. The other extracranial stenoses are asymptomatic but a vascular surgery evaluation may be of some value in assessing these issues and recommending appropriate follow-up studies. Vascular surgery consultation of nonurgent type would be my suggestion We will check back with her tomorrow Raghu Schwarz MD
[2021-11-05] MEDS: CHOLECALCIFEROL 5,000 UNITS 125 MCG TAB PO SCH (16:44)
[2021-11-06] MEDS: traMADol HCL 50 MG TABLET PO PRN ×3 (03:34→16:17)
[2021-11-06] MEDS: ACETAMINOPHEN 325 MG TAB PO SCH ×4 (08:39→20:27)
[2021-11-06] MEDS: ATORVASTATIN 40 MG TAB PO SCH (08:44)
[2021-11-06] MEDS: CHOLECALCIFEROL 1,000 UNITS 25 MCG TAB PO SCH (08:44)
[2021-11-06] MEDS: DOCUSATE SODIUM 100 MG CAP PO SCH (08:45)
[2021-11-06] MEDS: FERROUS SULFATE 325 MG TAB PO SCH (08:45)
[2021-11-06] MEDS: CLOPIDOGREL BISULFATE 75 MG TAB PO SCH (08:45)
[2021-11-06] MEDS: MULTIVITAMIN TAB PO SCH (08:45)
[2021-11-06] MEDS: ASPIRIN 81 MG ECTAB PO SCH (08:46)
[2021-11-06] MEDS: CHOLECALCIFEROL 5,000 UNITS 125 MCG TAB PO SCH (08:46)
[2021-11-06] MEDS: CITALOPRAM 20 MG TAB PO SCH (08:46)
[2021-11-06] MEDS: METOPROLOL SUCC 25MG EXT REL TAB PO SCH (08:47)
[2021-11-06] MEDS: THIAMINE HCL 100 MG TAB PO SCH (08:50)
[2021-11-06] MEDS: HEPARIN SOD 5,000 UNIT/0.5 ML VIAL SQ SCH ×2 (08:51→20:27)
--- NOTE | 2021-11-06 16:00 | Hospitalist Progress Note ---
Date of Service November 06, 2021 Assessment & Plan (1) Fall: (2) Ambulatory dysfunction: (3) Sacral fracture: (4) Bilateral pubic rami fractures: (5) CVA (cerebral vascular accident): (6) Anemia: (7) Leukocytosis: (8) Chronic HFrEF (heart failure with reduced ejection fraction): (9) HTN (hypertension): Plan: This is a 81-year-old female who has a significant past medical history of chronic HFrEF, HTN, HLD, pulm hypertension, CAD, ambulatory dysfunction, depr ession, COPD, history of TIA, history of tension pneumothorax status post chest tube placement who presents to ED secondary to fall 2 days prior to arrival. Fall Ambulatory dysfunction Acute mildly displaced left S2 vertebral body fracture Bilateral inferior pubic rami fracture, right superior pubic ramus fracture and left sacral ala fracture Consult orthopedics-appreciate input and recommendation. Conservative management, PT OT with weightbearing as tolerated with a walker. Follow-up in about 1 month PT/OT-ongoing and will need rehab Pain control with scheduled Tylenol, as needed tramadol vit d level in am daily stool softener Hemoglobin A1c is 5.3 and Vitamin D level is low at 19.3 We will give vitamin D supplement Complains of pain with activities Awaiting placement-remains medically stable with generalized weakness R occipital lobe CVA hx of tia, no prior hx of known cva likely old as pt currently not having acute cva sx start asa 81mg daily, atorvastatin 40mg daily Appreciate neurology input and recommendation Echo of the heart showed-LV normal in size, LV systolic function is normal with EF 55 to 60%, RV systolic function is normal, left and right atria are normal, aortic valve sclerosis without significant stenosis and there is moderate TR without any interatrial shunt Carotid Doppler showed significant stenosis-appreciate vascular surgery input and recommendation Lipid panel unremarkable Continue aspirin and Plavix for 21 days and may be longer until another CTA is done in about 3 months No additional neuro symptoms Anemia hgb stable at 10.1 previous anemia panel done in OP setting 10/03 revealed ferritin 15, iron 50 tsat 15 hgb stable, no sign of bleeding will start ferrous sulfate daily for now Hemoglobin remains low at 8.4 Leukocytosis may be reactive in setting of fall, no fever pt does complain of urinary frequency, obtain UA Leukocytosis resolved Chronic HFrEF HTN continue metoprolol last echo 01/04/20 EF 35-40% with apical hypokinesis euvolemic, monitor daily weight Echo of the heart showed normal LV function with EF 55-60, RV systolic function normal, the atria are normal, aortic valve sclerosis without significant stenosis, moderate tricuspid regurgitation and did not show any inter-atrial shunt Depression continue citalopram, pt in good spirits DVT ppx: SQ Heparin bid Dispo: med tele, CM consulted for likely rehab DNR/DNI PCP: Lincoln Rodriguez Admission and Anticipated Discharge Date Admission Date: November 04, 2021 Subjective 11/05/2021 The patient was seen and examined in medical telemetry unit She has been generally weak and lethargic and complains to have pelvic pain with movement but denies any other symptoms No fever and or chills, no nausea no vomit 11/06/2021 The patient was seen and examined in medical telemetry unit She has been generally weak and lethargic but denies any other symptoms except pain with movement She has been waiting to be placed Review of Systems Review of Systems: All systems reviewed and are unremarkable except as noted below Musculoskeletal: Pain in the pelvis with movement Physical Exam Physical Exam: Sitting on a chair without any acute distress Constitutional: + ill appearing and average body habitus Eyes: PERRL, conjunctivae normal, anicteric sclerae ENMT: external ear and nose normal, oropharynx normal Respiratory: no respiratory distress Auscultation: + diminished lung sounds and + crackles (Minimal crackles at the bases) Cardiovascular: Rate/Rhythm: regular rate and regular rhythm; not tachycardic Heart Sounds: normal S1 and normal S2; no murmur Extremities: + edema (Trace edema bilaterally) Gastrointestinal (Abdomen): Inspection/Auscultation: abdomen not distended Percussion/Palpation: abdomen soft; abdomen nontender Musculoskeletal: Pain in the pelvis with movement and moving limbs at times Neurologic: Alert, awake and oriented x3. Generally weak and lethargic Lymphatic: no cervical or axillary lymphadenopathy Results & Data Results & Data ([facility]) Vital Signs (Past 12 Hours) Vital Signs Temp Pulse Pulse Resp BP BP Pulse Ox 11/06/21 15:36 36.7 C 82 18 117/65 94 11/06/21 11:06 36.8 C 77 16 153/79 H 93 11/06/21 07:34 36.4 C L 99 H 16 168/75 H 93 11/06/21 06:20 78 Medications Administered Current Inpatient Medications Acetaminophen (Acetaminophen 325 Mg Tab) 650 mg PO Q4H PRN PRN Reason: Pain or Fever Stop: 12/04/21 13:27 Acetaminophen (Acetaminophen 325 Mg Tab) 650 mg PO QID [facility] Stop: 12/04/21 14:59 Last Admin: 11/06/21 13:23 Dose: 650 mg Documented by: Al Hydrox/Mg Hydrox/Simethicone (Aluminum/Magnesium Susp 30 Ml Udc) 15 ml PO Q4H PRN PRN Reason: Dyspepsia Stop: 12/04/21 13:27 Aspirin (Aspirin 81 Mg Ectab) 81 mg PO DAILY [facility] Stop: 12/04/21 13:27 Last Admin: 11/06/21 08:46 Dose: 81 mg Documented by: Atorvastatin Calcium (Atorvastatin 40 Mg Tab) 40 mg PO QAM [facility] Stop: 12/05/21 08:59 Last Admin: 11/06/21 08:44 Dose: 40 mg Documented by: Citalopram Hydrobromide (Citalopram 20 Mg Tab) 10 mg PO DAILY [facility] Stop: 12/05/21 08:59 Last Admin: 11/06/21 08:46 Dose: 10 mg Documented by: Clopidogrel Bisulfate (Clopidogrel Bisulfate 75 Mg Tab) 75 mg PO QAM [facility] Stop: 12/04/21 17:59 Last Admin: 11/06/21 08:45 Dose: 75 mg Documented by: Docusate Sodium (Docusate Sodium 100 Mg Cap) 100 mg PO DAILY [facility] Stop: 12/04/21 13:27 Last Admin: 11/06/21 08:45 Dose: 100 mg Documented by: Ferrous Sulfate (Ferrous Sulfate 325 Mg Tab) 325 mg PO QAM [facility] Stop: 12/04/21 13:27 Last Admin: 11/06/21 08:45 Dose: 325 mg Documented by: Heparin Sodium (Porcine) (Heparin Sod 5,000 Unit/0.5 Ml Vial) 5,000 units SQ Q12 [facility] Stop: 12/04/21 20:59 Last Admin: 11/06/21 08:51 Dose: Not Given Documented by: Magnesium Hydroxide (Magnesium Hydroxide Susp 30 Ml Udc) 30 ml PO Q12H PRN PRN Reason: Constipation Stop: 12/04/21 13:27 Metoprolol Succinate (Metoprolol Succ 25mg Ext Rel Tab) 25 mg PO DAILY [facility] Stop: 12/05/21 08:59 Last Admin: 11/06/21 08:47 Dose: 25 mg Documented by: Multivitamins (Multivitamin Tab) 1 tab PO DAILY [facility] Stop: 12/05/21 08:59 Last Admin: 11/06/21 08:45 Dose: 1 tab Documented by: Ondansetron HCl (Ondansetron Inj 2 Mg/Ml 2 Ml Vial) 4 mg IV Q6H PRN PRN Reason: Nausea Stop: 12/04/21 13:27 Polyethylene Glycol (Polyethylene (Miralax) 17 Gm Pack) 17 gm PO DAILY PRN PRN Reason: Constipation Stop: 12/04/21 13:27 Thiamine HCl (Thiamine Hcl 100 Mg Tab) 100 mg PO DAILY [facility] Stop: 12/05/21 08:59 Last Admin: 11/06/21 08:50 Dose: 100 mg Documented by: Tramadol HCl (Tramadol Hcl 50 Mg Tablet) 50 mg PO Q4H PRN PRN Reason: Severe Pain Stop: 12/04/21 13:27 Last Admin: 11/06/21 08:55 Dose: 50 mg Documented by: Vitamin D (Cholecalciferol 1,000 Units 25 Mcg Tab) 1,000 units PO DAILY [facility] Stop: 12/05/21 08:59 Last Admin: 11/06/21 08:44 Dose: 1,000 units Documented by: Vitamin D (Cholecalciferol 5,000 Units 125 Mcg Tab) 5,000 units PO QAM [facility] Stop: 12/05/21 15:44 Last Admin: 11/06/21 08:46 Dose: 5,000 units Documented by:
--- NOTE | 2021-11-06 16:23 | Communication Note ---
Date of Service: November 06, 2021 Nova is less confused today but remains a little lethargic and has quite a bit of pain in her pelvis. I think she would not be able to tolerate an MRI of the brain and at this point I think it is an academic exercise. She could have had some small thromboembolic events from the left vertebral dissection but a clinically silent and we are treating appropriately with dual antiplatelet therapy Vascular surgery consultation was suggested but this could be done on an outpatient basis. 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 Family asking them to potentially address the carotid disease for an outpatient follow-up perhaps duplex studies but again there is no urgency in this evaluation At this point neurology is simply going to recommend continuing the dual antiplatelet program we will arrange to see her back in our office when she is recovered from her fractures and is able to attend an outpatient visit and we will arrange for her to have a repeat CT angiographic study of the cervical and intracranial vessels in about 3 months The duration of dual antiplatelet therapy in dissection is really not established but I think we can continue it until we see her in the office just to be on the safe side and then go to single antiplatelet therapy after that Neurology will sign off but if there are any changes in her overall status we are certainly quite willing to reassess her Raghu Schwarz MD
[2021-11-07 08:13] LABS: Basophils # (auto) 0.03 K/uL (0-0.2); Basophils % (auto) 0.3 %; Eosinophils # (auto) 0.32 K/uL (0-0.5); Eosinophils % (auto) 2.8 %; Hematocrit (blood only) 29.4 % (37-47); Hemoglobin 9.2 g/dL (12.0-16.0); Immature Granulocytes # (auto) 0.02 K/uL (0.00-0.02); Immature Granulocytes % (auto) 0.2 %; Lymphocytes # (auto) 1.41 K/uL (1.2-3.4); Lymphocytes % (auto) 12.3 %; Mean Corpuscular Hemoglobin 26.2 pg (25-34); Mean Corpuscular Hgb Conc 31.3 g/dL (32-36); Mean Corpuscular Volume 83.8 fL (80-100); Mean Platelet Volume 9.3 fL (7.4-10.4); Monocytes # (auto) 0.82 K/uL (0.11-0.59); Monocytes % (auto) 7.2 %; Neutrophils # (auto) 8.84 K/uL (1.4-6.5); Neutrophils % (auto) 77.2 %; Platelet Count 303 K/uL (130-400); RDW Coefficient of Variation 16.2 % (11.5-14.5); RDW Standard Deviation 48.5 fL (36.4-46.3); Red Blood Count 3.51 M/uL (4.2-5.4); White Blood Count 11.44 K/uL (4.8-10.8)
[2021-11-07] MEDS: ACETAMINOPHEN 325 MG TAB PO SCH ×4 (08:27→20:24)
[2021-11-07] MEDS: ASPIRIN 81 MG ECTAB PO SCH (08:28)
[2021-11-07] MEDS: CHOLECALCIFEROL 1,000 UNITS 25 MCG TAB PO SCH (08:28)
[2021-11-07] MEDS: traMADol HCL 50 MG TABLET PO PRN ×2 (08:28→17:16)
[2021-11-07] MEDS: ATORVASTATIN 40 MG TAB PO SCH (08:29)
[2021-11-07] MEDS: DOCUSATE SODIUM 100 MG CAP PO SCH (08:29)
[2021-11-07] MEDS: CLOPIDOGREL BISULFATE 75 MG TAB PO SCH (08:29)
[2021-11-07] MEDS: CHOLECALCIFEROL 5,000 UNITS 125 MCG TAB PO SCH (08:32)
[2021-11-07] MEDS: CITALOPRAM 20 MG TAB PO SCH (08:32)
[2021-11-07] MEDS: FERROUS SULFATE 325 MG TAB PO SCH (08:32)
[2021-11-07] MEDS: MULTIVITAMIN TAB PO SCH (08:33)
[2021-11-07] MEDS: HEPARIN SOD 5,000 UNIT/0.5 ML VIAL SQ SCH ×2 (08:33→20:25)
[2021-11-07] MEDS: METOPROLOL SUCC 25MG EXT REL TAB PO SCH (08:33)
[2021-11-07 08:34] LABS: BUN Creatinine Ratio 24.6 (10-20); Calcium 8.8 mg/dl (8.5-10.1); Creatinine Clr Calc Pharmacy 62.3 ml/min; Est GFR (African American) 102.2 ml/min; Est GFR (Non-African American) 88.2 ml/min; Potassium 3.8 mmol/L (3.5-5.1)
[2021-11-07] MEDS: THIAMINE HCL 100 MG TAB PO SCH (08:34)
--- NOTE | 2021-11-07 16:10 | Hospitalist Progress Note ---
Date of Service November 07, 2021 Assessment & Plan (1) Fall: (2) Ambulatory dysfunction: (3) Sacral fracture: (4) Bilateral pubic rami fractures: (5) CVA (cerebral vascular accident): (6) Anemia: (7) Leukocytosis: (8) Chronic HFrEF (heart failure with reduced ejection fraction): (9) HTN (hypertension): Plan: This is a 81-year-old female who has a significant past medical history of chronic HFrEF, HTN, HLD, pulm hypertension, CAD, ambulatory dysfunction, depr ession, COPD, history of TIA, history of tension pneumothorax status post chest tube placement who presents to ED secondary to fall 2 days prior to arrival. Fall Ambulatory dysfunction Acute mildly displaced left S2 vertebral body fracture Bilateral inferior pubic rami fracture, right superior pubic ramus fracture and left sacral ala fracture Consult orthopedics-appreciate input and recommendation. Conservative management, PT OT with weightbearing as tolerated with a walker. Follow-up in about 1 month PT/OT-ongoing and will need rehab Pain control with scheduled Tylenol, as needed tramadol vit d level in am daily stool softener Hemoglobin A1c is 5.3 and Vitamin D level is low at 19.3 We will give vitamin D supplement Complains of pain with activities Awaiting placement-remains medically stable with generalized weakness Remains medically stable R occipital lobe CVA hx of tia, no prior hx of known cva likely old as pt currently not having acute cva sx start asa 81mg daily, atorvastatin 40mg daily Appreciate neurology input and recommendation Echo of the heart showed-LV normal in size, LV systolic function is normal with EF 55 to 60%, RV systolic function is normal, left and right atria are normal, aortic valve sclerosis without significant stenosis and there is moderate TR without any interatrial shunt Carotid Doppler showed significant stenosis-appreciate vascular surgery input and recommendation Lipid panel unremarkable Continue aspirin and Plavix for 21 days and may be longer until another CTA is done in about 3 months No additional neuro symptoms Anemia hgb stable at 10.1 previous anemia panel done in OP setting 10/03 revealed ferritin 15, iron 50 tsat 15 hgb stable, no sign of bleeding will start ferrous sulfate daily for now Hemoglobin remains low at 8.4 Leukocytosis may be reactive in setting of fall, no fever pt does complain of urinary frequency, obtain UA Leukocytosis resolved Chronic HFrEF HTN continue metoprolol last echo 01/04/20 EF 35-40% with apical hypokinesis euvolemic, monitor daily weight Echo of the heart showed normal LV function with EF 55-60, RV systolic function normal, the atria are normal, aortic valve sclerosis without significant stenosis, moderate tricuspid regurgitation and did not show any inter-atrial shunt No acute cardiac symptoms and no fluid overload Depression continue citalopram, pt in good spirits DVT ppx: SQ Heparin bid Dispo: med tele, CM consulted for likely rehab DNR/DNI PCP: Lincoln Rodriguez Admission and Anticipated Discharge Date Admission Date: November 04, 2021 Subjective 11/05/2021 The patient was seen and examined in medical telemetry unit She has been generally weak and lethargic and complains to have pelvic pain with movement but denies any other symptoms No fever and or chills, no nausea no vomit 11/06/2021 The patient was seen and examined in medical telemetry unit She has been generally weak and lethargic but denies any other symptoms except pain with movement She has been waiting to be placed 11/07/2021 The patient was seen and examined in medical telemetry unit She has been stable and complains to have pain in pelvis with movement and generalized weakness No chest pain, palpitation or shortness of breath Review of Systems Review of Systems: All systems reviewed and are unremarkable except as noted below Musculoskeletal: Pain in the pelvis with movement Physical Exam Physical Exam: Sitting on a chair without any acute distress Constitutional: + ill appearing and average body habitus Eyes: PERRL, conjunctivae normal, anicteric sclerae ENMT: external ear and nose normal, oropharynx normal Respiratory: no respiratory distress Auscultation: + diminished lung sounds and + crackles (Minimal crackles at the bases) Cardiovascular: Rate/Rhythm: regular rate and regular rhythm; not tachycardic Heart Sounds: normal S1 and normal S2; no murmur Extremities: + edema (Trace edema bilaterally) Gastrointestinal (Abdomen): Inspection/Auscultation: abdomen not distended Percussion/Palpation: abdomen soft; abdomen nontender Musculoskeletal: Pain in the pelvis with movement of the lower extremities Neurologic: Alert, awake and oriented x3. Generally weak and lethargic. No focal neurodeficit Lymphatic: no cervical or axillary lymphadenopathy Results & Data Results & Data ([facility]) Vital Signs (Past 12 Hours) Vital Signs Temp Pulse Pulse Resp BP Pulse Ox 11/07/21 15:23 36.7 C 93 H 18 162/71 H 93 11/07/21 11:13 36.8 C 79 18 139/68 93 11/07/21 08:05 36.7 C 81 18 169/77 H 93 11/07/21 07:54 73 Laboratory Results Short CBC 11/07/21 Range/Units 07:18 WBC 11.44 H (4.8-10.8) K/uL Hgb 9.2 L (12.0-16.0) g/dL Hct 29.4 L (37-47) % Plt Count 303 (130-400) K/uL BMP 11/07/21 07:18 Sodium 136 Potassium 3.8 Chloride 103 Carbon Dioxide 26 BUN 14 Creatinine 0.57 L Glucose 95 Calcium 8.8 Medications Administered Current Inpatient Medications Acetaminophen (Acetaminophen 325 Mg Tab) 650 mg PO Q4H PRN PRN Reason: Pain or Fever Stop: 12/04/21 13:27 Acetaminophen (Acetaminophen 325 Mg Tab) 650 mg PO QID [facility] Stop: 12/04/21 14:59 Last Admin: 11/07/21 13:19 Dose: 650 mg Documented by: Al Hydrox/Mg Hydrox/Simethicone (Aluminum/Magnesium Susp 30 Ml Udc) 15 ml PO Q4H PRN PRN Reason: Dyspepsia Stop: 12/04/21 13:27 Aspirin (Aspirin 81 Mg Ectab) 81 mg PO DAILY [facility] Stop: 12/04/21 13:27 Last Admin: 11/07/21 08:28 Dose: 81 mg Documented by: Atorvastatin Calcium (Atorvastatin 40 Mg Tab) 40 mg PO QAM [facility] Stop: 12/05/21 08:59 Last Admin: 11/07/21 08:29 Dose: 40 mg Documented by: Citalopram Hydrobromide (Citalopram 20 Mg Tab) 10 mg PO DAILY [facility] Stop: 12/05/21 08:59 Last Admin: 11/07/21 08:32 Dose: 10 mg Documented by: Clopidogrel Bisulfate (Clopidogrel Bisulfate 75 Mg Tab) 75 mg PO QAM [facility] Stop: 12/04/21 17:59 Last Admin: 11/07/21 08:29 Dose: 75 mg Documented by: Docusate Sodium (Docusate Sodium 100 Mg Cap) 100 mg PO DAILY [facility] Stop: 12/04/21 13:27 Last Admin: 11/07/21 08:29 Dose: 100 mg Documented by: Ferrous Sulfate (Ferrous Sulfate 325 Mg Tab) 325 mg PO QAM [facility] Stop: 12/04/21 13:27 Last Admin: 11/07/21 08:32 Dose: 325 mg Documented by: Heparin Sodium (Porcine) (Heparin Sod 5,000 Unit/0.5 Ml Vial) 5,000 units SQ Q12 [facility] Stop: 12/04/21 20:59 Last Admin: 11/07/21 08:33 Dose: Not Given Documented by: Magnesium Hydroxide (Magnesium Hydroxide Susp 30 Ml Udc) 30 ml PO Q12H PRN PRN Reason: Constipation Stop: 12/04/21 13:27 Metoprolol Succinate (Metoprolol Succ 25mg Ext Rel Tab) 25 mg PO DAILY [facility] Stop: 12/05/21 08:59 Last Admin: 11/07/21 08:33 Dose: 25 mg Documented by: Multivitamins (Multivitamin Tab) 1 tab PO DAILY [facility] Stop: 12/05/21 08:59 Last Admin: 11/07/21 08:33 Dose: 1 tab Documented by: Ondansetron HCl (Ondansetron Inj 2 Mg/Ml 2 Ml Vial) 4 mg IV Q6H PRN PRN Reason: Nausea Stop: 12/04/21 13:27 Polyethylene Glycol (Polyethylene (Miralax) 17 Gm Pack) 17 gm PO DAILY PRN PRN Reason: Constipation Stop: 12/04/21 13:27 Thiamine HCl (Thiamine Hcl 100 Mg Tab) 100 mg PO DAILY [facility] Stop: 12/05/21 08:59 Last Admin: 11/07/21 08:34 Dose: 100 mg Documented by: Tramadol HCl (Tramadol Hcl 50 Mg Tablet) 50 mg PO Q4H PRN PRN Reason: Severe Pain Stop: 12/04/21 13:27 Last Admin: 11/07/21 08:28 Dose: 50 mg Documented by: Vitamin D (Cholecalciferol 1,000 Units 25 Mcg Tab) 1,000 units PO DAILY [facility] Stop: 12/05/21 08:59 Last Admin: 11/07/21 08:28 Dose: 1,000 units Documented by: Vitamin D (Cholecalciferol 5,000 Units 125 Mcg Tab) 5,000 units PO QAM [facility] Stop: 12/05/21 15:44 Last Admin: 11/07/21 08:32 Dose: 5,000 units Documented by:
[2021-11-08] MEDS: traMADol HCL 50 MG TABLET PO PRN (01:11)
[2021-11-08] MEDS: ACETAMINOPHEN 325 MG TAB PO SCH ×4 (07:41→20:55)
[2021-11-08] MEDS: ATORVASTATIN 40 MG TAB PO SCH (07:41)
[2021-11-08] MEDS: ASPIRIN 81 MG ECTAB PO SCH (07:41)
[2021-11-08] MEDS: CHOLECALCIFEROL 5,000 UNITS 125 MCG TAB PO SCH (07:42)
[2021-11-08] MEDS: CITALOPRAM 20 MG TAB PO SCH (07:42)
[2021-11-08] MEDS: CLOPIDOGREL BISULFATE 75 MG TAB PO SCH (07:42)
[2021-11-08] MEDS: CHOLECALCIFEROL 1,000 UNITS 25 MCG TAB PO SCH (07:42)
[2021-11-08] MEDS: THIAMINE HCL 100 MG TAB PO SCH (07:43)
[2021-11-08] MEDS: DOCUSATE SODIUM 100 MG CAP PO SCH (07:43)
[2021-11-08] MEDS: MULTIVITAMIN TAB PO SCH (07:43)
[2021-11-08] MEDS: METOPROLOL SUCC 25MG EXT REL TAB PO SCH (07:43)
[2021-11-08] MEDS: FERROUS SULFATE 325 MG TAB PO SCH (07:43)
[2021-11-08] MEDS: HEPARIN SOD 5,000 UNIT/0.5 ML VIAL SQ SCH ×2 (07:52→20:54)
--- NOTE | 2021-11-08 13:00 | Hospitalist Progress Note ---
Date of Service November 08, 2021 Assessment & Plan (1) Fall: (2) Ambulatory dysfunction: (3) Sacral fracture: (4) Bilateral pubic rami fractures: (5) CVA (cerebral vascular accident): (6) Anemia: (7) Leukocytosis: (8) Chronic HFrEF (heart failure with reduced ejection fraction): (9) HTN (hypertension): Plan: This is a 81-year-old female who has a significant past medical history of chronic HFrEF, HTN, HLD, pulm hypertension, CAD, ambulatory dysfunction, depr ession, COPD, history of TIA, history of tension pneumothorax status post chest tube placement who presents to ED secondary to fall 2 days prior to arrival. Fall Ambulatory dysfunction Acute mildly displaced left S2 vertebral body fracture Bilateral inferior pubic rami fracture, right superior pubic ramus fracture and left sacral ala fracture Consult orthopedics-appreciate input and recommendation. Conservative management, PT OT with weightbearing as tolerated with a walker. Follow-up in about 1 month PT/OT-ongoing and will need rehab Pain control with scheduled Tylenol, as needed tramadol vit d level in am daily stool softener Hemoglobin A1c is 5.3 and Vitamin D level is low at 19.3 We will give vitamin D supplement Complains of pain with activities Awaiting placement-remains medically stable with generalized weakness Remains medically stable-awaiting placement R occipital lobe CVA hx of tia, no prior hx of known cva likely old as pt currently not having acute cva sx start asa 81mg daily, atorvastatin 40mg daily Appreciate neurology input and recommendation Echo of the heart showed-LV normal in size, LV systolic function is normal with EF 55 to 60%, RV systolic function is normal, left and right atria are normal, aortic valve sclerosis without significant stenosis and there is moderate TR without any interatrial shunt Carotid Doppler showed significant stenosis-appreciate vascular surgery input and recommendation Lipid panel unremarkable Continue aspirin and Plavix for 21 days and may be longer until another CTA is done in about 3 months No additional neuro symptoms Anemia hgb stable at 10.1 previous anemia panel done in OP setting 10/03 revealed ferritin 15, iron 50 tsat 15 hgb stable, no sign of bleeding will start ferrous sulfate daily for now Hemoglobin remains low at 8.4-we will check CBC tomorrow Leukocytosis may be reactive in setting of fall, no fever pt does complain of urinary frequency, obtain UA Leukocytosis resolved Chronic HFrEF HTN continue metoprolol last echo 01/04/20 EF 35-40% with apical hypokinesis euvolemic, monitor daily weight Echo of the heart showed normal LV function with EF 55-60, RV systolic function normal, the atria are normal, aortic valve sclerosis without significant stenosis, moderate tricuspid regurgitation and did not show any inter-atrial shunt No acute cardiac symptoms and no fluid overload Depression continue citalopram, pt in good spirits DVT ppx: SQ Heparin bid Dispo: med tele, CM consulted for likely rehab DNR/DNI PCP: Lincoln Rodriguez Admission and Anticipated Discharge Date Admission Date: November 04, 2021 Subjective 11/05/2021 The patient was seen and examined in medical telemetry unit She has been generally weak and lethargic and complains to have pelvic pain with movement but denies any other symptoms No fever and or chills, no nausea no vomit 11/06/2021 The patient was seen and examined in medical telemetry unit She has been generally weak and lethargic but denies any other symptoms except pain with movement She has been waiting to be placed 11/07/2021 The patient was seen and examined in medical telemetry unit She has been stable and complains to have pain in pelvis with movement and generalized weakness No chest pain, palpitation or shortness of breath 11/08/2021 The patient was seen and examined in medical telemetry unit She remains stable and she has been waiting to go to rehab Denies any symptoms Review of Systems Review of Systems: All systems reviewed and are unremarkable except as noted below Musculoskeletal: Pain in the pelvis with movement Physical Exam Physical Exam: Sitting on a chair without any acute distress Constitutional: + ill appearing and average body habitus Eyes: PERRL, conjunctivae normal, anicteric sclerae ENMT: external ear and nose normal, oropharynx normal Respiratory: no respiratory distress Auscultation: + diminished lung sounds and + crackles (Minimal crackles at the bases) Cardiovascular: Rate/Rhythm: regular rate and regular rhythm; not tachycardic Heart Sounds: normal S1 and normal S2; no murmur Extremities: + edema (Trace edema bilaterally) Gastrointestinal (Abdomen): Inspection/Auscultation: abdomen not distended Percussion/Palpation: abdomen soft; abdomen nontender Musculoskeletal: Has pain in the pelvis with ambulation Neurologic: normal touch/pain/proprioception; no focal motor deficits and not confused Lymphatic: no cervical or axillary lymphadenopathy Results & Data Results & Data ([facility]) Vital Signs (Past 12 Hours) Vital Signs Temp Pulse Pulse Resp BP Pulse Ox 11/08/21 11:34 36.9 C 78 18 138/70 94 11/08/21 06:53 36.8 C 86 16 160/71 H 93 11/08/21 06:11 75 Medications Administered Current Inpatient Medications Acetaminophen (Acetaminophen 325 Mg Tab) 650 mg PO Q4H PRN PRN Reason: Pain or Fever Stop: 12/04/21 13:27 Acetaminophen (Acetaminophen 325 Mg Tab) 650 mg PO QID [facility] Stop: 12/04/21 14:59 Last Admin: 11/08/21 07:41 Dose: 650 mg Documented by: Al Hydrox/Mg Hydrox/Simethicone (Aluminum/Magnesium Susp 30 Ml Udc) 15 ml PO Q4H PRN PRN Reason: Dyspepsia Stop: 12/04/21 13:27 Aspirin (Aspirin 81 Mg Ectab) 81 mg PO DAILY [facility] Stop: 12/04/21 13:27 Last Admin: 11/08/21 07:41 Dose: 81 mg Documented by: Atorvastatin Calcium ([facility]atin 40 Mg Tab) [facility] Stop: 12/05/21 08:59 Last Admin: 11/08/21 07:41 Dose: 40 mg Documented by: Citalopram Hydrobromide (Citalopram 20 Mg Tab) 10 mg PO DAILY [facility] Stop: 12/05/21 08:59 Last Admin: 11/08/21 07:42 Dose: 10 mg Documented by: Clopidogrel Bisulfate (Clopidogrel Bisulfate 75 Mg Tab) 75 mg PO QAM [facility] Stop: 12/04/21 17:59 Last Admin: 11/08/21 07:42 Dose: 75 mg Documented by: Docusate Sodium (Docusate Sodium 100 Mg Cap) 100 mg PO DAILY [facility] Stop: 12/04/21 13:27 Last Admin: 11/08/21 07:43 Dose: 100 mg Documented by: Ferrous Sulfate (Ferrous Sulfate 325 Mg Tab) 325 mg PO QAM [facility] Stop: 12/04/21 13:27 Last Admin: 11/08/21 07:43 Dose: 325 mg Documented by: Heparin Sodium (Porcine) (Heparin Sod 5,000 Unit/0.5 Ml Vial) 5,000 units SQ Q12 [facility] Stop: 12/04/21 20:59 Last Admin: 11/08/21 07:52 Dose: Not Given Documented by: Magnesium Hydroxide (Magnesium Hydroxide Susp 30 Ml Udc) 30 ml PO Q12H PRN PRN Reason: Constipation Stop: 12/04/21 13:27 Metoprolol Succinate (Metoprolol Succ 25mg Ext Rel Tab) 25 mg PO DAILY [facility] Stop: 12/05/21 08:59 Last Admin: 11/08/21 07:43 Dose: 25 mg Documented by: Multivitamins (Multivitamin Tab) 1 tab PO DAILY [facility] Stop: 12/05/21 08:59 Last Admin: 11/08/21 07:43 Dose: 1 tab Documented by: Ondansetron HCl (Ondansetron Inj 2 Mg/Ml 2 Ml Vial) 4 mg IV Q6H PRN PRN Reason: Nausea Stop: 12/04/21 13:27 Polyethylene Glycol (Polyethylene (Miralax) 17 Gm Pack) 17 gm PO DAILY PRN PRN Reason: Constipation Stop: 12/04/21 13:27 Thiamine HCl (Thiamine Hcl 100 Mg Tab) 100 mg PO DAILY [facility] Stop: 12/05/21 08:59 Last Admin: 11/08/21 07:43 Dose: 100 mg Documented by: Tramadol HCl (Tramadol Hcl 50 Mg Tablet) 50 mg PO Q4H PRN PRN Reason: Severe Pain Stop: 12/04/21 13:27 Last Admin: 11/08/21 01:11 Dose: 50 mg Documented by: Vitamin D (Cholecalciferol 1,000 Units 25 Mcg Tab) 1,000 units PO DAILY [facility] Stop: 12/05/21 08:59 Last Admin: 11/08/21 07:42 Dose: 1,000 units Documented by: Vitamin D (Cholecalciferol 5,000 Units 125 Mcg Tab) 5,000 units PO QAM [facility] Stop: 12/05/21 15:44 Last Admin: 11/08/21 07:42 Dose: 5,000 units Documented by:
[2021-11-09 07:17] LABS: Basophils # (auto) 0.02 K/uL (0-0.2); Basophils % (auto) 0.2 %; Eosinophils # (auto) 0.35 K/uL (0-0.5); Eosinophils % (auto) 3.4 %; Hematocrit (blood only) 31.5 % (37-47); Hemoglobin 9.7 g/dL (12.0-16.0); Immature Granulocytes # (auto) 0.04 K/uL (0.00-0.02); Immature Granulocytes % (auto) 0.4 %; Lymphocytes % (auto) 13.7 %; Mean Corpuscular Hemoglobin 26.1 pg (25-34); Mean Corpuscular Hgb Conc 30.8 g/dL (32-36); Mean Corpuscular Volume 84.7 fL (80-100); Mean Platelet Volume 9.3 fL (7.4-10.4); Monocytes # (auto) 1.03 K/uL (0.11-0.59); Monocytes % (auto) 10.1 %; Neutrophils # (auto) 7.37 K/uL (1.4-6.5); Neutrophils % (auto) 72.2 %; Platelet Count 349 K/uL (130-400); RDW Coefficient of Variation 17.2 % (11.5-14.5); RDW Standard Deviation 50.7 fL (36.4-46.3); Red Blood Count 3.72 M/uL (4.2-5.4); White Blood Count 10.21 K/uL (4.8-10.8)
[2021-11-09 07:46] LABS: BUN Creatinine Ratio 19.3 (10-20); Calcium 8.9 mg/dl (8.5-10.1); Creatinine Clr Calc Pharmacy 62.7 ml/min; Est GFR (African American) 102.2 ml/min; Est GFR (Non-African American) 88.2 ml/min; Potassium 4.1 mmol/L (3.5-5.1)
[2021-11-09] MEDS: HEPARIN SOD 5,000 UNIT/0.5 ML VIAL SQ SCH ×2 (09:53→20:24)
[2021-11-09] MEDS: CHOLECALCIFEROL 5,000 UNITS 125 MCG TAB PO SCH (09:53)
[2021-11-09] MEDS: METOPROLOL SUCC 25MG EXT REL TAB PO SCH (09:55)
[2021-11-09] MEDS: CITALOPRAM 20 MG TAB PO SCH (09:56)
[2021-11-09] MEDS: FERROUS SULFATE 325 MG TAB PO SCH (09:56)
[2021-11-09] MEDS: CLOPIDOGREL BISULFATE 75 MG TAB PO SCH (09:56)
[2021-11-09] MEDS: DOCUSATE SODIUM 100 MG CAP PO SCH (09:56)
[2021-11-09] MEDS: THIAMINE HCL 100 MG TAB PO SCH (09:57)
[2021-11-09] MEDS: MULTIVITAMIN TAB PO SCH (09:57)
[2021-11-09] MEDS: ACETAMINOPHEN 325 MG TAB PO SCH ×4 (09:57→20:24)
[2021-11-09] MEDS: ASPIRIN 81 MG ECTAB PO SCH (09:57)
[2021-11-09] MEDS: ATORVASTATIN 40 MG TAB PO SCH (09:57)
[2021-11-09] MEDS: CHOLECALCIFEROL 1,000 UNITS 25 MCG TAB PO SCH (09:57)
--- NOTE | 2021-11-09 13:51 | Hospitalist Progress Note ---
Date of Service November 09, 2021 Assessment & Plan (1) Fall: (2) Ambulatory dysfunction: (3) Sacral fracture: (4) Bilateral pubic rami fractures: (5) CVA (cerebral vascular accident): (6) Anemia: (7) Leukocytosis: (8) Chronic HFrEF (heart failure with reduced ejection fraction): (9) HTN (hypertension): Plan: This is a 81-year-old female who has a significant past medical history of chronic HFrEF, HTN, HLD, pulm hypertension, CAD, ambulatory dysfunction, depr ession, COPD, history of TIA, history of tension pneumothorax status post chest tube placement who presents to ED secondary to fall 2 days prior to arrival. Fall Ambulatory dysfunction Acute mildly displaced left S2 vertebral body fracture Bilateral inferior pubic rami fracture, right superior pubic ramus fracture and left sacral ala fracture Consult orthopedics-appreciate input and recommendation. Conservative management, PT OT with weightbearing as tolerated with a walker. Follow-up in about 1 month PT/OT-ongoing and will need rehab Pain control with scheduled Tylenol, as needed tramadol vit d level in am daily stool softener Hemoglobin A1c is 5.3 and Vitamin D level is low at 19.3 We will give vitamin D supplement Complains of pain with activities Awaiting placement-remains medically stable with generalized weakness Looking much better today without any acute distress R occipital lobe CVA hx of tia, no prior hx of known cva likely old as pt currently not having acute cva sx start asa 81mg daily, atorvastatin 40mg daily Appreciate neurology input and recommendation Echo of the heart showed-LV normal in size, LV systolic function is normal with EF 55 to 60%, RV systolic function is normal, left and right atria are normal, aortic valve sclerosis without significant stenosis and there is moderate TR without any interatrial shunt Carotid Doppler showed significant stenosis-appreciate vascular surgery input and recommendation Lipid panel unremarkable Continue aspirin and Plavix for 21 days and may be longer until another CTA is done in about 3 months No additional neuro symptoms Anemia hgb stable at 10.1 previous anemia panel done in OP setting 10/03 revealed ferritin 15, iron 50 tsat 15 hgb stable, no sign of bleeding will start ferrous sulfate daily for now Hemoglobin remains stable at 9.7 Leukocytosis may be reactive in setting of fall, no fever pt does complain of urinary frequency, obtain UA Leukocytosis resolved Chronic HFrEF HTN continue metoprolol last echo 01/04/20 EF 35-40% with apical hypokinesis euvolemic, monitor daily weight Echo of the heart showed normal LV function with EF 55-60, RV systolic function normal, the atria are normal, aortic valve sclerosis without significant stenosis, moderate tricuspid regurgitation and did not show any inter-atrial shunt No acute cardiac symptoms and no fluid overload Depression continue citalopram, pt in good spirits DVT ppx: SQ Heparin bid Dispo: med tele, CM consulted for likely rehab DNR/DNI PCP: Lincoln Rodriguez Awaiting placement Admission and Anticipated Discharge Date Admission Date: November 04, 2021 Subjective 11/05/2021 The patient was seen and examined in medical telemetry unit She has been generally weak and lethargic and complains to have pelvic pain with movement but denies any other symptoms No fever and or chills, no nausea no vomit 11/06/2021 The patient was seen and examined in medical telemetry unit She has been generally weak and lethargic but denies any other symptoms except pain with movement She has been waiting to be placed 11/07/2021 The patient was seen and examined in medical telemetry unit She has been stable and complains to have pain in pelvis with movement and generalized weakness No chest pain, palpitation or shortness of breath 11/08/2021 The patient was seen and examined in medical telemetry unit She remains stable and she has been waiting to go to rehab Denies any symptoms 11/09/2021 The patient was seen and examined in medical telemetry unit She has been feeling much better and awaiting placement Denies any significant symptoms Review of Systems Review of Systems: All systems reviewed and are unremarkable except as noted below Musculoskeletal: Pain in the pelvis with movement Physical Exam Physical Exam: Sitting on a chair without any acute distress Constitutional: + ill appearing and average body habitus Eyes: PERRL, conjunctivae normal, anicteric sclerae ENMT: external ear and nose normal, oropharynx normal Neck: trachea midline, no thyromegaly Respiratory: no respiratory distress Auscultation: + diminished lung sounds and + crackles (Minimal crackles at the bases) Cardiovascular: Rate/Rhythm: regular rate and regular rhythm; not tachycardic Heart Sounds: normal S1 and normal S2; no murmur Extremities: + edema (Trace edema bilaterally) Gastrointestinal (Abdomen): Inspection/Auscultation: abdomen not distended Percussion/Palpation: abdomen soft; abdomen nontender Musculoskeletal: No acute arthritis in any joint Neurologic: normal touch/pain/proprioception; no focal motor deficits and not confused Psychiatric: A+Ox3, euthymic affect Lymphatic: no cervical or axillary lymphadenopathy Results & Data Results & Data ([facility]) Vital Signs (Past 12 Hours) Vital Signs Temp Pulse Pulse Resp BP BP Pulse Ox 11/09/21 10:44 36.6 C 84 18 146/73 H 91 11/09/21 07:45 68 125/86 11/09/21 07:26 83 11/09/21 03:15 84 Laboratory Results Short CBC 11/09/21 Range/Units 06:15 WBC 10.21 (4.8-10.8) K/uL Hgb 9.7 L (12.0-16.0) g/dL Hct 31.5 L (37-47) % Plt Count 349 (130-400) K/uL BMP 11/09/21 06:15 Sodium 136 Potassium 4.1 Chloride 102 Carbon Dioxide 27 BUN 11 Creatinine 0.57 L Glucose 87 Calcium 8.9 Medications Administered Current Inpatient Medications Acetaminophen (Acetaminophen 325 Mg Tab) 650 mg PO Q4H PRN PRN Reason: Pain or Fever Stop: 12/04/21 13:27 Acetaminophen (Acetaminophen 325 Mg Tab) 650 mg PO QID [facility] Stop: 12/04/21 14:59 Last Admin: 11/09/21 12:48 Dose: 650 mg Documented by: Al Hydrox/Mg Hydrox/Simethicone (Aluminum/Magnesium Susp 30 Ml Udc) 15 ml PO Q4H PRN PRN Reason: Dyspepsia Stop: 12/04/21 13:27 Aspirin (Aspirin 81 Mg Ectab) 81 mg PO DAILY [facility] Stop: 12/04/21 13:27 Last Admin: 11/09/21 09:57 Dose: 81 mg Documented by: Atorvastatin Calcium (Atorvastatin 40 Mg Tab) 40 mg PO QAM [facility] Stop: 12/05/21 08:59 Last Admin: 11/09/21 09:57 Dose: 40 mg Documented by: Citalopram Hydrobromide (Citalopram 20 Mg Tab) 10 mg PO DAILY [facility] Stop: 12/05/21 08:59 Last Admin: 11/09/21 09:56 Dose: 10 mg Documented by: Clopidogrel Bisulfate (Clopidogrel Bisulfate 75 Mg Tab) 75 mg PO QAM [facility] Stop: 12/04/21 17:59 Last Admin: 11/09/21 09:56 Dose: 75 mg Documented by: Docusate Sodium (Docusate Sodium 100 Mg Cap) 100 mg PO DAILY [facility] Stop: 12/04/21 13:27 Last Admin: 11/09/21 09:56 Dose: 100 mg Documented by: Ferrous Sulfate (Ferrous Sulfate 325 Mg Tab) 325 mg PO QAM [facility] Stop: 12/04/21 13:27 Last Admin: 11/09/21 09:56 Dose: 325 mg Documented by: Heparin Sodium (Porcine) (Heparin Sod 5,000 Unit/0.5 Ml Vial) 5,000 units SQ Q12 [facility] Stop: 12/04/21 20:59 Last Admin: 11/09/21 09:53 Dose: 5,000 units Documented by: Magnesium Hydroxide (Magnesium Hydroxide Susp 30 Ml Udc) 30 ml PO Q12H PRN PRN Reason: Constipation Stop: 12/04/21 13:27 Metoprolol Succinate (Metoprolol Succ 25mg Ext Rel Tab) 25 mg PO DAILY [facility] Stop: 12/05/21 08:59 Last Admin: 11/09/21 09:55 Dose: 25 mg Documented by: Multivitamins (Multivitamin Tab) 1 tab PO DAILY [facility] Stop: 12/05/21 08:59 Last Admin: 11/09/21 09:57 Dose: 1 tab Documented by: Ondansetron HCl (Ondansetron Inj 2 Mg/Ml 2 Ml Vial) 4 mg IV Q6H PRN PRN Reason: Nausea Stop: 12/04/21 13:27 Last Admin: 11/08/21 14:56 Dose: 4 mg Documented by: Polyethylene Glycol (Polyethylene (Miralax) 17 Gm Pack) 17 gm PO DAILY PRN PRN Reason: Constipation Stop: 12/04/21 13:27 Thiamine HCl (Thiamine Hcl 100 Mg Tab) 100 mg PO DAILY [facility] Stop: 12/05/21 08:59 Last Admin: 11/09/21 09:57 Dose: 100 mg Documented by: Tramadol HCl (Tramadol Hcl 50 Mg Tablet) 50 mg PO Q4H PRN PRN Reason: Severe Pain Stop: 12/04/21 13:27 Last Admin: 11/08/21 01:11 Dose: 50 mg Documented by: Vitamin D (Cholecalciferol 1,000 Units 25 Mcg Tab) 1,000 units PO DAILY [facility] Stop: 12/05/21 08:59 Last Admin: 11/09/21 09:57 Dose: 1,000 units Documented by: Vitamin D (Cholecalciferol 5,000 Units 125 Mcg Tab) 5,000 units PO QAM [facility] Stop: 12/05/21 15:44 Last Admin: 11/09/21 09:53 Dose: 5,000 units Documented by:
[2021-11-10] MEDS: MULTIVITAMIN TAB PO SCH (09:26)
[2021-11-10] MEDS: CHOLECALCIFEROL 5,000 UNITS 125 MCG TAB PO SCH (09:26)
[2021-11-10] MEDS: ACETAMINOPHEN 325 MG TAB PO SCH ×4 (09:27→20:58)
[2021-11-10] MEDS: CITALOPRAM 20 MG TAB PO SCH (09:27)
[2021-11-10] MEDS: METOPROLOL SUCC 25MG EXT REL TAB PO SCH (09:27)
[2021-11-10] MEDS: CLOPIDOGREL BISULFATE 75 MG TAB PO SCH (09:27)
[2021-11-10] MEDS: CHOLECALCIFEROL 1,000 UNITS 25 MCG TAB PO SCH (09:27)
[2021-11-10] MEDS: HEPARIN SOD 5,000 UNIT/0.5 ML VIAL SQ SCH ×2 (09:28→20:59)
[2021-11-10] MEDS: THIAMINE HCL 100 MG TAB PO SCH (09:28)
[2021-11-10] MEDS: FERROUS SULFATE 325 MG TAB PO SCH (09:28)
[2021-11-10] MEDS: ASPIRIN 81 MG ECTAB PO SCH (09:28)
[2021-11-10] MEDS: ATORVASTATIN 40 MG TAB PO SCH (09:28)
[2021-11-10] MEDS: DOCUSATE SODIUM 100 MG CAP PO SCH (09:28)
--- NOTE | 2021-11-10 14:13 | Hospitalist Progress Note ---
Date of Service November 10, 2021 Assessment & Plan (1) Fall: (2) Ambulatory dysfunction: (3) Sacral fracture: (4) Bilateral pubic rami fractures: (5) CVA (cerebral vascular accident): (6) Anemia: (7) Leukocytosis: (8) Chronic HFrEF (heart failure with reduced ejection fraction): (9) HTN (hypertension): Plan: This is a 81-year-old female who has a significant past medical history of chronic HFrEF, HTN, HLD, pulm hypertension, CAD, ambulatory dysfunction, depr ession, COPD, history of TIA, history of tension pneumothorax status post chest tube placement who presents to ED secondary to fall 2 days prior to arrival. Fall Ambulatory dysfunction Acute mildly displaced left S2 vertebral body fracture Bilateral inferior pubic rami fracture, right superior pubic ramus fracture and left sacral ala fracture Consult orthopedics-appreciate input and recommendation. Conservative management, PT OT with weightbearing as tolerated with a walker. Follow-up in about 1 month PT/OT-ongoing and will need rehab Pain control with scheduled Tylenol, as needed tramadol vit d level in am daily stool softener Hemoglobin A1c is 5.3 and Vitamin D level is low at 19.3 We will give vitamin D supplement Complains of pain with activities Awaiting placement-remains medically stable with generalized weakness Looking much better today without any acute distress Remains stable and denies any significant symptoms R occipital lobe CVA hx of tia, no prior hx of known cva likely old as pt currently not having acute cva sx start asa 81mg daily, atorvastatin 40mg daily Appreciate neurology input and recommendation Echo of the heart showed-LV normal in size, LV systolic function is normal with EF 55 to 60%, RV systolic function is normal, left and right atria are normal, aortic valve sclerosis without significant stenosis and there is moderate TR without any interatrial shunt Carotid Doppler showed significant stenosis-appreciate vascular surgery input and recommendation Lipid panel unremarkable Continue aspirin and Plavix for 21 days and may be longer until another CTA is done in about 3 months No additional neuro symptoms Anemia hgb stable at 10.1 previous anemia panel done in OP setting 10/03 revealed ferritin 15, iron 50 tsat 15 hgb stable, no sign of bleeding will start ferrous sulfate daily for now Hemoglobin remains stable at 9.7 Leukocytosis may be reactive in setting of fall, no fever pt does complain of urinary frequency, obtain UA Leukocytosis resolved Chronic HFrEF HTN continue metoprolol last echo 01/04/20 EF 35-40% with apical hypokinesis euvolemic, monitor daily weight Echo of the heart showed normal LV function with EF 55-60, RV systolic function normal, the atria are normal, aortic valve sclerosis without significant stenosis, moderate tricuspid regurgitation and did not show any inter-atrial shunt No acute cardiac symptoms and no fluid overload Depression continue citalopram, pt in good spirits DVT ppx: SQ Heparin bid Dispo: med tele, CM consulted for likely rehab DNR/DNI PCP: Lincoln Rodriguez Awaiting placement Admission and Anticipated Discharge Date Admission Date: November 04, 2021 Subjective 11/05/2021 The patient was seen and examined in medical telemetry unit She has been generally weak and lethargic and complains to have pelvic pain with movement but denies any other symptoms No fever and or chills, no nausea no vomit 11/06/2021 The patient was seen and examined in medical telemetry unit She has been generally weak and lethargic but denies any other symptoms except pain with movement She has been waiting to be placed 11/07/2021 The patient was seen and examined in medical telemetry unit She has been stable and complains to have pain in pelvis with movement and generalized weakness No chest pain, palpitation or shortness of breath 11/08/2021 The patient was seen and examined in medical telemetry unit She remains stable and she has been waiting to go to rehab Denies any symptoms 11/09/2021 The patient was seen and examined in medical telemetry unit She has been feeling much better and awaiting placement Denies any significant symptoms 11/10/2021 The patient was seen and examined in medical telemetry unit She remains stable and has been waiting to be placed Minimal pain in the pelvis with ambulation but otherwise asymptomatic Review of Systems Review of Systems: All systems reviewed and are unremarkable except as noted below Musculoskeletal: Pain in the pelvis with movement Physical Exam Physical Exam: Sitting on a chair without any acute distress Constitutional: average body habitus; not ill appearing Eyes: PERRL, conjunctivae normal, anicteric sclerae ENMT: external ear and nose normal, oropharynx normal Neck: trachea midline, no thyromegaly Respiratory: no respiratory distress Auscultation: + diminished lung sounds and + crackles (Minimal crackles at the bases) Cardiovascular: Rate/Rhythm: regular rate and regular rhythm; not tachycardic Heart Sounds: normal S1 and normal S2; no murmur Extremities: + edema (Trace edema bilaterally) Gastrointestinal (Abdomen): Inspection/Auscultation: abdomen not distended Percussion/Palpation: abdomen soft; abdomen nontender Musculoskeletal: No acute arthritis in any joint Neurologic: normal touch/pain/proprioception; no focal motor deficits and not confused Psychiatric: A+Ox3, euthymic affect Lymphatic: no cervical or axillary lymphadenopathy Results & Data Results & Data ([facility] Vital Signs (Past 12 Hours) Vital Signs Temp Pulse Pulse Resp BP BP Pulse Ox 11/10/21 11:30 36.4 C L 82 14 165/78 H 94 11/10/21 07:00 79 11/10/21 06:27 36.6 C 84 16 163/69 H 96 11/10/21 04:11 36.8 C 82 18 144/79 H 93 Medications Administered Current Inpatient Medications Acetaminophen (Acetaminophen 325 Mg Tab) 650 mg PO Q4H PRN PRN Reason: Pain or Fever Stop: 12/04/21 13:27 Acetaminophen (Acetaminophen 325 Mg Tab) 650 mg PO QID [facility] Stop: 12/04/21 14:59 Last Admin: 11/10/21 09:27 Dose: 650 mg Documented by: Al Hydrox/Mg Hydrox/Simethicone (Aluminum/Magnesium Susp 30 Ml Udc) 15 ml PO Q4H PRN PRN Reason: Dyspepsia Stop: 12/04/21 13:27 Aspirin (Aspirin 81 Mg Ectab) 81 mg PO DAILY [facility] Stop: 12/04/21 13:27 Last Admin: 11/10/21 09:28 Dose: 81 mg Documented by: Atorvastatin Calcium (Ator[facility]atin 40 Mg Tab) [facility] Stop: 12/05/21 08:59 Last Admin: 11/10/21 09:28 Dose: 40 mg Documented by: Citalopram Hydrobromide (Citalopram 20 Mg Tab) 10 mg PO DAILY [facility] Stop: 12/05/21 08:59 Last Admin: 11/10/21 09:27 Dose: 10 mg Documented by: Clopidogrel Bisulfate (Clopidogrel Bisulfate 75 Mg Tab) 75 mg [facility] Stop: 12/04/21 17:59 Last Admin: 11/10/21 09:27 Dose: 75 mg Documented by: Docusate Sodium (Docusate Sodium 100 Mg Cap) 100 mg PO DAILY [facility] Stop: 12/04/21 13:27 Last Admin: 11/10/21 09:28 Dose: 100 mg Documented by: Ferrous Sulfate (Ferrous Sulfate 325 Mg Tab) 325 mg PO QAM [facility] Stop: 12/04/21 13:27 Last Admin: 11/10/21 09:28 Dose: 325 mg Documented by: Heparin Sodium (Porcine) (Heparin Sod 5,000 Unit/0.5 Ml Vial) 5,000 units SQ Q12 [facility] Stop: 12/04/21 20:59 Last Admin: 11/10/21 09:28 Dose: 5,000 units Documented by: Magnesium Hydroxide (Magnesium Hydroxide Susp 30 Ml Udc) 30 ml PO Q12H PRN PRN Reason: Constipation Stop: 12/04/21 13:27 Metoprolol Succinate (Metoprolol Succ 25mg Ext Rel Tab) 25 mg PO DAILY [facility] Stop: 12/05/21 08:59 Last Admin: 11/10/21 09:27 Dose: 25 mg Documented by: Multivitamins (Multivitamin Tab) 1 tab PO DAILY [facility] Stop: 12/05/21 08:59 Last Admin: 11/10/21 09:26 Dose: 1 tab Documented by: Ondansetron HCl (Ondansetron Inj 2 Mg/Ml 2 Ml Vial) 4 mg IV Q6H PRN PRN Reason: Nausea Stop: 12/04/21 13:27 Last Admin: 11/08/21 14:56 Dose: 4 mg Documented by: Polyethylene Glycol (Polyethylene (Miralax) 17 Gm Pack) 17 gm PO DAILY PRN PRN Reason: Constipation Stop: 12/04/21 13:27 Thiamine HCl (Thiamine Hcl 100 Mg Tab) 100 mg PO DAILY [facility] Stop: 12/05/21 08:59 Last Admin: 11/10/21 09:28 Dose: 100 mg Documented by: Tramadol HCl (Tramadol Hcl 50 Mg Tablet) 50 mg PO Q4H PRN PRN Reason: Severe Pain Stop: 12/04/21 13:27 Last Admin: 11/08/21 01:11 Dose: 50 mg Documented by: Vitamin D (Cholecalciferol 1,000 Units 25 Mcg Tab) 1,000 units PO DAILY [facility] Stop: 12/05/21 08:59 Last Admin: 11/10/21 09:27 Dose: 1,000 units Documented by: Vitamin D (Cholecalciferol 5,000 Units 125 Mcg Tab) 5,000 units PO [facility] Stop: 12/05/21 15:44 Last Admin: 11/10/21 09:26 Dose: 5,000 units Documented by:
[2021-11-10] MEDS ORDERED: ZOLPIDEM TARTRATE 5 MG TAB PO STA (19:54)
[2021-11-11 06:48] LABS: Basophils # (auto) 0.02 K/uL (0-0.2); Basophils % (auto) 0.2 %; Eosinophils # (auto) 0.31 K/uL (0-0.5); Eosinophils % (auto) 3.5 %; Hematocrit (blood only) 30.6 % (37-47); Hemoglobin 9.9 g/dL (12.0-16.0); Immature Granulocytes # (auto) 0.02 K/uL (0.00-0.02); Immature Granulocytes % (auto) 0.2 %; Lymphocytes # (auto) 1.55 K/uL (1.2-3.4); Lymphocytes % (auto) 17.3 %; Mean Corpuscular Hemoglobin 27.2 pg (25-34); Mean Corpuscular Hgb Conc 32.4 g/dL (32-36); Mean Corpuscular Volume 84.1 fL (80-100); Mean Platelet Volume 8.8 fL (7.4-10.4); Monocytes # (auto) 0.85 K/uL (0.11-0.59); Monocytes % (auto) 9.5 %; Neutrophils # (auto) 6.21 K/uL (1.4-6.5); Neutrophils % (auto) 69.3 %; Platelet Count 347 K/uL (130-400); RDW Coefficient of Variation 17.2 % (11.5-14.5); RDW Standard Deviation 52.5 fL (36.4-46.3); Red Blood Count 3.64 M/uL (4.2-5.4); White Blood Count 8.96 K/uL (4.8-10.8)
[2021-11-11 07:41] LABS: Est GFR (African American) 105.3 ml/min; Potassium 4.1 mmol/L (3.5-5.1)
[2021-11-11 07:42] LABS: BUN Creatinine Ratio 23.1 (10-20); Calcium 9.1 mg/dl (8.5-10.1); Creatinine Clr Calc Pharmacy 66.9 ml/min; Est GFR (Non-African American) 90.9 ml/min
[2021-11-11] MEDS: CHOLECALCIFEROL 5,000 UNITS 125 MCG TAB PO SCH (09:16)
[2021-11-11] MEDS: MULTIVITAMIN TAB PO SCH (09:16)
[2021-11-11] MEDS: CITALOPRAM 20 MG TAB PO SCH (09:16)
[2021-11-11] MEDS: FERROUS SULFATE 325 MG TAB PO SCH (09:16)
[2021-11-11] MEDS: ACETAMINOPHEN 325 MG TAB PO SCH ×4 (09:16→20:28)
[2021-11-11] MEDS: ASPIRIN 81 MG ECTAB PO SCH (09:16)
[2021-11-11] MEDS: METOPROLOL SUCC 25MG EXT REL TAB PO SCH (09:16)
[2021-11-11] MEDS: THIAMINE HCL 100 MG TAB PO SCH (09:16)
[2021-11-11] MEDS: CHOLECALCIFEROL 1,000 UNITS 25 MCG TAB PO SCH (09:17)
[2021-11-11] MEDS: ATORVASTATIN 40 MG TAB PO SCH (09:17)
[2021-11-11] MEDS: DOCUSATE SODIUM 100 MG CAP PO SCH (09:17)
[2021-11-11] MEDS: CLOPIDOGREL BISULFATE 75 MG TAB PO SCH (09:17)
[2021-11-11] MEDS: HEPARIN SOD 5,000 UNIT/0.5 ML VIAL SQ SCH ×2 (11:17→20:29)
--- NOTE | 2021-11-11 18:36 | Hospitalist Progress Note ---
Date of Service November 11, 2021 Assessment & Plan (1) Fall: (2) Ambulatory dysfunction: (3) Sacral fracture: (4) Bilateral pubic rami fractures: (5) CVA (cerebral vascular accident): (6) Anemia: (7) Leukocytosis: (8) Chronic HFrEF (heart failure with reduced ejection fraction): (9) HTN (hypertension): Plan: This is a 81-year-old female who has a significant past medical history of chronic HFrEF, HTN, HLD, pulm hypertension, CAD, ambulatory dysfunction, depr ession, COPD, history of TIA, history of tension pneumothorax status post chest tube placement who presents to ED secondary to fall 2 days prior to arrival. Fall Ambulatory dysfunction Acute mildly displaced left S2 vertebral body fracture Bilateral inferior pubic rami fracture, right superior pubic ramus fracture and left sacral ala fracture Consult orthopedics-appreciate input and recommendation. Conservative management, PT OT with weightbearing as tolerated with a walker. Follow-up in about 1 month PT/OT-ongoing and will need rehab Pain control with scheduled Tylenol, as needed tramadol vit d level in am daily stool softener Hemoglobin A1c is 5.3 and Vitamin D level is low at 19.3 We will give vitamin D supplement Complains of pain with activities Awaiting placement-remains medically stable with generalized weakness Looking much better today without any acute distress Remains stable and denies any significant symptoms Medically stable and awaiting placement R occipital lobe CVA hx of tia, no prior hx of known cva likely old as pt currently not having acute cva sx start asa 81mg daily, atorvastatin 40mg daily Appreciate neurology input and recommendation Echo of the heart showed-LV normal in size, LV systolic function is normal with EF 55 to 60%, RV systolic function is normal, left and right atria are normal, aortic valve sclerosis without significant stenosis and there is moderate TR without any interatrial shunt Carotid Doppler showed significant stenosis-appreciate vascular surgery input and recommendation Lipid panel unremarkable Continue aspirin and Plavix for 21 days and may be longer until another CTA is done in about 3 months No additional neuro symptoms Anemia hgb stable at 10.1 previous anemia panel done in OP setting 10/03 revealed ferritin 15, iron 50 tsat 15 hgb stable, no sign of bleeding will start ferrous sulfate daily for now Hemoglobin remains stable at 9.7 and 9.9 today Leukocytosis may be reactive in setting of fall, no fever pt does complain of urinary frequency, obtain UA Leukocytosis resolved Chronic HFrEF HTN continue metoprolol last echo 01/04/20 EF 35-40% with apical hypokinesis euvolemic, monitor daily weight Echo of the heart showed normal LV function with EF 55-60, RV systolic function normal, the atria are normal, aortic valve sclerosis without significant stenosis, moderate tricuspid regurgitation and did not show any inter-atrial shunt No acute cardiac symptoms and no fluid overload Depression continue citalopram, pt in good spirits DVT ppx: SQ Heparin bid Dispo: med tele, CM consulted for likely rehab DNR/DNI PCP: Lincoln Rodriguez Awaiting placement Admission and Anticipated Discharge Date Admission Date: November 04, 2021 Subjective 11/05/2021 The patient was seen and examined in medical telemetry unit She has been generally weak and lethargic and complains to have pelvic pain with movement but denies any other symptoms No fever and or chills, no nausea no vomit 11/06/2021 The patient was seen and examined in medical telemetry unit She has been generally weak and lethargic but denies any other symptoms except pain with movement She has been waiting to be placed 11/07/2021 The patient was seen and examined in medical telemetry unit She has been stable and complains to have pain in pelvis with movement and generalized weakness No chest pain, palpitation or shortness of breath 11/08/2021 The patient was seen and examined in medical telemetry unit She remains stable and she has been waiting to go to rehab Denies any symptoms 11/09/2021 The patient was seen and examined in medical telemetry unit She has been feeling much better and awaiting placement Denies any significant symptoms 11/10/2021 The patient was seen and examined in medical telemetry unit She remains stable and has been waiting to be placed Minimal pain in the pelvis with ambulation but otherwise asymptomatic 11/11/2021 The patient was seen and examined in medical telemetry unit She remains stable with some weakness but denies any significant symptoms She has been waiting to be placed Review of Systems Review of Systems: All systems reviewed and are unremarkable except as noted below Musculoskeletal: Pain in the pelvis with movement Physical Exam Physical Exam: Sitting on a chair without any acute distress Constitutional: average body habitus; not ill appearing Eyes: PERRL, conjunctivae normal, anicteric sclerae ENMT: external ear and nose normal, oropharynx normal Neck: trachea midline, no thyromegaly Respiratory: no respiratory distress Auscultation: + diminished lung sounds and + crackles (Minimal crackles at the bases) Cardiovascular: Rate/Rhythm: regular rate and regular rhythm; not tachycardic Heart Sounds: normal S1 and normal S2; no murmur Extremities: + edema (Trace edema bilaterally) Gastrointestinal (Abdomen): Inspection/Auscultation: abdomen not distended Percussion/Palpation: abdomen soft; abdomen nontender Musculoskeletal: No acute arthritis involving any of the joints but complains to have pelvic pain with movement Neurologic: normal touch/pain/proprioception; no focal motor deficits and not confused Psychiatric: A+Ox3, euthymic affect Lymphatic: no cervical or axillary lymphadenopathy Results & Data Results & Data ([facility]) Vital Signs (Past 12 Hours) Vital Signs Temp Pulse Pulse Resp BP BP Pulse Ox 11/11/21 15:26 82 11/11/21 15:21 36.7 C 81 16 160/80 H 95 11/11/21 11:32 36.6 C 89 18 100/62 95 11/11/21 07:18 36.7 C 80 18 136/67 94 11/11/21 07:00 83 Laboratory Results Short CBC 11/11/21 Range/Units 06:27 WBC 8.96 (4.8-10.8) K/uL Hgb 9.9 L (12.0-16.0) g/dL Hct 30.6 L (37-47) % Plt Count 347 (130-400) K/uL BMP 11/11/21 06:27 Sodium 135 L Potassium 4.1 Chloride 102 Carbon Dioxide 27 BUN 12 Creatinine 0.52 L Glucose 93 Calcium 9.1 Medications Administered Current Inpatient Medications Acetaminophen (Acetaminophen 325 Mg Tab) 650 mg PO Q4H PRN PRN Reason: Pain or Fever Stop: 12/04/21 13:27 Acetaminophen (Acetaminophen 325 Mg Tab) 650 mg PO QID [facility] Stop: 12/04/21 14:59 Last Admin: 11/11/21 17:16 Dose: 650 mg Documented by: Al Hydrox/Mg Hydrox/Simethicone (Aluminum/Magnesium Susp 30 Ml Udc) 15 ml PO Q4H PRN PRN Reason: Dyspepsia Stop: 12/04/21 13:27 Aspirin (Aspirin 81 Mg Ectab) 81 mg PO DAILY [facility] Stop: 12/04/21 13:27 Last Admin: 11/11/21 09:16 Dose: 81 mg Documented by: Atorvastatin Calcium (Atorvastatin 40 Mg Tab) 40 mg PO QAM [facility] Stop: 12/05/21 08:59 Last Admin: 11/11/21 09:17 Dose: 40 mg Documented by: Citalopram Hydrobromide (Citalopram 20 Mg Tab) 10 mg PO DAILY [facility] Stop: 12/05/21 08:59 Last Admin: 11/11/21 09:16 Dose: 10 mg Documented by: Clopidogrel Bisulfate (Clopidogrel Bisulfate 75 Mg Tab) 75 mg PO QAM [facility] Stop: 12/04/21 17:59 Last Admin: 11/11/21 09:17 Dose: 75 mg Documented by: Docusate Sodium (Docusate Sodium 100 Mg Cap) 100 mg PO DAILY [facility] Stop: 12/04/21 13:27 Last Admin: 11/11/21 09:17 Dose: 100 mg Documented by: Ferrous Sulfate (Ferrous Sulfate 325 Mg Tab) 325 mg PO QAM [facility] Stop: 12/04/21 13:27 Last Admin: 11/11/21 09:16 Dose: 325 mg Documented by: Heparin Sodium (Porcine) (Heparin Sod 5,000 Unit/0.5 Ml Vial) 5,000 units SQ Q12 [facility] Stop: 12/04/21 20:59 Last Admin: 11/11/21 11:17 Dose: Not Given Documented by: Magnesium Hydroxide (Magnesium Hydroxide Susp 30 Ml Udc) 30 ml PO Q12H PRN PRN Reason: Constipation Stop: 12/04/21 13:27 Metoprolol Succinate (Metoprolol Succ 25mg Ext Rel Tab) 25 mg PO DAILY [facility] Stop: 12/05/21 08:59 Last Admin: 11/11/21 09:16 Dose: 25 mg Documented by: Multivitamins (Multivitamin Tab) 1 tab PO DAILY [facility] Stop: 12/05/21 08:59 Last Admin: 11/11/21 09:16 Dose: 1 tab Documented by: Ondansetron HCl (Ondansetron Inj 2 Mg/Ml 2 Ml Vial) 4 mg IV Q6H PRN PRN Reason: Nausea Stop: 12/04/21 13:27 Last Admin: 11/08/21 14:56 Dose: 4 mg Documented by: Polyethylene Glycol (Polyethylene (Miralax) 17 Gm Pack) 17 gm PO DAILY PRN PRN Reason: Constipation Stop: 12/04/21 13:27 Thiamine HCl (Thiamine Hcl 100 Mg Tab) 100 mg PO DAILY [facility] Stop: 12/05/21 08:59 Last Admin: 11/11/21 09:16 Dose: 100 mg Documented by: Tramadol HCl (Tramadol Hcl 50 Mg Tablet) 50 mg PO Q4H PRN PRN Reason: Severe Pain Stop: 12/04/21 13:27 Last Admin: 11/08/21 01:11 Dose: 50 mg Documented by: Vitamin D (Cholecalciferol 1,000 Units 25 Mcg Tab) 1,000 units PO DAILY [facility] Stop: 12/05/21 08:59 Last Admin: 11/11/21 09:17 Dose: 1,000 units Documented by: Vitamin D (Cholecalciferol 5,000 Units 125 Mcg Tab) 5,000 units PO QAM [facility] Stop: 12/05/21 15:44 Last Admin: 11/11/21 09:16 Dose: 5,000 units Documented by:
[2021-11-11] MEDS ORDERED: ZOLPIDEM TARTRATE 5 MG TAB PO STA (19:21)
[2021-11-12] MEDS: ACETAMINOPHEN 325 MG TAB PO SCH ×2 (07:36→15:02)
[2021-11-12] MEDS: CHOLECALCIFEROL 1,000 UNITS 25 MCG TAB PO SCH (07:37)
[2021-11-12] MEDS: MULTIVITAMIN TAB PO SCH (07:37)
[2021-11-12] MEDS: CITALOPRAM 20 MG TAB PO SCH (07:37)
[2021-11-12] MEDS: THIAMINE HCL 100 MG TAB PO SCH (07:37)
[2021-11-12] MEDS: METOPROLOL SUCC 25MG EXT REL TAB PO SCH (07:38)
[2021-11-12] MEDS: FERROUS SULFATE 325 MG TAB PO SCH (07:38)
[2021-11-12] MEDS: DOCUSATE SODIUM 100 MG CAP PO SCH (07:38)
[2021-11-12] MEDS: ATORVASTATIN 40 MG TAB PO SCH (07:38)
[2021-11-12] MEDS: HEPARIN SOD 5,000 UNIT/0.5 ML VIAL SQ SCH (07:38)
[2021-11-12] MEDS: CHOLECALCIFEROL 5,000 UNITS 125 MCG TAB PO SCH (07:38)
[2021-11-12] MEDS: CLOPIDOGREL BISULFATE 75 MG TAB PO SCH (07:38)
[2021-11-12] MEDS: ASPIRIN 81 MG ECTAB PO SCH (07:38)
--- NOTE | 2021-11-13 21:22 | Discharge Summary ---
Date of Service November 13, 2021 Admission HPI Per Admitting Provider This is a 81-year-old female who has a significant past medical history of chronic HFrEF, HTN, HLD, pulm hypertension, CAD, ambulatory dysfunction, depression, COPD, history of TIA, history of tension pneumothorax status post chest tube placement who presents to ED secondary to fall 2 days prior to arrival. She denies hittinh her head or loss of consciousness. Currently she lives at home and her daughter at bedside lives next door. Patient fell 2 days ago, but has been able to ambulate. This morning when she woke up her daughter came to check on her. She was unable to get up due to significant pain. Her pain is located mostly in the pelvis and hip region, right greater than left and low back. She denies any saddle anesthesia, bowel or urinary incontinence, numbness or tingling to bilateral lower extremities. She is otherwise been in her normal state of health. She denies any fever, chills, sweats, lightheadedness, dizziness, chest pain, shortness of breath, cough, URI symptoms, nausea, vomiting, abdominal pain, dysuria, hematuria, melena or hematochezia. She does complain of increased urinary frequency. Per daughter at bedside she most recently has been treated for UTI with Bactrim. She has been compliant with her medications. She denies any generalized weakness, unilateral weakness, slurred speech, headache or change in vision. In ED patient made hemodynamically stable although mildly hypertensive likely in setting of pain. She underwent lumbar spine and pelvis CT which revealed fractures of the bilateral inferior pubic rami, right superior pubic rami fracture and fracture of left sacral ala. Lumbar spine CT revealed severe multilevel facet arthrosis along with an acute mildly displaced fracture of the left aspect of the S2 vertebral body. Head CT was performed which revealed old lacunar infarcts in the bilateral thalami. Also noted was a small age- indeterminate infarct within the right occipital lobe. Daughter at bedside admits to prior history of TIA. She has also been seen by neuro secondary to memory loss. No formal diagnosis of stroke. No recent weight no strokelike symptoms. Patient's epic record was reviewed. Last echocardiogram was 01/03/2021 showed an EF of 35 to 40% with apical hypokinesis. Principal Diagnosis Pubic Rami fracture Age indeterminate stroke Bilateral carotid artery disease Left distal vertebral artery dissection Discharge Exam Patient feels well. Pain well controlled. Breathing comfortably on room air. No acute distress Discharge Data Allergies Allergy/AdvReac Type Severity Reaction Status Date / Time No Known Drug Allergies Allergy Unknown . Verified 01/26/20 14:41 Consultations 11/04/21 11:07 ED Decision to Admit Stat 11/04/21 11:18 Consult Neurology Routine 11/04/21 11:48 Consult Orthopedic Surgery Routine 11/04/21 17:57 Consult Vascular Surgery Routine Ordered Studies 11/04/21 09:34 CT lumbar spine wo con Stat CT pelvis wo con Stat 11/04/21 09:35 CT head/brain wo con Stat 11/04/21 14:48 CT angio head w con Routine CT angio neck with con Routine Hospital Course (1) Fall: (2) Ambulatory dysfunction: (3) Sacral fracture: (4) Bilateral pubic rami fractures: (5) CVA (cerebral vascular accident): (6) Anemia: (7) Leukocytosis: (8) Chronic HFrEF (heart failure with reduced ejection fraction): (9) HTN (hypertension): Mrs Nova Moreno is a 81 year old female with mild cognitive impairment, who lives in her own home next to her daughter, history of TIA, COPD, CAD, chronic systolic CHF presented to the ER 11/04 for worsening pelvis pain after a fall at home several days prior. Here, she was found to have bilateral sacral fractures. She was placed on scheduled tylenol and PRN tramadol with adequate control of her pain. She had a CT head which showed a small age indeterminate occipital infarct. She had a follow up CTA head/neck which showed bilateral carotid artery disease and distal left vertebral artery dissection. She was seen by Neurology and started on aspirin/plavix and statin. She did not get an MRI brain due to being unable to lay still due to her sacral fracture and pain. She will follow up with Neurology for repeat CTA neck in 3 months. She was also seen by Vascular surge ry and recommended to follow up with them outpatient to consider CEA. She was seen by PT and SNF was recommended. She was accepted at [facility] and was discharged in stable condition. Total Time Total Time Spent Total Time Spent (In Minutes): 35 Discharge Plan Discharge Items Patient Disposition: Transfer [facility] Reason For Visit: FALL, AMBULATORY DYSFUNCTION, PELVIC FRACTURE Discharge Diagnosis: Pubic Rami fracture Subacute stroke Bilateral carotid artery disease Condition on Discharge: Good Activity: Resume your previous activity Weightbearing: Full weightbearing Non-emergency contact: Primary Care Provider, Surgeon and Neurologist Call non-emergency contact if: you have any medication questions and your symptoms worsen Follow-up/Referrals: Raghu Schwarz MD [Physician] - Herbie Tomas MD [Physician] - 12/25/21 10:15 am Quentin Carolina DO [Physician] - Roes Frank MD [Primary Care Provider] - Diet: Heart Healthy Addtl Attending Provider Instructions: You will be on aspirin and plavix until follow up with Neurologist You will need a repeat CTA head and neck in 3 months Please follow up with Orthopedic surgery in 1 month for your sacral fracture Pending Studies at Discharge: No Stand-Alone Forms: [facility] [employer] Skilled Items Patient informed of condition?: Yes DNR: Yes Discharge Level of Care: Skilled Communicable Disease: No Discharge Prognosis: Stable Lines: None Urinary Catheter: No Medications and DC Order Prescriptions: New clopidogrel 75 mg Tablet 75 mg PO QAM Qty: 60 RF: 0 ferrous sulfate 325 mg (65 mg iron) Tablet,Delayed Release (Dr/Ec) 325 mg PO QAM Qty: 60 RF: 0 atorvastatin 40 mg Tablet 40 mg PO QAM Qty: 60 RF: 0 aspirin 81 mg Tablet,Delayed Release (Dr/Ec) 81 mg PO DAILY Qty: 60 RF: 0 tramadol 50 mg Tablet 50 mg PO Q4H PRN (Reason: pain) 7 Days Qty: 10 RF: 0 docusate sodium 100 mg Capsule 100 mg PO DAILY Qty: 14 RF: 0 polyethylene glycol 3350 [Miralax] 17 gram Powder In Packet 17 g PO DAILY PRN (Reason: constipation) Qty: 14 RF: 0 cholecalciferol (vitamin D3) 125 mcg (5,000 unit) Tablet 5,000 unit PO QAM Qty: 30 RF: 0 acetaminophen 325 mg Tablet 650 mg PO Q8 7 Days Qty: 42 RF: 0 pantoprazole [Protonix] [address] for susp in packet 40 mg PO DAILY Qty: 30 RF: 0 Continued multivitamin Tablet 1 tab PO DAILY RF: 0 citalopram 10 mg tablet 10 mg PO DAILY RF: 0 metoprolol succinate 25 mg tablet extended release 24 hr 25 mg PO DAILY RF: 0 thiamine mononitrate (vit B1) 100 mg Tablet 100 mg PO DAILY RF: 0 Discontinued cholecalciferol (vitamin D3) 25 mcg (1,000 unit) Tablet 25 mcg PO DAILY RF: 0 Discharge Orders: Discharge Order (Routine); Ordered 11/12/21 Ordered By: Christopher Alarcon Admission Data Admit Date/Time: 11/04/21 11:09 Attending Provider: Christopher Alarcon Admit Provider: Dusty Barraza Primary Care Provider: Rose Frank Other Providers: Quentin Carolina ; Raghu Schwarz ; Dusty Barraza ; Herbie Tomas ; [facility] ; Vikas Pope [facility] Other Interventions: Discharge Summary Assessment (RN) Last Done: 11/12/21 15:15
== END 2021-11-12 15:17 | DRG 535 ==
LOC: ED 08:58 → 2N 11:09 → SUATTDRO 11:09 → 2N 12:49

== ENCOUNTER 2022-01-24 15:50 | Inpatient (IN) ==
--- NOTE | 2022-01-24 16:04 | Emergency Department Note ---
Impression & Plan Closed hip fracture, Fall, Acute leg pain, Leukocytosis ED Provider Note NAME: AMRITA HOROWITZ AGE: 81 SEX: F : 1940 ARRIVES VIA: Ambulance INFORMANT: Patient, ED PROVIDER(S): Tres Cervantes MD Chief Complaint: Fall, hip pain HPI: Patient states that she was in the bathroom straightening her hair when she turned and fell to the ground and complained of some left hip pain. Patient states it is worse with movement but was unable to ambulate. The patient was by her self but her daughter and son-in-law live next-door but they are currently out of town in [place]. Patient denies any fevers chills or head strike. The patient does take aspirin and Plavix. Patient Nuys any headache or neck pain denies any LOC. Patient states that she was here recently for a fall. Patient denies any chest pains or shortness of breath. Patient is a former smoker. She does not currently use tobacco and does not wear any oxygen at home. The patient states that the pain is "strong" and is worse with trying to move it. The patient was unable to ambulate after the fall. Patient thinks that she may have dislocated it. Patient last ate or drank anything at 8 AM this morning. Patient has not had anything to drink since then and is quite thirsty. ROS: See HPI for pertinent positives and negatives. A total of 10 systems were reviewed and otherwise negative. Past medical history: See below Surgical history: See below Social history: See below Physical Exam: GENERAL: NAD, wearing a mask, non-toxic. EYE EXAM: Normal conjunctiva. PERRL, no anisocoria and EOM's grossly intact w/o pain. Oropharynx: Dry mucous membranes, false teeth in place. NECK: Supple, no nuchal rigidity, no adenopathy, non-tender. No signs of meningismus. FROM of the neck with good chin to chest and neck extension. No st ridor. LUNGS: Clear to auscultation. Normal chest wall mechanics. HEART: Tachycardic and regular, no MRG. ABDOMEN: Abdomen soft, non-tender, normo-active bowel sounds, no masses, no rebound or guarding. BACK: No CVA TTP. SKIN: No rashes and no bruising. UPPER EXTREMITIES: Upper extremities are grossly normal. LOWER EXTREMITIES: Left leg shortened, neurovascular intact distally with pedal pulse, pain over left proximal hip and decreased range of motion secondary to pain. NEURO EXAM: A&O x3, cranial nerves II-XII grossly intact, normal speech, moves all 4 extremities but with limited range of motion left lower extremity secondary to pain. Differential diagnoses: Fracture, subluxation, dislocation, contusion, ligamentous injury, neurovascular, compartment syndrome, rhabdomyolysis, as well as other pathologies. Course: Patient was seen and evaluated the bedside. Full history physical exam was performed. EKG interpreted by ak Sinus tach cardia, rate of 111, normal intervals, normal axis, no obvious ST elevations. Imaging Studies: See Below Cardiac monitoring: An order was placed for continuous cardiac monitoring. The monitor shows a rate of 112 with tachycardic and regular rhythm. MDM: Patient present status post fall with hip pain. Blood work was obtained patient was given IV fluids and IV pain medication. Left hip and pelvis x-rays were obtained as well. Patient does have a greater trochanteric and comminuted fracture. Patient does have a white counts but has not complained of any infectious symptoms. Patient denies any cough fever chest pain shortness of breath abdominal pain dysuria or rash. Urinalysis pending at the time of admission. Patient has normal kidney function and coags. I did speak the on- call hospitalist Dr. Larios. I also did speak with on-call orthopedist Dr. Khalil. Past Med/Surg History Medical History Acute hypoxemic respiratory failure Carotid stenosis, bilateral Chronic HFrEF (heart failure with reduced ejection fraction) Depression HLD (hyperlipidemia) HTN (hypertension) Pulmonary emphysema Pulmonary HTN Tension pneumothorax Surgical History S/P tonsillectomy Family History Mother Alzheimer disease Father , 80 Stroke Social History Smoking Status: Never smoker packs per day: 1; Years Smoked: 35; Second Hand Exposure: No; Hx Alcohol Use: No Hx Substance Use: No Preferred Language: Vietnamese Communication Ability: Effective [employer]otive [employer] Mechanic Required: No Beliefs That Will Affect Care: None marital status: / Current Living Situation: Alone Current Living Situation Comment: Live next door to daughter Feels Safe at Home: Yes Assistive Devices: Walker Allergies Allergies Allergy/AdvReac Type Severity Reaction Status Date / Time No Known Drug Allergies Allergy Unknown . Verified 01/26/20 14:41 Home Meds Home Medications Medication Instructions Recorded Confirmed citalopram 10 mg tablet 10 mg PO QAM 11/04/21 01/24/22 metoprolol succinate 25 mg 25 mg PO DAILY 11/04/21 11/04/21 tablet,extended release 24 hr multivitamin 1 tab PO DAILY 11/04/21 11/04/21 thiamine mononitrate (vit B1) 100 100 mg PO QAM 11/04/21 01/24/22 mg tablet alendronate 70 mg tablet 70 mg PO WK 01/24/22 01/24/22 atorvastatin 40 mg tablet 40 mg PO HS 01/24/22 01/24/22 docusate sodium 100 mg capsule 100 mg PO QAM 01/24/22 01/24/22 pantoprazole 40 mg granules 40 mg PO DAILYBB 01/24/22 01/24/22 delayed-release for susp in packet (Protonix) Previous Rx's Medication Instructions Recorded aspirin 81 mg tablet,delayed 81 mg PO DAILY #60 tabs 11/12/21 release cholecalciferol (vitamin D3) 125 5,000 unit PO QAM #30 tabs 11/12/21 mcg (5,000 unit) tablet clopidogrel 75 mg tablet 75 mg PO QAM #60 tabs 11/12/21 ferrous sulfate 325 mg (65 mg 325 mg PO QAM #60 tabs 11/12/21 iron) tablet,delayed release polyethylene glycol 3350 17 gram 17 g PO DAILY PRN constipation #14 11/12/21 oral powder packet (Miralax) ea Results & Data (ED) Vital Signs Vital Signs - 24 hr 01/24/22 16:05 01/24/22 17:14 Temperature 36.5 C Temperature Source Oral Pulse Rate 111 H Pulse Rate [Apical] 118 H Respiratory Rate 20 20 Respiratory Effort / Characteristics Non-Labored Non-Labored Spontaneous Respiratory Depth Normal Normal Respiratory Pattern Regular Blood Pressure 117/68 Blood Pressure Mean 84 Pulse Oximetry 98 Oxygen Delivery Method Room Air Sepsis Recent Fever Within 48 Hours No Sepsis New/Unexplained Change in Mental Status No Sepsis Action Taken by Nursing No Action Required Home Medications Current Medication List: was personally reviewed by me Laboratory Data Attestation: I reviewed the patient's lab results. Result diagrams: 01/24/22 16:04 01/24/22 16:04 Lab Results 01/24/22 01/24/22 01/24/22 Range/Units 16:04 16:04 16:04 WBC 18.35 H (4.8-10.8) K/ul RBC 3.89 L (3.93-5.22) M/uL Hgb 11.1 L (12.0-16.0) g/dl Hct 35.1 (34.1-44.9) % MCV 90.2 (80.0-100.0) fL MCH 28.5 (25.0-34.0) pg MCHC 31.6 L (32.0-36.0) g/dL RDW Std Deviation 44.7 (36.4-46.3) fL RDW Coeff of Elizabeth 13.5 (11.5-14.5) % Plt Count 276 (130-400) K/uL MPV 10.1 (9.4-12.3) fL Immature Gran % (Auto) 0.3 % Neut % (Auto) 85.3 % Lymph % (Auto) 7.2 % Roberts % (Auto) 6.4 % Eos % (Auto) 0.5 % Baso % (Auto) 0.3 % Neut # (Auto) 15.64 H (1.4-6.5) K/uL Lymph # (Auto) 1.33 (1.2-3.4) K/uL Roberts # (Auto) 1.17 H (0.24-0.82) K/uL Eos # (Auto) 0.09 (0-0.50) K/uL Baso # (Auto) 0.06 (0-0.2) K/uL Immature Gran # (Auto) 0.06 H (0.00-0.02) K/uL PT 11.1 (9.0-12.0) Seconds INR 1.0 (0.9-1.1) APTT 23.9 (21.0-31.0) Seconds PTT Ratio 0.9 Sodium 137 (136-145) mmol/L Potassium 3.8 (3.5-5.1) mmol/L Chloride 102 (98-107) mmol/L Carbon Dioxide 28 (21-32) mmol/L Anion Gap 7 (3-11) BUN 12 (6-23) mg/dl Creatinine 0.84 (0.6-1.2) mg/dl Est Cr Clr Drug Dosing Not Reportable Est GFR ( Amer) 76.6 ml/min Est GFR (Non-Af Amer) 66.1 ml/min BUN/Creatinine Ratio 14.3 (10-20) Glucose 140 H (70-99(Fasting)) mg/dl Calcium 8.9 (8.5-10.1) mg/dl Total Bilirubin 0.3 (0.2-1.0) mg/dl AST 16 (13-39) U/L ALT 11 (7-52) U/L Alkaline Phosphatase 96 (34-104) U/L Total Protein 6.7 (6.0-8.3) gm/dl Albumin 3.7 (3.4-5.0) gm/dl Globulin 3.0 (2.5-4.0) gm/dl Albumin/Globulin Ratio 1.2 (0.9-2) SARS-CoV-2, RNA, NAAT (NEGATIVE) Blood Type Antibody Screen 01/24/22 01/24/22 Range/Units 16:04 17:30 WBC (4.8-10.8) K/ul RBC (3.93-5.22) M/uL Hgb (12.0-16.0) g/dl Hct (34.1-44.9) % MCV (80.0-100.0) fL MCH (25.0-34.0) pg MCHC (32.0-36.0) g/dL RDW Std Deviation (36.4-46.3) fL RDW Coeff of Elizabeth (11.5-14.5) % Plt Count (130-400) K/uL MPV (9.4-12.3) fL Immature Gran % (Auto) % Neut % (Auto) % Lymph % (Auto) % Roberts % (Auto) % Eos % (Auto) % Baso % (Auto) % Neut # (Auto) (1.4-6.5) K/uL Lymph # (Auto) (1.2-3.4) K/uL Roberts # (Auto) (0.24-0.82) K/uL Eos # (Auto) (0-0.50) K/uL Baso # (Auto) (0-0.2) K/uL Immature Gran # (Auto) (0.00-0.02) K/uL PT (9.0-12.0) Seconds INR (0.9-1.1) APTT (21.0-31.0) Seconds PTT Ratio Sodium (136-145) mmol/L Potassium (3.5-5.1) mmol/L Chloride (98-107) mmol/L Carbon Dioxide (21-32) mmol/L Anion Gap (3-11) BUN (6-23) mg/dl Creatinine (0.6-1.2) mg/dl Est Cr Clr Drug Dosing Est GFR ( Amer) ml/min Est GFR (Non-Af Amer) ml/min BUN/Creatinine Ratio (10-20) Glucose (70-99(Fasting)) mg/dl Calcium (8.5-10.1) mg/dl Total Bilirubin (0.2-1.0) mg/dl AST (13-39) U/L ALT (7-52) U/L Alkaline Phosphatase (34-104) U/L Total Protein (6.0-8.3) gm/dl Albumin (3.4-5.0) gm/dl Globulin (2.5-4.0) gm/dl Albumin/Globulin Ratio (0.9-2) SARS-CoV-2, RNA, NAAT NEGATIVE (NEGATIVE) Blood Type O Negative Antibody Screen NEGATIVE Administered Medications Morphine Sulfate (Morphine Sulfate 2 Mg/Ml Carp) 2 mg IV Q1H PRN PRN Reason: Pain Stop: 02/07/22 17:22 Last Admin: 01/24/22 18:30 Dose: 2 mg Documented By: KK Discontinued Medications Sodium Chloride (Nss 1000ml) 500 mls @ 999 mls/hr IV .Q31M ONE Stop: 01/24/22 16:45 Last Admin: 01/24/22 16:55 Dose: Not Given Documented By: HS Sodium Chloride (Nss 1000ml) 1,000 mls @ 999 mls/hr IV .Q1H1M ONE Stop: 01/24/22 17:18 Last Infusion: 01/24/22 18:16 Dose: 0 mls/hr Documented By: Admin: 01/24/22 16:55 Dose: 999 mls/hr Documented By: HS Morphine Sulfate (Morphine Sulfate 2 Mg/Ml Carp) 2 mg IV NOW STA Stop: 01/24/22 16:16 Last Admin: 01/24/22 16:54 Dose: 2 mg Documented By: HS Imaging Data Radiologist's Impression: Hip/Pelvis X-Ray 01/24/22 16:15 XR hip LT 2V w pelvis CLINICAL HISTORY: likely d/l TECHNIQUE: 2 views of the left hip and single frontal view of the pelvis were obtained. Comparison: None available at the time of this dictation. FINDINGS: There is an acute comminuted fracture of the left femur at the greater trochanter. [place] lateral angulation is seen. Degenerative changes are seen in the hip joint. Soft tissue swelling is seen about the hip. IMPRESSION: Comminuted fracture of the left femur at the greater trochanter. Surrounding soft tissue swelling is seen. ACT 112: Negative or not required by law. Electronically signed by: Paul Bridges M.D. 01/24/2022 5:34 PM Chest X-Ray 01/24/22 17:15 XR chest 1V portable CLINICAL HISTORY: hip TECHNIQUE: Single frontal radiograph of the chest was obtained. Comparison: Comparison is made to chest radiograph 11/04/2021 FINDINGS: No lines and tubes are seen. Calcified aortic knob is seen. The lungs are clear. No evidence of pleural effusion or pneumothorax. Calcifications are noted in the bilateral breasts. IMPRESSION: No acute chest disease. ACT 112: Negative or not required by law. Electronically signed by: Paul Bridges M.D. 01/24/2022 5:32 PM Discharge Plan Visit Data Chief Complaint: Leg Injury/Pain ED Provider: Tres Cervantes Discharge Problem: Closed hip fracture, Fall, Acute leg pain, Leukocytosis Forms Stand Alone Forms: [facility] [employer] Prescriptions Prescriptions: No Action multivitamin Tablet 1 tab PO DAILY citalopram 10 mg tablet 10 mg PO QAM metoprolol succinate 25 mg tablet extended release 24 hr 25 mg PO DAILY thiamine mononitrate (vit B1) 100 mg Tablet 100 mg PO QAM clopidogrel 75 mg Tablet 75 mg PO QAM Qty: 60 0RF ferrous sulfate 325 mg (65 mg iron) Tablet,Delayed Release (Dr/Ec) 325 mg PO QAM Qty: 60 0RF aspirin 81 mg Tablet,Delayed Release (Dr/Ec) 81 mg PO DAILY Qty: 60 0RF polyethylene glycol 3350 [Miralax] 17 gram Powder In Packet 17 g PO DAILY PRN (Reason: constipation) Qty: 14 0RF cholecalciferol (vitamin D3) 125 mcg (5,000 unit) Tablet 5,000 unit PO QAM Qty: 30 0RF pantoprazole [Protonix] [address] for susp in packet 40 mg PO DAILYBB atorvastatin 40 mg tablet 40 mg PO HS alendronate 70 mg tablet 70 mg PO WK docusate sodium 100 mg capsule 100 mg PO QAM Referrals Referrals: Rose Frank MD [Primary Care Provider] -
[2022-01-24] MEDS ORDERED: MoRPHine SULFATE 2 MG/ML CARP IV STA (16:15)
[2022-01-24] MEDS ORDERED: SODIUM CHLORIDE 0.9% 1000ML 500 ML IV ONE (16:15)
[2022-01-24] MEDS ORDERED: SODIUM CHLORIDE 0.9% 1000ML 1,000 ML IV ONE ×2 (16:18→21:05)
[2022-01-24 16:38] LABS: Basophils # (auto) 0.06 K/uL (0-0.2); Basophils % (auto) 0.3 %; Eosinophils # (auto) 0.09 K/uL (0-0.50); Eosinophils % (auto) 0.5 %; Hematocrit (blood only) 35.1 % (34.1-44.9); Hemoglobin 11.1 g/dl (12.0-16.0); Immature Granulocytes # (auto) 0.06 K/uL (0.00-0.02); Immature Granulocytes % (auto) 0.3 %; Lymphocytes # (auto) 1.33 K/uL (1.2-3.4); Lymphocytes % (auto) 7.2 %; Mean Corpuscular Hemoglobin 28.5 pg (25.0-34.0); Mean Corpuscular Hgb Conc 31.6 g/dL (32.0-36.0); Mean Corpuscular Volume 90.2 fL (80.0-100.0); Mean Platelet Volume 10.1 fL (9.4-12.3); Monocytes # (auto) 1.17 K/uL (0.24-0.82); Monocytes % (auto) 6.4 %; Neutrophils # (auto) 15.64 K/uL (1.4-6.5); Neutrophils % (auto) 85.3 %; Platelet Count 276 K/uL (130-400); RDW Coefficient of Variation 13.5 % (11.5-14.5); RDW Standard Deviation 44.7 fL (36.4-46.3); Red Blood Count 3.89 M/uL (3.93-5.22); White Blood Count 18.35 K/ul (4.8-10.8)
[2022-01-24 16:50] LABS: Partial Thromboplastin Ratio 0.9; Partial Thromboplastin Time 23.9 Seconds (21.0-31.0); Prothrombin Time 11.1 Seconds (9.0-12.0)
[2022-01-24 16:56] LABS: Alanine Aminotransferase 11 U/L (7-52); Albumin Globulin Ratio 1.2 (0.9-2); Albumin Level 3.7 gm/dl (3.4-5.0); Alkaline Phosphatase 96 U/L (34-104); Anion Gap 7 (3-11); Aspartate Aminotransferase 16 U/L (13-39); BUN Creatinine Ratio 14.3 (10-20); Bilirubin,Total 0.3 mg/dl (0.2-1.0); Blood Urea Nitrogen 12 mg/dl (6-23); Calcium 8.9 mg/dl (8.5-10.1); Carbon Dioxide 28 mmol/L (21-32); Chloride 102 mmol/L (98-107); Est GFR (African American) 76.6 ml/min; Est GFR (Non-African American) 66.1 ml/min; Glucose 140 mg/dl (70-99(Fasting)); Potassium 3.8 mmol/L (3.5-5.1); Sodium 137 mmol/L (136-145); Total Protein 6.7 gm/dl (6.0-8.3)
[2022-01-24] MEDS ORDERED: MoRPHine SULFATE 2 MG/ML CARP IV PRN (17:23)
--- NOTE | 2022-01-24 17:33 | XRay Report ---
XR chest 1V portable CLINICAL HISTORY: hip TECHNIQUE: Single frontal radiograph of the chest was obtained. Comparison: Comparison is made to chest radiograph 11/04/2021 FINDINGS: No lines and tubes are seen. Calcified aortic knob is seen. The lungs are clear. No evidence of pleur al effusion or pneumothorax. Calcifications are noted in the bilateral breasts. IMPRESSION: No acute chest disease. ACT 112: Negative or not required by law. Electronically signed by: Paul Bridges M.D. 01/24/2022 5:32 PM
--- NOTE | 2022-01-24 17:35 | XRay Report ---
XR hip LT 2V w pelvis CLINICAL HISTORY: likely d/l TECHNIQUE: 2 views of the left hip and single frontal view of the pelvis were obtained. Comparison: None available at the time of this dictation. FINDINGS: There is an acute comminuted fracture of the left femur at the greater trochanter. [place] lateral angul ation is seen. Degenerative changes are seen in the hip joint. Soft tissue swelling is seen about the hip. IMPRESSION: Comminuted fracture of the left femur at the greater trochanter. Surrounding soft tissue swelling is seen. ACT 112: Negative or not required by law. Electronically signed by: Paul Bridges M.D. 01/24/2022 5:34 PM
--- NOTE | 2022-01-24 18:30 | History & Physical Report ---
Date of Service January 24, 2022 Assessment & Plan (1) Closed hip fracture: (2) Fall: (3) Acute leg pain: Plan: 81-year-old female with history of CAD, congestive heart failure, systolic and diastolic type, hypertension, COPD, CVA, history of bilateral carotid artery stenosis, vertebral artery dissection Presenting with left hip pain after a mechanical fallPatient currently at baseline state of health until today, going to the bathroom combing her hair, after patient turned around, patient tripped and fell in the bathroom, on her left side. Left hip fracture, status post mechanical fall Orthopedic consulted Dr. Khalil N.p.o. postmidnight No medical contra indication to proceed with possible orthopedic surgery for fracture Patient is high risk for cardiopulmonary complications secondary to comorbidities including CAD, CHF, hypertension, COPD History of CAD Denies any chest pain or cardiac symptoms Hold Plavix and aspirin due to possible surgery tomorrow Resume as soon as orthopedic service states hemostasis is stable On Lipitor History of CHF, systolic and diastolic type, chronic Euvolemic Hypertension Stable COPD Not in exacerbation History of CVA Hold aspirin and Plavix for now in light of possible surgery tomorrow DVT prophylaxis SCDs CODE STATUS DNR as per patient Disposition Will likely need inpatient rehab versus nursing home facility plan of care discussed with patient and her daughter Stacie over the phone in detail and at length all questions answered they are understanding, agreeable, comfortable with the plan of care History of Present Illness Chief Complaint: Left hip pain status post mechanical fall Primary Care Provider: Rose Frank MD 81-year-old female with history of CAD, congestive heart failure, systolic and diastolic type, hypertension, COPD, CVA, history of bilateral carotid artery stenosis, vertebral artery dissection Presenting with left hip pain after a mechanical fallPatient currently at baseline state of health until today, going to the bathroom combing her hair, after patient turned around, patient tripped and fell in the bathroom, on her left side. Patient developed severe pain after the event and was brought to the ER for evaluation. At the ER, patient found to have left intertrochanteric femur fracture. On exam, patient seen sitting up in bed, not in distress, states pain is improving after receiving analgesics. No chest pain, shortness of breath, palpitations, dizziness No other symptoms Allergies Allergy/AdvReac Type Severity Reaction Status Date / Time No Known Drug Allergies Allergy Unknown . Verified 01/24/22 19:28 Home Medications Medication Instructions Recorded Confirmed Type citalopram 10 mg tablet 10 mg PO QAM 11/04/21 01/24/22 History multivitamin 1 tab PO DAILY 11/04/21 01/24/22 History thiamine mononitrate (vit B1) 100 100 mg PO QAM 11/04/21 01/24/22 History mg tablet aspirin 81 mg tablet,delayed 81 mg PO DAILY #60 tabs 11/12/21 01/24/22 Rx release cholecalciferol (vitamin D3) 125 5,000 unit PO QAM #30 tabs 11/12/21 01/24/22 Rx mcg (5,000 unit) tablet clopidogrel 75 mg tablet 75 mg PO QAM #60 tabs 11/12/21 01/24/22 Rx ferrous sulfate 325 mg (65 mg 325 mg PO QAM #60 tabs 11/12/21 01/24/22 Rx iron) tablet,delayed release polyethylene glycol 3350 17 gram 17 g PO DAILY PRN constipation #14 11/12/21 01/24/22 Rx oral powder packet (Miralax) ea acetaminophen 325 mg tablet 650 mg PO Q4H PRN Fever Or Pain 01/24/22 01/24/22 History alendronate 70 mg tablet 70 mg PO WK 01/24/22 01/24/22 History atorvastatin 40 mg tablet 40 mg PO HS 01/24/22 01/24/22 History docusate sodium 100 mg capsule 100 mg PO QAM 01/24/22 01/24/22 History metoprolol succinate 25 mg 25 mg PO DAILY 01/24/22 01/24/22 History tablet,extended release 24 hr pantoprazole 40 mg granules 40 mg PO DAILYBB 01/24/22 01/24/22 History delayed-release for susp in packet (Protonix) Past Med/Surg History Medical History Acute hypoxemic respiratory failure Carotid stenosis, bilateral Chronic HFrEF (heart failure with reduced ejection fraction) Depression HLD (hyperlipidemia) HTN (hypertension) Pulmonary emphysema Pulmonary HTN Tension pneumothorax Surgical History S/P tonsillectomy Family History Mother Alzheimer disease Father , 80 Stroke Social History Smoking Status: Never smoker packs per day: 1; Years Smoked: 35; Second Hand Exposure: No; Hx Alcohol Use: No Hx Substance Use: No Preferred Language: Iranian Communication Ability: Effective Medical Specialist Required: No Beliefs That Will Affect Care: None marital status: / Current Living Situation: Alone Current Living Situation Comment: Live next door to daughter Feels Safe at Home: Yes Assistive Devices: Walker Review of Systems Review of Systems: all noted and negative except for above Physical Exam Physical Exam: General- oriented x 2-3, not in distress, speaks in sentences with no effort or accessory muscle use Head- atraumatic Eyes- PERRL, EOMI, anicteric ENT- oropharynx clear Neck- supple, no JVD, no adenopathy, no thyromegaly; carotids +2/2, no bruits appreciated Lungs- clear to auscultation bilaterally, no rales/wheezes Heart- normal rate, regular rhythm; no murmur, no gallop, no rub appreciated Abdomen- normal bowel sounds, nondistended, soft, nontender, no masses or hepatosplenomegaly Extremities- no pretibial edema, no calf tenderness; peripheral pulses intact Left thigh: Mild edema, no hematoma, no tenderness, no warmth Neuro- alert, oriented x 3; CN 2-12 grossly intact; motor 5/5 bilaterally;sensation 100% on all extremities; no other gross focal neurologic deficits Skin- warm & dry Results & Data Results & Data ([facility]) Vital Signs (Past 12 Hours) Vital Signs Temp Pulse Pulse Resp BP Pulse Ox O2 Del Method 01/24/22 17:14 118 H 20 01/24/22 16:05 36.5 C 111 H 20 117/68 98 Room Air all noted and reviewed including below Code Status & VTE Plan VTE Prophylaxis Plan VTE Prophylaxis will be ordered: Yes
[2022-01-24 19:44] LABS: Appearance Urine Cloudy (Clear); Bacteria Urine Automated Negative (Negative); Blood Urine Trace (Negative); Color Urine Dark Yellow; Epithelial Cell Urine Auto >30 /lpf (0-5); Glucose Urine UA Negative (Negative); Ketones Urine Trace (Negative); Leukocyte Esterase Urine Trace (Negative); Nitrite Urine Negative (Negative); Protein Urine 1+ (Negative); Specific Gravity Urine 1.032 (1.000-1.030); Urobilinogen Urine Negative (Negative)
[2022-01-24 19:48] LABS: Bilirubin Urine 1+ (Negative)
[2022-01-24 20:03] LABS: Calcium Oxalate Crystals Urine Present (None Prsent); Mucus Urine Present (None Prsent)
[2022-01-24] MEDS ORDERED: cefTRIAXone SODIUM 2,000 MG/70 ML BAG IV STA (21:05)
[2022-01-24] MEDS ORDERED: OPTIRAY 300 100mL IV ONE (22:10)
[2022-01-24] MEDS ORDERED: oxyCODONE HCL IR 5 MG TAB (IMMEDIATE RELEASE) PO PRN (22:30)
--- NOTE | 2022-01-24 22:31 | CT Scan Report ---
CT abd pelvis IV con only CLINICAL HISTORY: WBC 18, tachy, calcium stones, blood in urine TECHNIQUE: Helical axial images of the abdomen and pelvis were obtained and displayed. Automated dose lowering techniques and/or adjustment according to patient size were utilized for this exam. This e xam was performed with intravenous contrast. CT DOSE: 493.64 mGy.cm COMPARISON: Comparison is made to CT pelvis 11/04/2021 FINDINGS: Lower chest: Emphysema is noted in the lower lungs. Liver: Unremarkable. No focal lesions are seen. Gallbladder and biliary tree: No calcified gallstones. Normal caliber wall. Physiologic prominence of the biliary ducts is noted. Pancreas: Unremarkable, no focal lesions. Spleen: Unremarkable. Adrenals: Unremarkable. Kidneys and ureters: Unremarkable. Bladder: Rivas catheter is seen. Reproductive organs: Unremarkable. Bowel: Diverticulosis is seen without evidence of diverticulitis. The appendix is normal. A duodenal diverticulum is noted. Lymph nodes Retroperitoneal: Unremarkable. Pelvic: Unremarkable. Mesenteric: Unremarkable. Peritoneum: Normal. Vessels: Atherosclerotic calcifications are seen. Abdominal wall: Unremarkable. Bones: Degenerative changes in the visualized spine. Previously noted pelvic fractures are again seen with some interval healing changes. Acute fracture of the left femoral neck is seen with surrounding hematoma. IMPRESSION: 1. No evidence of hydronephrosis/obstructive nephrolithiasis. No CT evidence of pyelonephritis. 2. Acute fracture of the left femoral neck. ACT 112: Negative or not required by law. Electronically signed by: Palu Bridges M.D. 01/24/2022 10:29 PM
[2022-01-24] MEDS: MoRPHine SULFATE 2 MG/ML CARP IV PRN (23:02)
[2022-01-25] MEDS: ACETAMINOPHEN 500 MG TAB PO SCH ×4 (00:18→23:18)
[2022-01-25] MEDS: LACTATED RINGER'S 1,000 ML IV SCH ×2 (01:14→14:01)
[2022-01-25] MEDS: MoRPHine SULFATE 2 MG/ML CARP IV PRN ×2 (05:25→21:27)
[2022-01-25 07:33] LABS: Hematocrit (blood only) 24.4 % (34.1-44.9); Hemoglobin 7.7 g/dl (12.0-16.0); Mean Corpuscular Hemoglobin 28.7 pg (25.0-34.0); Mean Corpuscular Hgb Conc 31.6 g/dL (32.0-36.0); Mean Platelet Volume 10.2 fL (9.4-12.3); Platelet Count 231 K/uL (130-400); RDW Coefficient of Variation 13.8 % (11.5-14.5); RDW Standard Deviation 46.3 fL (36.4-46.3); Red Blood Count 2.68 M/uL (3.93-5.22); White Blood Count 8.96 K/ul (4.8-10.8)
[2022-01-25 07:59] LABS: Anion Gap 5 (3-11); BUN Creatinine Ratio 18.8 (10-20); Blood Urea Nitrogen 15 mg/dl (6-23); Calcium 8.4 mg/dl (8.5-10.1); Carbon Dioxide 26 mmol/L (21-32); Chloride 106 mmol/L (98-107); Est GFR (African American) 81.3 ml/min; Est GFR (Non-African American) 70.1 ml/min; Glucose 111 mg/dl (70-99(Fasting)); Potassium 4.1 mmol/L (3.5-5.1); Sodium 137 mmol/L (136-145)
[2022-01-25 08:07] LABS: Basophils # (auto) 0.03 K/uL (0-0.2); Basophils % (auto) 0.3 %; Eosinophils # (auto) 0.01 K/uL (0-0.50); Eosinophils % (auto) 0.1 %; Immature Granulocytes # (auto) 0.03 K/uL (0.00-0.02); Immature Granulocytes % (auto) 0.3 %; Lymphocytes # (auto) 1.27 K/uL (1.2-3.4); Lymphocytes % (auto) 14.2 %; Monocytes # (auto) 1.27 K/uL (0.24-0.82); Monocytes % (auto) 14.2 %; Neutrophils # (auto) 6.35 K/uL (1.4-6.5); Neutrophils % (auto) 70.9 %; RBC Morphology Unremarkable
[2022-01-25] MEDS: CHOLECALCIFEROL 5,000 UNITS 125 MCG TAB PO SCH (08:32)
[2022-01-25] MEDS: ATORVASTATIN 40 MG TAB PO SCH (08:32)
[2022-01-25] MEDS: FERROUS SULFATE 325 MG TAB PO SCH (08:32)
[2022-01-25] MEDS: PANTOprazole 40 MG TAB PO SCH (08:32)
[2022-01-25] MEDS: CITALOPRAM 20 MG TAB PO SCH (08:32)
[2022-01-25] MEDS ORDERED: DOCUSATE SODIUM 100 MG CAP PO SCH (09:00)
[2022-01-25] MEDS ORDERED: SODIUM CHLORIDE 0.9% 250 ML IV PRN ×3 (09:22→13:36)
--- NOTE | 2022-01-25 10:57 | History & Physical Bridge Note ---
Date of Service January 25, 2022 History & Physical Bridge Note I have examined the patient, reviewed the History & Physical and in the interval since the performance of the History & Physical I have noted the following changes of clinical significance: Will require open reduction internal fixation left intertrochanteric hip fracture today.
--- NOTE | 2022-01-25 11:20 | Anesthesiology Consultation ---
Date of Service January 25, 2022 Assessment & Plan (1) Encounter for pre-operative examination: History Surgery Operation Date: 01/25/22 12:00 Proposed Procedures p Intramedullary Bryan Femur - Van Khalil DO Height/Weight Weight: 43.1 kg Allergies Allergy/AdvReac Type Severity Reaction Status Date / Time No Known Drug Allergies Allergy Unknown . Verified 01/24/22 19:28 Medications Home Medications Medication Instructions Recorded Confirmed Last Taken citalopram 10 mg tablet 10 mg PO QAM 11/04/21 01/24/22 Unknown multivitamin 1 tab PO DAILY 11/04/21 01/24/22 Unknown thiamine mononitrate (vit B1) 100 100 mg PO QAM 11/04/21 01/24/22 Unknown mg tablet aspirin 81 mg tablet,delayed 81 mg PO DAILY #60 tabs 11/12/21 01/24/22 Unknown release cholecalciferol (vitamin D3) 125 5,000 unit PO QAM #30 tabs 11/12/21 01/24/22 Unknown mcg (5,000 unit) tablet clopidogrel 75 mg tablet 75 mg PO QAM #60 tabs 11/12/21 01/24/22 Unknown ferrous sulfate 325 mg (65 mg 325 mg PO QAM #60 tabs 11/12/21 01/24/22 Unknown iron) tablet,delayed release polyethylene glycol 3350 17 gram 17 g PO DAILY PRN constipation #14 11/12/21 01/24/22 Unknown oral powder packet (Miralax) ea acetaminophen 325 mg tablet 650 mg PO Q4H PRN Fever Or Pain 01/24/22 01/24/22 Unknown alendronate 70 mg tablet 70 mg PO WK 01/24/22 01/24/22 Unknown atorvastatin 40 mg tablet 40 mg PO HS 01/24/22 01/24/22 Unknown docusate sodium 100 mg capsule 100 mg PO QAM 01/24/22 01/24/22 Unknown metoprolol succinate 25 mg 25 mg PO DAILY 01/24/22 01/24/22 Unknown tablet,extended release 24 hr pantoprazole 40 mg granules 40 mg PO DAILYBB 01/24/22 01/24/22 Unknown delayed-release for susp in packet (Protonix) Active Medications Generic Name Dose Route Start Last Admin Trade Name Freq PRN Reason Stop Dose Admin Acetaminophen 1,000 mg 01/25/22 00:00 01/25/22 08:31 Acetaminophen 500 Mg Tab PO 02/24/22 00:00 1,000 mg Q8H IZABELLA Administration Atorvastatin Calcium 40 mg 01/25/22 09:00 01/25/22 08:32 Atorvastatin 40 Mg Tab PO 02/24/22 08:59 40 mg QAM IZABELLA Administration Citalopram Hydrobromide 10 mg 01/25/22 09:00 01/25/22 08:32 Citalopram 20 Mg Tab PO 02/24/22 08:59 10 mg DAILY IZABELLA Administration Docusate Sodium 100 mg 01/25/22 09:00 01/25/22 08:32 Docusate Sodium 100 Mg Cap PO 02/24/22 08:59 100 mg DAILY IZABELLA Administration Ferrous Sulfate 325 mg 01/25/22 09:00 01/25/22 08:32 Ferrous Sulfate 325 Mg Tab PO 02/24/22 08:59 325 mg QAM IZABELLA Administration Lactated Ringer's 1,000 mls @ 80 mls/hr 01/25/22 01:00 01/25/22 01:14 Lr IV 02/24/22 00:59 80 mls/hr .[id number] IZABELLA Administration Morphine Sulfate 2 mg 01/24/22 22:30 01/25/22 05:25 Morphine Sulfate 2 Mg/Ml Carp IV 02/07/22 22:29 2 mg Q6H PRN Administration severe pain 7-10 Pantoprazole Sodium 40 mg 01/25/22 09:00 01/25/22 08:32 Pantoprazole 40 Mg Tab PO 02/24/22 08:59 40 mg DAILY IZABELLA Administration Vitamin D 5,000 units 01/25/22 09:00 01/25/22 08:32 Cholecalciferol 5,000 Units 125 Mcg Tab PO 02/24/22 08:59 5,000 units QAM IZABELLA Administration NPO Date Last Intake of Fluids: 01/24/22 Time Last Intake of Fluids: 23:59 Date Last Intake of Solids: 01/24/22 Time Last Intake of Solids: 23:59 Past Medical History Medical History Acute hypoxemic respiratory failure Carotid stenosis, bilateral Chronic HFrEF (heart failure with reduced ejection fraction) Depression HLD (hyperlipidemia) HTN (hypertension) Pulmonary emphysema Pulmonary HTN Tension pneumothorax Past Family History Family History Mother Alzheimer disease Father , 80 Stroke Past Surgical History Surgical History S/P tonsillectomy Social History Smoking Status: Former smoker Hx Alcohol Use: Yes Alcohol type: wine alcohol intake frequency: 0-2 drinks per day Alcohol Intake Frequency Comment: 1 glass of red wine daily Hx Substance Use: No substance use type: does not use Physical Exam Vital Signs Last Vital Signs Temp 36.7 C 01/25/22 10:51 Pulse 99 H 01/25/22 10:51 Resp 18 01/25/22 10:51 BP 91/54 L 01/25/22 10:51 Pulse Ox 93 01/25/22 10:51 O2 Del Method 01/25/22 08:52 Testing Laboratory Results 01/25/22 06:56 01/25/22 06:56 PT 11.1 Seconds (9.0-12.0) 01/24/22 16:04 INR 1.0 (0.9-1.1) 01/24/22 16:04 APTT 23.9 Seconds (21.0-31.0) 01/24/22 16:04 Urine Color Dark Yellow 01/24/22 19:30 Urine Appearance Cloudy (Clear) A 01/24/22 19:30 Urine pH 5.0 (4.5-7.5) 01/24/22 19:30 Ur Specific [place] 1.032 (1.000-1.030) H 01/24/22 19:30 Urine Protein 1+ (Negative) H 01/24/22 19:30 Urine Glucose (UA) Negative (Negative) 01/24/22 19:30 Urine Ketones Trace (Negative) H 01/24/22 19:30 Urine Nitrite Negative (Negative) 01/24/22 19:30 Ur Leukocyte Esterase Trace (Negative) H 01/24/22 19:30 Urine WBC (Auto) 5-10 /hpf (0-5) H 01/24/22 19:30 Urine RBC (Auto) 5-10 /hpf (0-4) H 01/24/22 19:30 U Hyaline Cast (Auto) 10-30 /lpf (0-5) H 01/24/22 19:30 U Epithel Cells (Auto) >30 /lpf (0-5) H 01/24/22 19:30 Urine Bacteria (Auto) Negative (Negative) 01/24/22 19:30 Blood Type O Negative 01/24/22 17:30 Antibody Screen NEGATIVE 01/24/22 17:30 Electrocardiogram Date: 01/24/22 Sinus tachycardia with Premature supraventricular complexes and with frequent Premature ventricular complexes Left axis deviation Left ventricular hypertrophy with QRS widening and repolarization abnormality Poor R wave progression, consider anterior HI vs. lead placement vs. LVH Non-specific intra-ventricular conduction block Abnormal ECG When compared with ECG of 11-JAN-2022 16:02, Premature supraventricular complexes are now Present Non-specific intra-ventricular conduction block has replaced Left bundle branch block Chest X-Ray Date: 01/24/22 IMPRESSION: No acute chest disease. Echocardiogram Date: 02/04/22 EF: 55-60% mod TR
[2022-01-25] MEDS ORDERED: PROPOFOL IV EMULSION 10 MG/ML 20 ML VIAL IV ONE (11:45)
[2022-01-25] MEDS ORDERED: LIDOCAINE 2% 2 ML VIAL/AMP(20MG/ML) INFIL ONE (11:45)
[2022-01-25] MEDS ORDERED: fentaNYL citrate 100 MCG/2 ML VIAL ONE (11:45)
[2022-01-25] MEDS ORDERED: DEXAMETHASONE SOD INJ 4 MG/ML VIAL ONE (11:45)
[2022-01-25] MEDS ORDERED: SUGAMMADEX SODIUM 200 MG/2 ML VIAL IV ONE (11:45)
[2022-01-25] MEDS ORDERED: ONDANSETRON INJ 2 MG/ML 2 ML VIAL ONE (11:45)
--- NOTE | 2022-01-25 11:55 | Consultation Report ---
DATE OF CONSULTATION: 01/25/2022. HISTORY OF PRESENT ILLNESS: This is a 81-year-old female seen at the request of Dr. Ric villanueva left hip pain. The patient was at her home in her baseline state of health until yesterday when s he was going to the bathroom. She was combing her hair. The patient turned around, tripped and fell in the bathroom, landing on her left side with immediate pain and inability to ambulate. She was tr ansferred to the Emergency Department by EMS and after examination with the radiographs and examinati on by the ER physician patient was then diagnosed with an intertrochanteric hip fracture. She was ad mitted to the hospitalist service with orthopedics to consult. She had no other associated injuries. No chest pain, shortness of breath, palpitations, dizziness or other symptoms related to the fall. Noted is a mechanical fall. Patient seen at bedside, noted to have some discomfort related to the h ip. The patient has features consistent with Alzheimer's dementia and remainder of the history was o btained from the chart and discussions with nursing. PAST MEDICAL HISTORY: Acute hypoxic respiratory failure, carotid stenosis bilateral, chronic heart f ailure with reduced ejection fraction, depression, hyperlipidemia, hypertension, pulmonary emphysema, pulmonary hypertension, and tension pneumothorax history. PAST SURGICAL HISTORY: Tonsils and adenoid resection. ALLERGIES: No known allergies. MEDICATIONS: Please note the extensive list in the medical record including aspirin 81 mg daily and clopidogrel 75 mg daily. SOCIAL HISTORY: The patient denies tobacco currently, however, she has a history of 1 pack per day f or 35 years. Denies drug or alcohol use. She is a . She lives alone. She lives next door to her daughter and she is retired. PHYSICAL EXAMINATION: This is a 81-year-old female, lying supine in her hospital room bed. She is a lert and awake. She is to be reoriented to place and time; however, is pleasant and conversant. Exa mination of the left hip and lower extremity demonstrates a left hip in a flexed position slightly sh ortened and internally rotated. There is some trace bruising over the left greater trochanter, it is mild. Moderate tenderness to palpation at the left proximal hip. Limited range of motion of the le ft hip as the patient is guarding due to discomfort. Dorsalis pedis and posterior tibial pulses are 2/4. Cap refill is brisk. Feet are warm. Strength testing is not performed of left lower extremity due to pain and discomfort. RADIOGRAPHS: Demonstrate a 3 to 4-part displaced left intertrochanteric hip fracture. There was note d to be osteopenia. No other associated fractures. IMPRESSION: Left displaced 4-part intertrochanteric hip fracture. RECOMMENDATION: For open reduction and internal fixation with trochanteric fixation nailing. We will obtain consent from the patient's daughter, Stacie. Maintain n.p.o. Thank you for the opportunity to consult in care of this patient. Job ID: [id number]
[2022-01-25] MEDS ORDERED: BUPIVACAINE 0.5 % 5 MG/1 ML MPF 30ML VIAL ONE (12:07)
[2022-01-25] MEDS ORDERED: ceFAZolin 2000MG 2,000 MG/15 ML SYR IV ONE (13:21)
--- NOTE | 2022-01-25 13:34 | Electrocardiogram Report ---
Test Reason : Blood Pressure : / mmHG Vent. Rate : 111 BPM Atrial Rate : 111 BPM P-R Int : 164 ms QRS Dur : 050 ms QT Int : 342 ms P-R-T Axes : 074 023 064 degrees QTc Int : 465 ms Poor data quality, interpretation may be adversely affected Sinus tachycardia Otherwise normal ECG When compared with ECG of 26-JAN-2020 13:32, Minimal criteria for Septal infarct are no longer Present T wave amplitude has increased in Inferior leads Nonspecific T wave abnormality, improved in Anterolateral leads Confirmed by Yosvany Gutierrez ([id number]) on 01/25/2022 1:33:35 PM Referred By: REFERRED SELF Confirmed By:Yosvany Gutierrez
[2022-01-25] MEDS ORDERED: fentaNYL citrate 100 MCG/2 ML VIAL IV PRN (13:36)
[2022-01-25] MEDS ORDERED: ePHEDrine sulfate 50 MG/ML AMP IV PRN (13:36)
[2022-01-25] MEDS ORDERED: ONDANSETRON INJ 2 MG/ML 2 ML VIAL IV PRN ×2 (13:36→15:32)
[2022-01-25] MEDS ORDERED: ATROPINE SULFATE 0.1 MG/ML 10ML SYR IV PRN (13:36)
--- NOTE | 2022-01-25 14:04 | Post Operative Brief Note ---
Immediate Post Op Note v1 Date of Surgery January 25, 2022 Pre & Post Diagnosis Operation Date: 01/25/22 12:00 Pre-Op Diagnosis: LEFT displaced, 4 part intertrochanteric hip fracture Post-Op Diagnosis: LEFT displaced, 4 part intertrochanteric hip fracture I identified the patient and participated in the time-out.: Yes Procedure Operation Date: 01/25/22 12:00 Actual Procedures p open reduction internal fixation left displaced, 4 part intertrochanteric hip fracture with Synthes 12 mm x 235 mm trochanteric fixation nail, 11 mm x 80 mm spiral blade, 5 mm x 40 mm transverse locking screw (Left) - Van Khalil DO Surgeon Van Khalil DO [employer] Timothy Morales PA-C Estimated Blood Loss 30 Findings Consistent with Post-Op Diagnosis Anesthesia Type General Regional Complications none Disposition Accompanied Patient To Recovery: No
[2022-01-25] MEDS ORDERED: METOPROLOL TARTRATE 1 MG/ML VIAL IV ONE (14:35)
--- NOTE | 2022-01-25 14:35 | Hospitalist Progress Note ---
Date of Service January 25, 2022 Assessment & Plan (1) Closed hip fracture: (2) Fall: (3) Acute leg pain: Plan: 81-year-old female with history of CAD, congestive heart failure, systolic and diastolic type, hypertension, COPD, CVA, history of bilateral carotid artery stenosis, vertebral artery dissection presented 01/24 w/ left hip pain after mechanical fall and found to have closed left hip fracture in the ED. Of note, patient is mildly confused at baseline and becomes increasingly confused when she is away from familiar environment per patient's daughter. She is being managed for the following: Closed hip fracture Acute on chronic anemia, likely acute blood loss anemia secondary to hip fracture Left hip fracture, status post mechanical fall Orthopedics evaluated, status post ORIF by Dr. Van Khalil on 01/25/2022 PT/OT, DVT prophylaxis and diet upon clearance from orthopedic. Pain management, nausea control. Hemoglobin dropped to 7.7 today, transfusing 2 units PRBC as a preparation for OT. Received consent from patient's daughter Stacie over the phone. f/u HnH in AM. Likely UTI: Admitting UA suggestive of UTI and WBC elevated at 18.3 5K, continue with Rocephin 01/24. History of CAD Denies any chest pain or cardiac symptoms Hold Plavix and aspirin due to possible surgery tomorrow Resume as soon as orthopedic service states hemostasis is stable On Lipitor History of CHF, systolic and diastolic type, chronic Euvolemic Other chronic medical conditions: HTN, COPD, CVA--> continue with home meds when able. Caution with antihypertensive. Aspirin and Plavix on hold until cleared per orthopedics. DVT prophylaxis: SCDs DNR/DNI Disposition: Likely inpatient rehab versus SNF, PT/OT eval to follow, CM to assist with DC planning. Admission and Anticipated Discharge Date Admission Date: January 24, 2022 Subjective Patient seen and examined at bedside for follow-up of left hip fracture status post mechanical fall. Patient was lying in bed, on room air, NAD, appears confused, denies being in pain, ROS n/a d/t congition status. Physical Exam Physical Exam: GENERAL: Confused. NAD, on RA. Lethargic, weak and frail appearing. HEENT: No pallor, no icterus. Pupils equal, round and reactive to light. Oral mucosa moist. NECK: No JVD, no neck masses. HEART: S1 and S2 heard. tachycardia. No murmur, no gallop. RESPIRATORY SYSTEM: Normal AP diameter. No accessory muscle use. No wheezing, no crackles. ABDOMEN: Soft, bowel sounds present, nontender, no distention. CENTRAL NERVOUS SYSTEM: No facial droop. Rest n/a EXTREMITIES: No edema, no erythema seen. No bruise over left hip Results & Data Results & Data ([facility]) Vital Signs (Past 12 Hours) Vital Signs Temp Pulse Pulse Resp BP BP Pulse Ox 01/25/22 11:21 36.7 C 106 H 18 95/59 L 94 01/25/22 10:51 36.7 C 99 H 18 91/54 L 93 01/25/22 10:35 36.6 C 100 H 18 91/54 L 92 01/25/22 10:16 36.9 C 102 H 18 94/56 L 92 01/25/22 08:52 01/25/22 07:18 36.8 C 103 H 16 95/54 L 94 O2 Del Method 01/25/22 11:21 01/25/22 10:51 01/25/22 10:35 01/25/22 10:16 01/25/22 08:52 Room Air 01/25/22 07:18 Room Air
[2022-01-25] MEDS ORDERED: METOPROLOL TARTRATE 1 MG/ML VIAL IV STA (14:37)
--- NOTE | 2022-01-25 14:54 | Anesthesiology Progress Note ---
Date of Service January 25, 2022 Anesthesia Post Procedure Vital Signs Vital Signs: Temp Pulse Pulse Pulse Resp BP BP 01/25/22 14:35 102 H 17 142/85 H 01/25/22 14:25 99 H 21 145/93 H 01/25/22 14:08 36.9 C 98 H 24 161/70 H 01/25/22 14:15 98 H 22 150/78 H 01/25/22 11:21 36.7 C 106 H 18 95/59 L 01/25/22 10:51 36.7 C 99 H 18 91/54 L 01/25/22 10:35 36.6 C 100 H 18 91/54 L 01/25/22 10:16 36.9 C 102 H 18 94/56 L 01/25/22 08:52 01/25/22 07:18 36.8 C 103 H 16 01/25/22 00:34 36.3 C L 106 H 16 01/24/22 20:58 103 H 20 01/24/22 19:00 117 H 20 01/24/22 17:14 118 H 20 01/24/22 16:05 36.5 C 111 H 20 117/68 BP Pulse Ox O2 Del Method O2 Flow Rate 01/25/22 14:35 100 Oxymask 6 01/25/22 14:25 100 Oxymask 6 01/25/22 14:08 100 Oxymask 8 01/25/22 14:15 100 Oxymask 8 01/25/22 11:21 94 01/25/22 10:51 93 01/25/22 10:35 92 01/25/22 10:16 92 01/25/22 08:52 Room Air 01/25/22 07:18 95/54 L 94 Room Air 01/25/22 00:34 108/73 96 Room Air 01/24/22 20:58 92/52 L 97 Room Air 01/24/22 19:00 100/61 97 Room Air 01/24/22 17:14 01/24/22 16:05 98 Room Air Pain Intensity Left Hip: Pain Intensity: 0 Transfer of Care Handoff Completed per policy Notes Mental Status: alert / awake / arousable and participated in evaluation Patient Amnestic to Procedure: Yes Nausea / Vomiting: adequately controlled Pain: adequately controlled Airway Patency, RR, SpO2: stable & adequate BP & HR: stable & adequate Hydration State: stable & adequate Anesthetic Complications: no major complications apparent
[2022-01-25] MEDS ORDERED: MAGNESIUM HYDROXIDE SUSP 30 ML UDC PO PRN (15:32)
[2022-01-25] MEDS ORDERED: METOCLOPRAMIDE HCL INJ 5 MG/ML 2 ML VIAL IV PRN (15:32)
[2022-01-25] MEDS ORDERED: bisacodyL 10 MG SUPP PR PRN (15:32)
[2022-01-25] MEDS ORDERED: NALOXONE HCL 0.4 MG/1 ML VIAL/CARP IV PRN (15:32)
[2022-01-25] MEDS: SODIUM CHLORIDE 0.9% 1000ML 1,000 ML IV SCH (15:37)
[2022-01-25] MEDS: Patient's HEIGHT &/or WEIGHT Needed SCH ×3 (15:52→17:25)
--- NOTE | 2022-01-25 16:24 | Operative Report (OR) ---
DATE OF PROCEDURE: 01/25/2022. PREOPERATIVE DIAGNOSIS: Left displaced 4-part intertrochanteric hip fracture. POSTOPERATIVE DIAGNOSIS: Left displaced 4-part intertrochanteric hip fracture. PROCEDURE: Open reduction and internal fixation of left displaced 4-part intertrochanteric hip fract ure with a Synthes 12 mm x 235 mm trochanteric fixation nail, 11 mm x 80 mm spiral blade, 5 mm x 40 m m transverse locking screw. SURGEON: Van Khalil DO. TOURIST CABIN KEEPER: Timothy Morales PA-C who was present for patient positioning, sterile prep and drape, manag ement of retractors and instruments. He was present through the critical portions of the case includi ng wound closure, application of sterile dressing and transport of the patient to recovery. ANESTHESIA: General with local. SPECIMENS: None. DRAINS: None. COMPLICATIONS: None. BLOOD LOSS: 30 mL PERTINENT HISTORY: This is a 81-year-old female who sustained a ground-level mechanical fall when sh e twisted and tripped in her bathroom yesterday. The patient was unable to ambulate, had pain and de formity at the level of the hip. She was transferred to [facility] via EMS, seen a nd examined and radiographed noted to have a displaced 4-part intertrochanteric hip fracture, was adm itted to the hospitalist service, stabilized for surgery and scheduled for surgery as indicated. All potential risks, benefits, complications, alternatives, rehab potential for incomplete relief of symptoms, need for further surgery, DVT, PE, , persistent pain, swelling, scarring, weakness, ne urovascular injury, wound complications, hardware failure, nonunion, malunion, bone fracture were dis cussed with the patient. The patient decided to proceed with the procedure as indicated. PROCEDURE: The patient was transferred to the operative suite. The proper site was identified. The co nsent was reviewed, the patient was then administered sedation and spinal anesthetic. Once appropriat e, the patient then transferred to the fracture table where the lower extremity was placed in fractur e table traction and the nonoperative leg was placed in the well leg lagos. All bony prominences wer e properly padded and protected. The padded post was placed in the peroneal and the patient was posit ioned appropriately. Next the left leg was placed on traction and reduction of the fracture was perfo rmed under fluoroscopic control. Next the operative hip was then sterilely prepped and draped in the usual fashion. Next a 10-blade scalpel incision was used to make an incision proximal to the greater trochanter. The incision was deep in the subcutaneous tissue and fascia and the tip of the greater tr ochanter was then palpated followed by placement of a guide pin under fluoroscopic control driven int o the greater trochanter down to the level of the less trochanter. This was confirmed in AP and later al projections followed by placement of the proximal reamer over the cannulated guide pin. Next the r eamer was then removed using the soft tissue protector, which was also removed. Next the ball tip david de lisa was placed into the proximal femur under fluoroscopic control confirmed with AP and lateral fl uoroscope projections. Next the trochanteric nail was then passed over the guide lisa into the femur, the guide lisa was removed and then under fluoroscopic control appropriate level of the femoral nail w as then placed in AP projections. Next the targeting device was then fixed to the driving handle and 10-blade scalpel incision was made in the lateral aspect of the thigh. Next the tissue protector and cannulated guide system was then passed into the soft tissue until it was securely fixed against a la teral aspect of the femoral cortex. This was also confirmed under C-arm. Next the guide pin for the s piral blade was driven into the lateral aspect of the femur confirming this with AP lateral projectio ns until the guide pin was in the center of the femoral neck and head approximately 5 mm from the sub cortical bone of the femur. Next the spiral blade was then measured and then the lateral cortex was t hen drilled with the cortex reamer followed by use of the triple reamer with the depth stop set at ap propriate depth. In this case a 11 mm x 80 mm spiral blade was then inserted over the cannulated guid e lisa under fluoroscopic control. This was seated appropriately then traction was reduced from the mb and the fracture was then gently compressed and then locked proximally with the flexible screwdriv er. Next the spiral blade was then disengaged from its insertion handle, insertion handle was then re moved and the guide pin was removed from the femoral neck and head. Next the lateral targeting arm wa s used to insert the distal locking screw. First a 10-blade scalpel incision was made in the lateral aspect of the thigh, captured drill sleeves were then tamped gently to the lateral aspect of the femo ral cortex then the locking screw hole was then drilled, measured and then an appropriate length scre w was placed to lock the distal aspect of the nail. Next targeting sleeves were then removed. The ins ertion arm was then removed from the nail and final x-rays were obtained in AP and lateral projection s. All incisions were then copiously irrigated with sterile normal saline. The proximal gluteus fasci a was then closed using interrupted #1 Vicryl, the dermis was closed using buried interrupted 2-0 Efrain ryl sutures in all three incisions and the skin was then closed using skin nahomi. A sterile margaret sive dressing consisting of Xeroform gauze, sterile 4 x 4's and Tegaderm was applied. The patient was then awakened and taken to recovery in stable condition. Job ID: [id number]
[2022-01-25 16:36] LABS: Hematocrit (blood only) 32.3 % (34.1-44.9); Hemoglobin 10.2 g/dl (12.0-16.0)
[2022-01-25] MEDS: cefTRIAXone SODIUM 1,000 MG in DEXTROSE 5% 50 ML IV SCH (17:29)
--- NOTE | 2022-01-25 18:33 | XRay Report ---
XR hip LT 2V w pelvis CLINICAL HISTORY: postop troch nail. COMPARISON STUDY: 01/24/2022 TECHNIQUE: Multiple left hip views FINDINGS: Bones: The patient is status post placement of an nail within the femoral neck and intratrochanteric lisa transfixing previously identified displaced intratrochanteric fracture. The fracture fragments ar e now in near anatomic alignment. There is no lytic or blastic lesion. Joints: The femoral head maintains its anatomic position within the acetabulum. The bones are in bee omic alignment. Soft tissues: There is no focal soft tissue abnormality. There is no radiopaque foreign body. IMPRESSION: 1. Status post internal fixation of intertrochanteric fracture. ACT 112: Negative or not required by law. Electronically signed by: Darinel Smith M.D. 01/25/2022 6:32 PM
[2022-01-25] MEDS: SENNA 8.6 MG TAB PO SCH (20:19)
[2022-01-25] MEDS: ceFAZolin 1000MG 1,000 MG/7.5 ML SYR IV SCH (20:19)
[2022-01-25] MEDS: DOCUSATE SODIUM 100 MG CAP PO SCH (20:19)
[2022-01-26] MEDS: SODIUM CHLORIDE 0.9% 1000ML 1,000 ML IV SCH (01:07)
[2022-01-26] MEDS: MoRPHine SULFATE 2 MG/ML CARP IV PRN (03:31)
[2022-01-26] MEDS: ceFAZolin 1000MG 1,000 MG/7.5 ML SYR IV SCH (03:31)
[2022-01-26] MEDS ORDERED: ALENDRONATE SODIUM 70 MG TAB PO SCH (06:30)
[2022-01-26 08:22] LABS: Hematocrit (blood only) 26.6 % (34.1-44.9); Hemoglobin 8.3 g/dl (12.0-16.0); Mean Corpuscular Hemoglobin 28.5 pg (25.0-34.0); Mean Corpuscular Hgb Conc 31.2 g/dL (32.0-36.0); Mean Corpuscular Volume 91.4 fL (80.0-100.0); Mean Platelet Volume 10.4 fL (9.4-12.3); Platelet Count 159 K/uL (130-400); RDW Coefficient of Variation 14.9 % (11.5-14.5); RDW Standard Deviation 50.4 fL (36.4-46.3); Red Blood Count 2.91 M/uL (3.93-5.22); White Blood Count 12.77 K/ul (4.8-10.8)
[2022-01-26 08:45] LABS: BUN Creatinine Ratio 26.8 (10-20); Creatinine Clr Calc Pharmacy 55.4 ml/min; Est GFR (African American) 102.8 ml/min; Est GFR (Non-African American) 88.7 ml/min; Magnesium 1.6 mg/dl (1.7-2.4); Phosphorus 3.6 mg/dl (2.5-4.9); Potassium 3.9 mmol/L (3.5-5.1)
[2022-01-26] MEDS: ASPIRIN 81 MG ECTAB PO SCH (09:13)
[2022-01-26] MEDS: ATORVASTATIN 40 MG TAB PO SCH (09:13)
[2022-01-26] MEDS: ACETAMINOPHEN 500 MG TAB PO SCH ×2 (09:13→17:48)
[2022-01-26] MEDS: CHOLECALCIFEROL 5,000 UNITS 125 MCG TAB PO SCH (09:13)
[2022-01-26] MEDS: CITALOPRAM 20 MG TAB PO SCH (09:13)
[2022-01-26] MEDS: DOCUSATE SODIUM 100 MG CAP PO SCH ×2 (09:14→20:31)
[2022-01-26] MEDS: CLOPIDOGREL BISULFATE 75 MG TAB PO SCH (09:14)
[2022-01-26] MEDS: FERROUS SULFATE 325 MG TAB PO SCH (09:15)
[2022-01-26] MEDS: METOPROLOL SUCC 25MG EXT REL TAB PO SCH (09:15)
[2022-01-26] MEDS: MULTIVITAMIN TAB PO SCH (09:15)
[2022-01-26] MEDS: PANTOprazole 40 MG TAB PO SCH (09:15)
--- NOTE | 2022-01-26 11:31 | Hospitalist Progress Note ---
Date of Service January 26, 2022 Assessment & Plan (1) Closed hip fracture: (2) Fall: (3) Acute leg pain: Plan 81-year-old female with history of CAD, CHF diastolic type, hypertension, COPD, CVA, history of bilateral carotid artery stenosis, vertebral artery dissection presented 01/24 w/ left hip pain after mechanical fall and found to have closed left hip fracture in the ED. Of note, patient is mildly confused at baseline and becomes increasingly confused when she is away from familiar environment per patient's daughter. She is being managed for the following: Closed hip fracture, s/p mechanical fall Acute on chronic anemia, likely acute blood loss anemia secondary to hip fracture S/P ORIF of Left displaced 4 part intertrochanteric fx, POD # 1, Dr. Khalil Pain/wound management per orthopedic Activity and therapy as directed by Ortho Monitor hemoglobin, 8.3 today Acute blood loss anemia in setting of surgery s/p 2 units PRBC 01/25/22 hgb 8.3 today, dressing saturated will closely monitor hgb Likely UTI Admitting UA suggestive of UTI and WBC elevated at 18.3 5K continue with Rocephin, Day #3 consider d/c after 5 days of antibiotic therapy History of CAD Denies any chest pain or cardiac symptoms asa and plavix resumed On Lipitor and metoprolol monitor volume status closely 2/2 to transfusion History of CHF, systolic and diastolic type, chronic Euvolemic Other chronic medical conditions: HTN, COPD, CVA--> continue with home meds when able. Caution with antihypertensive. Aspirin and Plavix resumed by orthopedics DVT prophylaxis: SCDs DNR/DNI Disposition: Likely inpatient rehab versus SNF, PT/OT eval to follow, CM to assist with DC planning. Pt was seen and examined in collaboration with Dr. Lamar, please see addendum Thank you for this consultation. We will follow the patient with you during their hospital stay. You can reach a member of the [facility] Hospitalist Team 04/01 via hospitalist role on tiger text. Admission and Anticipated Discharge Date Admission Date: January 24, 2022 Supervising Physician Co-Signing Physician Notes 81-year-old lady who is a status post ORIF of left displaced intertrochanteric fracture secondary to mechanical fall. Patient doing well. Was alert and more conversive today. Patient reports pain under control. Watch out for acute blood loss anemia in the setting of surgery. Patient receiving treatment for likely UTI. On examination serosanguineous soakage at left hip dressing. Patient on room air. Appears comfortable. Other examinations as above. I have seen and examined the patient and have discussed the case with the provider above. I agree with the assessment and plan as stated. Subjective Patient was seen and examined in room 379-1. Follow-up left hip fracture status postrepair. Patient received 2 units PRBCs yesterday. ROS unobtainable from patient secondary to underlying confusion. Review of Systems Review of Systems: All systems reviewed & are unremarkable except as noted in HPI & below Physical Exam Physical Exam: Gen: Elderly, female, bilateral temporal wasting, confused but pleasant, thin, frail, A&O x1, she knew she was in hospital setting but not location HEENT: Normocephalic, atraumatic, conjunctivae moist, sclerae anicteric, mucous membranes dry Lung: Clear to Auscultation bilaterally, no wheezes/rales/rhonchi Heart: Regular rate, regular rhythm, no murmurs, rubs, or gallops Abdomen: Soft, NT, ND +BS x 4 Extremities: No edema, LLE Dressing was saturated with serosangineous drainge Skin: Warm, no rash, negative turgor. Results & Data Results & Data ([facility]) Vital Signs (Past 12 Hours) Vital Signs Temp Pulse Resp BP Pulse Ox O2 Del Method O2 Flow Rate 01/26/22 11:15 36.8 C 86 16 119/54 L 99 Nasal Cannula 2 01/26/22 08:10 Nasal Cannula 2 01/26/22 07:35 36.5 C 100 H 18 121/54 L 99 Nasal Cannula 2 01/26/22 03:17 36.6 C 69 16 111/64 93 Laboratory Results Short CBC 01/25/22 01/26/22 Range/Units 16:14 08:00 WBC 12.77 H (4.8-10.8) K/ul Hgb 10.2 L 8.3 L (12.0-16.0) g/dl Hct 32.3 L 26.6 L (34.1-44.9) % Plt Count 159 (130-400) K/uL BMP 01/26/22 08:00 Sodium 141 Potassium 3.9 Chloride 111 H Carbon Dioxide 24 BUN 15 Creatinine 0.56 L Glucose 113 H Calcium 8.0 L Medications Administered Current Inpatient Medications Acetaminophen (Acetaminophen 500 Mg Tab) 1,000 mg PO Q8H [facility] Stop: 02/24/22 00:00 Last Admin: 01/26/22 09:13 Dose: 1,000 mg Alendronate Sodium (Alendronate Sodium 70 Mg Tab) 70 mg PO Sa@0630 [facility] Stop: 02/25/22 06:29 Last Admin: 01/26/22 05:34 Dose: 70 mg Aspirin (Aspirin 81 Mg Ectab) 81 mg PO DAILY [facility] Stop: 02/25/22 08:59 Last Admin: 01/26/22 09:13 Dose: 81 mg Atorvastatin Calcium ([facility]atin 40 Mg Tab) [facility] [place]: 02/24/22 08:59 Last Admin: 01/26/22 09:13 Dose: 40 mg Bisacodyl (Bisacodyl 10 Mg Supp) 10 mg OK DAILY PRN PRN Reason: Constipation Stop: 02/24/22 15:31 Citalopram Hydrobromide (Citalopram 20 Mg Tab) 10 mg PO DAILY [facility] Stop: 02/24/22 08:59 Last Admin: 01/26/22 09:13 Dose: 10 mg Clopidogrel Bisulfate (Clopidogrel Bisulfate 75 Mg Tab) [facility] [place] Stop: 02/25/22 08:59 Last Admin: 01/26/22 09:14 Dose: 75 mg Docusate Sodium (Docusate Sodium 100 Mg Cap) 100 mg PO BID [facility] Stop: 02/24/22 20:59 Last Admin: 01/26/22 09:14 Dose: 100 mg Ferrous Sulfate (Ferrous Sulfate 325 Mg Tab) [facility] [place] Stop: 02/24/22 08:59 Last Admin: 01/26/22 09:15 Dose: 325 mg Ceftriaxone Sodium 1,000 mg/ (Dextrose) 60 mls @ 100 mls/hr IV Q24H [facility]; Protocol Stop: 02/04/22 17:59 Last Infusion: 01/25/22 18:18 Dose: Infused Magnesium Hydroxide (Magnesium Hydroxide Susp 30 Ml Udc) 30 ml PO Q6H PRN PRN Reason: Constipation Stop: 02/24/22 15:31 Metoclopramide HCl (Metoclopramide Hcl Inj 5 Mg/Ml 2 Ml Vial) 10 mg IV Q6H PRN PRN Reason: Nausea And Vomiting Stop: 02/24/22 15:31 Metoprolol Succinate (Metoprolol Succ 25mg Ext Rel Tab) 25 mg PO DAILY [facility] Stop: 02/25/22 08:59 Last Admin: 01/26/22 09:15 Dose: 25 mg Morphine Sulfate (Morphine Sulfate 2 Mg/Ml Carp) 2 mg IV Q6H PRN PRN Reason: severe pain 7-10 Stop: 02/07/22 22:29 Last Admin: 01/26/22 03:31 Dose: 2 mg Multivitamins (Multivitamin Tab) [facility] [place] [place]: 02/25/22 08:59 Last Admin: 01/26/22 09:15 Dose: 1 tab Naloxone HCl (Naloxone Hcl 0.4 Mg/1 Ml Vial/Carp) 0.1 mg IV Q5M PRN PRN Reason: Oversedation/Resp Depression Stop: 02/24/22 15:31 Ondansetron HCl (Ondansetron Inj 2 Mg/Ml 2 Ml Vial) 4 mg IV Q6H PRN PRN Reason: Nausea And Vomiting Stop: 02/24/22 15:31 Oxycodone HCl (Oxycodone Hcl Ir 5 Mg Tab (Immediate Release)) 5 mg PO Q6H PRN PRN Reason: Moderate Pain 4-6 Stop: 02/07/22 22:29 Last Admin: 01/25/22 17:28 Dose: 5 mg Pantoprazole Sodium (Pantoprazole 40 Mg Tab) 40 mg PO DAILY [facility] Stop: 02/24/22 08:59 Last Admin: 01/26/22 09:15 Dose: 40 mg Sennosides (Senna 8.6 Mg Tab) 17.2 mg [facility] Stop: 02/24/22 20:59 Last Admin: 01/25/22 20:19 Dose: 17.2 mg Vitamin D (Cholecalciferol 5,000 Units 125 Mcg Tab) 5,000 units PO QAM [facility] Stop: 02/24/22 08:59 Last Admin: 01/26/22 09:13 Dose: 5,000 units
--- NOTE | 2022-01-26 13:30 | Fluoroscopy Report ---
FL hip LT 2-3V CLINICAL HISTORY: LEFT HIP IM ILEANA COMPARISON STUDY: Pelvis and left hip radiographs January 24, 2022. FLUOROSCOPY TIME: 3 minutes and 6 seconds. FLUOROSCOPIC IMAGES: 6 FINDINGS: Fluoroscopy was provided during open reduction and internal fixation of the intertrochanter ic fracture of the left femur with intramedullary ileana, femoral neck blade and transverse locking scre w. Fracture alignment has significantly improved. No unexpected radiopaque foreign bodies are present . Healing left pubic ring fractures are incidentally noted. IMPRESSION: Fluoroscopy provided during open reduction and internal fixation of the intertrochanteri c fracture of the left femur. ACT 112: Negative or not required by law. Electronically signed by: Alex Bran M.D. 01/26/2022 1:28 PM
[2022-01-26] MEDS ORDERED: MAGNESIUM SULFATE / D5W 1 GM/100 ML BAG IV ONE (16:01)
[2022-01-26] MEDS ORDERED: MoRPHine SULFATE 2 MG/ML CARP IV PRN (16:03)
--- NOTE | 2022-01-26 16:24 | Orthopedic Progress Note ---
Date of Service January 26, 2022 Assessment & Plan (1) Fracture, intertrochanteric, left femur: Plan: POD #1 s/p Open reduction and internal fixation of left displaced 4-part intertrochanteric hip fracture with a Synthes 12 mm x 235 mm trochanteric fixation nail, 11 mm x 80 mm spiral blade, 5 mm x 40 mm transverse locking screw. Since the most proximal dressing was saturated, an order will be placed to change the dressing. Toe-touch weightbearing left lower extremity. PT/OTtoe-touch weightbearing left lower extremity. DVT prophylaxisTED stockings, Plavix, aspirin. Discharge planningpatient will likely require a rehabilitation versus SNF stay. Admission and Anticipated Discharge Date Admission Date: January 24, 2022 Subjective States she has some pain in her left hip. Other history was difficult secondary to patient confusion. Physical Exam Constitutional: no acute distress (Sitting in bed, comfortable. Vital signs stable.) Musculoskeletal: Hip: + surgical incision (Left thigh is soft. Saturated proximal dressing.); no skin erythema and no ecchymosis Skin: no rashes, warm and dry Trauma: no evidence of skin trauma Results & Data ([facility]) Vital Signs (Past 12 Hours) Vital Signs Temp Pulse Resp BP Pulse Ox O2 Del Method O2 Flow Rate 01/26/22 14:59 36.7 C 98 H 20 127/64 95 Room Air 01/26/22 11:15 36.8 C 86 16 119/54 L 99 Nasal Cannula 2 01/26/22 08:10 Nasal Cannula 2 01/26/22 07:35 36.5 C 100 H 18 121/54 L 99 Nasal Cannula 2
[2022-01-26] MEDS: cefTRIAXone SODIUM 1,000 MG in DEXTROSE 5% 50 ML IV SCH (17:48)
[2022-01-26] MEDS: SENNA 8.6 MG TAB PO SCH (20:31)
[2022-01-26] MEDS: oxyCODONE HCL IR 5 MG TAB (IMMEDIATE RELEASE) PO PRN (20:32)
[2022-01-27] MEDS: ACETAMINOPHEN 500 MG TAB PO SCH ×3 (00:01→17:22)
[2022-01-27] MEDS: oxyCODONE HCL IR 5 MG TAB (IMMEDIATE RELEASE) PO PRN (05:09)
[2022-01-27] MEDS: CLOPIDOGREL BISULFATE 75 MG TAB PO SCH (07:42)
[2022-01-27] MEDS: MULTIVITAMIN TAB PO SCH (07:43)
[2022-01-27] MEDS: PANTOprazole 40 MG TAB PO SCH (07:43)
[2022-01-27] MEDS: CHOLECALCIFEROL 5,000 UNITS 125 MCG TAB PO SCH (07:43)
[2022-01-27] MEDS: FERROUS SULFATE 325 MG TAB PO SCH (07:43)
[2022-01-27] MEDS: CITALOPRAM 20 MG TAB PO SCH (07:43)
[2022-01-27] MEDS: ATORVASTATIN 40 MG TAB PO SCH (07:43)
[2022-01-27] MEDS: METOPROLOL SUCC 25MG EXT REL TAB PO SCH (07:43)
[2022-01-27] MEDS: ASPIRIN 81 MG ECTAB PO SCH (07:44)
[2022-01-27] MEDS: DOCUSATE SODIUM 100 MG CAP PO SCH ×2 (07:44→21:29)
[2022-01-27 09:30] LABS: Basophils # (auto) 0.04 K/uL (0-0.2); Basophils % (auto) 0.3 %; Eosinophils # (auto) 0.01 K/uL (0-0.50); Eosinophils % (auto) 0.1 %; Hematocrit (blood only) 27.3 % (34.1-44.9); Hemoglobin 8.4 g/dl (12.0-16.0); Immature Granulocytes # (auto) 0.07 K/uL (0.00-0.02); Immature Granulocytes % (auto) 0.5 %; Lymphocytes # (auto) 0.84 K/uL (1.2-3.4); Lymphocytes % (auto) 5.8 %; Mean Corpuscular Hemoglobin 28.5 pg (25.0-34.0); Mean Corpuscular Hgb Conc 30.8 g/dL (32.0-36.0); Mean Corpuscular Volume 92.5 fL (80.0-100.0); Mean Platelet Volume 10.1 fL (9.4-12.3); Monocytes # (auto) 1.03 K/uL (0.24-0.82); Monocytes % (auto) 7.2 %; Neutrophils # (auto) 12.37 K/uL (1.4-6.5); Neutrophils % (auto) 86.1 %; Platelet Count 174 K/uL (130-400); RDW Coefficient of Variation 14.8 % (11.5-14.5); RDW Standard Deviation 50.2 fL (36.4-46.3); Red Blood Count 2.95 M/uL (3.93-5.22); White Blood Count 14.36 K/ul (4.8-10.8)
--- NOTE | 2022-01-27 09:41 | Orthopedic Progress Note ---
Date of Service January 27, 2022 Assessment & Plan (1) Fracture, intertrochanteric, left femur: Plan: POD #2 s/p Open reduction and internal fixation of left displaced 4-part intertrochanteric hip fracture with a Synthes 12 mm x 235 mm trochanteric fixation nail, 11 mm x 80 mm spiral blade, 5 mm x 40 mm transverse locking screw. Daily dressing changes Toe-touch weightbearing left lower extremity. PT/OTtoe-touch weightbearing left lower extremity. DVT prophylaxisTED stockings, Plavix, aspirin. Discharge planningpatient will likely require a rehabilitation versus SNF stay. Ortho will sign off at this time. Instructions placed in chart. Please call with questions. Admission and Anticipated Discharge Date Admission Date: January 24, 2022 Subjective POD 2 Pt lying in bed asleep. Arousable but just received IV pain medication and is somnolent. Physical Exam Physical Exam: Dressings C/D/I. Calves soft. Appear NT. No palpable cord. Moving toes and foot when stimulated. Results & Data ([facility]) Vital Signs (Past 12 Hours) Vital Signs Temp Pulse Resp BP BP Pulse Ox O2 Del Method 01/27/22 08:00 Room Air 01/27/22 08:14 36.8 C 86 20 152/73 H 96 Room Air 01/26/22 23:00 37.0 C 88 18 118/67 90 Nasal Cannula
[2022-01-27 10:07] LABS: BUN Creatinine Ratio 31.9 (10-20); Calcium 8.2 mg/dl (8.5-10.1); Est GFR (African American) 108.9 ml/min; Est GFR (Non-African American) 93.9 ml/min; Magnesium 1.8 mg/dl (1.7-2.4); Potassium 3.9 mmol/L (3.5-5.1)
[2022-01-27] MEDS ORDERED: oxyCODONE HCL IR 5 MG TAB (IMMEDIATE RELEASE) PO PRN (11:01)
--- NOTE | 2022-01-27 11:10 | Hospitalist Progress Note ---
Date of Service January 27, 2022 Assessment & Plan (1) Closed hip fracture: (2) Fall: (3) Acute leg pain: Plan 81-year-old female with history of CAD, CHF diastolic type, hypertension, COPD, CVA, history of bilateral carotid artery stenosis, vertebral artery dissection presented 01/24 w/ left hip pain after mechanical fall and found to have closed left hip fracture in the ED. Of note, patient is mildly confused at baseline and becomes increasingly confused when she is away from familiar environment per patient's daughter. She is being managed for the following: Closed hip fracture, s/p mechanical fall Acute on chronic anemia, likely acute blood loss anemia secondary to hip fracture S/P ORIF of Left displaced 4 part intertrochanteric fx, POD # 1, Dr. Khalil Pain/wound management per orthopedic Activity and therapy as directed by Ortho Monitor hemoglobin, 8.3 today bowel regimen of colace and senna, no BM since 01/24 per nurse notes, abd soft Acute blood loss anemia in setting of surgery s/p 2 units PRBC 01/25/22 hgb 8.4 today will closely monitor hgb Likely UTI Admitting UA suggestive of UTI and WBC elevated at 18.3 5K continue with Rocephin, Day #4 consider d/c after 5 days of antibiotic therapy Hypomagnesemia repleted and resolved Delirium, associated with likely underlying dementia pt continues to be confused which is inhibiting her progress with therapy she will require SNF for further care will d/c IV morphine, and place on oxy IR 2.5mg for mod pain and 5mg for severe pain trying to avoid all mood altering agents if able she is on IV antibiotic for presumed UTI History of CAD Denies any chest pain or cardiac symptoms asa and plavix resumed On Lipitor and metoprolol monitor volume status closely 2/2 to transfusion History of CHF, systolic and diastolic type, chronic Euvolemic Other chronic medical conditions: HTN, COPD, CVA--> continue with home meds when able. Caution with antihypertensive. Aspirin and Plavix resumed by orthopedics DVT prophylaxis: SCDs DNR/DNI Disposition: med/surg, pt to d/c to SNF when accepted, Ortho signed off, she is TTWB, CM assisting with placement Pt was seen and examined in collaboration with Dr. Lamar, please see addendum Admission and Anticipated Discharge Date Admission Date: January 24, 2022 Supervising Physician Co-Signing Physician Notes 81-year-old lady who is a status post ORIF of left displaced intertrochanteric fracture secondary to mechanical fall. Patient doing well. Was alert and more conversive today. Patient reports pain under control. Watch out for acute blood loss anemia in the setting of surgery. Patient receiving treatment for likely UTI. On examination left hip dressing clean w/o soakage. Patient on room air. Appears comfortable but Ox1 to me during exa. Other examinations as above. I have seen and examined the patient and have discussed the case with the provider above. I agree with the assessment and plan as stated. Subjective Patient was seen and examined in room 379-1. Follow-up left hip fracture status postrepair. Patient alert and arousable to verbal stimuli. She complains of pain but unable to tell me where. Denies cp, sob, n/v/d, abd pain. ROS unreliable given cognition. She is unsure of her last bowel movement. Review of Systems Review of Systems: Unobtainable due to cognitive status Unreliable Physical Exam Physical Exam: Gen: Elderly, female, bilateral temporal wasting, confused but pleasant, thin, frail, A&O x1 HEENT: Normocephalic, atraumatic, conjunctivae moist, sclerae anicteric, mucous membranes dry Lung: Clear to Auscultation bilaterally, no wheezes/rales/rhonchi Heart: Regular rate, regular rhythm, no murmurs, rubs, or gallops Abdomen: Soft, NT, ND +BS x 4 Extremities: No edema, LLE Dressing clean and dry Skin: Warm, no rash, negative turgor. Results & Data Results & Data ([facility]) Vital Signs (Past 12 Hours) Vital Signs Temp Pulse Resp BP Pulse Ox O2 Del Method 01/27/22 08:00 Room Air 01/27/22 08:14 36.8 C 86 20 152/73 H 96 Room Air Laboratory Results Short CBC 01/27/22 Range/Units 09:03 WBC 14.36 H (4.8-10.8) K/ul Hgb 8.4 L (12.0-16.0) g/dl Hct 27.3 L (34.1-44.9) % Plt Count 174 (130-400) K/uL BMP 01/27/22 09:03 Sodium 139 Potassium 3.9 Chloride 108 H Carbon Dioxide 24 BUN 15 Creatinine 0.47 L Glucose 127 H Calcium 8.2 L Medications Administered Current Inpatient Medications Acetaminophen (Acetaminophen 500 Mg Tab) 1,000 mg PO Q8H [facility] Stop: 02/24/22 00:00 Last Admin: 01/27/22 07:42 Dose: 1,000 mg Alendronate Sodium (Alendronate Sodium 70 Mg Tab) 70 mg PO Sa@0630 [facility] Stop: 02/25/22 06:29 Last Admin: 01/26/22 05:34 Dose: 70 mg Aspirin (Aspirin 81 Mg Ectab) 81 mg PO DAILY [facility] Stop: 02/25/22 08:59 Last Admin: 01/27/22 07:44 Dose: 81 mg Atorvastatin Calcium (Atorvastatin 40 Mg Tab) [facility] Stop: 02/24/22 08:59 Last Admin: 01/27/22 07:43 Dose: 40 mg Bisacodyl (Bisacodyl 10 Mg Supp) 10 mg [place] DAILY PRN PRN Reason: Constipation Stop: 02/24/22 15:31 Citalopram Hydrobromide (Citalopram 20 Mg Tab) 10 mg PO DAILY [facility] Stop: 02/24/22 08:59 Last Admin: 01/27/22 07:43 Dose: 10 mg Clopidogrel Bisulfate (Clopidogrel Bisulfate 75 Mg Tab) 75 mg PO [facility] Stop: 02/25/22 08:59 Last Admin: 01/27/22 07:42 Dose: 75 mg Docusate Sodium (Docusate Sodium 100 Mg Cap) 100 mg PO BID [facility] Stop: 02/24/22 20:59 Last Admin: 01/27/22 07:44 Dose: 100 mg Ferrous Sulfate (Ferrous Sulfate 325 Mg Tab) 325 mg PO [facility] Stop: 02/24/22 08:59 Last Admin: 01/27/22 07:43 Dose: 325 mg Ceftriaxone Sodium 1,000 mg/ (Dextrose) 60 mls @ 100 mls/hr IV Q24H [facility]; Protocol Stop: 02/04/22 17:59 Last Infusion: 01/26/22 18:19 Dose: Infused Magnesium Hydroxide (Magnesium Hydroxide Susp 30 Ml Udc) 30 ml PO Q6H PRN PRN Reason: Constipation Stop: 02/24/22 15:31 Metoclopramide HCl (Metoclopramide Hcl Inj 5 Mg/Ml 2 Ml Vial) 10 mg IV Q6H PRN PRN Reason: Nausea And Vomiting Stop: 02/24/22 15:31 Metoprolol Succinate (Metoprolol Succ 25mg Ext Rel Tab) 25 mg PO DAILY [facility] Stop: 02/25/22 08:59 Last Admin: 01/27/22 07:43 Dose: 25 mg Multivitamins (Multivitamin Tab) 1 tab PO QAM [facility] Stop: 02/25/22 08:59 Last Admin: 01/27/22 07:43 Dose: 1 tab Naloxone HCl (Naloxone Hcl 0.4 Mg/1 Ml Vial/Carp) 0.1 mg IV Q5M PRN PRN Reason: Oversedation/Resp Depression Stop: 02/24/22 15:31 Ondansetron HCl (Ondansetron Inj 2 Mg/Ml 2 Ml Vial) 4 mg IV Q6H PRN PRN Reason: Nausea And Vomiting Stop: 02/24/22 15:31 Oxycodone HCl (Oxycodone Hcl Ir 5 Mg Tab (Immediate Release)) 2.5 mg PO Q6H PRN PRN Reason: Moderate Pain 4-8 Stop: 02/07/22 22:29 Oxycodone HCl (Oxycodone Hcl Ir 5 Mg Tab (Immediate Release)) 5 mg PO Q6H PRN PRN Reason: severe pain (9,10) Stop: 02/10/22 11:01 Pantoprazole Sodium (Pantoprazole 40 Mg Tab) 40 mg PO DAILY [facility] Stop: 02/24/22 08:59 Last Admin: 01/27/22 07:43 Dose: 40 mg Polyethylene Glycol (Polyethylene (Miralax) 17 Gm Pack) 17 gm PO DAILY [facility] Stop: 02/26/22 11:14 Sennosides (Senna 8.6 Mg Tab) 17.2 mg PO HS [facility] Stop: 02/24/22 20:59 Last Admin: 01/26/22 20:31 Dose: 17.2 mg Vitamin D (Cholecalciferol 5,000 Units 125 Mcg Tab) 5,000 units PO QAM [facility] Stop: 02/24/22 08:59 Last Admin: 01/27/22 07:43 Dose: 5,000 units
[2022-01-27] MEDS ORDERED: POLYETHYLENE (MIRALAX) 17 GM PACK PO SCH (11:30)
[2022-01-27] MEDS: cefTRIAXone SODIUM 1,000 MG in DEXTROSE 5% 50 ML IV SCH (17:22)
[2022-01-27] MEDS: SENNA 8.6 MG TAB PO SCH (21:29)
[2022-01-28] MEDS: ACETAMINOPHEN 500 MG TAB PO SCH ×4 (00:34→22:57)
[2022-01-28] MEDS: oxyCODONE HCL IR 5 MG TAB (IMMEDIATE RELEASE) PO PRN ×2 (01:27→12:48)
[2022-01-28] MEDS: PANTOprazole 40 MG TAB PO SCH (07:44)
[2022-01-28] MEDS: FERROUS SULFATE 325 MG TAB PO SCH (07:44)
[2022-01-28] MEDS: CLOPIDOGREL BISULFATE 75 MG TAB PO SCH (07:44)
[2022-01-28] MEDS: DOCUSATE SODIUM 100 MG CAP PO SCH ×2 (07:44→20:19)
[2022-01-28] MEDS: MULTIVITAMIN TAB PO SCH (07:44)
[2022-01-28] MEDS: ATORVASTATIN 40 MG TAB PO SCH (07:45)
[2022-01-28] MEDS: ASPIRIN 81 MG ECTAB PO SCH (07:45)
[2022-01-28] MEDS: METOPROLOL SUCC 25MG EXT REL TAB PO SCH (07:45)
[2022-01-28] MEDS: CHOLECALCIFEROL 5,000 UNITS 125 MCG TAB PO SCH (07:45)
[2022-01-28] MEDS: CITALOPRAM 20 MG TAB PO SCH (07:45)
[2022-01-28 08:38] LABS: Basophils # (auto) 0.03 K/uL (0-0.2); Basophils % (auto) 0.2 %; Eosinophils # (auto) 0.11 K/uL (0-0.50); Eosinophils % (auto) 0.7 %; Hematocrit (blood only) 26.2 % (34.1-44.9); Hemoglobin 8.2 g/dl (12.0-16.0); Immature Granulocytes # (auto) 0.09 K/uL (0.00-0.02); Immature Granulocytes % (auto) 0.6 %; Lymphocytes % (auto) 6.7 %; Mean Corpuscular Hgb Conc 31.3 g/dL (32.0-36.0); Mean Corpuscular Volume 92.6 fL (80.0-100.0); Monocytes # (auto) 0.89 K/uL (0.24-0.82); Neutrophils % (auto) 85.8 %; Platelet Count 229 K/uL (130-400); RDW Coefficient of Variation 14.7 % (11.5-14.5); Red Blood Count 2.83 M/uL (3.93-5.22); White Blood Count 14.82 K/ul (4.8-10.8)
[2022-01-28 09:02] LABS: BUN Creatinine Ratio 34.1 (10-20); Calcium 8.2 mg/dl (8.5-10.1); Creatinine Clr Calc Pharmacy 70.5 ml/min; Est GFR (African American) 111.3 ml/min; Magnesium 1.9 mg/dl (1.7-2.4); Potassium 3.8 mmol/L (3.5-5.1)
--- NOTE | 2022-01-28 11:00 | Hospitalist Progress Note ---
Date of Service January 28, 2022 Assessment & Plan (1) Closed hip fracture: (2) Fall: (3) Acute leg pain: Plan 81-year-old female with history of CAD, CHF diastolic type, hypertension, COPD, CVA, history of bilateral carotid artery stenosis, vertebral artery dissection presented 01/24 w/ left hip pain after mechanical fall and found to have closed left hip fracture in the ED. Of note, patient is mildly confused at baseline and becomes increasingly confused when she is away from familiar environment per patient's daughter. She is being managed for the following: Closed hip fracture, s/p mechanical fall Acute on chronic anemia, likely acute blood loss anemia secondary to hip fracture S/P ORIF of Left displaced 4 part intertrochanteric fx, POD # 3, Dr. Khalil Pain/wound management per orthopedic Activity and therapy as directed by Ortho Monitor hemoglobin, 8.2 today bowel regimen of colace and senna, Pt had 2 BM today Acute blood loss anemia in setting of surgery s/p 2 units PRBC 01/25/22 hgb 8.2 today will closely monitor hgb Leukocytosis wbc steadily increasing, 14.82 today previous admission reveal a reactive leukocytosis, difficult to obtain reliable hx to determine source given mental status She is afebrile, but documented HRS in the 90s Technically meets for SIRS criteria work up with repeat UA and culture, CXR CXR no acute abnormality Urine - abnormal; however await culture procal wnl, blood cultures sent if work up negative can d/c antibiotics Likely UTI Admitting UA suggestive of UTI and WBC elevated at 18.3 5K continue with Rocephin, Day #5 will continue antibiotic for now in setting of work up for leukocytosis as above Hypomagnesemia repleted and resolved Delirium, associated with likely underlying dementia pt continues to be confused which is inhibiting her progress with therapy, this does seem to be improving she will require SNF for further care IV morphine d/c and placed on oxy IR 2.5mg for mod pain and 5mg for severe pain trying to avoid all mood altering agents if able On scheduled APAP 1g tid she is on IV antibiotic for presumed UTI History of CAD Hx of TIA, CVA, B/L significant carotid stenosis, hx of vertebral artery dissection (incidental finding on imaging during 11/02 admission) Denies any chest pain or cardiac symptoms asa and plavix resumed On Lipitor and metoprolol after further review of chart pt was to only be on DAPT x 21 days and then single agent indefinitely to be determined at neurology follow up she was to f/u with neuro 6 weeks post hospital stay; however appt isn't scheduled til due to pt immobility will place pt on SQ Lovenox, continue plavix but hold ASA. When SQ Lovenox D/C then resume ASA until neuro History of CHF, systolic and diastolic type, chronic Euvolemic DVT prophylaxis: Start Lovenox, hold asa DNR/DNI Disposition: med/surg, Plan to D/C to [facility] when medically stable; hopefully in next day or two once underlying infectious source of leukocytosis ruled out, possible Wednesday. Will need Pfizer covid booster ordered on day of discharge. Will also need clarke removed - per nurse not yet ambulatory enough to move Pt was seen and examined in collaboration with Dr. Stahl, please see addendum Admission and Anticipated Discharge Date Admission Date: January 24, 2022 Supervising Physician Co-Signing Physician Notes Patient seen and examined by me, care coordinated with Elvi Garcia PA-C, please refer to her note above for further detail. Currently patient is lying in bed, in no acute distress. Per RN, she had several BMs. Then received oxycodone, for hip pain. Patient is status post hip surgery. Patient is able to answer simple questions appropriately, she cannot tell me which hospital she is at. She denies any fevers, chills, chest pain, shortness of breath, abdominal pain, nausea vomiting. Per RN, daughter was visiting earlier. WBCs at 14,000, infectious work-up done today to rule out any infectious underlying cause. MD Maribeth Subjective Patient was seen and examined in room 379-1. Follow-up left hip fracture status postrepair. Pt sitting up eating breakfast. States she feels, "pretty good today." Denies f/c/s, chest pain, sob, n/v/d. ROS unreliable given mental status. Review of Systems Review of Systems: All systems reviewed & are unremarkable except as noted in HPI & below ROS unreliable Physical Exam Physical Exam: Gen: Elderly, female, bilateral temporal wasting, confused but pleasant, thin, frail, A&O x2 HEENT: Normocephalic, atraumatic, conjunctivae moist, sclerae anicteric, mucous membranes dry Lung: Clear to Auscultation bilaterally, no wheezes/rales/rhonchi Heart: Regular rate, regular rhythm, no murmurs, rubs, or gallops Abdomen: Soft, NT, ND +BS x 4 Extremities: No edema, LLE Dressing clean and dry Skin: Warm, no rash, negative turgor. : clarke with yellow urine Results & Data Results & Data ([facility]) Vital Signs (Past 12 Hours) Vital Signs Temp Pulse Resp BP Pulse Ox O2 Del Method O2 Flow Rate 01/28/22 08:00 Nasal Cannula 1 01/28/22 07:21 36.7 C 96 H 20 158/81 H 98 Nasal Cannula 1 Laboratory Results Short CBC 01/28/22 Range/Units 07:59 WBC 14.82 H (4.8-10.8) K/ul Hgb 8.2 L (12.0-16.0) g/dl Hct 26.2 L (34.1-44.9) % Plt Count 229 (130-400) K/uL BMP 01/28/22 07:59 Sodium 140 Potassium 3.8 Chloride 106 Carbon Dioxide 29 BUN 15 Creatinine 0.44 L Glucose 111 H Calcium 8.2 L Medications Administered Current Inpatient Medications Acetaminophen (Acetaminophen 500 Mg Tab) 1,000 mg PO Q8H [facility] Stop: 02/24/22 00:00 Last Admin: 01/28/22 07:46 Dose: 1,000 mg Alendronate Sodium (Alendronate Sodium 70 Mg Tab) 70 mg PO Sa@0630 [facility] Stop: 02/25/22 06:29 Last Admin: 01/26/22 05:34 Dose: 70 mg Aspirin (Aspirin 81 Mg Ectab) 81 mg PO DAILY [facility] Stop: 02/25/22 08:59 Last Admin: 01/28/22 07:45 Dose: 81 mg Atorvastatin Calcium (Atorvastatin 40 Mg Tab) 40 mg PO QAM [facility] Stop: 02/24/22 08:59 Last Admin: 01/28/22 07:45 Dose: 40 mg Bisacodyl (Bisacodyl 10 Mg Supp) 10 mg [place] DAILY PRN PRN Reason: Constipation Stop: 02/24/22 15:31 Citalopram Hydrobromide (Citalopram 20 Mg Tab) 10 mg PO DAILY [facility] Stop: 02/24/22 08:59 Last Admin: 01/28/22 07:45 Dose: 10 mg Clopidogrel Bisulfate (Clopidogrel Bisulfate 75 Mg Tab) 75 mg PO QAM [facility] Stop: 02/25/22 08:59 Last Admin: 01/28/22 07:44 Dose: 75 mg Docusate Sodium (Docusate Sodium 100 Mg Cap) 100 mg PO BID [facility] Stop: 02/24/22 20:59 Last Admin: 01/28/22 07:44 Dose: 100 mg Ferrous Sulfate (Ferrous Sulfate 325 Mg Tab) [facility] Stop: 02/24/22 08:59 Last Admin: 01/28/22 07:44 Dose: 325 mg Ceftriaxone Sodium 1,000 mg/ (Dextrose) 60 mls @ 100 mls/hr IV Q24H [facility]; Protocol Stop: 02/04/22 17:59 Last Infusion: 01/27/22 17:59 Dose: Infused Magnesium Hydroxide (Magnesium Hydroxide Susp 30 Ml Udc) 30 ml PO Q6H PRN PRN Reason: Constipation Stop: 02/24/22 15:31 Metoclopramide HCl (Metoclopramide Hcl Inj 5 Mg/Ml 2 Ml Vial) 10 mg IV Q6H PRN PRN Reason: Nausea And Vomiting Stop: 02/24/22 15:31 Metoprolol Succinate (Metoprolol Succ 25mg Ext Rel Tab) 25 mg PO DAILY [facility] Stop: 02/25/22 08:59 Last Admin: 01/28/22 07:45 Dose: 25 mg Multivitamins (Multivitamin Tab) [address] [facility] Stop: 02/25/22 08:59 Last Admin: 01/28/22 07:44 Dose: 1 tab Naloxone HCl (Naloxone Hcl 0.4 Mg/1 Ml Vial/Carp) 0.1 mg IV Q5M PRN PRN Reason: Oversedation/Resp Depression Stop: 02/24/22 15:31 Ondansetron HCl (Ondansetron Inj 2 Mg/Ml 2 Ml Vial) 4 mg IV Q6H PRN PRN Reason: Nausea And Vomiting Stop: 02/24/22 15:31 Oxycodone HCl (Oxycodone Hcl Ir 5 Mg Tab (Immediate Release)) 2.5 mg PO Q6H PRN PRN Reason: Moderate Pain 4-8 Stop: 02/07/22 22:29 Oxycodone HCl (Oxycodone Hcl Ir 5 Mg Tab (Immediate Release)) 5 mg PO Q6H PRN PRN Reason: severe pain (9,10) Stop: 02/10/22 11:01 Last Admin: 01/28/22 01:27 Dose: 5 mg Pantoprazole Sodium (Pantoprazole 40 Mg Tab) 40 mg PO DAILY [facility] Stop: 02/24/22 08:59 Last Admin: 01/28/22 07:44 Dose: 40 mg Sennosides (Senna 8.6 Mg Tab) 17.2 mg PO HS [facility] Stop: 02/24/22 20:59 Last Admin: 01/27/22 21:29 Dose: Not Given Vitamin D (Cholecalciferol 5,000 Units 125 Mcg Tab) 5,000 [facility] Stop: 02/24/22 08:59 Last Admin: 01/28/22 07:45 Dose: 5,000 units
--- NOTE | 2022-01-28 12:06 | XRay Report ---
XR chest 1V portable HISTORY: elevated wbc COMPARISON: Chest 01/24/2022. FINDINGS: No change in the right apical 5 cm bleb and suture material within the right lung apex. The re is a metallic embolization device within the right suprahilar region, unchanged. Stable scarlike d ensities within the right medial upper lobe. Otherwise, no new focal lung consolidations to suggest p neumonia. No evidence for bone edema. Calcifications within the aortic knob. The heart is top normal in size. This remains unchanged. No pneumothorax. No pleural effusions. The lungs are hyperexpanded w ith apical predominant emphysematous changes. There are old, healed left-sided rib fractures. IMPRESSION: 1. Stable chronic/postoperative changes noted within the right upper lobe. 2. No new focal lung consolidations to suggest pneumonia. ACT 112: Negative or not required by law. Electronically signed by: Jesus Hawkins M.D. 01/28/2022 12:05 PM
[2022-01-28 12:26] LABS: Appearance Urine Clear (Clear); Bacteria Urine Automated Negative (Negative); Blood Urine Negative (Negative); Color Urine Dark Yellow; Glucose Urine UA Negative (Negative); Ketones Urine Trace (Negative); Leukocyte Esterase Urine Trace (Negative); Nitrite Urine Positive (Negative); Protein Urine 1+ (Negative); Specific Gravity Urine 1.039 (1.000-1.030); Urobilinogen Urine Negative (Negative); pH Urine 5.5 (4.5-7.5)
[2022-01-28 12:31] LABS: Bilirubin Urine 1+ (Negative)
[2022-01-28 12:40] LABS: Mucus Urine Present (None Prsent)
[2022-01-28 12:41] LABS: RBC Urine Automated 0-4 /hpf (0-4)
[2022-01-28] MEDS: cefTRIAXone SODIUM 1,000 MG in DEXTROSE 5% 50 ML IV SCH (16:48)
[2022-01-28] MEDS: SENNA 8.6 MG TAB PO SCH (20:16)
[2022-01-28] MEDS: ENOXAPARIN INJ 40 MG/0.4 ML SYR SQ SCH (20:20)
[2022-01-29] MEDS: PANTOprazole 40 MG TAB PO SCH (08:32)
[2022-01-29] MEDS: FERROUS SULFATE 325 MG TAB PO SCH (08:32)
[2022-01-29] MEDS: CLOPIDOGREL BISULFATE 75 MG TAB PO SCH (08:33)
[2022-01-29] MEDS: ACETAMINOPHEN 500 MG TAB PO SCH ×3 (08:33→22:48)
[2022-01-29] MEDS: CITALOPRAM 20 MG TAB PO SCH (08:33)
[2022-01-29] MEDS: ATORVASTATIN 40 MG TAB PO SCH (08:33)
[2022-01-29] MEDS: DOCUSATE SODIUM 100 MG CAP PO SCH (08:33)
[2022-01-29] MEDS: MULTIVITAMIN TAB PO SCH (08:33)
[2022-01-29] MEDS: METOPROLOL SUCC 25MG EXT REL TAB PO SCH (08:33)
[2022-01-29] MEDS: CHOLECALCIFEROL 5,000 UNITS 125 MCG TAB PO SCH (08:33)
[2022-01-29 13:49] LABS: Hematocrit (blood only) 26.9 % (34.1-44.9); Hemoglobin 8.4 g/dl (12.0-16.0); Mean Corpuscular Hemoglobin 28.8 pg (25.0-34.0); Mean Corpuscular Hgb Conc 31.2 g/dL (32.0-36.0); Mean Corpuscular Volume 92.1 fL (80.0-100.0); Mean Platelet Volume 9.3 fL (9.4-12.3); Platelet Count 269 K/uL (130-400); RDW Coefficient of Variation 14.5 % (11.5-14.5); Red Blood Count 2.92 M/uL (3.93-5.22)
[2022-01-29 14:17] LABS: Calcium 8.4 mg/dl (8.5-10.1); Creatinine Clr Calc Pharmacy 70.5 ml/min; Est GFR (African American) 111.3 ml/min; Magnesium 1.6 mg/dl (1.7-2.4); Phosphorus 2.5 mg/dl (2.5-4.9); Potassium 3.3 mmol/L (3.5-5.1)
[2022-01-29] MEDS ORDERED: POTASSIUM CHLORIDE 20 MEQ/15 ML UDC PO STA (14:51)
--- NOTE | 2022-01-29 14:53 | Hospitalist Progress Note ---
Date of Service January 29, 2022 Assessment & Plan (1) Closed hip fracture: (2) Fall: (3) Acute leg pain: Plan This is a 81-year-old female with history of CAD, CHF diastolic type, hypertension, COPD, CVA, history of bilateral carotid artery stenosis, vertebral artery dissection presented 01/24 w/ left hip pain after mechanical fall and found to have closed left hip fracture in the ED. Of note, patient is mildly confused at baseline and becomes increasingly confused when she is away from familiar environment per patient's daughter. She is being managed for the following: Closed hip fracture, s/p mechanical fall Acute on chronic anemia, likely acute blood loss anemia secondary to hip fracture S/P ORIF of Left displaced 4 part intertrochanteric fx, POD # 4, Dr. Khalil Pain/wound management per orthopedic Activity and therapy as directed by Ortho Monitor hemoglobin, 8.2 today bowel regimen of colace and senna PRN, having routine bowel movements (increased stools today 01/29 - will put stool softeners on hold) Acute blood loss anemia in setting of surgery s/p 2 units PRBC 01/25/22 hgb 8.4 today (8.2 yesterday), stable continue to monitor closely Leukocytosis, possible UTI Slight downtrend to 14.1 (14.82 yesterday) previous admission revealed a reactive leukocytosis, difficult to obtain reliable hx to determine source given mental status Afebrile without changes on CXR, wbc slightly decreased, procal wnl Admitting UA suggestive of UTI and WBC elevated at 18.3 5K --> downtrending to 14k Completed 6 day course of Rocephin Repeat urine culture without growth. Blood cultures without growth to date Hypomagnesemia repleted and resolved Delirium, associated with likely underlying dementia pt continues to be confused which is inhibiting her progress with therapy, this does seem to be improving she will require SNF for further care IV morphine d/c and placed on oxy IR 2.5mg for mod pain and 5mg for severe pain trying to avoid all mood altering agents if able On scheduled APAP 1g tid she is on IV antibiotic for presumed UTI History of CAD Hx of TIA, CVA, B/L significant carotid stenosis, hx of vertebral artery dissection (incidental finding on imaging during 11/02 admission) Denies any chest pain or cardiac symptoms asa and plavix resumed On Lipitor and metoprolol after further review of chart pt was to only be on DAPT x 21 days and then single agent indefinitely to be determined at neurology follow up she was to f/u with neuro 6 weeks post hospital stay; however appt isn't scheduled til due to pt immobility will place pt on SQ Lovenox, continue plavix but hold ASA. When SQ Lovenox D/C then resume ASA until neuro appt History of CHF, systolic and diastolic type, chronic Euvolemic DVT prophylaxis: Start Lovenox, hold asa DNR/DNI Disposition: med/surg, Plan to D/C to [facility] tomorrow. Will need Pfizer covid booster ordered on day of discharge Pt was seen and examined in collaboration with Dr. Stahl, please see addendum Admission and Anticipated Discharge Date Admission Date: January 24, 2022 Supervising Physician Co-Signing Physician Notes Patient seen and examined by me, care coordinated with Kathi Taylor PA-C, please refer to her note above for further detail. Currently patient is lying in bed, in no acute distress. Per RN, she had several BMs - will hold stool softener for now. Patient is status post hip surgery - but does not keep her LLE in correct position - made RN aware.. Patient is able to answer simple questions appropriately. She denies any fevers, chills, chest pain, shortness of breath, abdominal pain, nausea vomiting. Per RN, daughter was visiting earlier. Likely DC to SNF tmrw. MD Maribeth Subjective Patient was seen and examined in room 379-1 in follow-up for left hip fracture status postrepair. Resting comfortably and feeling "okay" today and "not as weak". Appetite at baseline. No fever, chills, CP, SOB, N/V, abdominal pain, dysuria or constipation. ROS unreliable given mental status. Review of Systems Review of Systems: ROS unreliable Physical Exam Physical Exam: Gen: Elderly, female, bilateral temporal wasting, confused but pleasant, thin, frail, A&O x2 HEENT: Normocephalic, atraumatic, conjunctivae moist, sclerae anicteric, mucous membranes dry Lung: Clear to Auscultation bilaterally, no wheezes/rales/rhonchi Heart: Regular rate, regular rhythm, no murmurs, rubs, or gallops Abdomen: Soft, NT, ND +BS x 4 Extremities: No edema, LLE Dressing clean and dry Skin: Warm, no rash, negative turgor. Results & Data Results & Data ([facility]) Vital Signs (Past 12 Hours) Vital Signs Temp Pulse Resp BP Pulse Ox 01/29/22 07:07 36.9 C 85 16 156/81 H 95 Laboratory Results Short CBC 01/29/22 Range/Units 13:39 WBC 14.10 H (4.8-10.8) K/ul Hgb 8.4 L (12.0-16.0) g/dl Hct 26.9 L (34.1-44.9) % Plt Count 269 (130-400) K/uL BMP 01/29/22 13:39 Sodium 137 Potassium 3.3 L Chloride 102 Carbon Dioxide 29 BUN 11 Creatinine 0.44 L Glucose 141 H Calcium 8.4 L Diagnostic Findings Hip/Pelvis X-Ray 01/24/22 16:15 XR hip LT 2V w pelvis CLINICAL HISTORY: likely d/l TECHNIQUE: 2 views of the left hip and single frontal view of the pelvis were obtained. Comparison: None available at the time of this dictation. FINDINGS: There is an acute comminuted fracture of the left femur at the greater trochanter. Stewart lateral angulation is seen. Degenerative changes are seen in the hip joint. Soft tissue swelling is seen about the hip. IMPRESSION: Comminuted fracture of the left femur at the greater trochanter. Surrounding soft tissue swelling is seen. ACT 112: Negative or not required by law. Electronically signed by: Paul Bridges M.D. 01/24/2022 5:34 PM Chest X-Ray 01/24/22 17:15 XR chest 1V portable CLINICAL HISTORY: hip TECHNIQUE: Single frontal radiograph of the chest was obtained. Comparison: Comparison is made to chest radiograph 11/04/2021 FINDINGS: No lines and tubes are seen. Calcified aortic knob is seen. The lungs are clear. No evidence of pleural effusion or pneumothorax. Calcifications are noted in the bilateral breasts. IMPRESSION: No acute chest disease. ACT 112: Negative or not required by law. Electronically signed by: Paul Bridges M.D. 01/24/2022 5:32 PM Abdomen/Pelvis CT 01/24/22 21:05 CT abd pelvis IV con only CLINICAL HISTORY: WBC 18, tachy, calcium stones, blood in urine TECHNIQUE: Helical axial images of the abdomen and pelvis were obtained and displayed. Automated dose lowering techniques and/or adjustment according to patient size were utilized for this exam. This exam was performed with intravenous contrast. CT DOSE: 493.64 mGy.cm COMPARISON: Comparison is made to CT pelvis 11/04/2021 FINDINGS: Lower chest: Emphysema is noted in the lower lungs. Liver: Unremarkable. No focal lesions are seen. Gallbladder and biliary tree: No calcified gallstones. Normal caliber wall. Physiologic prominence of the biliary ducts is noted. Pancreas: Unremarkable, no focal lesions. Spleen: Unremarkable. Adrenals: Unremarkable. Kidneys and ureters: Unremarkable. Bladder: Rivas catheter is seen. Reproductive organs: Unremarkable. Bowel: Diverticulosis is seen without evidence of diverticulitis. The appendix is normal. A duodenal diverticulum is noted. Lymph nodes Retroperitoneal: Unremarkable. Pelvic: Unremarkable. Mesenteric: Unremarkable. Peritoneum: Normal. Vessels: Atherosclerotic calcifications are seen. Abdominal wall: Unremarkable. Bones: Degenerative changes in the visualized spine. Previously noted pelvic fractures are again seen with some interval healing changes. Acute fracture of the left femoral neck is seen with surrounding hematoma. IMPRESSION: 1. No evidence of hydronephrosis/obstructive nephrolithiasis. No CT evidence of pyelonephritis. 2. Acute fracture of the left femoral neck. ACT 112: Negative or not required by law. Electronically signed by: Paul Bridges M.D. 01/24/2022 10:29 PM Hip X-Ray 01/25/22 00:00 FL hip LT 2-3V CLINICAL HISTORY: LEFT HIP IM ILEANA COMPARISON STUDY: Pelvis and left hip radiographs January 24, 2022. FLUOROSCOPY TIME: 3 minutes and 6 seconds. FLUOROSCOPIC IMAGES: 6 FINDINGS: Fluoroscopy was provided during open reduction and internal fixation of the intertrochanteric fracture of the left femur with intramedullary ileana, femoral neck blade and transverse locking screw. Fracture alignment has significantly improved. No unexpected radiopaque foreign bodies are present. Healing left pubic ring fractures are incidentally noted. IMPRESSION: Fluoroscopy provided during open reduction and internal fixation of the intertrochanteric fracture of the left femur. ACT 112: Negative or not required by law. Electronically signed by: Alex Bran M.D. 01/26/2022 1:28 PM Hip/Pelvis X-Ray 01/25/22 15:32 XR hip LT 2V w pelvis CLINICAL HISTORY: postop troch nail. COMPARISON STUDY: 01/24/2022 TECHNIQUE: Multiple left hip views FINDINGS: Bones: The patient is status post placement of an nail within the femoral neck and intratrochanteric ileana transfixing previously identified displaced intratrochanteric fracture. The fracture fragments are now in near anatomic alignment. There is no lytic or blastic lesion. Joints: The femoral head maintains its anatomic position within the acetabulum. The bones are in anatomic alignment. Soft tissues: There is no focal soft tissue abnormality. There is no radiopaque foreign body. IMPRESSION: 1. Status post internal fixation of intertrochanteric fracture. ACT 112: Negative or not required by law. Electronically signed by: Darinel Smith M.D. 01/25/2022 6:32 PM Chest X-Ray 01/28/22 10:51 XR chest 1V portable HISTORY: elevated wbc COMPARISON: Chest 01/24/2022. FINDINGS: No change in the right apical 5 cm bleb and suture material within the right lung apex. There is a metallic embolization device within the right suprahilar region, unchanged. Stable scarlike densities within the right medial upper lobe. Otherwise, no new focal lung consolidations to suggest pneumonia. No evidence for bone edema. Calcifications within the aortic knob. The heart is top normal in size. This remains unchanged. No pneumothorax. No pleural effusions. The lungs are hyperexpanded with apical predominant emphysematous changes. There are old, healed left-sided rib fractures. IMPRESSION: 1. Stable chronic/postoperative changes noted within the right upper lobe. 2. No new focal lung consolidations to suggest pneumonia. ACT 112: Negative or not required by law. Electronically signed by: Jesus Hawkins M.D. 01/28/2022 12:05 PM Medications Administered Current Inpatient Medications Acetaminophen (Acetaminophen 500 Mg Tab) 1,000 mg PO Q8H IZABELLA Stop: 02/24/22 00:00 Last Admin: 01/29/22 15:24 Dose: 1,000 mg Alendronate Sodium (Alendronate Sodium 70 Mg Tab) 70 mg PO Sa@0630 IZABELLA Stop: 02/25/22 06:29 Last Admin: 01/26/22 05:34 Dose: 70 mg Aspirin (Aspirin 81 Mg Ectab) 81 mg PO DAILY IZABELLA Stop: 02/25/22 08:59 Last Admin: 01/28/22 07:45 Dose: 81 mg Atorvastatin Calcium (Atorvastatin 40 Mg Tab) 40 mg PO QAM [facility] Stop: 02/24/22 08:59 Last Admin: 01/29/22 08:33 Dose: 40 mg Bisacodyl (Bisacodyl 10 Mg Supp) 10 mg NC DAILY PRN PRN Reason: Constipation Stop: 02/24/22 15:31 Citalopram Hydrobromide (Citalopram 20 Mg Tab) 10 mg PO DAILY [facility] Stop: 02/24/22 08:59 Last Admin: 01/29/22 08:33 Dose: 10 mg Clopidogrel Bisulfate (Clopidogrel Bisulfate 75 Mg Tab) [facility] [place] Stop: 02/25/22 08:59 Last Admin: 01/29/22 08:33 Dose: 75 mg Docusate Sodium (Docusate Sodium 100 Mg Cap) 100 mg PO BID [facility] Stop: 02/24/22 20:59 Last Admin: 01/29/22 08:33 Dose: Not Given Enoxaparin Sodium (Enoxaparin Inj 40 Mg/0.4 Ml Syr) 40 mg SQ HS [facility] Stop: 02/27/22 20:59 Last Admin: 01/28/22 20:20 Dose: Not Given Ferrous Sulfate (Ferrous Sulfate 325 Mg Tab) 325 mg PO QAM [facility] Stop: 02/24/22 08:59 Last Admin: 01/29/22 08:32 Dose: 325 mg Magnesium Hydroxide (Magnesium Hydroxide Susp 30 Ml Udc) 30 ml PO Q6H PRN PRN Reason: Constipation Stop: 02/24/22 15:31 Metoclopramide HCl (Metoclopramide Hcl Inj 5 Mg/Ml 2 Ml Vial) 10 mg IV Q6H PRN PRN Reason: Nausea And Vomiting Stop: 02/24/22 15:31 Metoprolol Succinate (Metoprolol Succ 25mg Ext Rel Tab) 25 mg PO DAILY [facility] Stop: 02/25/22 08:59 Last Admin: 01/29/22 08:33 Dose: 25 mg Multivitamins (Multivitamin Tab) 1 tab PO QAM [facility] Stop: 02/25/22 08:59 Last Admin: 01/29/22 08:33 Dose: 1 tab Naloxone HCl (Naloxone Hcl 0.4 Mg/1 Ml Vial/Carp) 0.1 mg IV Q5M PRN PRN Reason: Oversedation/Resp Depression Stop: 02/24/22 15:31 Ondansetron HCl (Ondansetron Inj 2 Mg/Ml 2 Ml Vial) 4 mg IV Q6H PRN PRN Reason: Nausea And Vomiting Stop: 02/24/22 15:31 Oxycodone HCl (Oxycodone Hcl Ir 5 Mg Tab (Immediate Release)) 2.5 mg PO Q6H PRN PRN Reason: Moderate Pain 4-8 Stop: 02/07/22 22:29 Oxycodone HCl (Oxycodone Hcl Ir 5 Mg Tab (Immediate Release)) 5 mg PO Q6H PRN PRN Reason: severe pain (9,10) Stop: 02/10/22 11:01 Last Admin: 01/28/22 12:48 Dose: 5 mg Pantoprazole Sodium (Pantoprazole 40 Mg Tab) 40 mg PO DAILY [facility] Stop: 02/24/22 08:59 Last Admin: 01/29/22 08:32 Dose: 40 mg Sennosides (Senna 8.6 Mg Tab) 17.2 mg PO HS [facility] Stop: 02/24/22 20:59 Last Admin: 01/28/22 20:16 Dose: 17.2 mg Vitamin D (Cholecalciferol 5,000 Units 125 Mcg Tab) 5,000 units PO QAM [facility] Stop: 02/24/22 08:59 Last Admin: 01/29/22 08:33 Dose: 5,000 units
[2022-01-29] MEDS ORDERED: MAGNESIUM SULFATE / D5W 1 GM/100 ML BAG IV ONE (14:57)
[2022-01-29] MEDS ORDERED: POTASSIUM CHLORIDE PWD 20 MEQ PACK PO ONE (15:15)
[2022-01-29] MEDS: ENOXAPARIN INJ 40 MG/0.4 ML SYR SQ SCH (20:50)
[2022-01-30] MEDS: MULTIVITAMIN TAB PO SCH (08:04)
[2022-01-30] MEDS: ACETAMINOPHEN 500 MG TAB PO SCH (08:04)
[2022-01-30] MEDS: CLOPIDOGREL BISULFATE 75 MG TAB PO SCH (08:04)
[2022-01-30] MEDS: FERROUS SULFATE 325 MG TAB PO SCH (08:04)
[2022-01-30] MEDS: PANTOprazole 40 MG TAB PO SCH (08:04)
[2022-01-30] MEDS: METOPROLOL SUCC 25MG EXT REL TAB PO SCH (08:04)
[2022-01-30] MEDS: CITALOPRAM 20 MG TAB PO SCH (08:05)
[2022-01-30] MEDS: CHOLECALCIFEROL 5,000 UNITS 125 MCG TAB PO SCH (08:05)
[2022-01-30] MEDS: ATORVASTATIN 40 MG TAB PO SCH (08:05)
[2022-01-30 08:06] LABS: Hemoglobin 8.9 g/dl (12.0-16.0); Mean Corpuscular Hemoglobin 28.2 pg (25.0-34.0); Mean Corpuscular Hgb Conc 30.7 g/dL (32.0-36.0); Mean Corpuscular Volume 91.8 fL (80.0-100.0); Mean Platelet Volume 9.5 fL (9.4-12.3); Platelet Count 314 K/uL (130-400); RDW Coefficient of Variation 14.4 % (11.5-14.5); Red Blood Count 3.16 M/uL (3.93-5.22); White Blood Count 13.49 K/ul (4.8-10.8)
[2022-01-30 08:28] LABS: BUN Creatinine Ratio 24.3 (10-20); Calcium 8.6 mg/dl (8.5-10.1); Creatinine Clr Calc Pharmacy 83.9 ml/min; Est GFR (African American) 117.8 ml/min; Est GFR (Non-African American) 101.6 ml/min; Magnesium 1.6 mg/dl (1.7-2.4); Phosphorus 2.5 mg/dl (2.5-4.9); Potassium 3.7 mmol/L (3.5-5.1)
[2022-01-30] MEDS ORDERED: MAGNESIUM OXIDE 400 MG TAB PO SCH (09:45)
[2022-01-30] MEDS ORDERED: COVID-19 VACC, TRIS(PFIZER)/PF 30 MCG/0.3 ML VIAL IM ONE (11:00)
--- NOTE | 2022-01-30 12:57 | Discharge Summary ---
Date of Service January 30, 2022 Admission HPI Per Admitting Provider 81-year-old female with history of CAD, congestive heart failure, systolic and diastolic type, hypertension, COPD, CVA, history of bilateral carotid artery stenosis, vertebral artery dissection Presenting with left hip pain after a mechanical fallPatient currently at baseline state of health until today, going to the bathroom combing her hair, after patient turned around, patient tripped and fell in the bathroom, on her left side. Patient developed severe pain after the event and was brought to the ER for evaluation. At the ER, patient found to have left intertrochanteric femur fracture. On exam, patient seen sitting up in bed, not in distress, states pain is improving after receiving analgesics. No chest pain, shortness of breath, palpitations, dizziness No other symptoms Admission Exam Per Admitting Provider General- oriented x 2-3, not in distress, speaks in sentences with no effort or accessory muscle use Head- atraumatic Eyes- PERRL, EOMI, anicteric ENT- oropharynx clear Neck- supple, no JVD, no adenopathy, no thyromegaly; carotids +2/2, no bruits appreciated Lungs- clear to auscultation bilaterally, no rales/wheezes Heart- normal rate, regular rhythm; no murmur, no gallop, no rub appreciated Abdomen- normal bowel sounds, nondistended, soft, nontender, no masses or hepatosplenomegaly Extremities- no pretibial edema, no calf tenderness; peripheral pulses intact Left thigh: Mild edema, no hematoma, no tenderness, no warmth Neuro- alert, oriented x 3; CN 2-12 grossly intact; motor 5/5 bilaterally;sensa tion 100% on all extremities; no other gross focal neurologic deficits Skin- warm & dry Principal Diagnosis left hip fracture, acute blood loss anemia Discharge Exam Gen: Elderly, female, bilateral temporal wasting, confused but pleasant, thin, frail, A&O x2 HEENT: Normocephalic, atraumatic, conjunctivae moist, sclerae anicteric, mucous membranes dry Lung: Clear to Auscultation bilaterally, no wheezes/rales/rhonchi Heart: Regular rate, regular rhythm, no murmurs, rubs, or gallops Abdomen: Soft, NT, ND +BS x 4 Extremities: No edema, LLE Dressing clean and dry Skin: Warm, no rash, negative turgor. Discharge Data Allergies Allergy/AdvReac Type Severity Reaction Status Date / Time No Known Drug Allergies Allergy Unknown . Verified 01/24/22 19:28 Consultations 01/24/22 17:29 ED Decision to Admit Stat 01/24/22 18:29 Consult Orthopedic Surgery Routine Procedures Performed Operation Date: 01/25/22 12:00 Actual Procedures p Intramedullary Bryan Left Femur(Left) - Van Khalil DO Ordered Studies 01/24/22 21:05 CT abd pelvis IV con only Stat FINDINGS: Lower chest: Emphysema is noted in the lower lungs. Liver: Unremarkable. No focal lesions are seen. Gallbladder and biliary tree: No calcified gallstones. Normal caliber wall. Physiologic prominence of the biliary ducts is noted. Pancreas: Unremarkable, no focal lesions. Spleen: Unremarkable. Adrenals: Unremarkable. Kidneys and ureters: Unremarkable. Bladder: Rivas catheter is seen. Reproductive organs: Unremarkable. Bowel: Diverticulosis is seen without evidence of diverticulitis. The appendix is normal. A duodenal diverticulum is noted. Lymph nodes Retroperitoneal: Unremarkable. Pelvic: Unremarkable. Mesenteric: Unremarkable. Peritoneum: Normal. Vessels: Atherosclerotic calcifications are seen. Abdominal wall: Unremarkable. Bones: Degenerative changes in the visualized spine. Previously noted pelvic fractures are again seen with some interval healing changes. Acute fracture of the left femoral neck is seen with surrounding hematoma. IMPRESSION: 1. No evidence of hydronephrosis/obstructive nephrolithiasis. No CT evidence of pyelonephritis. 2. Acute fracture of the left femoral neck. 01/25/22 FL hip LT 2-3V Routine Hospital Course (1) Closed hip fracture: (2) Fall: (3) Acute leg pain: (4) CVA (cerebral vascular accident): (5) Chronic HFrEF (heart failure with reduced ejection fraction): (6) HTN (hypertension): (7) Hypomagnesemia: (8) HLD (hyperlipidemia): Plan This is a 81-year-old female with history of CAD, CHF diastolic type, hypertension, COPD, CVA, history of bilateral carotid artery stenosis, vertebral artery dissection presented 01/24 w/ left hip pain after mechanical fall and found to have closed left hip fracture in the ED. Hip/pelvis XR revealed acute fracture of the left femoral neck. Underwent ORIF of left displaced intertrochanteric fracture on 01/25/[address] Khalil. Activity and therapy as directed by Ortho with 2-week follow-up instructed. Also developed acute blood loss anemia following surgery that required 2 units PRBCs. Hemoglobin now stable and increasing. Hemoglobin of 8.9 at time of discharge. Repeat CBC in 1 week. Also noted to have leukocytosis during admission in setting of abnormal UA and was treated with a 6-day course of Rocephin for possible UTI. Urine culture and blood culture without growth. Noted to have hypomagnesemia throughout admission with replacement. Will discharge on oral magnesium oxide with repeat magnesium in 1 week. Patient also with history of vertebral artery dissection noted incidentally during October 2021 admission. Continue aspirin and Plavix as directed by neurology. Next appointment scheduled with Dr. Kirby in May 2022. Received COVID booster prior to discharge. Hemodynamically stable and comfortable. Total Time Total Time Spent Total Time Spent (In Minutes): 45 Discharge Plan Discharge Items Patient Disposition: Transfer [facility] Fac Reason For Visit: LT HIP FRACTURE Discharge Diagnosis: left hip fracture, acute blood loss anemia Activity: Per Instructions section Non-emergency contact: Primary Care Provider Call non-emergency contact if: you have any medication questions, your symptoms worsen, your pain is not controlled and you have a fever Follow-up/Referrals: Van Khalil DO [Surgeon] - (Follow up in 2 weeks for your first post operative visit.) Rose Frank MD [Primary Care Provider] - Diet: Regular Diet Texture: Easy to Chew Addtl Attending Provider Instructions: You were admitted with left hip pain after fall and found to have closed left hip fracture and underwent surgical repair by Dr. Khalil on 01/25/22 Activity and therapy as directed by Ortho, instructions below Received 2 units packed red blood cell transfusion due to acute blood loss anemia following surgery You have also had low magnesium during admission, which has been replaced Completed Rocephin antibiotic course for urinary tract infection. Blood cultures negative Continue aspirin and Plavix antiplatelet therapy for history of vertebral artery dissection incidentally noted in October 2021. Neurology follow-up scheduled for 05/15/[address] Kirby MEDICATION CHANGES: Start magnesium oxide 400mg daily. Repeat magnesium level in 1 week to see if continued supplementation is needed. RECOMMENDATIONS FOR FOLLOW-UP: Follow up with Dr. Khalil of orthopedics in 2 weeks Repeat CBC in 1 week to check H/H OTHER INSTRUCTIONS: Seek medical attention if you have: * temperature above 101 * chest pain or trouble breathing * abdominal pain, nausea, vomiting * diarrhea, dark stools or bloody stools * any unanswered questions or concerns Call [phone] if symptoms are severe. Please take good care of yourself. Call if you have any questions or problems. You can reach a [facility] hospitalist on duty at [facility] 24 hours a day by calling [phone]. Addtl Sustainability Executive Director Provider Instructions: [facility] DISCHARGE INSTRUCTIONS: HIP FRACTURE SELF CARE INSTRUCTIONS: A. You are to ambulate with a walker or crutches for approximately 6 weeks. B. You are TOE TOUCH WEIGHT BEARING on your operative lower extremity for at least 6 weeks. C. Wear low heeled shoes with non-slip soles D. Be sure that your floors are free of things that could trip you throw rugs, electrical cords, and small objects. Avoid wet and waxed floors, especially with crutches/walker/cane. E. Try to walk several times a day with rest periods between. F. You may shower 48 hours after surgery and get the incision area wet, but DO NOT soak or submerge incision area in water. (No baths, swimming pools, hot tubs) G. You may have a large, band-aid like dressing over your incision (Aquacel). This will remain on your incision for 7 days, and then can be removed. You CAN shower with this on. If incision is leaking through the dressing, please call the office . H. Do NOT apply soap or any ointment/lotions directly over incision. I. You may use ice as needed to operative site. SPECIAL CARE INSTRUCTIONS: VERY IMPORTANT TO READ AND REVIEW A. You may be at risk for phlebitis or blood clots. a. Wear surgical stockings (JOJO hose) for 2 weeks after surgery to improve circulation and reduce swelling. b. Take ASPIRIN and PLAVIX 4 weeks or as directed. This is your blood thinner. B. There are a few signs you need to watch for after you are home. Call [facility] at [phone] if you experience any of the following: a. If you have a temperature of 101 degrees or higher. b. Sudden increase in pain in your hip not relieved by rest or pain medication. c. Any fluid or drainage from the incision; redness of the incision. d. Shortness of breath or chest pain. C. Call your physician if: a. Temperature is greater than 101 degrees (F). b. Pain is not relieved by prescribed pain medications . c. Increase drainage or redness from incision. d. Unanswered questions or concerns. D. Pain Medication: a. You will be prescribed pain medication upon discharge that should last till your first post-operative appointment. b. If you experience nausea and/or skin rash, discontinue this medication and contact our office for an alternative medication. c. Caution- narcotic pain medication can cause constipation. FOLLOW UP VISIT: Please call [facility] at [phone] to schedule a follow up appointment 10-14 days from the date of your surgery date. Pending Studies at Discharge: No Stand-Alone Forms: My [facility] Skilled Items Patient informed of condition?: Yes DNR: Yes Discharge Level of Care: Skilled Communicable Disease: No Discharge Prognosis: Stable Lines: None Urinary Catheter: No Medications and DC Order Prescriptions: New magnesium oxide 400 mg (241.3 mg magnesium) Tablet 400 mg PO QAM Qty: 20 0RF Rx Instructions: Take once daily Continued multivitamin Tablet 1 tab PO DAILY Qty: 20 0RF acetaminophen 325 mg Tablet 650 mg PO Q4H PRN (Reason: Fever Or Pain) Qty: 30 0RF polyethylene glycol 3350 [Miralax] 17 gram Powder In Packet 17 g PO DAILY PRN (Reason: constipation) Qty: 14 0RF citalopram 10 mg tablet 10 mg PO QAM Qty: 30 0RF alendronate 70 mg tablet 70 mg PO WK Qty: 4 0RF clopidogrel 75 mg Tablet 75 mg PO QAM Qty: 30 0RF aspirin 81 mg Tablet,Delayed Release (Dr/Ec) 81 mg PO DAILY Qty: 30 0RF metoprolol succinate 25 mg tablet extended release 24 hr 25 mg PO DAILY Qty: 30 0RF ferrous sulfate 325 mg (65 mg iron) Tablet,Delayed Release (Dr/Ec) 325 mg PO QAM Qty: 30 0RF cholecalciferol (vitamin D3) 125 mcg (5,000 unit) Tablet 5,000 unit PO QAM Qty: 30 0RF thiamine mononitrate (vit B1) 100 mg Tablet 100 mg PO QAM Qty: 30 0RF Changed atorvastatin 40 mg tablet 40 mg PO HS Qty: 30 0RF docusate sodium 100 mg capsule 100 mg PO QAM Qty: 30 0RF pantoprazole [Protonix] [address] for susp in packet 40 mg PO DAILYBB Qty: 30 0RF Discharge Orders: Discharge Order (Routine); Ordered 01/30/22 Ordered By: Kathi Taylor Admission Data Admit Date/Time: 01/24/22 18:29 Attending Provider: Philipp Stahl Admit Provider: Van Khalil Primary Care Provider: Rose Frank Other Providers: Lizandro Larios ; Van Khalil ; Vikas Hanson ; Vikas Pope at [facility] ; Kathi Taylor Other Interventions: Discharge Summary Assessment (RN) Last Done: 01/30/22 12:59 Supervising Physician Co-Signing Physician Notes Patient seen and examined by me, care coordinated with Kathi Taylor PA-C, please refer to her note above for further detail. Patient is status post hip surgery , hospital course summarized as above. Curr ently patient is lying in bed, in no acute distress. She is able to answer simple questions appropriately. She denies any fevers, chills, chest pain, shortness of breath, abdominal pain, nausea vomiting. Discharge exam as above. Plan to DC to [facility]. Will need to follow-up with orthopedics within 2 weeks. MD Maribeth
== END 2022-01-30 13:43 | DRG 481 ==
LOC: ED 15:50 → SUATTDRO 18:29 → 3N 18:29